=== PATIENT | female | born 1950 | race American Indian/Alaskan Native ===

== ENCOUNTER 2019-03-21 13:45 | Inpatient (IN) | payer MEDICARE ==
[2019-03-21 16:35] LABS: Basophils % (Auto) 0.5 % (0.0-1.8); Eosinophils # (Auto) 0.1 K/mm3 (0.0-0.4); Eosinophils % (Auto) 1.5 % (0.0-4.3); Hematocrit 33.9 % (30.3-42.9); Hemoglobin 10.9 gm/dl (10.1-14.3); Lymphocytes % (Auto) 16.6 % (13.4-35.0); Mean Corpuscular HGB Conc 32 % (30-34); Mean Corpuscular Volume 86 fl (79-97); Monocytes # (Auto) 0.6 K/mm3 (0.0-0.8); Monocytes % (Auto) 10.5 % (0.0-7.3); Platelet Count 375 K/mm3 (140-440); Red Blood Count 3.96 M/mm3 (3.65-5.03)
[2019-03-21 16:36] LABS: Red Cell Distribution Width 21.5 % (13.2-15.2)
[2019-03-21 16:46] LABS: INR 1.46 (0.87-1.13)
[2019-03-21 16:47] LABS: Partial Thromboplastin Time 37.5 Sec. (24.2-36.6)
[2019-03-21 16:55] LABS: Albumin 3.4 g/dL (3.9-5)
--- NOTE | 2019-03-21 16:59 | XRay Report ---
PROCEDURE: XR CHEST 1V AP TECHNIQUE: Chest AP portable HISTORY: Chest Pain COMPARISONS: FINDINGS: Cardiac silhouette is enlarged. There is bilateral pulmonary vascular congestion with interstitial pr ominence. SPECT more confluent opacity in the left lower lobe which is underpenetrated. No right effu mike identified. IMPRESSION: Cardiomegaly Findings suggestive of CHF Possible superimposed left lower lobe infiltrate/effusion. This document is electronically signed by Deepak Johnson MD., March 21 2019 04:57:22 PM ET
[2019-03-21 17:21] LABS: Bacteria,Urine 4+ /HPF (Negative); Bilirubin,Urine NEG (Negative); Blood,Urine NEG (Negative); Color,Urine Yellow (Yellow); Mucus,Urine FEW /HPF; Protein,Urine <15 mg/dL mg/dL (Negative); Urobilinogen,Urine < 2.0 mg/dL (<2.0)
[2019-03-21 17:25] LABS: Chol/HDL Ratio 3.38 %
--- NOTE | 2019-03-21 17:33 | Emergency Department Report ---
ED General Adult HPI - General Chief complaint: Arrhythmia/Palpitations Stated complaint: PAVEL CARDIA Time Seen by Provider: 03/21/19 14:35 Source: patient Mode of arrival: Stretcher Limitations: No Limitations - History of Present Illness Initial comments: She presents to the emergency department with the chief complaint of bradycardia. Patient states she was seen by her home health care nurse today and her heart rate was in the 40s. Patient states that she feels like she is going to pass out. Patient also complains of chest pain that radiates into her back and down into her lower abdomen and describes it as tearing in nature. Patient denies any headaches, shortness of breath. -: Sudden Location: chest Radiation: back Severity scale (0 -10): 4 Quality: other (tearing ) Consistency: constant Improves with: none Worsens with: none Associated Symptoms: chest pain Treatments Prior to Arrival: none - Related Data Allergies Allergy/AdvReac Type Severity Reaction Status Date / Time acetaminophen [From Percocet] Allergy Unknown Verified 03/21/19 14:24 codeine Allergy Unknown Verified 03/21/19 14:24 morphine Allergy Unknown Verified 03/21/19 14:24 oxycodone [From Percocet] Allergy Unknown Verified 03/21/19 14:24 tramadol Allergy Angioedema Verified 03/21/19 18:53 amlodipine AdvReac Headache Verified 03/21/19 14:24 clonidine AdvReac Headache Verified 03/21/19 14:24 sulfadiazine AdvReac Swelling Verified 03/21/19 14:24 ED Review of Systems ROS: Stated complaint: PAVEL CARDIA Other details as noted in HPI Constitutional: denies: chills, fever Eyes: denies: eye pain, eye discharge, vision change ENT: denies: ear pain, throat pain Respiratory: denies: cough, shortness of breath, wheezing Cardiovascular: denies: chest pain, palpitations Endocrine: no symptoms reported Gastrointestinal: denies: abdominal pain, nausea, diarrhea Genitourinary: denies: urgency, dysuria, discharge Musculoskeletal: denies: back pain, joint swelling, arthralgia Skin: denies: rash, lesions Neurological: denies: headache, weakness, paresthesias Psychiatric: denies: anxiety, depression Hematological/Lymphatic: denies: easy bleeding, easy bruising ED Past Medical Hx - Past Medical History Previous Medical History?: Yes Hx Hypertension: Yes Hx Congestive Heart Failure: Yes Additional medical history: pneumonia, hyperlipidemia - Social History Smoking Status: Never Smoker Substance Use Type: None ED Physical Exam - General Limitations: No Limitations General appearance: alert, in no apparent distress - Head Head exam: Present: atraumatic, normocephalic - Eye Eye exam: Present: normal appearance, PERRL, EOMI - ENT ENT exam: Present: mucous membranes moist - Neck Neck exam: Present: normal inspection - Respiratory Respiratory exam: Present: rales. Absent: respiratory distress - Cardiovascular Cardiovascular Exam: Present: regular rate, normal rhythm. Absent: systolic murmur, diastolic murmur, rubs, gallop - GI/Abdominal GI/Abdominal exam: Present: soft, normal bowel sounds. Absent: distended, tenderness - Extremities Exam Extremities exam: Present: normal inspection, other (pitting edema) - Back Exam Back exam: Present: normal inspection - Neurological Exam Neurological exam: Present: alert, oriented X3, CN II-XII intact. Absent: motor sensory deficit - Psychiatric Psychiatric exam: Present: normal affect, normal mood - Skin Skin exam: Present: warm, dry, intact, normal color. Absent: rash ED Course Vital Signs 03/21/19 14:24 Temperature 97.9 F Pulse Rate 50 L Respiratory 16 Rate Blood Pressure 98/49 O2 Sat by Pulse 99 Oximetry ED Medical Decision Making - Lab Data Result diagrams: 03/21/19 15:58 03/21/19 15:58 Lab Results 03/21/19 03/21/19 03/21/19 Range/Units 15:58 15:58 15:58 WBC 6.0 (4.5-11.0) K/mm3 RBC 3.96 (3.65-5.03) M/mm3 Hgb 10.9 (10.1-14.3) gm/dl Hct 33.9 (30.3-42.9) % MCV 86 (79-97) fl MCH 28 (28-32) pg MCHC 32 (30-34) % RDW 21.5 H (13.2-15.2) % Plt Count 375 (140-440) K/mm3 Lymph % (Auto) 16.6 (13.4-35.0) % [place] % (Auto) 10.5 H (0.0-7.3) % Eos % (Auto) 1.5 (0.0-4.3) % Baso % (Auto) 0.5 (0.0-1.8) % Lymph # 1.0 L (1.2-5.4) K/mm3 [place] # 0.6 (0.0-0.8) K/mm3 Eos # 0.1 (0.0-0.4) K/mm3 Baso # 0.0 (0.0-0.1) K/mm3 Seg Neutrophils % 70.9 H (40.0-70.0) % Seg Neutrophils # 4.3 (1.8-7.7) K/mm3 PT 18.7 H (12.2-14.9) Sec. INR 1.46 H (0.87-1.13) APTT 37.5 H (24.2-36.6) Sec. Sodium 147 H (137-145) mmol/L Potassium 3.3 L (3.6-5.0) mmol/L Chloride 103.0 (98-107) mmol/L Carbon Dioxide 32 H (22-30) mmol/L Anion Gap 15 mmol/L BUN 42 H (7-17) mg/dL Creatinine 1.5 H (0.7-1.2) mg/dL Estimated GFR 42 ml/min BUN/Creatinine Ratio 28 % Glucose 92 (65-100) mg/dL Calcium 9.0 (8.4-10.2) mg/dL Total Bilirubin 1.00 (0.1-1.2) mg/dL AST 16 (5-40) units/L ALT 11 (7-56) units/L Alkaline Phosphatase 85 (35-129) units/L Troponin T 0.141 H* (0.00-0.029) ng/mL NT-Pro-B Natriuret Pep (0-900) pg/mL Total Protein 7.1 (6.3-8.2) g/dL Albumin 3.4 L (3.9-5) g/dL Albumin/Globulin Ratio 0.9 % Triglycerides 73 (2-149) mg/dL Cholesterol 149 (50-199) mg/dL LDL Cholesterol Direct 104 (50-130) mg/dL HDL Cholesterol 44 (40-59) mg/dL Cholesterol/HDL Ratio 3.38 % Lipase (13-60) units/L Urine Color (Yellow) Urine Turbidity (Clear) Urine pH (5.0-7.0) Ur Specific [place] (1.003-1.030) Urine Protein (Negative) mg/dL Urine Glucose (UA) (Negative) mg/dL Urine Ketones (Negative) mg/dL Urine Blood (Negative) Urine Nitrite (Negative) Urine Bilirubin (Negative) Urine Urobilinogen (<2.0) mg/dL Ur Leukocyte Esterase (Negative) Urine WBC (Auto) (0.0-6.0) /HPF Urine RBC (Auto) (0.0-6.0) /HPF U Epithel Cells (Auto) (0-13.0) /HPF Urine Bacteria (Auto) (Negative) /HPF Urine Mucus /HPF Digoxin (0.9-2.0) ng/mL 03/21/19 03/21/19 03/21/19 Range/Units 15:58 15:58 15:58 WBC (4.5-11.0) K/mm3 RBC (3.65-5.03) M/mm3 Hgb (10.1-14.3) gm/dl Hct (30.3-42.9) % MCV (79-97) fl MCH (28-32) pg MCHC (30-34) % RDW (13.2-15.2) % Plt Count (140-440) K/mm3 Lymph % (Auto) (13.4-35.0) % [place] % (Auto) (0.0-7.3) % Eos % (Auto) (0.0-4.3) % Baso % (Auto) (0.0-1.8) % Lymph # (1.2-5.4) K/mm3 [place] # (0.0-0.8) K/mm3 Eos # (0.0-0.4) K/mm3 Baso # (0.0-0.1) K/mm3 Seg Neutrophils % (40.0-70.0) % Seg Neutrophils # (1.8-7.7) K/mm3 PT (12.2-14.9) Sec. INR (0.87-1.13) APTT (24.2-36.6) Sec. Sodium (137-145) mmol/L Potassium (3.6-5.0) mmol/L Chloride (98-107) mmol/L Carbon Dioxide (22-30) mmol/L Anion Gap mmol/L BUN (7-17) mg/dL Creatinine (0.7-1.2) mg/dL Estimated GFR ml/min BUN/Creatinine Ratio % Glucose (65-100) mg/dL Calcium (8.4-10.2) mg/dL Total Bilirubin (0.1-1.2) mg/dL AST (5-40) units/L ALT (7-56) units/L Alkaline Phosphatase (35-129) units/L Troponin T (0.00-0.029) ng/mL NT-Pro-B Natriuret Pep 4053 H (0-900) pg/mL Total Protein (6.3-8.2) g/dL Albumin (3.9-5) g/dL Albumin/Globulin Ratio % Triglycerides (2-149) mg/dL Cholesterol (50-199) mg/dL LDL Cholesterol Direct (50-130) mg/dL HDL Cholesterol (40-59) mg/dL Cholesterol/HDL Ratio % Lipase 20 (13-60) units/L Urine Color (Yellow) Urine Turbidity (Clear) Urine pH (5.0-7.0) Ur Specific [place] (1.003-1.030) Urine Protein (Negative) mg/dL Urine Glucose (UA) (Negative) mg/dL Urine Ketones (Negative) mg/dL Urine Blood (Negative) Urine Nitrite (Negative) Urine Bilirubin (Negative) Urine Urobilinogen (<2.0) mg/dL Ur Leukocyte Esterase (Negative) Urine WBC (Auto) (0.0-6.0) /HPF Urine RBC (Auto) (0.0-6.0) /HPF U Epithel Cells (Auto) (0-13.0) /HPF Urine Bacteria (Auto) (Negative) /HPF Urine Mucus /HPF Digoxin 0.6 L (0.9-2.0) ng/mL 03/21/19 03/21/19 Range/Units 17:00 17:24 WBC (4.5-11.0) K/mm3 RBC (3.65-5.03) M/mm3 Hgb (10.1-14.3) gm/dl Hct (30.3-42.9) % MCV (79-97) fl MCH (28-32) pg MCHC (30-34) % RDW (13.2-15.2) % Plt Count (140-440) K/mm3 Lymph % (Auto) (13.4-35.0) % [place] % (Auto) (0.0-7.3) % Eos % (Auto) (0.0-4.3) % Baso % (Auto) (0.0-1.8) % Lymph # (1.2-5.4) K/mm3 [place] # (0.0-0.8) K/mm3 Eos # (0.0-0.4) K/mm3 Baso # (0.0-0.1) K/mm3 Seg Neutrophils % (40.0-70.0) % Seg Neutrophils # (1.8-7.7) K/mm3 PT (12.2-14.9) Sec. INR (0.87-1.13) APTT (24.2-36.6) Sec. Sodium (137-145) mmol/L Potassium (3.6-5.0) mmol/L Chloride (98-107) mmol/L Carbon Dioxide (22-30) mmol/L Anion Gap mmol/L BUN (7-17) mg/dL Creatinine (0.7-1.2) mg/dL Estimated GFR ml/min BUN/Creatinine Ratio % Glucose (65-100) mg/dL Calcium (8.4-10.2) mg/dL Total Bilirubin (0.1-1.2) mg/dL AST (5-40) units/L ALT (7-56) units/L Alkaline Phosphatase (35-129) units/L Troponin T 0.127 H* (0.00-0.029) ng/mL NT-Pro-B Natriuret Pep (0-900) pg/mL Total Protein (6.3-8.2) g/dL Albumin (3.9-5) g/dL Albumin/Globulin Ratio % Triglycerides (2-149) mg/dL Cholesterol (50-199) mg/dL LDL Cholesterol Direct (50-130) mg/dL HDL Cholesterol (40-59) mg/dL Cholesterol/HDL Ratio % Lipase (13-60) units/L Urine Color Yellow (Yellow) Urine Turbidity Slightly-cloudy (Clear) Urine pH 5.0 (5.0-7.0) Ur Specific [place] 1.014 (1.003-1.030) Urine Protein <15 mg/dl (Negative) mg/dL Urine Glucose (UA) Neg (Negative) mg/dL Urine Ketones Neg (Negative) mg/dL Urine Blood Neg (Negative) Urine Nitrite Neg (Negative) Urine Bilirubin Neg (Negative) Urine Urobilinogen < 2.0 (<2.0) mg/dL Ur Leukocyte Esterase Sm (Negative) Urine WBC (Auto) 13.0 H (0.0-6.0) /HPF Urine RBC (Auto) 1.0 (0.0-6.0) /HPF U Epithel Cells (Auto) 16.0 H (0-13.0) /HPF Urine Bacteria (Auto) 4+ (Negative) /HPF Urine Mucus Few /HPF Digoxin (0.9-2.0) ng/mL - EKG Data -: EKG Interpreted by Me EKG shows normal: sinus rhythm Rate: bradycardia - EKG Data 03/21/19 19:40 RBBB - Radiology Data Radiology results: image reviewed - Medical Decision Making Discussed results with the patient IV Lasix given Critical care time in (mins) excluding proc time.: 35 Critical care attestation.: If time is entered above; I have spent that time in minutes in the direct care of this critically ill patient, excluding procedure time. ED Disposition Clinical Impression: CHF (congestive heart failure), Bradycardia, Elevated troponin Disposition: 09 OP ADMIT IP TO THIS HOSP Is pt being admited?: Yes Does the pt Need Aspirin: No Condition: Fair Referrals: ZOE BEYER MD [Primary Care Provider] - 3-5 Days
--- NOTE | 2019-03-21 19:23 | Cat Scan Report ---
PROCEDURE: CT ANGIO CHEST HISTORY: PE protocol FINDINGS: Contrast-enhanced CT angiography of the chest was performed following the intravenous admin istration of iodinated contrast. These images demonstrate marked cardiomegaly. 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 There is reflux of injected contrast into the hepatic veins, consistent with right heart insufficiency. There is no CT evidence of pulmonary thromboembolic disease. There is no aortic dissection. There is bibasilar dependent atelectasis. There is no pleural or pericardial effusion. In the upper abdomen, there has been a cholecystectomy. IMPRESSION: Marked cardiomegaly No CT evidence of pulmonary thromboembolic disease This document is electronically signed by Robin Red MD., March 21 2019 07:20:48 PM ET
[2019-03-21] MEDS ORDERED: LASIX IV ONE (19:36)
[2019-03-21] MEDS ORDERED: BABY ASPIRIN PO ONE (19:37)
[2019-03-21] MEDS ORDERED: TYLENOL PO ONE (21:41)
[2019-03-21] MEDS ORDERED: ZOFRAN IV PRN (23:58)
[2019-03-21] MEDS ORDERED: SODIUM CHLORIDE FLUSH SYRINGE 10 ML IV PRN (23:58)
[2019-03-22] MEDS ORDERED: SODIUM CHLORIDE FLUSH SYRINGE 10 ML IV PRN ×2 (00:10→04:50)
[2019-03-22] MEDS ORDERED: ZOFRAN IV PRN (00:10)
[2019-03-22] MEDS ORDERED: TYLENOL PO PRN (00:10)
--- NOTE | 2019-03-22 00:10 | History and Physical Report ---
History of Present Illness Date of examination: 03/21/19 Date of admission: 03/21/2019 Chief complaint: Bradycardia, SOB History of present illness: Patient is a 69-year-old female with PMHx of A. fib, hypertension, hyperlipidemia, mitral valve repair, prior stroke, hypothyroidism who was brought to the ER by EMS for complaints of bradycardia. Patient's daughter r eports that the patient developed a sudden onset of shortness of breath while in the car with her driving to [place]. EMS was called and patient was taken to the ER at [facility] for evaluation, prior to that, the patient's daughter reported that her heart rate today was in the 40s, and the patient was feeling lightheaded. Patient report shortness of breath of wrist, denies any chest pain, denies diaphoresis, denies nausea, denies vomiting, denies palpitation. In the ER patient's BNP level was 4053, potassium was 3.3, troponin was elevated, chest x-ray showed cardiomegaly chest x-ray showed cardiomegaly. Patient was initially treated in the ER, cardiology was consulted and patient is admitted for further evaluation of bradycardia and CHF. Past History Past Medical History: atrial fib, heart failure, hyperthyroidism, hypertension, hyperlipidemia, stroke, other (valvular heart disease) Past Surgical History: valve replacement (mitral) Social history: no significant social history, lives with family Family history: no significant family history Medications and Allergies Allergies Allergy/AdvReac Type Severity Reaction Status Date / Time acetaminophen [From Percocet] Allergy Unknown Verified 03/21/19 14:24 codeine Allergy Unknown Verified 03/21/19 14:24 morphine Allergy Unknown Verified 03/21/19 14:24 oxycodone [From Percocet] Allergy Unknown Verified 03/21/19 14:24 tramadol Allergy Angioedema Verified 03/21/19 18:53 amlodipine AdvReac Headache Verified 03/21/19 14:24 clonidine AdvReac Headache Verified 03/21/19 14:24 sulfadiazine AdvReac Swelling Verified 03/21/19 14:24 Home Medications Medication Instructions Recorded Confirmed Last Taken Type Acetaminophen [Acetaminophen ER] 650 mg PO Q8H PRN 03/22/19 03/22/19 Unknown History Apixaban [Eliquis] 5 mg PO Q12H 03/22/19 03/22/19 Unknown History Digoxin [Lanoxin] 1 tab PO DAILY 03/22/19 03/22/19 Unknown History Fluticasone [Flonase] 1 spray BID 03/22/19 03/22/19 Unknown History Isosorbide Dinitrate [Isordil 10 mg PO TID 03/22/19 03/22/19 Unknown History Titradose] Latanoprost [Xalatan] 1 drop OU HS 03/22/19 03/22/19 Unknown History Levothyroxine [Synthroid] 1 tab PO DAILY 03/22/19 03/22/19 Unknown History Pantoprazole [Protonix] 40 mg PO BID 03/22/19 03/22/19 Unknown History Potassium Chloride [K-Dur] 1 tab PO DAILY 03/22/19 03/22/19 Unknown History Pravastatin [Pravachol] 1 tab PO DAILY 03/22/19 03/22/19 Unknown History Torsemide [Demadex] 60 mg PO DAILY 03/22/19 03/22/19 Unknown History Travoprost [Travatan Z 0.004%] 1 drop OU HS 03/22/19 03/22/19 Unknown History hydrALAZINE [Apresoline TAB] 50 mg PO TID 03/22/19 03/22/19 Unknown History Active Meds: Active Medications Acetaminophen (Tylenol) 650 mg PO Q4H PRN PRN Reason: Pain MILD(1-3)/Fever >100.5/YUSUF Review of Systems Cardiovascular: lightheadedness, shortness of breath Musculoskeletal: no muscle cramps Allergic/Immunologic: no gluten intolerance Exam - Constitutional Vitals: Temp Pulse Resp BP Pulse Ox 97.9 F 50 L 16 98/49 99 03/21/19 14:24 03/21/19 14:24 03/21/19 14:24 03/21/19 14:24 03/21/19 14:24 General appearance: Present: mild distress - EENT Eyes: Present: PERRL, EOM intact ENT: hearing intact - Neck Neck: Present: normal ROM - Respiratory Respiratory effort: normal Respiratory: right: CTA - Cardiovascular Rhythm: regular Heart Sounds: Present: S1 & S2 Peripheral Pulses: within normal limits - Rectal Rectal Exam: deferred - Integumentary Integumentary: Present: warm, dry - Musculoskeletal Musculoskeletal: strength equal bilaterally - Psychiatric Psychiatric: cooperative - Neurologic Neurologic: moves all extremities Results - Labs CBC & Chem 7: 03/21/19 15:58 03/21/19 15:58 Labs: Laboratory Last Values WBC 6.0 K/mm3 (4.5-11.0) 03/21/19 15:58 RBC 3.96 M/mm3 (3.65-5.03) 03/21/19 15:58 Hgb 10.9 gm/dl (10.1-14.3) 03/21/19 15:58 Hct 33.9 % (30.3-42.9) 03/21/19 15:58 MCV 86 fl (79-97) 03/21/19 15:58 MCH 28 pg (28-32) 03/21/19 15:58 MCHC 32 % (30-34) 03/21/19 15:58 RDW 21.5 % (13.2-15.2) H 03/21/19 15:58 Plt Count 375 K/mm3 (140-440) 03/21/19 15:58 Lymph % (Auto) 16.6 % (13.4-35.0) 03/21/19 15:58 [place] % (Auto) 10.5 % (0.0-7.3) H 03/21/19 15:58 Eos % (Auto) 1.5 % (0.0-4.3) 03/21/19 15:58 Baso % (Auto) 0.5 % (0.0-1.8) 03/21/19 15:58 Lymph # 1.0 K/mm3 (1.2-5.4) L 03/21/19 15:58 [place] # 0.6 K/mm3 (0.0-0.8) 03/21/19 15:58 Eos # 0.1 K/mm3 (0.0-0.4) 03/21/19 15:58 Baso # 0.0 K/mm3 (0.0-0.1) 03/21/19 15:58 Seg Neutrophils % 70.9 % (40.0-70.0) H 03/21/19 15:58 Seg Neutrophils # 4.3 K/mm3 (1.8-7.7) 03/21/19 15:58 PT 18.7 Sec. (12.2-14.9) H 03/21/19 15:58 INR 1.46 (0.87-1.13) H 03/21/19 15:58 APTT 37.5 Sec. (24.2-36.6) H 03/21/19 15:58 Sodium 147 mmol/L (137-145) H 03/21/19 15:58 Potassium 3.3 mmol/L (3.6-5.0) L 03/21/19 15:58 Chloride 103.0 mmol/L (98-107) 03/21/19 15:58 Carbon Dioxide 32 mmol/L (22-30) H 03/21/19 15:58 Anion Gap 15 mmol/L 03/21/19 15:58 BUN 42 mg/dL (7-17) H 03/21/19 15:58 Creatinine 1.5 mg/dL (0.7-1.2) H 03/21/19 15:58 Estimated GFR 42 ml/min 03/21/19 15:58 BUN/Creatinine Ratio 28 % 03/21/19 15:58 Glucose 92 mg/dL (65-100) 03/21/19 15:58 Calcium 9.0 mg/dL (8.4-10.2) 03/21/19 15:58 Total Bilirubin 1.00 mg/dL (0.1-1.2) 03/21/19 15:58 AST 16 units/L (5-40) 03/21/19 15:58 ALT 11 units/L (7-56) 03/21/19 15:58 Alkaline Phosphatase 85 units/L (35-129) 03/21/19 15:58 Troponin T 0.127 ng/mL (0.00-0.029) H* 03/21/19 17:24 NT-Pro-B Natriuret Pep 4053 pg/mL (0-900) H 03/21/19 15:58 Total Protein 7.1 g/dL (6.3-8.2) 03/21/19 15:58 Albumin 3.4 g/dL (3.9-5) L 03/21/19 15:58 Albumin/Globulin Ratio 0.9 % 03/21/19 15:58 Triglycerides 73 mg/dL (2-149) 03/21/19 15:58 Cholesterol 149 mg/dL (50-199) 03/21/19 15:58 LDL Cholesterol Direct 104 mg/dL (50-130) 03/21/19 15:58 HDL Cholesterol 44 mg/dL (40-59) 03/21/19 15:58 Cholesterol/HDL Ratio 3.38 % 03/21/19 15:58 Lipase 20 units/L (13-60) 03/21/19 15:58 Urine Color Yellow (Yellow) 03/21/19 17:00 Urine Turbidity Slightly-cloudy (Clear) 03/21/19 17:00 Urine pH 5.0 (5.0-7.0) 03/21/19 17:00 Ur Specific [place] 1.014 (1.003-1.030) 03/21/19 17:00 Urine Protein <15 mg/dl mg/dL (Negative) 03/21/19 17:00 Urine Glucose (UA) Neg mg/dL (Negative) 03/21/19 17:00 Urine Ketones Neg mg/dL (Negative) 03/21/19 17:00 Urine Blood Neg (Negative) 03/21/19 17:00 Urine Nitrite Neg (Negative) 03/21/19 17:00 Urine Bilirubin Neg (Negative) 03/21/19 17:00 Urine Urobilinogen < 2.0 mg/dL (<2.0) 03/21/19 17:00 Ur Leukocyte Esterase Sm (Negative) 03/21/19 17:00 Urine WBC (Auto) 13.0 /HPF (0.0-6.0) H 03/21/19 17:00 Urine RBC (Auto) 1.0 /HPF (0.0-6.0) 03/21/19 17:00 U Epithel Cells (Auto) 16.0 /HPF (0-13.0) H 03/21/19 17:00 Urine Bacteria (Auto) 4+ /HPF (Negative) 03/21/19 17:00 Urine Mucus Few /HPF 03/21/19 17:00 Digoxin 0.6 ng/mL (0.9-2.0) L 03/21/19 15:58 Assessment and Plan Assessment and plan: 1. CHF with acute exacerbation 2. Bradycardia 3. Acute dyspnea 4. Hypokalemia 5. JUNE (likely due to diuretic use and dehydration) 6. Elevated troponin 7. Valvular heart disease 8. A. fib rate control 9. Hypertension 10. Stroke with mild deficits 11. Hyperlipidemia 12. History of hypothyroidism Plan: Admit to med telemetry Continue cardiac enzymes every 8 hours 2 Consult cardiology for evaluation 2-D echocardiogram Strict I and O's Daily weight, low sodium diet Replace potassium Monitor renal function Results pulmonary admits DVT prophylaxis with heparin Plan discussed with patient and daughter, voiced understanding Patient's condition and plan of care discussed with Dr. Marcial Advance Directives: Yes VTE prophylaxis?: Chemical Plan of care discussed with patient/family: Yes
[2019-03-22] MEDS ORDERED: K-DUR PO ONE ×3 (01:04→16:00)
[2019-03-22] MEDS: TYLENOL PO PRN ×2 (02:43→16:52)
[2019-03-22] MEDS ORDERED: MORPHINE IV PRN (04:47)
[2019-03-22] MEDS ORDERED: NITROSTAT SL PRN (04:47)
[2019-03-22] MEDS: LASIX IV SCH ×2 (05:32→16:59)
[2019-03-22 06:24] LABS: Basophils % (Auto) 0.7 % (0.0-1.8); Eosinophils # (Auto) 0.2 K/mm3 (0.0-0.4); Eosinophils % (Auto) 2.8 % (0.0-4.3); Hematocrit 30.9 % (30.3-42.9); Hemoglobin 10.2 gm/dl (10.1-14.3); Lymphocytes % (Auto) 17.1 % (13.4-35.0); Mean Corpuscular HGB Conc 33 % (30-34); Mean Corpuscular Volume 86 fl (79-97); Monocytes # (Auto) 0.6 K/mm3 (0.0-0.8); Monocytes % (Auto) 9.8 % (0.0-7.3); Platelet Count 346 K/mm3 (140-440); Red Blood Count 3.61 M/mm3 (3.65-5.03)
[2019-03-22 06:50] LABS: Calcium 8.7 mg/dL (8.4-10.2)
[2019-03-22] MEDS: SODIUM CHLORIDE FLUSH SYRINGE 10 ML IV SCH ×2 (09:29→21:15)
[2019-03-22] MEDS ORDERED: SODIUM CHLORIDE FLUSH SYRINGE 10 ML IV SCH (10:00)
--- NOTE | 2019-03-22 11:42 | Consultation ---
History of Present Illness Consult date: 03/22/19 Requesting physician: ADENIKE PRINCE Consult reason: congestive heart failure History of present illness: The pt is a 69 YO female with a past medical history of paroxysmal atrial fibrillation, anticoagulated with Eliquis, severe MR s/p clipping of MV in 02/2017, HFpEF, HTN, HLP, DM, CKD stage III, hypothyroidism, JESSICA (not currently using CPAP), chronic hypoxia requiring home O2 (2L NC), pulmonary HTN, RV systolic dysfunction, statin intolerance, TIA. She is regularly followed by Dr. Doug Soto at [facility]. She presented with complaints of generalized weakness, dizziness and nausea since Thursday. Yesterday, her home health nurse checked her vital signs and noted bradycardia and recommended pt present to ED for further eval/management. Tele and ECGs reviewed - pt appears to be in sinus bradycardia with RBBB, HR mostly 40s, HR low of 35, no pauses noted. BPs WNL. Pt denies any chest pain, palpitations, vomiting, diaphoresis or syncope. Of note, pt was discharged from [facility] on 03/09/2019 following treatment for HFpEF, acute on chronic respiratory failure, influenza infection, JUNE on CKD. Pt states that during that hospitalization, she was noted to have bradycardia and digoxin was discontinued. However, she resumed her digoxin once she got home. Her last dose of digoxin was Thursday. She is not on any beta blockers at home. ECG done 03/03/2019 at [facility] shows SB with RBBB, HR 58bpm. Echo done 03/03/2019 at [facility] showed EF 55%, severe LVH, mod dilated LA, mitraclip present on MV, mild to mod MR, mod to severe TR, severely elnarged RV, mod to severely reduced RV systolic function, pulm HTN with RVSP 70mmHg, severely dilated RA, mod pleural effusion in left lateral region, no pericardial effusion seen. RHC done 08/[address] [facility] showed CO 4.5L/min, CI 2.0 L/min, PAP 68/46mmHg, PCWP 40mmHg, RV pressures 70/12mmHg, RA pressures 12mmHg, saturations PA 61% FA 99%. Past History Past Medical History: atrial fib, diabetes, heart failure, hypertension, hyperlipidemia, hypothyroidism, stroke (TIA) Past Surgical History: valve replacement (mitral valve clipping) Social history: lives with family. denies: smoking, alcohol abuse, prescription drug abuse Family history: no significant family history Medications and Allergies Allergies Allergy/AdvReac Type Severity Reaction Status Date / Time acetaminophen [From Percocet] Allergy Unknown Verified 03/21/19 14:24 codeine Allergy Unknown Verified 03/21/19 14:24 morphine Allergy Unknown Verified 03/21/19 14:24 oxycodone [From Percocet] Allergy Unknown Verified 03/21/19 14:24 tramadol Allergy Angioedema Verified 03/21/19 18:53 amlodipine AdvReac Headache Verified 03/21/19 14:24 clonidine AdvReac Headache Verified 03/21/19 14:24 sulfadiazine AdvReac Swelling Verified 03/21/19 14:24 Home Medications Medication Instructions Recorded Confirmed Last Taken Type Acetaminophen [Acetaminophen ER] 650 mg PO Q8H PRN 03/22/19 03/22/19 Unknown History Apixaban [Eliquis] 5 mg PO Q12H 03/22/19 03/22/19 Unknown History Digoxin [Lanoxin] 1 tab PO DAILY 03/22/19 03/22/19 Unknown History Fluticasone [Flonase] 1 spray BID 03/22/19 03/22/19 Unknown History Isosorbide Dinitrate [Isordil 10 mg PO TID 03/22/19 03/22/19 Unknown History Titradose] Latanoprost [Xalatan] 1 drop OU HS 03/22/19 03/22/19 Unknown History Levothyroxine [Synthroid] 1 tab PO DAILY 03/22/19 03/22/19 Unknown History Pantoprazole [Protonix] 40 mg PO BID 03/22/19 03/22/19 Unknown History Potassium Chloride [K-Dur] 1 tab PO DAILY 03/22/19 03/22/19 Unknown History Pravastatin [Pravachol] 1 tab PO DAILY 03/22/19 03/22/19 Unknown History Torsemide [Demadex] 60 mg PO DAILY 03/22/19 03/22/19 Unknown History Travoprost [Travatan Z 0.004%] 1 drop OU HS 03/22/19 03/22/19 Unknown History hydrALAZINE [Apresoline TAB] 50 mg PO TID 03/22/19 03/22/19 Unknown History Active Meds: Active Medications Acetaminophen (Tylenol) 650 mg PO Q4H PRN PRN Reason: Pain MILD(1-3)/Fever >100.5/YUSUF Last Admin: 03/22/19 02:43 Dose: 650 mg Documented by: Furosemide (Lasix) 40 mg IV BID@0600,1800 [facility] Last Admin: 03/22/19 05:32 Dose: 40 mg Documented by: Nitroglycerin (Nitrostat) 0.4 mg SL .Q5MIN PRN PRN Reason: Chest Pain Ondansetron HCl (Zofran) 4 mg IV Q8H PRN PRN Reason: Nausea And Vomiting Sodium Chloride (Sodium Chloride Flush Syringe 10 Ml) 10 ml IV BID [facility] Last Admin: 03/22/19 09:29 Dose: 10 ml Documented by: Sodium Chloride (Sodium Chloride Flush Syringe 10 Ml) 10 ml IV PRN PRN PRN Reason: LINE FLUSH Review of Systems Constitutional: fatigue, weakness, no weight loss, no weight gain, no fever, no chills, no sweats Ears, nose, mouth and throat: no ear pain, no nose pain, no sinus pressure, no sinus pain Cardiovascular: lightheadedness, high blood pressure, no chest pain, no or thopnea, no palpitations, no rapid/irregular heart beat, no edema, no syncope, no shortness of breath, no dyspnea on exertion Respiratory: no cough, no shortness of breath, no dyspnea on exertion, no congestion, no wheezing, no pain on inspiration Gastrointestinal: nausea, no abdominal pain, no vomiting, no diarrhea, no constipation, no change in bowel habits Genitourinary Female: no pelvic pain, no flank pain, no dysuria, no urinary frequency, no urgency Musculoskeletal: no neck stiffness, no neck pain, no shooting arm pain, no arm numbness/tingling, no low back pain Integumentary: no rash, no pruritis, no redness, no sores, no wounds Neurological: weakness (generalized), no head injury, no paralysis, no parathesias, no numbness, no tingling Psychiatric: no anxiety Endocrine: no cold intolerance, no heat intolerance Hematologic/Lymphatic: no easy bruising, no easy bleeding Allergic/Immunologic: no urticaria, no wheezing Physical Examination Vital Signs Temp Pulse Resp BP Pulse Ox 97.9 F 50 L 16 98/49 99 03/21/19 14:24 03/21/19 14:24 03/21/19 14:24 03/21/19 14:24 03/21/19 14:24 General appearance: no acute distress HEENT: Positive: PERRL, Normocephaly, Mucus Membranes Moist Neck: Positive: neck supple, trachea midline Cardiac: Positive: Regular Rhythm, S1/S2, Bradycardia Lungs: Positive: clear to auscultation Neuro: Positive: Grossly Intact Abdomen: Positive: Soft. Negative: Tender Skin: Negative: Rash, Wound Musculoskeletal: No Pain Extremities: Absent: edema Results 03/22/19 05:16 03/22/19 05:16 Cardiac Enzymes 03/21/19 Range/Units 15:58 AST 16 (5-40) units/L Coagulation 03/21/19 Range/Units 15:58 PT 18.7 H (12.2-14.9) Sec. INR 1.46 H (0.87-1.13) APTT 37.5 H (24.2-36.6) Sec. Lipids 03/21/19 Range/Units 15:58 Triglycerides 73 (2-149) mg/dL Cholesterol 149 (50-199) mg/dL HDL Cholesterol 44 (40-59) mg/dL Cholesterol/HDL Ratio 3.38 % CBC 03/21/19 03/22/19 Range/Units 15:58 05:16 WBC 6.0 5.9 (4.5-11.0) K/mm3 RBC 3.96 3.61 L (3.65-5.03) M/mm3 Hgb 10.9 10.2 (10.1-14.3) gm/dl Hct 33.9 30.9 (30.3-42.9) % Plt Count 375 346 (140-440) K/mm3 Lymph # 1.0 L 1.0 L (1.2-5.4) K/mm3 Nelson # 0.6 0.6 (0.0-0.8) K/mm3 Eos # 0.1 0.2 (0.0-0.4) K/mm3 Baso # 0.0 0.0 (0.0-0.1) K/mm3 Comprehensive Metabolic Panel 03/21/19 03/22/19 Range/Units 15:58 05:16 Sodium 147 H 147 H (137-145) mmol/L Potassium 3.3 L 3.3 L (3.6-5.0) mmol/L Chloride 103.0 102.6 (98-107) mmol/L Carbon Dioxide 32 H 30 (22-30) mmol/L BUN 42 H 42 H (7-17) mg/dL Creatinine 1.5 H 1.5 H (0.7-1.2) mg/dL Glucose 92 105 H (65-100) mg/dL Calcium 9.0 8.7 (8.4-10.2) mg/dL AST 16 (5-40) units/L ALT 11 (7-56) units/L Alkaline Phosphatase 85 (35-129) units/L Total Protein 7.1 (6.3-8.2) g/dL Albumin 3.4 L (3.9-5) g/dL - Imaging and Cardiology Echo: report reviewed (03/03/2019 at [facility] showed EF 55%, severe LVH, mod dilated LA, mitraclip present on MV, mild to mod MR, mod to severe TR, severely elnarged RV, mod to severely reduced RV systolic function, pulm HTN with RVSP 70mmHg, severely dilated RA, mod pleural effusion in left lateral region, no pericardial effusion seen. ) Cardiac cath: report reviewed (RHC done 08/[address] [facility] showed CO 4.5L/min, CI 2.0 L/min, PAP 68/46mmHg, PCWP 40mmHg, RV pressures 70/12mmHg, RA pressures 12mmHg, saturations PA 61% FA 99%. ) EKG: report reviewed, image reviewed EKG interpretations - Telemetry EKG Rhythm: Sinus Bradycardia - EKG Sinus rhythms and dysrhythmias: sinus bradycardia AV and intraventricular conduction: right bundle branch block Assessment and Plan Pt was discharged from [facility] on 03/09/2019 following treatment for HFpEF, acute on chronic respiratory failure, influenza infection, JUNE on CKD. Pt states that during that hospitalization, she was noted to have bradycardia and digoxin was discontinued. However, she resumed her digoxin once she got home. Her last dose of digoxin was Thursday. Digoxin level is 0.6. She is not on any beta blockers at home. ECG done 03/03/2019 at [facility] shows SB with RBBB, HR 58bpm. Echo done 03/03/2019 at [facility] showed EF 55%, severe LVH, mod dilated LA, mitraclip present on MV, mild to mod MR, mod to severe TR, severely elnarged RV, mod to severely reduced RV systolic function, pulm HTN with RVSP 70mmHg, severely dilated RA, mod pleural effusion in left lateral region, no pericardial effusion seen. RHC done 08/[address] [facility] showed CO 4.5L/min, CI 2.0 L/min, PAP 68/46mmHg, PCWP 40mmHg, RV pressures 70/12mmHg, RA pressures 12mmHg, saturations PA 61% FA 99%. Agree with IV diuretics. Monitor renal indices and replete K+ and check Mg. Elevated troponin appears nonspecific at this time. ECG with no acute ischemic changes. Pt denies any occurrence of chest pain. Cont to trend and repeat ECG in AM. Cont to hold AV karen blocking agents, including digoxin. Can consider resuming home hydralazine if needed for BP control. Check thyroid profile. Cont to monitor closely on telemetry. No apparent emergent indication for pacemaker at this time. The patient has been seen in conjunction with Dr. Munoz who agrees with the as sessment and plan of care. - Patient Problems (1) Symptomatic sinus bradycardia Current Visit: Yes Status: Acute (2) Acute heart failure with preserved ejection fraction Current Visit: Yes Status: Acute (3) Pulmonary hypertension Current Visit: Yes Status: Chronic (4) Right ventricular systolic dysfunction Current Visit: Yes Status: Chronic (5) Sleep apnea Current Visit: Yes Status: Chronic (6) Paroxysmal atrial fibrillation Current Visit: Yes Status: Chronic (7) S/P mitral valve clip implantation Current Visit: Yes Status: Acute (8) HTN (hypertension) Current Visit: Yes Status: Chronic (9) Hyperlipidemia Current Visit: Yes Status: Chronic (10) Diabetes Current Visit: Yes Status: Chronic (11) Hypothyroidism Current Visit: Yes Status: Chronic (12) NSTEMI (non-ST elevated myocardial infarction) Current Visit: Yes Status: Acute Plan to address problem: type II (13) CKD (chronic kidney disease) Current Visit: Yes Status: Chronic (14) Obesity Current Visit: Yes Status: Chronic
[2019-03-23] MEDS: TYLENOL PO PRN (01:45)
[2019-03-23] MEDS: LASIX IV SCH ×2 (05:27→17:17)
[2019-03-23 07:01] LABS: Creatine Kinase MB 1.8 ng/mL (0.0-4.0)
[2019-03-23 07:05] LABS: Calcium 9.1 mg/dL (8.4-10.2)
--- NOTE | 2019-03-23 10:08 | Progress Note ---
Assessment and Plan Thyroid profile WNL. HR in 40s - 50s overnight. Pt appears clinically improved today. Cont IV diuretics and f/u BMP in AM. Likely d/c home tomorrow. Elevated troponin appears nonspecific at this time in setting of CKD and HF. ECG with no acute ischemic changes. Pt denies any occurrence of chest pain. Cont to hold AV karen blocking agents, including digoxin. Can consider resuming home hydralazine if needed for BP control. Cont to monitor closely on telemetry. No apparent emergent indication for pacemaker at this time. The patient has been seen in conjunction with Dr. Munoz who agrees with the assessment and plan of care. - Patient Problems (1) Symptomatic sinus bradycardia Current Visit: Yes Status: Acute (2) Acute heart failure with preserved ejection fraction Current Visit: Yes Status: Acute (3) Pulmonary hypertension Current Visit: Yes Status: Chronic (4) Right ventricular systolic dysfunction Current Visit: Yes Status: Chronic (5) Sleep apnea Current Visit: Yes Status: Chronic (6) Paroxysmal atrial fibrillation Current Visit: Yes Status: Chronic (7) S/P mitral valve clip implantation Current Visit: Yes Status: Acute (8) HTN (hypertension) Current Visit: Yes Status: Chronic (9) Hyperlipidemia Current Visit: Yes Status: Chronic (10) Diabetes Current Visit: Yes Status: Chronic (11) Hypothyroidism Current Visit: Yes Status: Chronic (12) NSTEMI (non-ST elevated myocardial infarction) Current Visit: Yes Status: Acute Plan to address problem: type II (13) CKD (chronic kidney disease) Current Visit: Yes Status: Chronic (14) Obesity Current Visit: Yes Status: Chronic Subjective Date of service: 03/23/19 Principal diagnosis: SB; HF Interval history: pt sitting up at bedside, alert, states she is feeling much better today. Feels ready to discharge home. Tele reviewed - in sinus bradycardia with HR 40s - 50s overnight, no pauses. Objective Last Vital Signs Temp 98.2 F 03/23/19 07:56 Pulse 46 L 03/23/19 09:08 Resp 18 03/23/19 07:56 BP 127/68 03/23/19 07:56 Pulse Ox 97 03/23/19 07:56 - Physical Examination General: No Apparent Distress HEENT: Positive: PERRL, Normocephaly, Mucus Membranes Moist Neck: Positive: neck supple, trachea midline Cardiac: Positive: Regular Rhythm, S1/S2, Bradycardia Lungs: Positive: Decreased Breath Sounds Neuro: Positive: Grossly Intact Abdomen: Positive: Soft. Negative: Tender Skin: Negative: Rash, Wound Musculoskeletal: No Pain Extremities: Absent: edema - Labs and Meds Cardiac Enzymes 03/23/19 Range/Units 05:49 CK-MB (CK-2) 1.8 (0.0-4.0) ng/mL Comprehensive Metabolic Panel 03/23/19 Range/Units 05:49 Sodium 145 (137-145) mmol/L Potassium 4.0 D (3.6-5.0) mmol/L Chloride 105.0 (98-107) mmol/L Carbon Dioxide 29 (22-30) mmol/L BUN 38 H (7-17) mg/dL Creatinine 1.3 H (0.7-1.2) mg/dL Glucose 93 (65-100) mg/dL Calcium 9.1 (8.4-10.2) mg/dL - Imaging and Cardiology EKG: report reviewed, image reviewed Echo: report reviewed (03/03/2019 at [facility] showed EF 55%, severe LVH, mod dilated LA, mitraclip present on MV, mild to mod MR, mod to severe TR, severely elnarged RV, mod to severely reduced RV systolic function, pulm HTN with RVSP 70mmHg, severely dilated RA, mod pleural effusion in left lateral region, no pericardial effusion seen. ) Cardiac cath: report reviewed (RHC done 08/2018 at [facility] showed CO 4.5L/min, CI 2.0 L/min, PAP 68/46mmHg, PCWP 40mmHg, RV pressures 70/12mmHg, RA pressures 12mmHg, saturations PA 61% FA 99%. ) - EKG Sinus rhythms and dysrhythmias: sinus bradycardia AV and intraventricular conduction: right bundle branch block
[2019-03-23] MEDS: SODIUM CHLORIDE FLUSH SYRINGE 10 ML IV SCH (10:17)
[2019-03-23] MEDS ORDERED: ELIQUIS PO SCH (11:00)
[2019-03-23 16:54] VITALS: BP 123/66
--- NOTE | 2019-03-23 18:07 | Progress Note ---
Assessment and Plan . CHF with acute exacerbation 2. Bradycardia 3. Acute dyspnea 4. Hypokalemia 5. JUNE (likely due to diuretic use and dehydration) 6. Elevated troponin 7. Valvular heart disease 8. A. fib rate control 9. Hypertension 10. Stroke with mild deficits 11. Hyperlipidemia 12. History of hypothyroidism Plan: Admit to med telemetry Continue cardiac enzymes every 8 hours 2 Consult cardiology for evaluation 2-D echocardiogram Strict I and O's Daily weight, low sodium diet Replace potassium Monitor renal function Results pulmonary admits DVT prophylaxis with heparin Plan discussed with patient and daughter, voiced understanding Patient's condition and plan of care discussed with Dr. Marcial Advance Directives: Yes VTE prophylaxis?: Chemical Plan of care discussed with patient/family: Yes Subjective Date of service: 03/23/19 Principal diagnosis: SB; HF Objective - Constitutional Vitals: Vital Signs - 12hr 03/23/19 03/23/19 03/23/19 07:52 07:56 09:08 Temperature 98.2 F Pulse Rate 47 L 46 L Pulse Rate [ 46 L Apical] Respiratory 18 18 Rate Blood Pressure 127/68 O2 Sat by Pulse 97 Oximetry 03/23/19 11:45 Temperature 97.6 F Pulse Rate 48 L Pulse Rate [ Apical] Respiratory 16 Rate Blood Pressure 123/66 O2 Sat by Pulse 96 Oximetry - Labs CBC & Chem 7: 03/22/19 05:16 03/23/19 05:49 Labs: Abnormal lab results 03/23/19 Range/Units 05:49 BUN 38 H (7-17) mg/dL Creatinine 1.3 H (0.7-1.2) mg/dL CK-MB (CK-2) Rel Index 4.3 H (0-4) Troponin T 0.108 H* (0.00-0.029) ng/mL
--- NOTE | 2019-03-23 18:29 | Discharge Summary ---
Providers - Providers Date of Admission: 03/22/19 00:17 Date of discharge: 03/23/19 Attending physician: CRYSTAL ORDONEZ 03/22/19 Consult to Cardiac Rehabilitation [CONS] Routine Reason For Exam: Phase I 03/22/19 03:19 Consult to Physician [CONS] Routine Comment: Consulting Provider: TISHA GUZMAN Physician Instructions: Reason For Exam: CHF Primary care physician: ZOE BEYER MD Hospitalization Condition: Fair Hospital course: 1. CHF with acute exacerbation--Improved 2. 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 Acute dyspnea--Improved 4. Hypokalemia -Improved 5. JUNE (likely due to diuretic use and dehydration)--Improved.Vasomotor Nephropathy 6. Elevated troponin--Non specific 7. Valvular heart disease 8. A. fib rate control 9. Hypertension 10. Stroke with mild deficits 11. Hyperlipidemia 12. History of hypothyroidism F/u with [facility] carciology or Dr Chan Disposition: - TO HOME OR SELFCARE Core Measure Documentation - Palliative Care Palliative Care/ Comfort Measures: Not Applicable - Core Measures Any of the following diagnoses?: heart failure - Heart Failure Discharge Requirements SHIVA/ARB for LVSD if EF <40%: Yes Beta bassam at discharge: Yes Exam - Constitutional Vitals: Temp Pulse Resp BP Pulse Ox 97.6 F 48 L 16 123/66 96 03/23/19 11:45 03/23/19 11:45 03/23/19 11:45 03/23/19 11:45 03/23/19 11:45 General appearance: Present: no acute distress, well-nourished - EENT Eyes: Present: PERRL ENT: hearing intact, clear oral mucosa - Neck Neck: Present: supple, normal ROM - Respiratory Respiratory effort: normal Respiratory: bilateral: CTA - Cardiovascular Heart rate: 52 Rhythm: regular Heart Sounds: Present: S1 & S2. Absent: rub, click - Extremities Extremities: no ischemia, pulses intact, pulses symmetrical, No edema Peripheral Pulses: within normal limits - Abdominal General gastrointestinal: Present: soft, non-tender, non-distended, normal bowel sounds Female genitourinary: Present: normal - Integumentary Integumentary: Present: clear, warm, dry - Musculoskeletal Musculoskeletal: gait normal, strength equal bilaterally - Psychiatric Psychiatric: appropriate mood/affect, intact judgment & insight - Neurologic Neurologic: CNII-XII intact, moves all extremities Plan Activity: no restrictions Diet: low fat, low cholesterol, low salt Follow up with: ZOE BEYER MD [Primary Care Provider] - 3-5 Days [facility]JULIA MERCADO MD [Staff Physician] - 7 Days
== END 2019-03-23 19:45 | disposition home health service (06) | DRG 280 ==
LOC: ED 13:45 → 4A 03-22 00:17
PROVIDERS: ADMIT Internal Medicine; ATTEND Internal Medicine
DX: I13.0 Hypertensive heart and chronic kidney disease with heart failure and stage 1 through stage 4 chronic kidney disease, or unspecified chronic kidney disease (principal); N17.0 Acute kidney failure with tubular necrosis; I21.A1 Myocardial infarction type 2; I50.43 Acute on chronic combined systolic (congestive) and diastolic (congestive) heart failure; J96.11 Chronic respiratory failure with hypoxia; J90 Pleural effusion, not elsewhere classified; E87.6 Hypokalemia; E78.5 Hyperlipidemia, unspecified; E03.9 Hypothyroidism, unspecified; E86.0 Dehydration; E11.22 Type 2 diabetes mellitus with diabetic chronic kidney disease; N18.3 Chronic kidney disease, stage 3 (moderate); I27.20 Pulmonary hypertension, unspecified; I08.1 Rheumatic disorders of both mitral and tricuspid valves; E66.9 Obesity, unspecified; Z68.35 Body mass index [BMI] 35.0-35.9, adult; I48.0 Paroxysmal atrial fibrillation; I69.30 Unspecified sequelae of cerebral infarction
CPT/HCPCS: 36415; 71045; 71275; 80048; 80053; 80061; 80162; 81001; 82550; 82553; 83690; 83735; 83880; 84439; 84443; 84484; 85025; 85610; 85730; 93005; 93010; 96374; G0378; J1940; Q9967

== ENCOUNTER 2019-09-08 18:14 | Inpatient (IN) | payer MEDICARE ==
--- NOTE | 2019-09-08 18:32 | Emergency Department Report ---
ED General Adult HPI - General Stated complaint: WEAKNESS Time Seen by Provider: 09/08/19 18:29 - History of Present Illness Initial comments: 69-year-old female with a history of hypertension, CHF, TIA presents with left upper and left lower extremity weakness. Patient also noted to have a facial droop per EMS. Daughter states that she went to work 24 hours ago at 5:30 PM and the patient was talking fine and moving all extremities without complicati on. Daughter states that she returned to her mother's home again 24 hours later at 5:30 inpatient is in the bed not moving her left upper or left lower extremities. EMS was called. Patient had an Accu-Chek which was 78. Patient is oriented to person place as well as to time. - Related Data Home Medications Medication Instructions Recorded Confirmed Last Taken Fluticasone [Flonase] 1 spray BID 03/22/19 03/22/19 Unknown Isosorbide Dinitrate [Isordil 10 mg PO TID 03/22/19 03/22/19 Unknown Titradose] Latanoprost [Xalatan] 1 drop OU HS 03/22/19 03/22/19 Unknown Levothyroxine [Synthroid] 1 tab PO DAILY 03/22/19 03/22/19 Unknown Pantoprazole [Protonix TAB] 40 mg PO BID 03/22/19 03/22/19 Unknown Potassium Chloride [K-Dur] 1 tab PO DAILY 03/22/19 03/22/19 Unknown Pravastatin [Pravachol] 1 tab PO DAILY 03/22/19 03/22/19 Unknown Torsemide [Demadex] 60 mg PO DAILY 03/22/19 03/22/19 Unknown Travoprost [Travatan Z 0.004%] 1 drop OU HS 03/22/19 03/22/19 Unknown hydrALAZINE [Apresoline TAB] 50 mg PO TID 03/22/19 03/22/19 Unknown Previous Rx's Medication Instructions Recorded Last Taken Type Apixaban [Eliquis] 5 mg PO Q12H tablet 03/23/19 Unknown Rx Allergies Allergy/AdvReac Type Severity Reaction Status Date / Time acetaminophen [From Percocet] Allergy Unknown Verified 03/21/19 14:24 codeine Allergy Unknown Verified 03/21/19 14:24 morphine Allergy Unknown Verified 03/21/19 14:24 oxycodone [From Percocet] Allergy Unknown Verified 03/21/19 14:24 tramadol Allergy Angioedema Verified 03/21/19 18:53 amlodipine AdvReac Headache Verified 03/21/19 14:24 clonidine AdvReac Headache Verified 03/21/19 14:24 sulfadiazine AdvReac Swelling Verified 03/21/19 14:24 ED Review of Systems ROS: Stated complaint: WEAKNESS Other details as noted in HPI Constitutional: denies: chills, fever Eyes: denies: eye pain, eye discharge, vision change ENT: denies: ear pain, throat pain Respiratory: denies: cough, shortness of breath, wheezing Cardiovascular: denies: chest pain, palpitations Endocrine: no symptoms reported Gastrointestinal: denies: abdominal pain, nausea, diarrhea Genitourinary: denies: urgency, dysuria, discharge Musculoskeletal: denies: back pain, joint swelling, arthralgia Skin: denies: rash, lesions Neurological: weakness Psychiatric: denies: anxiety, depression Hematological/Lymphatic: denies: easy bleeding, easy bruising ED Past Medical Hx - Past Medical History Hx Hypertension: Yes Hx Congestive Heart Failure: Yes Additional medical history: pneumonia, hyperlipidemia - Social History Smoking Status: Never Smoker - Medications Home Medications: Home Medications Medication Instructions Recorded Confirmed Last Taken Type Fluticasone [Flonase] 1 spray BID 03/22/19 03/22/19 Unknown History Isosorbide Dinitrate [Isordil 10 mg PO TID 03/22/19 03/22/19 Unknown History Titradose] Latanoprost [Xalatan] 1 drop OU HS 03/22/19 03/22/19 Unknown History Levothyroxine [Synthroid] 1 tab PO DAILY 03/22/19 03/22/19 Unknown History Pantoprazole [Protonix TAB] 40 mg PO BID 03/22/19 03/22/19 Unknown History Potassium Chloride [K-Dur] 1 tab PO DAILY 03/22/19 03/22/19 Unknown History Pravastatin [Pravachol] 1 tab PO DAILY 03/22/19 03/22/19 Unknown History Torsemide [Demadex] 60 mg PO DAILY 03/22/19 03/22/19 Unknown History Travoprost [Travatan Z 0.004%] 1 drop OU HS 03/22/19 03/22/19 Unknown History hydrALAZINE [Apresoline TAB] 50 mg PO TID 03/22/19 03/22/19 Unknown History Apixaban [Eliquis] 5 mg PO Q12H tablet 03/23/19 Unknown Rx ED Physical Exam - General General appearance: lethargic, obese, other (able to answer questions however) - Head Head exam: Present: atraumatic, normocephalic - Eye Eye exam: Present: normal appearance - ENT ENT exam: Present: mucous membranes dry - Neck Neck exam: Present: normal inspection - Respiratory Respiratory exam: Present: normal lung sounds bilaterally. Absent: respiratory distress - Cardiovascular Cardiovascular Exam: Present: normal rhythm, bradycardia. Absent: systolic murmur, diastolic murmur, rubs, gallop - GI/Abdominal GI/Abdominal exam: Present: soft, normal bowel sounds. Absent: rebound - Extremities Exam Extremities exam: Present: normal inspection - Back Exam Back exam: Present: normal inspection - Neurological Exam Neurological exam: Present: alert, oriented X3 - Expanded Neurological Exam Expanded Patient oriented to: Present: person, place, time Cranial nerves: EOM's Intact: Normal, Gag Reflex: Normal, Tongue Deviation: Normal, Nystagmus: Normal, Facial Sensation: Normal, Facial Palsy with Forehead Movement: Normal, Facial Palsy without Forehead Movement: Normal Cerebellar function: Finger to Nose: Abnormal Left, Abnormal Right (Unable to touch nose with finger) Upper motor neuron: James Neglect: Abnormal Left Sensory exam: Upper Extremity Light Touch: Normal, Lower Extremity Light Touch: Normal Motor strength exam: RUE: 5, LUE: 3, RLE: 5, LLE: 3 Best Eye Response (Delaplane): (4) open spontaneously Best Motor Response (Delaplane): (6) obeys commands Best Verbal Response (Rakesh): (5) oriented Delaplane Total: 15 - Psychiatric Psychiatric exam: Present: normal affect, normal mood - Skin Skin exam: Present: warm, normal color, erythema (present in inguinal region with no crepitus and erythema present under bilateral breasts). Absent: rash ED Course Vital Signs 09/08/19 09/08/19 09/08/19 18:20 19:28 20:37 Temperature 98 F Pulse Rate 52 L 54 L Respiratory 22 16 Rate Blood Pressure 131/66 Blood Pressure 137/74 [Left] O2 Sat by Pulse 98 98 99 Oximetry ED Medical Decision Making - Lab Data Result diagrams: 09/08/19 19:42 09/08/19 20:23 - EKG Data EKG shows normal: sinus rhythm Rate: bradycardia - EKG Data Interpretation: other (right bundle branch block) - Medical Decision Making Case discussed with teleneurologist. Patient is not a TPA candidate secondary to 24 hours last normal. Teleneurologist recommends patient have MRI and MRA d uring inpatient workup. Patient also noted to have mild congestion on chest x- ray. Patient noted to have a elevated troponin as well. Patient noted to have hyperkalemia with an elevation of her creatinine to 2.5. When questioned her daughter states she has no prior history of renal disease. Patient does have a history of end-stage CHF for which the daughter states she does not take her medications for. Patient's CO2 level was normal on arterial blood gas. Nephrology regarding patient's hyperkalemia put in orders for Kayexalate, insulin, Lasix therapy. Patient also noted to be in rhabdomyolysis as well. Patient to be admitted to the hospitalist service for continued management and treatment. - Differential Diagnosis STEMI; NSTEMI; Dehydration; ANemia; Electrolyte abnormality Critical Care Time: Yes Critical care time in (mins) excluding proc time.: 50 Critical care attestation.: If time is entered above; I have spent that time in minutes in the direct care of this critically ill patient, excluding procedure time. Critical Care time includes time spent with direct bedside care, physician consultation, and frequent reassesment as well as family intervention. ED Disposition Clinical Impression: CHF (congestive heart failure), Diabetes, Elevated troponin, CKD (chronic kidney disease), NSTEMI (non-ST elevated myocardial infarction), CVA (cerebral vascular accident), HTN (hypertension), Hyperkalemia Disposition: OP ADMIT IP TO THIS HOSP Is pt being admited?: Yes Condition: Fair Instructions: Diabetes Mellitus Type 2 in Adults (ED), Hypertension (ED) Time of Disposition: 21:56 Print Language: URUGUAYAN
--- NOTE | 2019-09-08 19:31 | XRay Report ---
CHEST 1 VIEW 1856 INDICATION / CLINICAL INFORMATION: chest pain. COMPARISON: 03/21/2019 FINDINGS: SUPPORT DEVICES: None HEART / MEDIASTINUM: Cardiomegaly LUNGS / PLEURA: Mild congestion is seen. No definite areas of consolidation are noted. No pneumothora x. ADDITIONAL FINDINGS: No significant additional findings. IMPRESSION: Mild congestion Signer Name: Lincoln Milligan MD Signed: 09/08/2019 7:27 PM Workstation Name: [id number]
--- NOTE | 2019-09-08 19:48 | Cat Scan Report ---
CT head/brain wo con INDICATION / CLINICAL INFORMATION: 69 years Female; left sided weakness. TECHNIQUE: Routine CT head without contrast. All CT scans at this location are performed using CT dos e reduction for ALARA by means of automated exposure control. COMPARISON: CT scan of the brain from 07/27/2008 FINDINGS: This is a limited CT scan. Motion related artifacts obscuring the details. BRAIN / INTRACRANIAL CONTENTS: Right supraorbital scalp swelling is seen. Family history of trauma I do not see intracranial sequela from the trauma. No acute hemorrhage, mass effect, midline shift, hydrocephalus, or acute, large territorial infarct. No chronic infarct or focal atrophy. Mild to moderate cortical involution is seen. Volume loss is se en in the cerebellar vermis. In today's CT scan, left putaminal lacunar infarction seen in the last CT scan is much smaller and is now slitlike. Craniocervical junction is normal. ORBITS: No significant abnormality of visualized orbits. SINUSES / MASTOIDS: Retention cyst is seen in the left maxillary sinus. ADDITIONAL FINDINGS: None. IMPRESSION: I do not see hemorrhage or acute parenchymal lesion or acute territorial infarction. Motion related artifacts obscuring the details. Signer Name: Rosibel Arceo MD Signed: 09/08/2019 7:43 PM Workstation Name: [id number]
[2019-09-08 19:54] LABS: Hematocrit 31.7 % (30.3-42.9); Hemoglobin 9.6 gm/dl (10.1-14.3); Mean Corpuscular HGB Conc 30 % (30-34); Mean Corpuscular Volume 83 fl (79-97); Platelet Count 201 K/mm3 (140-440); Red Blood Count 3.82 M/mm3 (3.65-5.03); Red Cell Distribution Width 19.8 % (13.2-15.2)
[2019-09-08 20:05] LABS: INR 1.98 (0.87-1.13)
[2019-09-08 20:06] LABS: Partial Thromboplastin Time 37.4 Sec. (24.2-36.6)
[2019-09-08 20:15] LABS: Chol/HDL Ratio 2.48 %
[2019-09-08 20:50] LABS: Albumin 3.7 g/dL (3.9-5)
[2019-09-08] MEDS ORDERED: FUROSEMIDE 40 MG/4 ML INJ IV ONE (21:09)
[2019-09-08] MEDS ORDERED: SODIUM BICARBONATE 150 MEQ in DEXTROSE 5% IN WATER 1,000 ML IV ONE (21:10)
[2019-09-08] MEDS ORDERED: SODIUM POLYSTYRENE 15 GM/60 ML ORAL LIQD PO ONE (21:10)
[2019-09-08] MEDS ORDERED: INSULIN REGULAR, HUMAN 100 UNITS/1 ML IV ONE (21:14)
[2019-09-08] MEDS ORDERED: DEXTROSE 50% IN WATER (25GM) 50 ML SYRINGE IV ONE (21:15)
[2019-09-08] MEDS ORDERED: ALBUTEROL 2.5 MG/3 ML NEBU IH ONE (21:16)
--- NOTE | 2019-09-08 21:20 | Event Note ---
Case discussed with ED attending dr. simon regarding concern for elevated potassium in the setting of history of CHF orders placed for Kayexalate , Lasix , bicarbonate infusion , Albuterol , Insulin and dextrose Discussed with Dr. team obtain repeat labs in the next few hrs call nephrology with results.
[2019-09-09 00:37] LABS: Creatine Kinase MB 14.7 ng/mL (0.0-4.0)
[2019-09-09 05:31] LABS: Calcium 9.1 mg/dL (8.4-10.2)
[2019-09-09 05:33] LABS: Creatine Kinase MB 13.9 ng/mL (0.0-4.0)
[2019-09-09 05:35] LABS: Calcium 9.1 mg/dL (8.4-10.2)
--- NOTE | 2019-09-09 07:29 | History and Physical Report ---
CHIEF COMPLAINT: Weakness of the left upper and lower limbs. Other complaints include drooling of the left side of the mouth and face. HISTORY OF PRESENT ILLNESS: The patient is a 69-year-old female who was having weakness on the left upper and lower extremity. Also, the patient had drooping of the left side of the face and the patient's daughter said that she went to work about 24 hours prior to presentation and the patient was talking properly and moving all extremities and then she returned to see patient and found that the patient was on bed and unable to move her left upper and left lower extremity with difficulty with speech.EMS was called and checked on the patient, found the blood sugar to be 78 and the patient was able to respond to calling of her name. There was no history of chest pain, no history of shortness of breath, fever or chills. Also, no history of nausea and vomiting was noted. PAST MEDICAL HISTORY: Pertinent for end-stage congestive heart failure, TIA, atrial fibrillation, gout, renal insufficiency and hypertension. Also, the patient has past medical history of pneumonia and hyperlipidemia. PAST SURGICAL HISTORY: Unremarkable. FAMILY HISTORY: Noncontributory. SOCIAL HISTORY: The patient lives with family. Does not smoke, does not drink alcohol and does not use illicit drug. MEDICATIONS: The patient is on Flonase 1 spray nasally twice daily. Also, the patient is on isosorbide dinitrate 10 mg by mouth 3 times daily. The patient is also on latanoprost 1 drop to right eye at bedtime and on Synthroid 1 tablet by mouth daily, dose unknown. The patient is also on Protonix 40 mg by mouth twice daily, potassium chloride, K-Dur, dose unknown, 1 tablet by mouth daily. The patient is also on pravastatin 1 tablet by mouth daily, dose unknown and on torsemide 60 mg by mouth daily. The patient is also on Travatan Z eyedrops 0.004% one drop to the right eye at bedtime. The patient is on hydralazine 50 mg by mouth 3 times daily and on Eliquis 5 mg by mouth every 12 hours. ALLERGIES: THE PATIENT IS ALLERGIC TO ACETAMINOPHEN, CODEINE, MORPHINE, OXYCODONE AND TRAMADOL. REVIEW OF SYSTEMS: CONSTITUTIONAL: There is no fever, no chills, no diaphoresis. HEENT: There is no headache or sore throat. CARDIOVASCULAR SYSTEM: There is no chest pain or orthopnea. RESPIRATORY SYSTEM: There is no shortness of breath or cough. GASTROINTESTINAL SYSTEM: There is no nausea, no vomiting, no abdominal pain, diarrhea or constipation. NEUROLOGICAL SYSTEM: Weakness of the left upper extremity noted and speech impairment noted. There is no numbness and there is a change in mental status. MUSCULOSKELETAL SYSTEM: There is no joint pain or swelling. DERMATOLOGICAL SYSTEM: There is no skin rash or itching. GENITOURINARY SYSTEM: There is no dysuria, hematuria, or flank pain. Rest of system review is normal. PHYSICAL EXAMINATION: GENERAL: At the time of exam, the patient was found to be lethargic, but arousable, unable to communicate with saliva drooling on the left side of the mouth and not in acute distress. VITAL SIGNS: Shows temperature of 98 degrees Fahrenheit, pulse of 52, respirations 22, blood pressure 131/66, O2 sat of 98% on room air. HEENT: Showed pupils to be equal, round, reactive to light and accommodating. Extraocular muscles are intact. NECK: Supple with no JVD or carotid bruit. CARDIOVASCULAR SYSTEM: Showed normal first and second heart sounds with no gallops or murmurs. RESPIRATORY SYSTEM: Showed good air entry on both sides of the lungs with no abnormal breath sounds. GASTROINTESTINAL SYSTEM: Show abdomen to be full, soft, nontender with no organomegaly or rigidity. NEUROLOGIC: Shows generalized weakness with more pronounced weakness on the left side of the body in the left upper and lower limbs. There is also drooling of the mouth on the left side. There is no loss of sensory function. MUSCULOSKELETAL SYSTEM: Show no joint swelling or tenderness. DERMATOLOGICAL SYSTEM: Show no skin rash. GENITOURINARY SYSTEM: Showing no costovertebral angle tenderness. PERTINENT LABORATORY AND IMAGING STUDIES: The patient had CT of the head and brain without contrast done that shows no hemorrhage or acute parenchymal lesion or acute territorial infarction according to the radiologist. The patient also had chest x-ray done that chest x-ray showed mild congestion. LABORATORY STUDIES: The patient has CBC done with normal white count, low hemoglobin of 9.6 and normal hematocrit of 31.7. The patient's coagulation studies show elevated INR of 1.9 with elevated PT of 22.1 and the patient's arterial blood gas shows low pH of 7.299 with normal pCO2 with normal O2 sat and this was done on FiO2 of 28. The patient's chemistry show high potassium level of 6.1 with elevated chloride level of 108 and elevated BUN of 72 with elevated creatinine of 2.4 and the patient's total bilirubin level is high with a value of 2.3. The patient's total creatinine kinase value was high with a value of 3482 and the first troponin level is high with a value of 0.062. The patient's toxicology screen was unremarkable. DIAGNOSES: 1. Left-sided weakness. 2. Hyperkalemia. 3. Congestive heart failure exacerbation. 4. Rhabdomyolysis. 5. Elevated troponin level. PLAN OF CARE: 1. The patient will be admitted to telemetry. 2. The patient will have serial cardiac enzymes involving troponin, total CK, and CK-MB checked every 6 hours x 2 more levels. 3. The patient will have Nephrology consult with who was contacted when the patient was in the Emergency Room and order for bicarbonate drip was placed. 4. The patient will have Neurology consult with Dr. Sofia Olivera because of left-sided weakness and drooling of the left side of the face. 5. The patient will have Cardiology consult with Dr. Sorensen because of elevated troponin level, congestive heart failure exacerbation. 6. The patient will have speech therapy consult to evaluate and treat and we will have physical therapy consult to also evaluate and treat. 7. The patient will remain n.p.o. until swallow test is passed. 8. The patient will have basic metabolic panel checked this morning, 09/09/2019 to monitor potassium levels. 9. The patient will have bilateral carotid Doppler done this morning. 10. The patient will be on IV Lasix 40 mg daily. 11. The patient will be on oxygen, which will be titrated to keep O2 sat above 94%. 12. The patient will have complete 2D echo done this morning. JOB# [id number] OCN/NTS KIRAND
[2019-09-09] MEDS ORDERED: IBUPROFEN 600 MG TAB PO NR (09:30)
--- NOTE | 2019-09-09 10:27 | Vascular Lab Report ---
BILATERAL CAROTID DOPPLER ULTRASOUND INDICATION : LEFT SIDED WEAKNESS TECHNIQUE: Grayscale and color Doppler imaging performed through the neck. COMPARISON: None FINDINGS: Technically difficult study was noted by the technologist. Right: There is minimal atherosclerotic plaques at the bifurcation. Peak systolic velocity in the C CA is 55 cm/s with end-diastolic velocity of 7 cm/s. Peak systolic velocity in the proximal ICA is 84 cm/s with end-diastolic velocity of 12 cm/s. ICA to CCA ratio is less than 2. There is antegrade fl ow in the ECA and the vertebral artery. Left: There is minimal atherosclerotic plaques at the bifurcation. Peak systolic velocity in the CCA is 61 cm/s with end-diastolic velocity of 6 cm/s. Peak systolic velocity in the proximal ICA is 74 cm /s with end-diastolic velocity of 16 cm/s. ICA to CCA ratio is less than 2. There is antegrade flow in the ECA and the vertebral artery. IMPRESSION: No hemodynamically significant stenosis by NASCET criteria. Signer Name: Stephan Cunningham Jr, MD Signed: 09/09/2019 10:23 AM Workstation Name: [id number]
--- NOTE | 2019-09-09 10:43 | Consultation ---
Medications and Allergies Allergies Allergy/AdvReac Type Severity Reaction Status Date / Time acetaminophen [From Percocet] Allergy Unknown Verified 03/21/19 14:24 codeine Allergy Unknown Verified 03/21/19 14:24 morphine Allergy Unknown Verified 03/21/19 14:24 oxycodone [From Percocet] Allergy Unknown Verified 03/21/19 14:24 tramadol Allergy Angioedema Verified 03/21/19 18:53 amlodipine AdvReac Headache Verified 03/21/19 14:24 clonidine AdvReac Headache Verified 03/21/19 14:24 sulfadiazine AdvReac Swelling Verified 03/21/19 14:24 Home Medications Medication Instructions Recorded Confirmed Last Taken Type Fluticasone [Flonase] 1 spray BID 03/22/19 03/22/19 Unknown History Isosorbide Dinitrate [Isordil 10 mg PO TID 03/22/19 03/22/19 Unknown History Titradose] Latanoprost [Xalatan] 1 drop OU HS 03/22/19 03/22/19 Unknown History Levothyroxine [Synthroid] 1 tab PO DAILY 03/22/19 03/22/19 Unknown History Pantoprazole [Protonix TAB] 40 mg PO BID 03/22/19 03/22/19 Unknown History Potassium Chloride [K-Dur] 1 tab PO DAILY 03/22/19 03/22/19 Unknown History Pravastatin [Pravachol] 1 tab PO DAILY 03/22/19 03/22/19 Unknown History Torsemide [Demadex] 60 mg PO DAILY 03/22/19 03/22/19 Unknown History Travoprost [Travatan Z 0.004%] 1 drop OU HS 03/22/19 03/22/19 Unknown History hydrALAZINE [Apresoline TAB] 50 mg PO TID 03/22/19 03/22/19 Unknown History Apixaban [Eliquis] 5 mg PO Q12H tablet 03/23/19 Unknown Rx Active Meds: Active Medications Furosemide (Lasix) 40 mg IV QDAY ROSALBA Sodium Bicarbonate 150 meq/ (Dextrose) 1,150 mls @ 50 mls/hr IV DIRECT ONE Stop: 09/09/19 20:09 Last Admin: 09/08/19 22:03 Dose: 100 mls/hr Documented by: Ibuprofen (Ibuprofen) 600 mg PO ONCE NR Stop: 09/09/19 11:30 Physical Examination - Vital Signs Vital Signs: Vital Signs Temp Pulse Resp BP Pulse Ox 98 F 52 L 22 131/66 98 09/08/19 18:20 09/08/19 18:20 09/08/19 18:20 09/08/19 18:20 09/08/19 18:20 Results - Laboratory Findings CBC and BMP: 09/08/19 19:42 09/09/19 04:02 Abnormal Lab Findings: Abnormal Labs 09/08/19 09/08/19 09/08/19 19:42 19:42 19:42 Hgb 9.6 L MCH 25 L RDW 19.8 H PT 22.1 H INR 1.98 H APTT 37.4 H POC ABG pH Sodium Potassium Chloride Carbon Dioxide BUN Creatinine Glucose POC Glucose Total Bilirubin AST Total Creatine Kinase 3482 H CK-MB (CK-2) Troponin T 0.062 H NT-Pro-B Natriuret Pep Albumin HDL Cholesterol 37 L Salicylates Acetaminophen 09/08/19 09/08/19 09/08/19 19:42 19:42 20:04 Hgb MCH RDW PT INR APTT POC ABG pH Sodium Potassium Chloride Carbon Dioxide BUN Creatinine Glucose POC Glucose Total Bilirubin AST Total Creatine Kinase CK-MB (CK-2) Troponin T NT-Pro-B Natriuret Pep 7079 H Albumin HDL Cholesterol Salicylates < 0.3 L Acetaminophen 8.8 L 09/08/19 09/08/19 09/08/19 20:23 20:40 23:21 Hgb MCH RDW PT INR APTT POC ABG pH 7.299 L Sodium Potassium 6.1 H* Chloride 108.8 H Carbon Dioxide 16 L BUN 72 H Creatinine 2.4 H Glucose 112 H POC Glucose Total Bilirubin 2.30 H AST 113 H Total Creatine Kinase CK-MB (CK-2) Troponin T NT-Pro-B Natriuret Pep Albumin 3.7 L HDL Cholesterol Salicylates Acetaminophen 6.6 L 09/09/19 09/09/19 09/09/19 00:00 04:02 04:02 Hgb MCH RDW PT INR APTT POC ABG pH Sodium 148 H 147 H Potassium Chloride 113.4 H 111.6 H Carbon Dioxide 16 L 18 L BUN 74 H 73 H Creatinine 2.4 H 2.4 H Glucose 101 H POC Glucose Total Bilirubin AST Total Creatine Kinase 3170 H 2941 H CK-MB (CK-2) 14.7 H 13.9 H Troponin T 0.059 H 0.074 H D NT-Pro-B Natriuret Pep Albumin HDL Cholesterol Salicylates Acetaminophen 09/09/19 09/09/19 04:02 07:44 Hgb MCH RDW PT INR APTT POC ABG pH Sodium Potassium Chloride Carbon Dioxide BUN Creatinine Glucose POC Glucose 107 H Total Bilirubin AST Total Creatine Kinase CK-MB (CK-2) Troponin T NT-Pro-B Natriuret Pep 7270 H Albumin HDL Cholesterol Salicylates Acetaminophen Assessment and Plan 69 YR OLD FEMALE WITH HISTORY OF HTN,A FIB, CHF, TIA WHO CAME IN WITH REPORTED WEAKNESS ON THE LEFT SIDE AND LEFT FACIAL DROOP. THESE SIGN/SYMPTOMS WERE DETECTED BY THE DAUGHTER WHO HAD SEEN THE PATIENT ABOUT 24 HRS PRIOR WHEN SHE WAS AMBULATORY WITH OUT ANY DISTRESS OR ANY WEAKNESS OF ANY EXTREMITIES. SHE WAS BROUGHT TO THE EMERGENCY BY EMS.CT SCAN UPON ADMISSION SHOWED OLD LACUNAR IN FARCT IN THE LEFT PUTAMEN AND NO INFARCT WAS SEEN AT ALL ON THE RTSIDE. TODAY PATIENT COMPLAINS OF PAIN FROM THE BACK AND NECK RADIATING TO THE RT FOOT AND HAND. PATIENT COMPLAINS OF SEVERE PAIN. ON ASKING PATIENT SHE DENIED ANY FACIAL DROOP ON THE LEFT SIDE, SHE WAS ON PAIN AND DID NOT ANSWER ALL MY QUESTIONS DUE TO WHICH IT NOT POSSIBLE TO FIND OUT WHETHER SHE WAS COMPLIANT WITH MEDICATION OR NOT, PARTICULARLY APIXABAN. PHYSICAL EXAMINATION. HEART-NORMAL RATE AND RHYTHM. CAROTIDS- BOTH PALPABLE, CRANIAL NERVES - THERE WAS NO FACIAL ASYMMETRY,OR WEAKNESS, EXTRA OCULAR MOVEMENTS WERE INTACT.OTHER CRANIAL NERVES WERE WITH IN NORMAL LIMIT. MOTOR- PATIENT MOVES ALL FOUR EXTREMITIES, HOWEVER MOVEMENT OF THE RT UPPER AND LOWER EXTREMITIES WERE LIMITED DUE TO PAIN, SOME WEAKNESS WAS NOTED ON BOTH UPPER AND LOWER EXTREMITIES ON THE LEFT SIDE. BOTH UPPER AND LOWER EXTREMITIES SEEMED TO BE EQUALLY WEAK. PATIENT ALSO HAS WEAK RT EHL (extensor hallucis longus ) MUSCLE COMPARED TO THE LEFT, WEAK RT [employer] POLICY ON BOTH SIDES. REFLEXES- REFLEXES WERE DECREASED ON THE RT SIDE COMPARED TO THE LEFT, UP GOING TOE ON THE LEFT SIDE SENSORY- DECREASED SENSATION TO PIN PRICK ON RT C5,C6 AND C7 DERMATOMES, DECREASED SENSATION TO PIN PRICK ON RT L5 AND S1 DERMATOMES. STRAIGHT LEG RAISING COULD NOT BE TESTED DUE TO LACK OF COOPERATION FROM THE PATIENT PROBABLY DUE TO ACUTE PAIN. IMPRESSION. 1. PATIENT HAS SOME FEATURE OF STROKE,PROBABLY LACUNAR IN THE RT. HEMISPHERE CAUSING LEFT SIDED WEAKNESS AND INCREASED REFLEXES ON THE LEFT AND UP GOING TOE ON THE LEFT. 2. PATIENT ALSO SEEMS TO HAVE MULTIPLE CERVICAL RADICULOPATHY INVOLVING RT C5,C6 AND C7 NERVE ROOTS AND RT LUMBO SACRAL RADICULOPATHY INVOLVING RT L5 AND S1 NERVE ROOTS. RECOMMENDATION. 1, MRI OF BRAIN WITHOUT CONTRAST. 2. 2D ECHO, CAROTID DUPLEX, 3. MRI OF CERVICAL AND LUMBAR SPINE TO LOOK FOR DISC PROTRUSION. 4. T4, TSH,LIPID PROFILE. 5. FLEXERIL 5 MG ALONG WITH TYELENOL 500MG COMBINED, BID PRN, 6. FURTHER RECOMMENDATION TO FOLLOW AFTER THE WORK UP IS BACK.
[2019-09-09] MEDS: FUROSEMIDE 40 MG/4 ML INJ IV SCH (11:03)
[2019-09-09] MEDS: ACETAMINOPHEN 500 MG TAB PO SCH ×2 (11:24→22:50)
[2019-09-09] MEDS: CYCLOBENZAPRINE 10 MG TAB PO SCH ×2 (11:24→22:51)
--- NOTE | 2019-09-09 11:38 | Magnetic Resonance Report ---
MRI BRAIN WITHOUT CONTRAST INDICATION / CLINICAL INFORMATION: LEFT SIDED WEAKNESS. TECHNIQUE: Multisequence, multiplanar images were obtained. COMPARISON: CT head dated 09/08/2019 FINDINGS: CEREBRAL and CEREBELLAR HEMISPHERES: A subtle 5 mm focus of diffusion restriction is suggested in the right side of the brainstem/reddy which is best demonstrated on diffusion image 9. There is subtle de creased signal in this area on the ADC map. No other areas of diffusion restriction are identified. M ild to moderate diffuse volume loss and chronic microvascular ischemic changes in the white matter ar e identified. Chronic hemorrhagic infarct in the left putamen region measures up to 1.4 cm in greates t dimension. No evidence of mass or mass effect. No midline shift. No acute hemorrhage. No extra-ax ial fluid collection. VENTRICLES: Normal in size and configuration for age. VISUALIZED ORBITS: No significant abnormality. VISUALIZED PARANASAL SINUSES: Mild mucosal thickening is noted in the ethmoid and maxillary sinuses. A large mucous retention cyst in the left inferior maxillary sinus measures 2.7 cm. ADDITIONAL FINDINGS: None. IMPRESSION: Question a small subtle focus of subacute ischemia in the right side of the brainstem as detailed abo ve. Please correlate with the image and the patient's clinical presentation. Volume loss. Chronic white matter changes. Chronic focal hemorrhagic infarct in the left putamen/subinsular region. Mild chronic sinus disease as described. Signer Name: Stephan Cunningham Jr, MD Signed: 09/09/2019 11:34 AM Workstation Name: [id number]
--- NOTE | 2019-09-09 11:40 | Consultation ---
History of Present Illness - History of Present Illness Thank you for the consultation Patient was evaluated today My assessment and plan are as follows Renal failure likely acute patient's baseline creatinine was 1.3 in March 2019 c urrently since last 48 hours his creatinine has been around 2.4? Progression of renal failure? Acute, needs workup and follow up on the renal function avoid nephrotoxic medications Will order labs as well as renal imaging and make further recommendations she is currently on diuretic as well as bicarbonate infusion Monitor her bicarbonate level Creatinine kinase elevated 3482 upon admission currently 2941, possible rule out low-grade rhabdomyolysis Pressure appears to be currently well controlled patient has mild bradycardia Patient does have risk factors for underlying chronic kidney disease, Patient was adequately counseled and educated regarding all the renal related issues Renal prognosis remains guarded at this time Patient will need to make a follow-up appointment in the office upon discharge within a week or two Will continue to follow and make recommendation from renal standpoint Source of information; From patient's chart Patient appears to be encephalopathic Patient is unable to provide history old records were also reviewed History of presenting illness; 69-year-old female who has been admitted here with multiple health issues, and has been noted to be in renal failure creatinine was 1.3 in March 2019 in the past 48 hours her creatinine is stable around 2.4 Patient has also been noted to have low-grade rhabdomyolysis creatinine kinase was 3482 upon admission currently 2941 Patient has been admitted here with left upper and lower extremity weakness with facial droop, her potassium upon admission was 6.1, which was treated medically She has multiple risk factors and underlying chronic kidney disease including history of prior myocardial infarction, CVA, hypertension, obesity, congestive heart failure Past medical history is significant for Hyperlipidemia Hypertension Gastroesophageal reflux disorder Hypothyroidism Morbid obesity chronic kidney disease current allergies: Reviewed Home medication present medication: Reviewed Social history: Family history: Reviewed from the chart Review of system unable to obtain patient unable to provide history Labs and x-rays: Were reviewed from the current chart Physical examination General: No acute distress HEENT: Oral mucosa moist no pharyngeal erythema no pallor or icterus no uremic order, she is on oxygen Neck: Supple no evidence of any thyromegaly trachea midline no JVD Chest: Clear to auscultation no crackles are also wheezes anteriorly Heart: Regular rate and rhythm S1-S2 heard no S3-S4 Abdomen: Soft nontender no renal bruit no CVA tenderness no suprapubic fullness no organomegaly Extremity: Minimal edema dry skin no peripheral cyanosis pulses palpable Neurological: she is arousable does follow some commands follows command grossly nonfocal examination Back: Nontender thoracolumbar spine Musculoskeletal: No joint effusion noted Skin: No petechial rash/noted patient appears to be arousable but sleepy she does follow some commands but goes back to sleep Medications and Allergies Allergies Allergy/AdvReac Type Severity Reaction Status Date / Time acetaminophen [From Percocet] Allergy Unknown Verified 03/21/19 14:24 codeine Allergy Unknown Verified 03/21/19 14:24 morphine Allergy Unknown Verified 03/21/19 14:24 oxycodone [From Percocet] Allergy Unknown Verified 03/21/19 14:24 tramadol Allergy Angioedema Verified 03/21/19 18:53 amlodipine AdvReac Headache Verified 03/21/19 14:24 clonidine AdvReac Headache Verified 03/21/19 14:24 sulfadiazine AdvReac Swelling Verified 03/21/19 14:24 Home Medications Medication Instructions Recorded Confirmed Last Taken Type Fluticasone [Flonase] 1 spray BID 03/22/19 03/22/19 Unknown History Isosorbide Dinitrate [Isordil 10 mg PO TID 03/22/19 03/22/19 Unknown History Titradose] Latanoprost [Xalatan] 1 drop OU HS 03/22/19 03/22/19 Unknown History Levothyroxine [Synthroid] 1 tab PO DAILY 03/22/19 03/22/19 Unknown History Pantoprazole [Protonix TAB] 40 mg PO BID 03/22/19 03/22/19 Unknown History Potassium Chloride [K-Dur] 1 tab PO DAILY 03/22/19 03/22/19 Unknown History Pravastatin [Pravachol] 1 tab PO DAILY 03/22/19 03/22/19 Unknown History Torsemide [Demadex] 60 mg PO DAILY 03/22/19 03/22/19 Unknown History Travoprost [Travatan Z 0.004%] 1 drop OU HS 03/22/19 03/22/19 Unknown History hydrALAZINE [Apresoline TAB] 50 mg PO TID 03/22/19 03/22/19 Unknown History Apixaban [Eliquis] 5 mg PO Q12H tablet 03/23/19 Unknown Rx Active Meds: Active Medications Acetaminophen (Tylenol) 500 mg PO BID [facility] Last Admin: 09/09/19 11:24 Dose: 500 mg Documented by: Cyclobenzaprine HCl (Flexeril) 5 mg PO BID [facility] Last Admin: 09/09/19 11:24 Dose: 5 mg Documented by: Furosemide (Lasix) 40 mg IV QDAY [facility] Last Admin: 09/09/19 11:03 Dose: 40 mg Documented by: Sodium Bicarbonate 150 meq/ (Dextrose) 1,150 mls @ 50 mls/hr IV DIRECT ONE Stop: 09/09/19 20:09 Last Admin: 09/08/19 22:03 Dose: 100 mls/hr Documented by: Exam - Vital Signs Vital signs: Vital Signs Temp Pulse Resp BP Pulse Ox 98 F 52 L 22 131/66 98 09/08/19 18:20 09/08/19 18:20 09/08/19 18:20 09/08/19 18:20 09/08/19 18:20 Results - Lab Results 09/08/19 19:42 09/09/19 04:02 Most recent lab results Calcium 9.1 mg/dL (8.4-10.2) 09/09/19 04:02 Calcium 9.1 mg/dL (8.4-10.2) 09/09/19 04:02
--- NOTE | 2019-09-09 12:04 | Progress Note ---
Assessment and Plan Assessment and plan: Right brain stem CVA/infarct. Neurology following. PT/OT evaluation. Follow- up echocardiogram. Carotid Doppler negative. Acute renal failure. Patient with a baseline creatinine 1.25 Mar 2019. Nephro logy following. Elevated troponin. Etiology likely secondary to renal insufficiency. Cardiology consulted. Follow-up echocardiogram. Rhabdomyolysis. Continue to monitor CK. Hyperkalemia. Resolved. History Interval history: No new issues overnight. Hospitalist Physical - Constitutional Vitals: Temp Pulse Resp BP Pulse Ox 98.4 F 56 L 24 109/44 96 09/09/19 07:39 09/09/19 07:46 09/09/19 07:47 09/09/19 07:39 09/09/19 07:47 General appearance: Present: no acute distress, well-nourished - EENT Eyes: Present: PERRL, EOM intact ENT: hearing intact, clear oral mucosa, dentition normal - Neck Neck: Present: supple, normal ROM - Respiratory Respiratory effort: normal Respiratory: bilateral: CTA - Cardiovascular Rhythm: regular Heart Sounds: Present: S1 & S2. Absent: gallop, rub - Extremities Extremities: no ischemia, No edema, Full ROM - Abdominal General gastrointestinal: soft, non-tender, non-distended, normal bowel sounds - Integumentary Integumentary: Present: clear, warm, dry - Neurologic Neurologic: CNII-XII intact, moves all extremities Results - Labs CBC & Chem 7: 09/08/19 19:42 09/09/19 04:02 Labs: Laboratory Last Values WBC 8.4 K/mm3 (4.5-11.0) 09/08/19 19:42 RBC 3.82 M/mm3 (3.65-5.03) 09/08/19 19:42 Hgb 9.6 gm/dl (10.1-14.3) L 09/08/19 19:42 Hct 31.7 % (30.3-42.9) 09/08/19 19:42 MCV 83 fl (79-97) 09/08/19 19:42 MCH 25 pg (28-32) L 09/08/19 19:42 MCHC 30 % (30-34) 09/08/19 19:42 RDW 19.8 % (13.2-15.2) H 09/08/19 19:42 Plt Count 201 K/mm3 (140-440) 09/08/19 19:42 PT 22.1 Sec. (12.2-14.9) H 09/08/19 19:42 INR 1.98 (0.87-1.13) H 09/08/19 19:42 APTT 37.4 Sec. (24.2-36.6) H 09/08/19 19:42 POC ABG pH 7.299 (7.35-7.45) L 09/08/19 20:40 POC ABG pCO2 37.4 (35-45) 09/08/19 20:40 POC ABG pO2 88 (80-105) 09/08/19 20:40 POC ABG HCO3 18.4 (22-26 mml/L) 09/08/19 20:40 POC ABG Total CO2 19 (23-27mmol/L) 09/08/19 20:40 POC ABG O2 Sat 96 09/08/19 20:40 POC ABG Base Excess -8 ((-2) - (+3)mmol/L) 09/08/19 20:40 FiO2 28 % 09/08/19 20:40 Sodium 147 mmol/L (137-145) H 09/09/19 04:02 Sodium 148 mmol/L (137-145) H 09/09/19 04:02 Potassium 5.0 mmol/L (3.6-5.0) 09/09/19 04:02 Potassium 5.0 mmol/L (3.6-5.0) 09/09/19 04:02 Chloride 111.6 mmol/L (98-107) H 09/09/19 04:02 Chloride 113.4 mmol/L (98-107) H 09/09/19 04:02 Carbon Dioxide 16 mmol/L (22-30) L 09/09/19 04:02 Carbon Dioxide 18 mmol/L (22-30) L 09/09/19 04:02 Anion Gap 22 mmol/L 09/09/19 04:02 Anion Gap 24 mmol/L 09/09/19 04:02 BUN 73 mg/dL (7-17) H 09/09/19 04:02 BUN 74 mg/dL (7-17) H 09/09/19 04:02 Creatinine 2.4 mg/dL (0.7-1.2) H 09/09/19 04:02 Creatinine 2.4 mg/dL (0.7-1.2) H 09/09/19 04:02 Estimated GFR 24 ml/min 09/09/19 04:02 Estimated GFR 24 ml/min 09/09/19 04:02 BUN/Creatinine Ratio 30 % 09/09/19 04:02 BUN/Creatinine Ratio 31 % 09/09/19 04:02 Glucose 100 mg/dL (65-100) 09/09/19 04:02 Glucose 101 mg/dL (65-100) H 09/09/19 04:02 POC Glucose 107 (70-105) H 09/09/19 07:44 Calcium 9.1 mg/dL (8.4-10.2) 09/09/19 04:02 Calcium 9.1 mg/dL (8.4-10.2) 09/09/19 04:02 Total Bilirubin 2.30 mg/dL (0.1-1.2) H 09/08/19 20:23 AST 113 units/L (5-40) H 09/08/19 20:23 ALT 24 units/L (7-56) 09/08/19 20:23 Alkaline Phosphatase 106 units/L (35-129) 09/08/19 20:23 Total Creatine Kinase 2941 units/L (30-135) H 09/09/19 04:02 CK-MB (CK-2) 13.9 ng/mL (0.0-4.0) H 09/09/19 04:02 CK-MB (CK-2) Rel Index 0.4 (0-4) 09/09/19 04:02 Troponin T 0.074 ng/mL (0.00-0.029) H D 09/09/19 04:02 NT-Pro-B Natriuret Pep 7270 pg/mL (0-900) H 09/09/19 04:02 Total Protein 7.7 g/dL (6.3-8.2) 09/08/19 20:23 Albumin 3.7 g/dL (3.9-5) L 09/08/19 20:23 Albumin/Globulin Ratio 0.9 % 09/08/19 20:23 Triglycerides 55 mg/dL (2-149) 09/08/19 19:42 Cholesterol 92 mg/dL (50-199) 09/08/19 19:42 LDL Cholesterol Direct 50 mg/dL (50-130) 09/08/19 19:42 HDL Cholesterol 37 mg/dL (40-59) L 09/08/19 19:42 Cholesterol/HDL Ratio 2.48 % 09/08/19 19:42 Salicylates < 0.3 mg/dL (2.8-20.0) L 09/08/19 19:42 Acetaminophen 6.6 ug/mL (10.0-30.0) L 09/08/19 23:21 Plasma/Serum Alcohol < 0.01 % (0-0.07) 09/08/19 19:42 Active Medications - Current Medications Current Medications: Generic Name Dose Route Start Last Admin Trade Name Nicole PRN Reason Stop Dose Admin Acetaminophen 500 mg 09/09/19 11:00 09/09/19 11:24 Tylenol PO 500 mg BID ROSALBA Administration Cyclobenzaprine HCl 5 mg 09/09/19 11:00 09/09/19 11:24 Flexeril PO 5 mg BID ROSALBA Administration Furosemide 40 mg 09/09/19 10:00 09/09/19 11:03 Lasix IV 40 mg QDAY ROSALBA Administration Sodium Bicarbonate 150 meq/ 1,150 mls @ 50 mls/hr 09/08/19 21:10 09/08/19 22:03 Dextrose IV 09/09/19 20:09 100 mls/hr DIRECT ONE Administration
--- NOTE | 2019-09-09 13:55 | Consultation ---
History of Present Illness Consult date: 09/09/19 Requesting physician: SACHIN CRANE Consult reason: congestive heart failure, elevated troponin History of present illness: The pt is a 69 YO female with a past medical history of paroxysmal atrial fibrillation, anticoagulated with Eliquis, severe MR s/p clipping of MV in 02/2017, HFpEF, HTN, HLP, DM, CKD stage III, hypothyroidism, JESSICA (not currently using CPAP), chronic hypoxia requiring home O2 (2L NC), pulmonary HTN, RV systolic dysfunction, statin intolerance, TIA. She is regularly followed by Dr. Doug Soto at [facility]. She is lethargic on evaluation and cannot recall why she presented to the hospital. Per the chart, she presented for evaluation of left-sided weakness and left facial droop which were present for approx 24 hours prior to presentation. Head CT was negative for any acute findings, showed old lacunar infarct. Brain MRI is pending. Pt reports that she has been compliant with all of her home medications, including Eliquis. Pt currently c/o some SOB. She denies any chest pain, palpitations, n/v, diaphoresis, dizziness or syncope. Echo done 03/03/2019 at [facility] showed EF 55%, severe LVH, mod dilated LA, mitraclip present on MV, mild to mod MR, mod to severe TR, severely elnarged RV, mod to severely reduced RV systolic function, pulm HTN with RVSP 70mmHg, severely dilated RA, mod pleural effusion in left lateral region, no pericardial effusion seen. RHC done 08/2018 at [facility] showed CO 4.5L/min, CI 2.0 L/min, PAP 68/46mmHg, PCWP 40mmHg, RV pressures 70/12mmHg, RA pressures 12mmHg, saturations PA 61% FA 99%. Medications and Allergies Allergies Allergy/AdvReac Type Severity Reaction Status Date / Time acetaminophen [From Percocet] Allergy Unknown Verified 03/21/19 14:24 codeine Allergy Unknown Verified 03/21/19 14:24 morphine Allergy Unknown Verified 03/21/19 14:24 oxycodone [From Percocet] Allergy Unknown Verified 03/21/19 14:24 tramadol Allergy Angioedema Verified 03/21/19 18:53 amlodipine AdvReac Headache Verified 03/21/19 14:24 clonidine AdvReac Headache Verified 03/21/19 14:24 sulfadiazine AdvReac Swelling Verified 03/21/19 14:24 Home Medications Medication Instructions Recorded Confirmed Last Taken Type Fluticasone [Flonase] 1 spray BID 03/22/19 03/22/19 Unknown History Isosorbide Dinitrate [Isordil 10 mg PO TID 03/22/19 03/22/19 Unknown History Titradose] Latanoprost [Xalatan] 1 drop OU HS 03/22/19 03/22/19 Unknown History Levothyroxine [Synthroid] 1 tab PO DAILY 03/22/19 03/22/19 Unknown History Pantoprazole [Protonix TAB] 40 mg PO BID 03/22/19 03/22/19 Unknown History Potassium Chloride [K-Dur] 1 tab PO DAILY 03/22/19 03/22/19 Unknown History Pravastatin [Pravachol] 1 tab PO DAILY 03/22/19 03/22/19 Unknown History Torsemide [Demadex] 60 mg PO DAILY 03/22/19 03/22/19 Unknown History Travoprost [Travatan Z 0.004%] 1 drop OU HS 03/22/19 03/22/19 Unknown History hydrALAZINE [Apresoline TAB] 50 mg PO TID 03/22/19 03/22/19 Unknown History Apixaban [Eliquis] 5 mg PO Q12H tablet 03/23/19 Unknown Rx Active Meds: Active Medications Acetaminophen (Tylenol) 500 mg PO BID [facility] Last Admin: 09/09/19 11:24 Dose: 500 mg Documented by: Cyclobenzaprine HCl (Flexeril) 5 mg PO BID [facility] Last Admin: 09/09/19 11:24 Dose: 5 mg Documented by: Furosemide (Lasix) 40 mg IV QDAY [facility] Last Admin: 09/09/19 11:03 Dose: 40 mg Documented by: Sodium Bicarbonate 150 meq/ (Dextrose) 1,150 mls @ 50 mls/hr IV DIRECT ONE Stop: 09/09/19 20:09 Last Admin: 09/08/19 22:03 Dose: 100 mls/hr Documented by: Physical Examination Vital Signs Temp Pulse Resp BP Pulse Ox 98 F 52 L 22 131/66 98 09/08/19 18:20 09/08/19 18:20 09/08/19 18:20 09/08/19 18:20 09/08/19 18:20 Results 09/08/19 19:42 09/09/19 04:02 Cardiac Enzymes 09/08/19 09/09/19 09/09/19 Range/Units 20:23 00:00 04:02 AST 113 H (5-40) units/L CK-MB (CK-2) 14.7 H 13.9 H (0.0-4.0) ng/mL Coagulation 09/08/19 Range/Units 19:42 PT 22.1 H (12.2-14.9) Sec. INR 1.98 H (0.87-1.13) APTT 37.4 H (24.2-36.6) Sec. Lipids 09/08/19 Range/Units 19:42 Triglycerides 55 (2-149) mg/dL Cholesterol 92 (50-199) mg/dL HDL Cholesterol 37 L (40-59) mg/dL Cholesterol/HDL Ratio 2.48 % CBC 09/08/19 Range/Units 19:42 WBC 8.4 (4.5-11.0) K/mm3 RBC 3.82 (3.65-5.03) M/mm3 Hgb 9.6 L (10.1-14.3) gm/dl Hct 31.7 (30.3-42.9) % Plt Count 201 (140-440) K/mm3 Comprehensive Metabolic Panel 09/08/19 09/09/19 09/09/19 Range/Units 20:23 04:02 04:02 Sodium 142 148 H 147 H (137-145) mmol/L Potassium 6.1 H* 5.0 5.0 (3.6-5.0) mmol/L Chloride 108.8 H 113.4 H 111.6 H (98-107) mmol/L Carbon Dioxide 16 L 16 L 18 L (22-30) mmol/L BUN 72 H 74 H 73 H (7-17) mg/dL Creatinine 2.4 H 2.4 H 2.4 H (0.7-1.2) mg/dL Glucose 112 H 100 101 H (65-100) mg/dL Calcium 9.0 9.1 9.1 (8.4-10.2) mg/dL AST 113 H (5-40) units/L ALT 24 (7-56) units/L Alkaline Phosphatase 106 (35-129) units/L Total Protein 7.7 (6.3-8.2) g/dL Albumin 3.7 L (3.9-5) g/dL - Imaging and Cardiology Echo: report reviewed (03/03/2019 at [facility] showed EF 55%, severe LVH, mod dilated LA, mitraclip present on MV, mild to mod MR, mod to severe TR, severely elnarged RV, mod to severely reduced RV systolic function, pulm HTN with RVSP 70mmHg, severely dilated RA, mod pleural effusion in left lateral region, no pericardial effusion seen. ) Cardiac cath: report reviewed (RHC done 08/2018 at [facility] showed CO 4.5L/min, CI 2.0 L/min, PAP 68/46mmHg, PCWP 40mmHg, RV pressures 70/12mmHg, RA pressures 12mmHg, saturations PA 61% FA 99%. ) EKG: report reviewed, image reviewed EKG interpretations - Telemetry EKG Rhythm: Sinus Rhythm - EKG Sinus rhythms and dysrhythmias: sinus rhythm AV and intraventricular conduction: right bundle branch block Assessment and Plan Agree with present cardiac management. Monitor renal indices. Will defer timing of resumption of systemic AC to neurology. Pt reports compliance with Eliquis at home. The patient has been seen in conjunction with Dr. Rebolledo who agrees with the assessment and plan of care. - Patient Problems (1) CVA (cerebral vascular accident) Current Visit: Yes Status: Suspected (2) Acute heart failure with preserved ejection fraction Current Visit: Yes Status: Acute (3) Paroxysmal atrial fibrillation Current Visit: Yes Status: Chronic (4) S/P mitral valve clip implantation Current Visit: Yes Status: Chronic (5) Pulmonary hypertension Current Visit: Yes Status: Chronic (6) Sleep apnea Current Visit: Yes Status: Chronic (7) HTN (hypertension) Current Visit: Yes Status: Chronic (8) Diabetes Current Visit: Yes Status: Chronic (9) Hyperlipidemia Current Visit: Yes Status: Chronic (10) Chronic respiratory failure Current Visit: Yes Status: Chronic (11) Hypothyroidism Current Visit: Yes Status: Chronic (12) Acute on chronic renal failure Current Visit: Yes Status: Acute (13) Hyperkalemia Current Visit: Yes Status: Acute (14) NSTEMI (non-ST elevated myocardial infarction) Current Visit: Yes Status: Acute Plan to address problem: type II (15) Statin intolerance Current Visit: Yes Status: Chronic
[2019-09-09] MEDS ORDERED: SODIUM BICARBONATE 150 MEQ in DEXTROSE 5% IN WATER 1,000 ML IV SCH (15:00)
[2019-09-09] MEDS: ASPIRIN EC 81 MG TAB PO SCH (17:16)
[2019-09-09] MEDS: SODIUM BICARBONATE 100 MEQ in DEXTROSE 5% IN WATER 1,000 ML IV SCH (18:19)
[2019-09-10 05:45] LABS: Calcium 8.6 mg/dL (8.4-10.2)
[2019-09-10] MEDS: SODIUM BICARBONATE 100 MEQ in DEXTROSE 5% IN WATER 1,000 ML IV SCH (09:26)
[2019-09-10] MEDS: ASPIRIN EC 81 MG TAB PO SCH (09:28)
[2019-09-10] MEDS: FUROSEMIDE 40 MG/4 ML INJ IV SCH (09:28)
[2019-09-10] MEDS: CYCLOBENZAPRINE 10 MG TAB PO SCH ×2 (09:28→23:36)
[2019-09-10] MEDS: ACETAMINOPHEN 500 MG TAB PO SCH ×2 (09:29→23:35)
--- NOTE | 2019-09-10 10:55 | Progress Note ---
Assessment and Plan Patient failed swallow evaluation but able to take medications at [facility] consider reinstating home medications hold oral anticoagulation until further evaluation speech evaluation could be done even her dietary needs and patient is awaiting MRI, continue IV diuretics - Patient Problems (1) Acute heart failure with preserved ejection fraction Current Visit: Yes Status: Acute (2) Acute on chronic renal failure Current Visit: Yes Status: Acute Qualifiers: Acute renal failure type: with acute tubular necrosis Chronic kidney disease stage: stage 2 (mild) Qualified Code(s): N17.0 - Acute kidney failure with tubular necrosis; N18.2 - Chronic kidney disease, stage 2 (mild) (3) NSTEMI (non-ST elevated myocardial infarction) Current Visit: Yes Status: Acute (4) Chronic respiratory failure Current Visit: Yes Status: Chronic Qualifiers: Respiratory failure complication: hypoxia Qualified Code(s): J96.11 - Chronic respiratory failure with hypoxia (5) Diabetes Current Visit: Yes Status: Chronic Qualifiers: Diabetes mellitus type: type 2 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 Diabetes mellitus complication status: without complication Qualified Code(s): E11.9 - Type 2 diabetes mellitus without complications; 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 (6) HTN (hypertension) Current Visit: Yes Status: Chronic Qualifiers: Hypertension type: essential hypertension Qualified Code(s): I10 - Essential (primary) hypertension (7) Hyperlipidemia Current Visit: Yes Status: Chronic Qualifiers: Hyperlipidemia type: mixed hyperlipidemia Qualified Code(s): E78.2 - Mixed hyperlipidemia (8) Paroxysmal atrial fibrillation Current Visit: Yes Status: Chronic (9) Pulmonary hypertension Current Visit: Yes Status: Chronic Subjective Date of service: 09/10/19 Principal diagnosis: abnl trop and chf Interval history: pt sob is stable Objective Vital Signs Temp Pulse Pulse Pulse Resp BP Pulse Ox 09/10/19 10:25 93 09/10/19 09:53 64 55 L 20 90 09/10/19 09:29 20 09/10/19 08:33 98.0 F 56 L 19 126/67 90 09/10/19 04:26 98.0 F 57 L 18 113/70 99 09/09/19 23:36 98.0 F 58 L 18 125/58 96 09/09/19 22:00 58 L 22 09/09/19 19:16 98.0 F 56 L 20 118/72 90 10/18/19 17:03 98.4 F 18 93/34 91 09/09/19 11:54 98.1 F 19 112/39 - Physical Examination General: Appears Well, No Apparent Distress HEENT: Positive: PERRL, EOMI Neck: Cardiac: Positive: Reg Rate and Rhythm, Audible Murmur Lungs: Positive: clear to auscultation Neuro: Positive: Grossly Intact, Other Abdomen: /Rectal: Normal Prostate, No Masses Skin: Musculoskeletal: No Fluid Collection, No Pain, Normal Range of Motion Gait: Normal Gait Extremities: Absent: +1 Edema - Labs and Meds Comprehensive Metabolic Panel 09/10/19 Range/Units 05:10 Sodium 146 H (137-145) mmol/L Potassium 5.4 H (3.6-5.0) mmol/L Chloride 110.8 H (98-107) mmol/L Carbon Dioxide 21 L (22-30) mmol/L BUN 74 H (7-17) mg/dL Creatinine 2.4 H (0.7-1.2) mg/dL Glucose 88 (65-100) mg/dL Calcium 8.6 (8.4-10.2) mg/dL - Imaging and Cardiology EKG: report reviewed, image reviewed Echo: report reviewed (03/03/2019 at [facility] showed EF 55%, severe LVH, mod dilated LA, mitraclip present on MV, mild to mod MR, mod to severe TR, severely elnarged RV, mod to severely reduced RV systolic function, pulm HTN with RVSP 70mmHg, severely dilated RA, mod pleural effusion in left lateral region, no pericardial effusion seen. ), other (09/09/2019 normal LV function 50-55% moderate RV dilatation with RV overload severe pulmonary hypertension mitral clip present mild to moderate mitral regurgitation) Cardiac cath: report reviewed (RHC done 08/2018 at [facility] showed CO 4.5L/min, CI 2.0 L/min, PAP 68/46mmHg, PCWP 40mmHg, RV pressures 70/12mmHg, RA pressures 12mmHg, saturations PA 61% FA 99%. ) - Telemetry EKG Rhythm: Sinus Rhythm - EKG Sinus rhythms and dysrhythmias: sinus rhythm AV and intraventricular conduction: right bundle branch block
--- NOTE | 2019-09-10 11:24 | Progress Note ---
Subjective Principal diagnosis: abnl trop and chf Interval history: Patient was seen today for follow-up on multiple renal related issues Events of this hospitalization were noted appears to be resting comfortably Creatinine is stable Mild hyperkalemia Interdisciplinary notes were also reviewed Vitals intake output medications were reviewed Past medical history: Reviewed Family, social history: Reviewed Allergies: Reviewed Physical examination General: No acute distress Vitals: Reviewed HEENT: Oral mucosa moist no icterus Neck: Supple no thyromegaly nodular mass or JVD Chest: Clear to auscultation anteriorly Heart: Regular rate and rhythm S1-S2 heard no S3-S4 Abdomen: Soft nontender no suprapubic masses no organomegaly Extremity: Dry skin less than 1+ edema Psych: No evidence of any agitation and aggression noted Derm: No petechial rash Assessment and plan: renal failure likely chronic, Hyperkalemia mild we'll give her Kayexalate 1 dose Metabolic acidosis on Lasix as well as, bicarbonate Prognosis: Guarded We'll continue to follow and make recommendation from renal standpoint Objective - Vital Signs Vital signs: Vital Signs - 12hr 09/09/19 09/10/19 09/10/19 23:36 04:26 08:33 Temperature 98.0 F 98.0 F 98.0 F Pulse Rate 58 L 57 L 56 L Pulse Rate [ Apical] Pulse Rate [ From Monitor] Respiratory 18 18 19 Rate Blood Pressure 125/58 113/70 126/67 O2 Sat by Pulse 96 99 90 Oximetry 09/10/19 09/10/19 09/10/19 09:29 09:53 10:25 Temperature Pulse Rate Pulse Rate [ 64 Apical] Pulse Rate [ 55 L From Monitor] Respiratory 20 20 Rate Blood Pressure O2 Sat by Pulse 90 93 Oximetry - Lab 09/27/19 08:49 09/27/19 04:32 Most recent lab results Calcium 8.6 mg/dL (8.4-10.2) 09/10/19 05:10 Medications & Allergies - Medications Allergies/Adverse Reactions: Allergies codeine Allergy (Verified 03/21/19 14:24) Unknown morphine Allergy (Verified 03/21/19 14:24) Unknown tramadol Allergy (Verified 03/21/19 18:53) Angioedema amlodipine Adverse Reaction (Verified 03/21/19 14:24) Headache clonidine Adverse Reaction (Verified 03/21/19 14:24) Headache sulfadiazine Adverse Reaction (Verified 03/21/19 14:24) Swelling Home Medications: Home Medications Medication Instructions Recorded Confirmed Last Taken Type Latanoprost [Xalatan] 1 drop OU HS PRN 03/22/19 09/12/19 Unknown History Levothyroxine [Synthroid] 1 tab PO DAILY 03/22/19 09/12/19 Unknown History Potassium Chloride [K-Dur] 1 tab PO DAILY 03/22/19 09/12/19 Unknown History Aspirin [Aspirin BABY CHEW TAB] 81 mg PO QDAY #30 tab.chew 09/23/19 Unknown Rx Cyclobenzaprine [Flexeril 10 MG 5 mg PO Q8H tablet 09/23/19 Unknown Rx TAB] Fluticasone [Flonase] 1 spray IN BID 30 Days bottle 09/23/19 Unknown Rx Furosemide [Lasix TAB] 40 mg PO 0600,1800 tablet 09/23/19 Unknown Rx Isosorbide Dinitrate [Isordil 10 mg PO TID #90 09/23/19 Unknown Rx Titradose] Latanoprost 0.005% 1 drops OU HS PRN 30 Days bottle 09/23/19 Unknown Rx Levothyroxine [Synthroid] 100 mcg PO 0600 tablet 09/23/19 Unknown Rx Pantoprazole [Protonix TAB] 40 mg PO BID #60 09/23/19 Unknown Rx Polyethylene Glycol 3350 [Miralax 17 gm PO BID PRN powd.pack 09/23/19 Unknown Rx 3350] Pravastatin [Pravachol] 1 tab PO DAILY #30 09/23/19 Unknown Rx Rivaroxaban [Xarelto] 15 mg PO DAILY #30 tablet 09/23/19 Unknown Rx Rivaroxaban [Xarelto] 15 mg PO DAILY@1700 tablet 09/23/19 Unknown Rx hydrALAZINE [Apresoline TAB] 50 mg PO TID #90 tab 09/23/19 Unknown Rx oxyCODONE /ACETAMINOPHEN [Percocet 1 tab PO Q6H PRN #12 tablet 09/23/19 Unknown Rx 5/325 mg] Active Medications: Generic Name Dose Route Start Last Admin Trade Name Freq PRN Reason Stop Dose Admin Acetaminophen 500 mg 09/09/19 11:00 09/10/19 09:29 Tylenol PO 500 mg BID ROSALBA Administration Aspirin 81 mg 09/09/19 17:00 09/10/19 09:28 Halfprin Ec PO 81 mg QDAY ROSALBA Administration Cyclobenzaprine HCl 5 mg 09/09/19 11:00 09/10/19 09:28 Flexeril PO 5 mg BID ROSALBA Administration Furosemide 40 mg 09/09/19 10:00 09/10/19 09:28 Lasix IV 40 mg QDAY ROSALBA Administration Sodium Bicarbonate 100 meq/ 1,100 mls @ 75 mls/hr 09/09/19 18:00 09/10/19 09:26 Dextrose IV 75 mls/hr DIRECT ROSALBA Administration
--- NOTE | 2019-09-10 12:54 | Progress Note ---
Assessment and Plan Assessment and plan: Right brain stem CVA/infarct. Neurology following. PT/OT evaluation. Follow- up echocardiogram. Carotid Doppler negative. Oropharyngeal dysphagia. Patient reports the patient exhibits oral and pharyn geal phase disorder with delayed oral transit time with residuals of the semi solids and aspiration. WOB increased with each swallow of pureed, thins and semi solids. Patient is at significant risk for po secondary to decreased pulmonary support and aspiration. Continue NPO status. I discussed potential PEG placement with the patient and patient denies. Await speech therapy reevaluation. Acute renal failure. Patient with a baseline creatinine 1.25 Mar 2019. Nephrology following. Elevated troponin. Etiology likely secondary to renal insufficiency. Cardiology consulted. Follow-up echocardiogram. Rhabdomyolysis. Continue to monitor CK. Hyperkalemia. Resolved. History Interval history: No new issues overnight. Hospitalist Physical - Constitutional Vitals: Temp Pulse Resp BP Pulse Ox 98.0 F 64 20 126/67 93 09/10/19 08:33 09/10/19 09:53 09/10/19 09:53 09/10/19 08:33 09/10/19 10:25 General appearance: Present: no acute distress, well-nourished - EENT Eyes: Present: PERRL, EOM intact ENT: hearing intact, clear oral mucosa, dentition normal - Neck Neck: Present: supple, normal ROM - Respiratory Respiratory effort: normal Respiratory: bilateral: CTA - Cardiovascular Rhythm: regular Heart Sounds: Present: S1 & S2. Absent: gallop, rub - Extremities Extremities: no ischemia, No edema, Full ROM - Abdominal General gastrointestinal: soft, non-tender, non-distended, normal bowel sounds - Integumentary Integumentary: Present: clear, warm, dry - Neurologic Neurologic: CNII-XII intact, moves all extremities Results - Labs CBC & Chem 7: 09/08/19 19:42 09/10/19 05:10 Labs: Laboratory Last Values WBC 8.4 K/mm3 (4.5-11.0) 09/08/19 19:42 RBC 3.82 M/mm3 (3.65-5.03) 09/08/19 19:42 Hgb 9.6 gm/dl (10.1-14.3) L 09/08/19 19:42 Hct 31.7 % (30.3-42.9) 09/08/19 19:42 MCV 83 fl (79-97) 09/08/19 19:42 MCH 25 pg (28-32) L 09/08/19 19:42 MCHC 30 % (30-34) 09/08/19 19:42 RDW 19.8 % (13.2-15.2) H 09/08/19 19:42 Plt Count 201 K/mm3 (140-440) 09/08/19 19:42 PT 22.1 Sec. (12.2-14.9) H 09/08/19 19:42 INR 1.98 (0.87-1.13) H 09/08/19 19:42 APTT 37.4 Sec. (24.2-36.6) H 09/08/19 19:42 POC ABG pH 7.299 (7.35-7.45) L 09/08/19 20:40 POC ABG pCO2 37.4 (35-45) 09/08/19 20:40 POC ABG pO2 88 (80-105) 09/08/19 20:40 POC ABG HCO3 18.4 (22-26 mml/L) 09/08/19 20:40 POC ABG Total CO2 19 (23-27mmol/L) 09/08/19 20:40 POC ABG O2 Sat 96 09/08/19 20:40 POC ABG Base Excess -8 ((-2) - (+3)mmol/L) 09/08/19 20:40 FiO2 28 % 09/08/19 20:40 Sodium 146 mmol/L (137-145) H 09/10/19 05:10 Potassium 5.4 mmol/L (3.6-5.0) H 09/10/19 05:10 Chloride 110.8 mmol/L (98-107) H 09/10/19 05:10 Carbon Dioxide 21 mmol/L (22-30) L 09/10/19 05:10 Anion Gap 20 mmol/L 09/10/19 05:10 BUN 74 mg/dL (7-17) H 09/10/19 05:10 Creatinine 2.4 mg/dL (0.7-1.2) H 09/10/19 05:10 Estimated GFR 24 ml/min 09/10/19 05:10 BUN/Creatinine Ratio 31 % 09/10/19 05:10 Glucose 88 mg/dL (65-100) 09/10/19 05:10 POC Glucose 94 (70-105) 09/09/19 20:28 Calcium 8.6 mg/dL (8.4-10.2) 09/10/19 05:10 Total Bilirubin 2.30 mg/dL (0.1-1.2) H 09/08/19 20:23 AST 113 units/L (5-40) H 09/08/19 20:23 ALT 24 units/L (7-56) 09/08/19 20:23 Alkaline Phosphatase 106 units/L (35-129) 09/08/19 20:23 Total Creatine Kinase 2941 units/L (30-135) H 09/09/19 04:02 CK-MB (CK-2) 13.9 ng/mL (0.0-4.0) H 09/09/19 04:02 CK-MB (CK-2) Rel Index 0.4 (0-4) 09/09/19 04:02 Troponin T 0.074 ng/mL (0.00-0.029) H D 09/09/19 04:02 NT-Pro-B Natriuret Pep 7270 pg/mL (0-900) H 09/09/19 04:02 Total Protein 7.7 g/dL (6.3-8.2) 09/08/19 20:23 Albumin 3.7 g/dL (3.9-5) L 09/08/19 20:23 Albumin/Globulin Ratio 0.9 % 09/08/19 20:23 Triglycerides 55 mg/dL (2-149) 09/08/19 19:42 Cholesterol 92 mg/dL (50-199) 09/08/19 19:42 LDL Cholesterol Direct 50 mg/dL (50-130) 09/08/19 19:42 HDL Cholesterol 37 mg/dL (40-59) L 09/08/19 19:42 Cholesterol/HDL Ratio 2.48 % 09/08/19 19:42 Salicylates < 0.3 mg/dL (2.8-20.0) L 09/08/19 19:42 Acetaminophen 6.6 ug/mL (10.0-30.0) L 09/08/19 23:21 Plasma/Serum Alcohol < 0.01 % (0-0.07) 09/08/19 19:42 Active Medications - Current Medications Current Medications: Generic Name Dose Route Start Last Admin Trade Name Nicole PRN Reason Stop Dose Admin Acetaminophen 500 mg 09/09/19 11:00 09/10/19 09:29 Tylenol PO 500 mg BID ROSALBA Administration Aspirin 81 mg 09/09/19 17:00 09/10/19 09:28 Halfprin Ec PO 81 mg QDAY ROSALBA Administration Cyclobenzaprine HCl 5 mg 09/09/19 11:00 09/10/19 09:28 Flexeril PO 5 mg BID ROSALBA Administration Furosemide 40 mg 09/09/19 10:00 09/10/19 09:28 Lasix IV 40 mg QDAY ROSALBA Administration Sodium Bicarbonate 100 meq/ 1,100 mls @ 75 mls/hr 09/09/19 18:00 09/10/19 09:26 Dextrose IV 75 mls/hr DIRECT ROSALBA Administration Nutrition/Malnutrition Assess - Dietary Evaluation Nutrition/Malnutrition Findings: Nutrition Notes Start: 09/09/19 13:13 Freq: Status: Active Protocol: Document 09/09/19 13:13 CC (Rec: 09/09/19 13:38 CC [email or web address]) Co-Sign 09/09/19 13:13 LM Nutrition Notes Initial or Follow up Brief Note Current Diagnosis Acute Kidney Injury, Hypertension,Heart Failure, Stroke,Hyperlipidemia Other Pertinent Diagnosis TIA Current Diet NPO Labs/Tests BUN 73, Creat 2.4 Pertinent Medications Lasix Height 5 ft 8 in Weight 128 kg [place] Body Weight (kg) 63.63 BMI 42.9 Weight Status Obese Subjective/Other Information Consulted for hx difficulty chewing and skin risk assesement score less than or equal to 18. Unable to obtain information at this time. Visited pt room several times but pt was not there or sleeping. Need for assesment at later date Burn Absent Trauma Absent Nutrition Intervention Goal #1 F/U for assesment Follow-Up By: 09/12/19 Additional Comments F/U for pt assesment
[2019-09-11] MEDS: SODIUM BICARBONATE 100 MEQ in DEXTROSE 5% IN WATER 1,000 ML IV SCH ×2 (02:29→22:41)
--- NOTE | 2019-09-11 10:10 | Progress Note ---
Assessment and Plan Patient is on IV Lasix once a day. Patient to have the MRI for progression of subacute stroke needs repeat speech evaluation to see if patient can tolerate feeding. To reinstate oral anticoagulation once repeat speech evaluation was done. - Patient Problems (1) Acute heart failure with preserved ejection fraction Current Visit: Yes Status: Acute (2) Acute on chronic renal failure Current Visit: Yes Status: Acute Qualifiers: Acute renal failure type: with acute tubular necrosis Chronic kidney disease stage: stage 2 (mild) Qualified Code(s): N17.0 - Acute kidney failure with tubular necrosis; N18.2 - Chronic kidney disease, stage 2 (mild) (3) NSTEMI (non-ST elevated myocardial infarction) Current Visit: Yes Status: Acute (4) Chronic respiratory failure Current Visit: Yes Status: Chronic Qualifiers: Respiratory failure complication: hypoxia Qualified Code(s): J96.11 - Chronic respiratory failure with hypoxia (5) Diabetes Current Visit: Yes Status: Chronic Qualifiers: Diabetes mellitus type: type 2 Diabetes mellitus senior living insulin use: with senior living use Diabetes mellitus complication status: without complication Qualified Code(s): E11.9 - Type 2 diabetes mellitus without complications; Z79.4 - residential (current) use of insulin (6) HTN (hypertension) Current Visit: Yes Status: Chronic Qualifiers: Hypertension type: essential hypertension Qualified Code(s): I10 - Essential (primary) hypertension (7) Hyperlipidemia Current Visit: Yes Status: Chronic Qualifiers: Hyperlipidemia type: mixed hyperlipidemia Qualified Code(s): E78.2 - Mixed hyperlipidemia (8) Paroxysmal atrial fibrillation Current Visit: Yes Status: Chronic (9) Pulmonary hypertension Current Visit: Yes Status: Chronic Subjective Date of service: 09/11/19 Principal diagnosis: abnl trop and chf Interval history: pt refused mri yesterday Objective Vital Signs Temp Pulse Pulse Pulse Resp Resp BP 09/11/19 09:20 09/11/19 08:24 97.5 F L 49 L 18 114/58 09/11/19 03:45 98.0 F 51 L 18 124/60 09/11/19 00:35 18 09/11/19 00:02 18 09/10/19 23:35 18 09/10/19 23:17 98.0 F 54 L 18 134/70 09/10/19 22:40 58 L 58 L 18 09/10/19 20:49 09/10/19 19:27 56 L 09/10/19 19:19 98.0 F 58 L 18 147/84 09/10/19 17:04 97.9 F 66 18 133/75 09/10/19 10:25 Pulse Ox 09/11/19 09:20 97 09/11/19 08:24 98 09/11/19 03:45 97 09/11/19 00:35 09/11/19 00:02 09/10/19 23:35 09/10/19 23:17 96 09/10/19 22:40 94 09/10/19 20:49 94 09/10/19 19:27 09/10/19 19:19 87 09/10/19 17:04 89 09/10/19 10:25 93 - Physical Examination General: Appears Well, No Apparent Distress HEENT: Positive: PERRL, EOMI Neck: Positive: neck supple Cardiac: Positive: Reg Rate and Rhythm, Audible Murmur Lungs: Positive: clear to auscultation Neuro: Positive: Grossly Intact, Other Abdomen: /Rectal: Normal Prostate, No Masses Skin: Musculoskeletal: No Fluid Collection, No Pain, Normal Range of Motion Gait: Normal Gait Extremities: Absent: edema - Imaging and Cardiology EKG: report reviewed, image reviewed Echo: report reviewed (03/03/2019 at [place] showed EF 55%, severe LVH, mod dilated LA, mitraclip present on MV, mild to mod MR, mod to severe TR, severely elnarged RV, mod to severely reduced RV systolic function, pulm HTN with RVSP 70mmHg, severely dilated RA, mod pleural effusion in left lateral region, no pericardial effusion seen. ), other (09/09/2019 normal LV function 50-55% moderate RV dilatation with RV overload severe pulmonary hypertension mitral clip present mild to moderate mitral regurgitation) Cardiac cath: report reviewed (RHC done 08/2018 at [facility] showed CO 4.5L/min, CI 2.0 L/min, PAP 68/46mmHg, PCWP 40mmHg, RV pressures 70/12mmHg, RA pressures 12mmHg, saturations PA 61% FA 99%. ) - Telemetry EKG Rhythm: Sinus Rhythm (no afib) - EKG Sinus rhythms and dysrhythmias: sinus rhythm AV and intraventricular conduction: right bundle branch block
[2019-09-11] MEDS: ACETAMINOPHEN 500 MG TAB PO SCH ×2 (10:52→22:19)
[2019-09-11] MEDS: FUROSEMIDE 40 MG/4 ML INJ IV SCH (10:52)
[2019-09-11] MEDS: ASPIRIN EC 81 MG TAB PO SCH (10:52)
[2019-09-11] MEDS: CYCLOBENZAPRINE 10 MG TAB PO SCH ×2 (10:53→22:19)
[2019-09-11] MEDS ORDERED: diazePAM 5 MG TAB PO NR (11:00)
--- NOTE | 2019-09-11 11:05 | Progress Note ---
Assessment and Plan Assessment and plan: Right brain stem CVA/infarct. Neurology following. PT/OT recommendations pending. Patient to have the MRI for progression of subacute stroke. Echocardiogram reveals global left ventricle systolic function normal right ventricle moderately dilated. Right ventricular global systolic function is mildly reduced. Septum with abnormal paradoxical motion consistent with right ventricular volume overload. Mitral valve clip. Carotid Doppler negative. Oropharyngeal dysphagia. Patient reports the patient exhibits oral and pharyngeal phase disorder with delayed oral transit time with residuals of the semi solids and aspiration. WOB increased with each swallow of pureed, thins and semi solids. Patient is at significant risk for po secondary to decreased pulmonary support and aspiration. Continue NPO status. I discussed potential PEG placement with the patient and patient denies. Await speech therapy reevaluation. Acute renal failure. Patient with a baseline creatinine 1.25 Mar 2019. Nephr ology following. NSTEMI. Elevated troponin. Cardiology following. Hypertension. Continue antihypertensive medications. Hyperlipidemia. Continue statins. Paroxysmal atrial fibrillation. Rhabdomyolysis. Continue to monitor CK. Hyperkalemia. Resolved. Pulmonary hypertension. History Interval history: No new issues overnight. Hospitalist Physical - Constitutional Vitals: Temp Pulse Resp BP Pulse Ox 97.5 F L 49 L 20 114/58 97 09/11/19 08:24 09/11/19 08:24 09/11/19 10:52 09/11/19 08:24 09/11/19 09:20 General appearance: Present: no acute distress, well-nourished - EENT Eyes: Present: PERRL, EOM intact ENT: hearing intact, clear oral mucosa, dentition normal - Neck Neck: Present: supple, normal ROM - Respiratory Respiratory effort: normal Respiratory: bilateral: CTA - Cardiovascular Rhythm: regular Heart Sounds: Present: S1 & S2. Absent: gallop, rub - Extremities Extremities: no ischemia, No edema, Full ROM - Abdominal General gastrointestinal: soft, non-tender, non-distended, normal bowel sounds - Integumentary Integumentary: Present: clear, warm, dry - Neurologic Neurologic: CNII-XII intact, moves all extremities Results - Labs CBC & Chem 7: 09/08/19 19:42 09/10/19 05:10 Labs: Laboratory Last Values WBC 8.4 K/mm3 (4.5-11.0) 09/08/19 19:42 RBC 3.82 M/mm3 (3.65-5.03) 09/08/19 19:42 Hgb 9.6 gm/dl (10.1-14.3) L 09/08/19 19:42 Hct 31.7 % (30.3-42.9) 09/08/19 19:42 MCV 83 fl (79-97) 09/08/19 19:42 MCH 25 pg (28-32) L 09/08/19 19:42 MCHC 30 % (30-34) 09/08/19 19:42 RDW 19.8 % (13.2-15.2) H 09/08/19 19:42 Plt Count 201 K/mm3 (140-440) 09/08/19 19:42 PT 22.1 Sec. (12.2-14.9) H 09/08/19 19:42 INR 1.98 (0.87-1.13) H 09/08/19 19:42 APTT 37.4 Sec. (24.2-36.6) H 09/08/19 19:42 POC ABG pH 7.299 (7.35-7.45) L 09/08/19 20:40 POC ABG pCO2 37.4 (35-45) 09/08/19 20:40 POC ABG pO2 88 (80-105) 09/08/19 20:40 POC ABG HCO3 18.4 (22-26 mml/L) 09/08/19 20:40 POC ABG Total CO2 19 (23-27mmol/L) 09/08/19 20:40 POC ABG O2 Sat 96 09/08/19 20:40 POC ABG Base Excess -8 ((-2) - (+3)mmol/L) 09/08/19 20:40 FiO2 28 % 09/08/19 20:40 Sodium 146 mmol/L (137-145) H 09/10/19 05:10 Potassium 5.4 mmol/L (3.6-5.0) H 09/10/19 05:10 Chloride 110.8 mmol/L (98-107) H 09/10/19 05:10 Carbon Dioxide 21 mmol/L (22-30) L 09/10/19 05:10 Anion Gap 20 mmol/L 09/10/19 05:10 BUN 74 mg/dL (7-17) H 09/10/19 05:10 Creatinine 2.4 mg/dL (0.7-1.2) H 09/10/19 05:10 Estimated GFR 24 ml/min 09/10/19 05:10 BUN/Creatinine Ratio 31 % 09/10/19 05:10 Glucose 88 mg/dL (65-100) 09/10/19 05:10 POC Glucose 94 (70-105) 09/09/19 20:28 Calcium 8.6 mg/dL (8.4-10.2) 09/10/19 05:10 Total Bilirubin 2.30 mg/dL (0.1-1.2) H 09/08/19 20:23 AST 113 units/L (5-40) H 09/08/19 20:23 ALT 24 units/L (7-56) 09/08/19 20:23 Alkaline Phosphatase 106 units/L (35-129) 09/08/19 20:23 Total Creatine Kinase 2941 units/L (30-135) H 09/09/19 04:02 CK-MB (CK-2) 13.9 ng/mL (0.0-4.0) H 09/09/19 04:02 CK-MB (CK-2) Rel Index 0.4 (0-4) 09/09/19 04:02 Troponin T 0.074 ng/mL (0.00-0.029) H D 09/09/19 04:02 NT-Pro-B Natriuret Pep 7270 pg/mL (0-900) H 09/09/19 04:02 Total Protein 7.7 g/dL (6.3-8.2) 09/08/19 20:23 Albumin 3.7 g/dL (3.9-5) L 09/08/19 20:23 Albumin/Globulin Ratio 0.9 % 09/08/19 20:23 Triglycerides 55 mg/dL (2-149) 09/08/19 19:42 Cholesterol 92 mg/dL (50-199) 09/08/19 19:42 LDL Cholesterol Direct 50 mg/dL (50-130) 09/08/19 19:42 HDL Cholesterol 37 mg/dL (40-59) L 09/08/19 19:42 Cholesterol/HDL Ratio 2.48 % 09/08/19 19:42 Salicylates < 0.3 mg/dL (2.8-20.0) L 09/08/19 19:42 Acetaminophen 6.6 ug/mL (10.0-30.0) L 09/08/19 23:21 Plasma/Serum Alcohol < 0.01 % (0-0.07) 09/08/19 19:42 Active Medications - Current Medications Current Medications: Generic Name Dose Route Start Last Admin Trade Name Freq PRN Reason Stop Dose Admin Acetaminophen 500 mg 09/09/19 11:00 09/11/19 10:52 Tylenol PO 500 mg BID ROSALBA Administration Aspirin 81 mg 09/09/19 17:00 09/11/19 10:52 Halfprin Ec PO 81 mg QDAY ROSALBA Administration Cyclobenzaprine HCl 5 mg 09/09/19 11:00 09/11/19 10:53 Flexeril PO 5 mg BID ROSALBA Administration Furosemide 40 mg 09/09/19 10:00 09/11/19 10:52 Lasix IV 40 mg QDAY ROSALBA Administration Sodium Bicarbonate 100 meq/ 1,100 mls @ 75 mls/hr 09/09/19 18:00 09/11/19 02:29 Dextrose IV 75 mls/hr DIRECT ROSALBA Administration Nutrition/Malnutrition Assess - Dietary Evaluation Nutrition/Malnutrition Findings: Nutrition Notes Start: 09/09/19 13:13 Freq: Status: Active Protocol: Document 09/09/19 13:13 CC (Rec: 09/09/19 13:38 CC [email or web address]) Co-Sign 09/09/19 13:13 LM Nutrition Notes Initial or Follow up Brief Note Current Diagnosis Acute Kidney Injury, Hypertension,Heart Failure, Stroke,Hyperlipidemia Other Pertinent Diagnosis TIA Current Diet NPO Labs/Tests BUN 73, Creat 2.4 Pertinent Medications Lasix Height 5 ft 8 in Weight 128 kg [place] Body Weight (kg) 63.63 BMI 42.9 Weight Status Obese Subjective/Other Information Consulted for hx difficulty chewing and skin risk assesement score less than or equal to 18. Unable to obtain information at this time. Visited pt room several times but pt was not there or sleeping. Need for assesment at later date Burn Absent Trauma Absent Nutrition Intervention Goal #1 F/U for assesment Follow-Up By: 09/12/19 Additional Comments F/U for pt assesment
--- NOTE | 2019-09-11 12:19 | Progress Note ---
Subjective Principal diagnosis: abnl trop and chf Interval history: Patient was seen today for follow-up on multiple renal related issues She is more alert awake Does not have a follow-up lab today Interdisciplinary notes were also reviewed Vitals intake output medications were reviewed Past medical history: Reviewed Family, social history: Reviewed Allergies: Reviewed Physical examination General: No acute distress Vitals: Reviewed HEENT: Oral mucosa moist no icterus Neck: Supple no thyromegaly nodular mass or JVD Chest: Clear to auscultation anteriorly Heart: Regular rate and rhythm S1-S2 heard no S3-S4 Abdomen: Soft nontender no suprapubic masses no organomegaly Extremity: Dry skin less than 1+ edema Psych: No evidence of any agitation and aggression noted Derm: No petechial rash Assessment and plan: Renal failure: Patient does appear to have multiple risk factor for renal failure Creatinine has been stable for last 3 days She needs follow-up labs Patient does need a follow-up lab, sodium is 146 potassium 5.4 bicarbonate 21 as of yesterday Creatinine has been stable for last 3 days at 2.4 She needs to follow up on the creatinine kinase Elevated troponin cardiology following Will order for urinary studies, check osmolality uric acid patient appears to be intravascularly volume depleted to me clinically Will order for renal ultrasonogram She is a very poor historian We'll continue to follow and make recommendation from renal standpoint Objective - Vital Signs Vital signs: Vital Signs - 12hr 09/11/19 09/11/19 09/11/19 00:35 03:45 08:24 Temperature 98.0 F 97.5 F L Pulse Rate 51 L 49 L Respiratory 18 18 18 Rate Blood Pressure 124/60 114/58 O2 Sat by Pulse 97 98 Oximetry 09/11/19 09/11/19 09:20 10:52 Temperature Pulse Rate Respiratory 20 Rate Blood Pressure O2 Sat by Pulse 97 Oximetry - Lab 09/08/19 19:42 09/10/19 05:10 Most recent lab results Calcium 8.6 mg/dL (8.4-10.2) 09/10/19 05:10 Medications & Allergies - Medications Allergies/Adverse Reactions: Allergies acetaminophen [From Percocet] Allergy (Verified 03/21/19 14:24) Unknown codeine Allergy (Verified 03/21/19 14:24) Unknown morphine Allergy (Verified 03/21/19 14:24) Unknown oxycodone [From Percocet] Allergy (Verified 03/21/19 14:24) Unknown tramadol Allergy (Verified 03/21/19 18:53) Angioedema amlodipine Adverse Reaction (Verified 03/21/19 14:24) Headache clonidine Adverse Reaction (Verified 03/21/19 14:24) Headache sulfadiazine Adverse Reaction (Verified 03/21/19 14:24) Swelling Home Medications: Home Medications Medication Instructions Recorded Confirmed Last Taken Type Fluticasone [Flonase] 1 spray BID 03/22/19 03/22/19 Unknown History Isosorbide Dinitrate [Isordil 10 mg PO TID 03/22/19 03/22/19 Unknown History Titradose] Latanoprost [Xalatan] 1 drop OU HS 03/22/19 03/22/19 Unknown History Levothyroxine [Synthroid] 1 tab PO DAILY 03/22/19 03/22/19 Unknown History Pantoprazole [Protonix TAB] 40 mg PO BID 03/22/19 03/22/19 Unknown History Potassium Chloride [K-Dur] 1 tab PO DAILY 03/22/19 03/22/19 Unknown History Pravastatin [Pravachol] 1 tab PO DAILY 03/22/19 03/22/19 Unknown History Torsemide [Demadex] 60 mg PO DAILY 03/22/19 03/22/19 Unknown History Travoprost [Travatan Z 0.004%] 1 drop OU HS 03/22/19 03/22/19 Unknown History hydrALAZINE [Apresoline TAB] 50 mg PO TID 03/22/19 03/22/19 Unknown History Apixaban [Eliquis] 5 mg PO Q12H tablet 03/23/19 Unknown Rx Active Medications: Generic Name Dose Route Start Last Admin Trade Name Freq PRN Reason Stop Dose Admin Acetaminophen 500 mg 09/09/19 11:00 09/11/19 10:52 Tylenol PO 500 mg BID ROSALBA Administration Aspirin 81 mg 09/09/19 17:00 09/11/19 10:52 Halfprin Ec PO 81 mg QDAY ROSALBA Administration Cyclobenzaprine HCl 5 mg 09/09/19 11:00 09/11/19 10:53 Flexeril PO 5 mg BID ROSALBA Administration Diazepam 1 mg 09/11/19 11:00 Valium PO 09/11/19 15:00 ONCE NR Furosemide 40 mg 09/09/19 10:00 09/11/19 10:52 Lasix IV 40 mg QDAY ROSALBA Administration Sodium Bicarbonate 100 meq/ 1,100 mls @ 75 mls/hr 09/09/19 18:00 09/11/19 02:29 Dextrose IV 75 mls/hr DIRECT ROSALBA Administration
[2019-09-11 14:09] LABS: Bacteria,Urine 4+ /HPF (Negative); Mucus,Urine FEW /HPF
[2019-09-11 14:10] LABS: Bilirubin,Urine NEG (Negative); Blood,Urine LG (Negative); Color,Urine Yellow (Yellow); Protein,Urine <15 mg/dL mg/dL (Negative); Urobilinogen,Urine < 2.0 mg/dL (<2.0)
[2019-09-11 14:11] LABS: RBC,Urine > 182.0 /HPF (0.0-6.0); WBC,Urine > 182.0 /HPF (0.0-6.0)
[2019-09-11 14:16] LABS: Creatinine,Urine 46.1 mg/dL (0.1-20.0)
--- NOTE | 2019-09-11 15:41 | XRay Report ---
CHEST 1 VIEW INDICATION / CLINICAL INFORMATION: follow-up/ CHF. COMPARISON: 09/08/2019 FINDINGS: SUPPORT DEVICES: MitraClips are in place. HEART / MEDIASTINUM: Moderately enlarged but stable. LUNGS / PLEURA: There is mild venous congestion without edema, effusion or infiltrate. No pneumothora x. ADDITIONAL FINDINGS: No significant additional findings. IMPRESSION: 1. No significant change Signer Name: Dalton Bills MD Signed: 09/11/2019 3:37 PM Workstation Name: [id number]
--- NOTE | 2019-09-11 15:46 | Ultrasound Report ---
ULTRASOUND RENAL INDICATION: renal failure. COMPARISON: No relevant prior imaging study available. FINDINGS: RIGHT KIDNEY: Size: 10.1 cm. Echogenicity: Normal. Cortical thickness: 1.6. Hydronephrosis: None. Cyst or mass: None. Stones: None. LEFT KIDNEY: Size: 10.6 cm. Echogenicity: Normal. Cortical thickness: 1.7. Hydronephrosis: None. Cyst or mass: None. Stones: None. Urinary Bladder: No significant abnormality. Free Fluid: None. Additional Findings: Detail is limited due to the patient's body habitus.. IMPRESSION 1. No acute sonographic abnormality of the kidneys. Signer Name: Dalton Bills MD Signed: 09/11/2019 3:42 PM Workstation Name: [id number]
[2019-09-12 08:22] LABS: Basophils % (Auto) 0.4 % (0.0-1.8); Eosinophils # (Auto) 0.3 K/mm3 (0.0-0.4); Eosinophils % (Auto) 4.3 % (0.0-4.3); Hematocrit 30.6 % (30.3-42.9); Hemoglobin 9.8 gm/dl (10.1-14.3); Lymphocytes % (Auto) 14.1 % (13.4-35.0); Mean Corpuscular HGB Conc 32 % (30-34); Mean Corpuscular Volume 79 fl (79-97); Monocytes # (Auto) 0.5 K/mm3 (0.0-0.8); Monocytes % (Auto) 7.3 % (0.0-7.3); Platelet Count 192 K/mm3 (140-440); Red Blood Count 3.85 M/mm3 (3.65-5.03)
[2019-09-12 08:33] LABS: Red Cell Distribution Width 20.3 % (13.2-15.2)
[2019-09-12 08:43] LABS: Calcium 8.6 mg/dL (8.4-10.2)
--- NOTE | 2019-09-12 10:40 | Progress Note ---
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 Neurology following. PT/OT recommendations pending. Patient to have repeat MRI to evaluate for progression of subacute stroke. Echocardiogram reveals global left ventricle systolic function normal right ventricle moderately dilated. Right ventricular global systolic function is mildly reduced. Septum with abnormal paradoxical motion consistent with right ventricular volume overload. Mitral valve clip. Carotid Doppler negative. Oropharyngeal dysphagia. Patient reports the patient exhibits oral and pharyngeal phase disorder with delayed oral transit time with residuals of the semi solids and aspiration. WOB increased with each swallow of pureed, thins and semi solids. Patient is at significant risk for po secondary to decreased pulmonary support and aspiration. Continue NPO status. I discussed potential PEG placement with the patient and patient denies at this time. Await speech therapy reevaluation. Acute renal failure. Patient with a baseline creatinine 1.25 Mar 2019. Nephrology following. F/U urinary studies, check osmolality uric acid. Renal ultrasound negative. NSTEMI. Elevated troponin. Cardiology following. Hypertension. Continue antihypertensive medications. Hyperlipidemia. Continue statins. Paroxysmal atrial fibrillation. Anticoagulation is on hold in anticipation of possible PEG tube placement if Speech therapy deems necessary. Rhabdomyolysis. Continue to monitor CK. Hyperkalemia. Resolved. Pulmonary hypertension. History Interval history: No new issues overnight. Hospitalist Physical - Constitutional Vitals: Temp Pulse Resp BP Pulse Ox 97.9 F 58 L 18 117/58 91 09/12/19 07:39 09/12/19 07:39 09/12/19 07:39 09/12/19 07:39 09/12/19 07:39 General appearance: Present: no acute distress, well-nourished - EENT Eyes: Present: PERRL, EOM intact ENT: hearing intact, clear oral mucosa, dentition normal - Neck Neck: Present: supple, normal ROM - Respiratory Respiratory effort: normal Respiratory: bilateral: CTA - Cardiovascular Rhythm: regular Heart Sounds: Present: S1 & S2. Absent: gallop, rub - Extremities Extremities: no ischemia, No edema, Full ROM - Abdominal General gastrointestinal: soft, non-tender, non-distended, normal bowel sounds - Integumentary Integumentary: Present: clear, warm, dry - Neurologic Neurologic: CNII-XII intact, moves all extremities Results - Labs CBC & Chem 7: 09/12/19 07:47 09/12/19 07:47 Labs: Laboratory Last Values WBC 7.0 K/mm3 (4.5-11.0) 09/12/19 07:47 RBC 3.85 M/mm3 (3.65-5.03) 09/12/19 07:47 Hgb 9.8 gm/dl (10.1-14.3) L 09/12/19 07:47 Hct 30.6 % (30.3-42.9) 09/12/19 07:47 MCV 79 fl (79-97) 09/12/19 07:47 MCH 25 pg (28-32) L 09/12/19 07:47 MCHC 32 % (30-34) 09/12/19 07:47 RDW 20.3 % (13.2-15.2) H 09/12/19 07:47 Plt Count 192 K/mm3 (140-440) 09/12/19 07:47 Lymph % (Auto) 14.1 % (13.4-35.0) 09/12/19 07:47 [place] % (Auto) 7.3 % (0.0-7.3) 09/12/19 07:47 Eos % (Auto) 4.3 % (0.0-4.3) 09/12/19 07:47 Baso % (Auto) 0.4 % (0.0-1.8) 09/12/19 07:47 Lymph # 1.0 K/mm3 (1.2-5.4) L 09/12/19 07:47 [place] # 0.5 K/mm3 (0.0-0.8) 09/12/19 07:47 Eos # 0.3 K/mm3 (0.0-0.4) 09/12/19 07:47 Baso # 0.0 K/mm3 (0.0-0.1) 09/12/19 07:47 Seg Neutrophils % 73.9 % (40.0-70.0) H 09/12/19 07:47 Seg Neutrophils # 5.2 K/mm3 (1.8-7.7) 09/12/19 07:47 PT 22.1 Sec. (12.2-14.9) H 09/08/19 19:42 INR 1.98 (0.87-1.13) H 10/17/19 19:42 APTT 37.4 Sec. (24.2-36.6) H 09/08/19 19:42 POC ABG pH 7.299 (7.35-7.45) L 09/08/19 20:40 POC ABG pCO2 37.4 (35-45) 09/08/19 20:40 POC ABG pO2 88 (80-105) 09/08/19 20:40 POC ABG HCO3 18.4 (22-26 mml/L) 09/08/19 20:40 POC ABG Total CO2 19 (23-27mmol/L) 09/08/19 20:40 POC ABG O2 Sat 96 09/08/19 20:40 POC ABG Base Excess -8 ((-2) - (+3)mmol/L) 09/08/19 20:40 FiO2 28 % 09/08/19 20:40 Sodium 146 mmol/L (137-145) H 09/12/19 07:47 Potassium 4.4 mmol/L (3.6-5.0) 09/12/19 07:47 Chloride 105.6 mmol/L (98-107) 09/12/19 07:47 Carbon Dioxide 25 mmol/L (22-30) 09/12/19 07:47 Anion Gap 20 mmol/L 09/12/19 07:47 BUN 66 mg/dL (7-17) H 09/12/19 07:47 Creatinine 2.2 mg/dL (0.7-1.2) H 09/12/19 07:47 Estimated GFR 27 ml/min 09/12/19 07:47 BUN/Creatinine Ratio 30 % 09/12/19 07:47 Glucose 92 mg/dL (65-100) 09/12/19 07:47 POC Glucose 94 (70-105) 09/09/19 20:28 Osmolality 322 Mosm/kg 09/11/19 12:44 Uric Acid 12.4 mg/dL (3.5-7.6) H 09/11/19 12:44 Calcium 8.6 mg/dL (8.4-10.2) 09/12/19 07:47 Total Bilirubin 2.30 mg/dL (0.1-1.2) H 09/08/19 20:23 AST 113 units/L (5-40) H 09/08/19 20:23 ALT 24 units/L (7-56) 09/08/19 20:23 Alkaline Phosphatase 106 units/L (35-129) 09/08/19 20:23 Total Creatine Kinase 2941 units/L (30-135) H 09/09/19 04:02 CK-MB (CK-2) 13.9 ng/mL (0.0-4.0) H 09/09/19 04:02 CK-MB (CK-2) Rel Index 0.4 (0-4) 09/09/19 04:02 Troponin T 0.074 ng/mL (0.00-0.029) H D 09/09/19 04:02 NT-Pro-B Natriuret Pep 7270 pg/mL (0-900) H 09/09/19 04:02 Total Protein 7.7 g/dL (6.3-8.2) 09/08/19 20:23 Albumin 3.7 g/dL (3.9-5) L 09/08/19 20:23 Albumin/Globulin Ratio 0.9 % 09/08/19 20:23 Triglycerides 55 mg/dL (2-149) 09/08/19 19:42 Cholesterol 92 mg/dL (50-199) 09/08/19 19:42 LDL Cholesterol Direct 50 mg/dL (50-130) 09/08/19 19:42 HDL Cholesterol 37 mg/dL (40-59) L 09/08/19 19:42 Cholesterol/HDL Ratio 2.48 % 09/08/19 19:42 Urine Color Yellow (Yellow) 09/11/19 12:16 Urine Turbidity Cloudy (Clear) 09/11/19 12:16 Urine pH 5.0 (5.0-7.0) 09/11/19 12:16 Ur Specific [place] 1.009 (1.003-1.030) 09/11/19 12:16 Urine Protein <15 mg/dl mg/dL (Negative) 09/11/19 12:16 Urine Glucose (UA) Neg mg/dL (Negative) 09/11/19 12:16 Urine Ketones Neg mg/dL (Negative) 09/11/19 12:16 Urine Blood Lg (Negative) 09/11/19 12:16 Urine Nitrite Neg (Negative) 09/11/19 12:16 Ur Reducing Substances Not Reportable 09/11/19 12:16 Urine Bilirubin Neg (Negative) 09/11/19 12:16 Urine Ictotest Not Reportable 09/11/19 12:16 Urine Urobilinogen < 2.0 mg/dL (<2.0) 09/11/19 12:16 Ur Leukocyte Esterase Lg (Negative) 09/11/19 12:16 Urine WBC (Auto) > 182.0 /HPF (0.0-6.0) H 09/11/19 12:16 Urine RBC (Auto) > 182.0 /HPF (0.0-6.0) 09/11/19 12:16 U Epithel Cells (Auto) 2.0 /HPF (0-13.0) 09/11/19 12:16 Urine Bacteria (Auto) 4+ /HPF (Negative) 09/11/19 12:16 Urine WBC Clumps 3+ /HPF 09/11/19 12:16 Hyaline Casts Not Reportable 09/11/19 12:16 Urine Mucus Few /HPF 09/11/19 12:16 Urine Yeast (Budding) Tube Filler 09/11/19 12:16 Urine Creatinine 46.1 mg/dL (0.1-20.0) H 09/11/19 12:16 Urine Sodium 74 mmol/L 09/11/19 12:16 Urine Total Protein 39 mg/dL (5-11.8) H 09/11/19 12:16 Salicylates < 0.3 mg/dL (2.8-20.0) L 09/08/19 19:42 Acetaminophen 6.6 ug/mL (10.0-30.0) L 09/08/19 23:21 Plasma/Serum Alcohol < 0.01 % (0-0.07) 09/08/19 19:42 Active Medications - Current Medications Current Medications: Generic Name Dose Route Start Last Admin Trade Name Freq PRN Reason Stop Dose Admin Acetaminophen 500 mg 09/09/19 11:00 09/11/19 22:19 Tylenol PO 500 mg BID ROSALBA Administration Aspirin 81 mg 09/09/19 17:00 09/11/19 10:52 Halfprin Ec PO 81 mg QDAY ROSALBA Administration Cyclobenzaprine HCl 5 mg 09/09/19 11:00 09/11/19 22:19 Flexeril PO 5 mg BID ROSALBA Administration Furosemide 40 mg 09/09/19 10:00 09/11/19 10:52 Lasix IV 40 mg QDAY ROSALBA Administration Nutrition/Malnutrition Assess - Dietary Evaluation Nutrition/Malnutrition Findings: Nutrition Notes Start: 09/09/19 13:13 Freq: Status: Active Protocol: Document 09/09/19 13:13 CC (Rec: 09/09/19 13:38 CC [id number]) Co-Sign 09/09/19 13:13 LM Nutrition Notes Initial or Follow up Brief Note Current Diagnosis Acute Kidney Injury, Hypertension,Heart Failure, Stroke,Hyperlipidemia Other Pertinent Diagnosis TIA Current Diet NPO Labs/Tests BUN 73, Creat 2.4 Pertinent Medications Lasix Height 5 ft 8 in Weight 128 kg [place] Body Weight (kg) 63.63 BMI 42.9 Weight Status Obese Subjective/Other Information Consulted for hx difficulty chewing and skin risk assesement score less than or equal to 18. Unable to obtain information at this time. Visited pt room several times but pt was not there or sleeping. Need for assesment at later date Burn Absent Trauma Absent Nutrition Intervention Goal #1 F/U for assesment Follow-Up By: 09/12/19 Additional Comments F/U for pt assesment
[2019-09-12] MEDS: ASPIRIN EC 81 MG TAB PO SCH (11:20)
[2019-09-12] MEDS: ACETAMINOPHEN 500 MG TAB PO SCH ×2 (11:21→22:08)
[2019-09-12] MEDS: CYCLOBENZAPRINE 10 MG TAB PO SCH ×2 (11:23→22:07)
[2019-09-12] MEDS: FUROSEMIDE 40 MG/4 ML INJ IV SCH (11:24)
--- NOTE | 2019-09-12 14:27 | Progress Note ---
Assessment and Plan Currently stable cardiac status. Pt needs repeat speech evaluation to see if patient can tolerate feeding and enteral medications. Recommend resuming systemic AC if/when okay per neurology. The patient has been seen in conjunction with Dr. CLAUDIO Gordon who agrees with the assessment and plan of care. - Patient Problems (1) CVA (cerebral vascular accident) Current Visit: Yes Status: Acute (2) Acute heart failure with preserved ejection fraction Current Visit: Yes Status: Acute (3) Paroxysmal atrial fibrillation Current Visit: Yes Status: Chronic (4) S/P mitral valve clip implantation Current Visit: Yes Status: Chronic (5) Pulmonary hypertension Current Visit: Yes Status: Chronic (6) Sleep apnea Current Visit: Yes Status: Chronic (7) HTN (hypertension) Current Visit: Yes Status: Chronic Qualifiers: Hypertension type: essential hypertension Qualified Code(s): I10 - Essential (primary) hypertension (8) Diabetes Current Visit: Yes Status: Chronic Qualifiers: Diabetes mellitus type: type 2 Diabetes mellitus termite control servicer insulin use: with skilled nursing use Diabetes mellitus complication status: without complication Qualified Code(s): E11.9 - Type 2 diabetes mellitus without complications; Z79.4 - detention (current) use of insulin (9) Hyperlipidemia Current Visit: Yes Status: Chronic Qualifiers: Hyperlipidemia type: mixed hyperlipidemia Qualified Code(s): E78.2 - Mixed hyperlipidemia (10) Chronic respiratory failure Current Visit: Yes Status: Chronic Qualifiers: Respiratory failure complication: hypoxia Qualified Code(s): J96.11 - Chronic respiratory failure with hypoxia (11) Hypothyroidism Current Visit: Yes Status: Chronic (12) Acute on chronic renal failure Current Visit: Yes Status: Acute Qualifiers: Acute renal failure type: with acute tubular necrosis Chronic kidney disease stage: stage 2 (mild) Qualified Code(s): N17.0 - Acute kidney failure with tubular necrosis; N18.2 - Chronic kidney disease, stage 2 (mild) (13) Hyperkalemia Current Visit: Yes Status: Acute (14) NSTEMI (non-ST elevated myocardial infarction) Current Visit: Yes Status: Acute Plan to address problem: type II (15) Statin intolerance Current Visit: Yes Status: Chronic Subjective Date of service: 09/12/19 Principal diagnosis: abnl trop and chf Interval history: pt resting in bed, no current complaints. in ectopic atrial rhythm on telemetry. Objective Last Vital Signs Temp 97.5 F L 09/12/19 11:23 Pulse 55 L 09/12/19 11:23 Resp 18 09/12/19 11:23 BP 137/71 09/12/19 11:23 Pulse Ox 91 09/12/19 11:26 - Physical Examination General: Appears Well, No Apparent Distress HEENT: Positive: PERRL, EOMI Neck: Positive: neck supple Cardiac: Positive: Reg Rate and Rhythm, S1/S2 Lungs: Positive: Decreased Breath Sounds Neuro: Positive: Grossly Intact, Other Abdomen: /Rectal: Normal Prostate, No Masses Skin: Musculoskeletal: No Fluid Collection, No Pain, Normal Range of Motion Gait: Normal Gait Extremities: Absent: edema - Labs and Meds CBC 09/12/19 Range/Units 07:47 WBC 7.0 (4.5-11.0) K/mm3 RBC 3.85 (3.65-5.03) M/mm3 Hgb 9.8 L (10.1-14.3) gm/dl Hct 30.6 (30.3-42.9) % Plt Count 192 (140-440) K/mm3 Lymph # 1.0 L (1.2-5.4) K/mm3 [place] # 0.5 (0.0-0.8) K/mm3 Eos # 0.3 (0.0-0.4) K/mm3 Baso # 0.0 (0.0-0.1) K/mm3 Comprehensive Metabolic Panel 09/12/19 Range/Units 07:47 Sodium 146 H (137-145) mmol/L Potassium 4.4 (3.6-5.0) mmol/L Chloride 105.6 (98-107) mmol/L Carbon Dioxide 25 (22-30) mmol/L BUN 66 H (7-17) mg/dL Creatinine 2.2 H (0.7-1.2) mg/dL Glucose 92 (65-100) mg/dL Calcium 8.6 (8.4-10.2) mg/dL - Imaging and Cardiology EKG: report reviewed, image reviewed Echo: report reviewed (03/03/2019 at [facility] showed EF 55%, severe LVH, mod dilated LA, mitraclip present on MV, mild to mod MR, mod to severe TR, severely elnarged RV, mod to severely reduced RV systolic function, pulm HTN with RVSP 70mmHg, severely dilated RA, mod pleural effusion in left lateral region, no pericardial effusion seen. ), other (09/09/2019 normal LV function 50-55% moderate RV dilatation with RV overload severe pulmonary hypertension mitral clip present mild to moderate mitral regurgitation) Cardiac cath: report reviewed (RHC done 08/2018 at [facility] showed CO 4.5L/min, CI 2.0 L/min, PAP 68/46mmHg, PCWP 40mmHg, RV pressures 70/12mmHg, RA pressures 12mmHg, saturations PA 61% FA 99%. ) - EKG Sinus rhythms and dysrhythmias: sinus rhythm AV and intraventricular conduction: right bundle branch block
[2019-09-13 07:13] LABS: Basophils % (Auto) 0.5 % (0.0-1.8); Eosinophils # (Auto) 0.3 K/mm3 (0.0-0.4); Eosinophils % (Auto) 4.9 % (0.0-4.3); Hematocrit 30.1 % (30.3-42.9); Hemoglobin 9.6 gm/dl (10.1-14.3); Lymphocytes # (Auto) 1.3 K/mm3 (1.2-5.4); Lymphocytes % (Auto) 19.2 % (13.4-35.0); Mean Corpuscular HGB Conc 32 % (30-34); Mean Corpuscular Volume 79 fl (79-97); Monocytes # (Auto) 0.5 K/mm3 (0.0-0.8); Monocytes % (Auto) 8.3 % (0.0-7.3); Platelet Count 186 K/mm3 (140-440)
[2019-09-13 07:38] LABS: Calcium 8.6 mg/dL (8.4-10.2)
[2019-09-13 07:51] LABS: Red Cell Distribution Width 20.2 % (13.2-15.2)
--- NOTE | 2019-09-13 08:28 | Progress Note ---
Assessment and Plan - Patient Problems (1) Acute on chronic renal failure Current Visit: Yes Status: Acute Qualifiers: Acute renal failure type: with acute tubular necrosis Chronic kidney disease stage: stage 2 (mild) Qualified Code(s): N17.0 - Acute kidney failure with tubular necrosis; N18.2 - Chronic kidney disease, stage 2 (mild) Plan to address problem: Acute on Chronic Renal failure : - baseline creatinine : 1.5 current creatinine : 2.4mg/dl I reviewed CXR with some congestion. -stop IVF - continue IV diuretics (2) CHF (congestive heart failure) Current Visit: Yes Status: Acute Plan to address problem: CHF : I reviewed echo with preserved EF , also noted RV Systolic dysfunction and Mitral regurgitation. continue Diuretics. (3) CVA (cerebral vascular accident) Current Visit: Yes Status: Acute Plan to address problem: Brain MRI with concern for small area of subacute ischemia Neurology following . continue aspirin/statin. (4) HTN (hypertension) Current Visit: Yes Status: Chronic Qualifiers: Hypertension type: essential hypertension Qualified Code(s): I10 - Essential (primary) hypertension Plan to address problem: HTN: controlled continue current medications. Subjective Principal diagnosis: abnl trop and chf Interval history: 69 year old with medical history signficant for CHF and weakness of left side concern for CVA , also noted to have hypokalemia and JUNE patient seen has [place] with good urine output has some lower extremity edema. Objective - Vital Signs Vital signs: Vital Signs - 12hr 09/12/19 09/12/19 09/12/19 22:00 23:00 23:53 Temperature 97.9 F Pulse Rate 63 60 Respiratory 18 20 Rate Blood Pressure 148/75 O2 Sat by Pulse 94 87 Oximetry 09/13/19 04:09 Temperature 98.3 F Pulse Rate 63 Respiratory 20 Rate Blood Pressure 125/87 O2 Sat by Pulse 92 Oximetry - General Appearance General appearance: well-developed, well-nourished EENT: ATNC, PERRL, mucous membranes moist Neck: no JVD Respiratory: Present: Decreased Breath Sounds Cardiology: regular, S1S2 Gastrointestinal: normal, normoactive bowel sounds Integumentary: no rash Neurologic: alert and oriented x3 Psychiatric: mood/affect appropriate - Lab 09/13/19 06:40 09/13/19 06:40 Most recent lab results Calcium 8.6 mg/dL (8.4-10.2) 09/13/19 06:40 Urine Creatinine 46.1 mg/dL (0.1-20.0) H 09/11/19 12:16 Urine Sodium 74 mmol/L 09/11/19 12:16 Urine Total Protein 39 mg/dL (5-11.8) H 09/11/19 12:16 - Imaging Chest x-ray: image reviewed Medications & Allergies - Medications Allergies/Adverse Reactions: Allergies acetaminophen [From Percocet] Allergy (Verified 03/21/19 14:24) Unknown codeine Allergy (Verified 03/21/19 14:24) Unknown morphine Allergy (Verified 03/21/19 14:24) Unknown oxycodone [From Percocet] Allergy (Verified 03/21/19 14:24) Unknown tramadol Allergy (Verified 03/21/19 18:53) Angioedema amlodipine Adverse Reaction (Verified 03/21/19 14:24) Headache clonidine Adverse Reaction (Verified 03/21/19 14:24) Headache sulfadiazine Adverse Reaction (Verified 03/21/19 14:24) Swelling Home Medications: Home Medications Medication Instructions Recorded Confirmed Last Taken Type Fluticasone [Flonase] 1 spray BID 03/22/19 09/12/19 Unknown History Isosorbide Dinitrate [Isordil 10 mg PO TID 03/22/19 09/12/19 Unknown History Titradose] Latanoprost [Xalatan] 1 drop OU HS PRN 03/22/19 09/12/19 Unknown History Levothyroxine [Synthroid] 1 tab PO DAILY 03/22/19 09/12/19 Unknown History Pantoprazole [Protonix TAB] 40 mg PO BID 03/22/19 09/12/19 Unknown History Potassium Chloride [K-Dur] 1 tab PO DAILY 03/22/19 09/12/19 Unknown History Pravastatin [Pravachol] 1 tab PO DAILY 03/22/19 09/12/19 Unknown History Torsemide [Demadex] 60 mg PO DAILY 03/22/19 09/12/19 Unknown History Travoprost [Travatan Z 0.004%] 1 drop OU HS PRN 03/22/19 09/12/19 Unknown History hydrALAZINE [Apresoline TAB] 50 mg PO TID 03/22/19 09/12/19 Unknown History Apixaban [Eliquis] 5 mg PO Q12H tablet 03/23/19 09/12/19 Unknown Rx Active Medications: Generic Name Dose Route Start Last Admin Trade Name Nicole PRN Reason Stop Dose Admin Acetaminophen 500 mg 09/09/19 11:00 09/12/19 22:08 Tylenol PO 500 mg BID ROSALBA Administration Aspirin 81 mg 09/09/19 17:00 09/12/19 11:20 Halfprin Ec PO 81 mg QDAY ROSALBA Administration Cyclobenzaprine HCl 5 mg 09/09/19 11:00 09/12/19 22:07 Flexeril PO 5 mg BID ROSALBA Administration Furosemide 40 mg 09/09/19 10:00 09/12/19 11:24 Lasix IV 40 mg QDAY ROSALBA Administration
[2019-09-13] MEDS: FUROSEMIDE 40 MG/4 ML INJ IV SCH ×2 (09:00→21:27)
--- NOTE | 2019-09-13 10:37 | Progress Note ---
Assessment and Plan - Patient Problems (1) Acute on chronic renal failure Current Visit: Yes Status: Acute Qualifiers: Acute renal failure type: with acute tubular necrosis Chronic kidney disease stage: stage 2 (mild) Qualified Code(s): N17.0 - Acute kidney failure with tubular necrosis; N18.2 - Chronic kidney disease, stage 2 (mild) Plan to address problem: Acute on Chronic Renal failure : - baseline creatinine : 1.5 peak creatinine : 2.4mg/dl current creatinine : 2.2mg/dl I reviewed CXR with some congestion. -stop IVF - continue IV diuretics -40mg IV BID for now. (2) CHF (congestive heart failure) Current Visit: Yes Status: Acute Plan to address problem: CHF : I reviewed echo with preserved EF , also noted RV Systolic dysfunction and Mitral regurgitation. continue Diuretics. (3) CVA (cerebral vascular accident) Current Visit: Yes Status: Acute Plan to address problem: Brain MRI with concern for small area of subacute ischemia Neurology following . continue aspirin/statin. (4) HTN (hypertension) Current Visit: Yes Status: Chronic Qualifiers: Hypertension type: essential hypertension Qualified Code(s): I10 - Essentia l (primary) hypertension Plan to address problem: HTN: controlled continue current medications. Subjective Principal diagnosis: abnl trop and chf Interval history: 69 year old with medical history signficant for CHF and weakness of left side concern for CVA , also noted to have hypokalemia and JUNE patient seen has [place] right leg edema worse than left leg edema. has some lower extremity edema. obtain doppler. Objective - Vital Signs Vital signs: Vital Signs - 12hr 09/12/19 09/12/19 09/13/19 23:00 23:53 04:09 Temperature 97.9 F 98.3 F Pulse Rate 60 63 Respiratory 20 20 Rate Blood Pressure 148/75 125/87 O2 Sat by Pulse 94 87 92 Oximetry - General Appearance General appearance: well-developed, well-nourished EENT: ATNC, PERRL, mucous membranes moist Neck: no JVD Respiratory: Present: Clear to Ascultation Cardiology: regular, S1S2 Gastrointestinal: normal, normoactive bowel sounds Integumentary: no rash Neurologic: alert and oriented x3, CN 3-12 intact Psychiatric: mood/affect appropriate - Lab 09/13/19 06:40 09/13/19 06:40 Most recent lab results Calcium 8.6 mg/dL (8.4-10.2) 09/13/19 06:40 Urine Creatinine 46.1 mg/dL (0.1-20.0) H 09/11/19 12:16 Urine Sodium 74 mmol/L 09/11/19 12:16 Urine Total Protein 39 mg/dL (5-11.8) H 09/11/19 12:16 - Imaging Chest x-ray: image reviewed (I reviewed CXR with some congestion. ) Medications & Allergies - Medications Allergies/Adverse Reactions: Allergies acetaminophen [From Percocet] Allergy (Verified 03/21/19 14:24) Unknown codeine Allergy (Verified 03/21/19 14:24) Unknown morphine Allergy (Verified 03/21/19 14:24) Unknown oxycodone [From Percocet] Allergy (Verified 03/21/19 14:24) Unknown tramadol Allergy (Verified 03/21/19 18:53) Angioedema amlodipine Adverse Reaction (Verified 03/21/19 14:24) Headache clonidine Adverse Reaction (Verified 03/21/19 14:24) Headache sulfadiazine Adverse Reaction (Verified 03/21/19 14:24) Swelling Home Medications: Home Medications Medication Instructions Recorded Confirmed Last Taken Type Fluticasone [Flonase] 1 spray BID 03/22/19 09/12/19 Unknown History Isosorbide Dinitrate [Isordil 10 mg PO TID 03/22/19 09/12/19 Unknown History Titradose] Latanoprost [Xalatan] 1 drop OU HS PRN 03/22/19 09/12/19 Unknown History Levothyroxine [Synthroid] 1 tab PO DAILY 03/22/19 09/12/19 Unknown History Pantoprazole [Protonix TAB] 40 mg PO BID 03/22/19 09/12/19 Unknown History Potassium Chloride [K-Dur] 1 tab PO DAILY 03/22/19 09/12/19 Unknown History Pravastatin [Pravachol] 1 tab PO DAILY 03/22/19 09/12/19 Unknown History Torsemide [Demadex] 60 mg PO DAILY 03/22/19 09/12/19 Unknown History Travoprost [Travatan Z 0.004%] 1 drop OU HS PRN 03/22/19 09/12/19 Unknown History hydrALAZINE [Apresoline TAB] 50 mg PO TID 03/22/19 09/12/19 Unknown History Apixaban [Eliquis] 5 mg PO Q12H tablet 03/23/19 09/12/19 Unknown Rx Active Medications: Generic Name Dose Route Start Last Admin Trade Name Freq PRN Reason Stop Dose Admin Acetaminophen 500 mg 09/09/19 11:00 09/12/19 22:08 Tylenol PO 500 mg BID ROSALBA Administration Aspirin 81 mg 09/09/19 17:00 09/12/19 11:20 Halfprin Ec PO 81 mg QDAY ROSALBA Administration Cyclobenzaprine HCl 5 mg 09/09/19 11:00 09/12/19 22:07 Flexeril PO 5 mg BID ROSALBA Administration Furosemide 40 mg 09/13/19 09:00 Lasix IV 0900,2100 ROSALBA
[2019-09-13] MEDS: ACETAMINOPHEN 500 MG TAB PO SCH (10:42)
[2019-09-13] MEDS: ASPIRIN EC 81 MG TAB PO SCH (10:43)
[2019-09-13] MEDS: CYCLOBENZAPRINE 10 MG TAB PO SCH ×2 (10:43→21:27)
--- NOTE | 2019-09-13 12:38 | Progress Note ---
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 Neurology following. Patient to have repeat MRI to evaluate for progression of subacute stroke. Echocardiogram reveals global left ventricle systolic function normal right ventricle moderately dilated. Right ventricular global systolic function is mildly reduced. Septum with abnormal paradoxical motion consistent with right ventricular volume overload. Mitral valve clip. Carotid Doppler negative. Oropharyngeal dysphagia. Patient reports the patient exhibits oral and pharyngeal phase disorder with delayed oral transit time with residuals of the semi solids and aspiration. WOB increased with each swallow of pureed, thins and semi solids. Patient is at significant risk for po secondary to decreased pulmonary support and aspiration. hospitalist discussed potential PEG placement with the patient and patient denies at this time. patient started on Mechnical soft diet Acute renal failure. Patient with a baseline creatinine 1.25 Mar 2019. Nephrology following. Renal ultrasound negative. NSTEMI. Elevated troponin. Cardiology following. Hypertension. Continue antihypertensive medications. Hyperlipidemia. Continue statins. Paroxysmal atrial fibrillation. Anticoagulation is on hold in anticipation of possible PEG tube placement if Speech therapy deems necessary. May resume eliquis tomorrow if eating well Rhabdomyolysis. Continue to monitor CK. Hyperkalemia. Resolved. Pulmonary hypertension. History Interval history: feels better Hospitalist Physical - Physical exam Narrative exam: Gen: Not in acute distress, Sitting up in chair, morbidly obese HEENT: Normocephalic, atraumatic Neck: supple, no JVD Heart: S1 and S2 reg, no murmurs, rubs or gallop Lungs: Clear to auscultation, no rhonchi, no wheeze Abd: soft, non tender, non distended, normal BS, Ext: No edema, no clubbing, no cyanosis Neuro: Awake, alert, oriented X 3, - Constitutional Vitals: Temp Pulse Resp BP Pulse Ox 98.3 F 63 20 125/87 92 09/13/19 04:09 09/13/19 04:09 09/13/19 04:09 09/13/19 04:09 09/13/19 04:09 General appearance: Present: no acute distress, well-nourished Results - Labs CBC & Chem 7: 09/13/19 06:40 09/13/19 06:40 Labs: Laboratory Last Values WBC 6.6 K/mm3 (4.5-11.0) 09/13/19 06:40 RBC 3.80 M/mm3 (3.65-5.03) 09/13/19 06:40 Hgb 9.6 gm/dl (10.1-14.3) L 09/13/19 06:40 Hct 30.1 % (30.3-42.9) L 09/13/19 06:40 MCV 79 fl (79-97) 09/13/19 06:40 MCH 25 pg (28-32) L 09/13/19 06:40 MCHC 32 % (30-34) 09/13/19 06:40 RDW 20.2 % (13.2-15.2) H 09/13/19 06:40 Plt Count 186 K/mm3 (140-440) 09/13/19 06:40 Lymph % (Auto) 19.2 % (13.4-35.0) 09/13/19 06:40 [place] % (Auto) 8.3 % (0.0-7.3) H 09/13/19 06:40 Eos % (Auto) 4.9 % (0.0-4.3) H 09/13/19 06:40 Baso % (Auto) 0.5 % (0.0-1.8) 09/13/19 06:40 Lymph # 1.3 K/mm3 (1.2-5.4) 09/13/19 06:40 [place] # 0.5 K/mm3 (0.0-0.8) 09/13/19 06:40 Eos # 0.3 K/mm3 (0.0-0.4) 09/13/19 06:40 Baso # 0.0 K/mm3 (0.0-0.1) 09/13/19 06:40 Seg Neutrophils % 67.1 % (40.0-70.0) 09/13/19 06:40 Seg Neutrophils # 4.5 K/mm3 (1.8-7.7) 09/13/19 06:40 PT 22.1 Sec. (12.2-14.9) H 09/08/19 19:42 INR 1.98 (0.87-1.13) H 09/08/19 19:42 APTT 37.4 Sec. (24.2-36.6) H 09/08/19 19:42 POC ABG pH 7.299 (7.35-7.45) L 09/08/19 20:40 POC ABG pCO2 37.4 (35-45) 09/08/19 20:40 POC ABG pO2 88 (80-105) 09/08/19 20:40 POC ABG HCO3 18.4 (22-26 mml/L) 09/08/19 20:40 POC ABG Total CO2 19 (23-27mmol/L) 09/08/19 20:40 POC ABG O2 Sat 96 09/08/19 20:40 POC ABG Base Excess -8 ((-2) - (+3)mmol/L) 09/08/19 20:40 FiO2 28 % 09/08/19 20:40 Sodium 143 mmol/L (137-145) 09/13/19 06:40 Potassium 4.2 mmol/L (3.6-5.0) 09/13/19 06:40 Chloride 104.5 mmol/L (98-107) 09/13/19 06:40 Carbon Dioxide 24 mmol/L (22-30) 09/13/19 06:40 Anion Gap 19 mmol/L 09/13/19 06:40 BUN 62 mg/dL (7-17) H 09/13/19 06:40 Creatinine 2.1 mg/dL (0.7-1.2) H 09/13/19 06:40 Estimated GFR 28 ml/min 09/13/19 06:40 BUN/Creatinine Ratio 30 % 09/13/19 06:40 Glucose 84 mg/dL (65-100) 09/13/19 06:40 POC Glucose 94 (70-105) 09/09/19 20:28 Osmolality 322 Mosm/kg 09/11/19 12:44 Uric Acid 12.4 mg/dL (3.5-7.6) H 09/11/19 12:44 Calcium 8.6 mg/dL (8.4-10.2) 09/13/19 06:40 Total Bilirubin 2.30 mg/dL (0.1-1.2) H 09/08/19 20:23 AST 113 units/L (5-40) H 09/08/19 20:23 ALT 24 units/L (7-56) 09/08/19 20:23 Alkaline Phosphatase 106 units/L (35-129) 09/08/19 20:23 Total Creatine Kinase 668 units/L (30-135) H 09/12/19 07:47 CK-MB (CK-2) 13.9 ng/mL (0.0-4.0) H 09/09/19 04:02 CK-MB (CK-2) Rel Index 0.4 (0-4) 09/09/19 04:02 Troponin T 0.074 ng/mL (0.00-0.029) H D 09/09/19 04:02 NT-Pro-B Natriuret Pep 7270 pg/mL (0-900) H 09/09/19 04:02 Total Protein 7.7 g/dL (6.3-8.2) 09/08/19 20:23 Albumin 3.7 g/dL (3.9-5) L 09/08/19 20:23 Albumin/Globulin Ratio 0.9 % 09/08/19 20:23 Triglycerides 55 mg/dL (2-149) 09/08/19 19:42 Cholesterol 92 mg/dL (50-199) 09/08/19 19:42 LDL Cholesterol Direct 50 mg/dL (50-130) 09/08/19 19:42 HDL Cholesterol 37 mg/dL (40-59) L 09/08/19 19:42 Cholesterol/HDL Ratio 2.48 % 09/08/19 19:42 Urine Color Yellow (Yellow) 09/11/19 12:16 Urine Turbidity Cloudy (Clear) 09/11/19 12:16 Urine pH 5.0 (5.0-7.0) 09/11/19 12:16 Ur Specific [place] 1.009 (1.003-1.030) 09/11/19 12:16 Urine Protein <15 mg/dl mg/dL (Negative) 09/11/19 12:16 Urine Glucose (UA) Neg mg/dL (Negative) 09/11/19 12:16 Urine Ketones Neg mg/dL (Negative) 09/11/19 12:16 Urine Blood Lg (Negative) 09/11/19 12:16 Urine Nitrite Neg (Negative) 09/11/19 12:16 Ur Reducing Substances Not Reportable 09/11/19 12:16 Urine Bilirubin Neg (Negative) 09/11/19 12:16 Urine Ictotest Not Reportable 09/11/19 12:16 Urine Urobilinogen < 2.0 mg/dL (<2.0) 09/11/19 12:16 Ur Leukocyte Esterase Lg (Negative) 09/11/19 12:16 Urine WBC (Auto) > 182.0 /HPF (0.0-6.0) H 09/11/19 12:16 Urine RBC (Auto) > 182.0 /HPF (0.0-6.0) 09/11/19 12:16 U Epithel Cells (Auto) 2.0 /HPF (0-13.0) 09/11/19 12:16 Urine Bacteria (Auto) 4+ /HPF (Negative) 09/11/19 12:16 Urine WBC Clumps 3+ /HPF 09/11/19 12:16 Hyaline Casts Not Reportable 09/11/19 12:16 Urine Mucus Few /HPF 09/11/19 12:16 Urine Yeast (Budding) Camp Advisor 09/11/19 12:16 Urine Creatinine 46.1 mg/dL (0.1-20.0) H 09/11/19 12:16 Urine Sodium 74 mmol/L 09/11/19 12:16 Urine Total Protein 39 mg/dL (5-11.8) H 09/11/19 12:16 Salicylates < 0.3 mg/dL (2.8-20.0) L 09/08/19 19:42 Acetaminophen 6.6 ug/mL (10.0-30.0) L 09/08/19 23:21 Plasma/Serum Alcohol < 0.01 % (0-0.07) 09/08/19 19:42 Active Medications - Current Medications Current Medications: Generic Name Dose Route Start Last Admin Trade Name Freq PRN Reason Stop Dose Admin Acetaminophen 500 mg 09/09/19 11:00 09/13/19 10:42 Tylenol PO 500 mg BID ROSALBA Administration Aspirin 81 mg 09/09/19 17:00 09/13/19 10:43 Halfprin Ec PO 81 mg QDAY ROSALBA Administration Cyclobenzaprine HCl 5 mg 09/09/19 11:00 09/13/19 10:43 Flexeril PO 5 mg BID ROSALBA Administration Furosemide 40 mg 09/13/19 09:00 09/13/19 09:00 Lasix IV 40 mg 0900,2100 ROSALBA Administration Nutrition/Malnutrition Assess - Dietary Evaluation Nutrition/Malnutrition Findings: Nutrition Notes Start: 09/09/19 13:13 Freq: Status: Active Protocol: Document 09/12/19 17:12 RM (Rec: 09/12/19 17:27 RM [email or web address]) Nutrition Notes Initial or Follow up Brief Note Current Diagnosis Acute Kidney Injury, Hypertension,Heart Failure, Stroke,Hyperlipidemia Other Pertinent Diagnosis TIA,Dysphagia Current Diet [facility] soft Labs/Tests Reviewed Pertinent Medications Lasix Height 5 ft 8 in Weight 126.4 kg [place] Body Weight (kg) 63.63 BMI 42.3 Subjective/Other Information Josh [address] re- evaluated pt and recommended [facility] soft w/chopped meat. [facility] soft w/chopped meat diet ordered for dinner. Burn Absent Trauma Absent Minimum of two criteria No Is patient on ventilator? No Is Patient Ambulatory and/or Out of Bed No REE-([facility]-confined to bed) 2204.208 Kcal/Kg value to use for calculation 13 Approximate Energy Requirements Using 1643 kcal/Kg Calculation Used for Recommendations Kcal/kg Additional Notes Protein Needs: 95-114g (1-1.2g /kg 95kg adjBW) Fluid Needs: 1ml/kcal Nutrition Intervention Change Diet Order: Add chopped meat modification Follow-Up By: 09/14/19 Additional Comments Follow for PO intakes
[2019-09-13] MEDS ORDERED: TRAVOPROST OU PRN (12:44)
[2019-09-13] MEDS ORDERED: LATANOPROST 0.005% OPHTH SOLN 2.5 ML OU PRN (12:44)
[2019-09-13] MEDS ORDERED: LEVOTHYROXINE 100 MCG TAB PO SCH (13:00)
[2019-09-13] MEDS: FLUTICASONE PROPIONATE NASAL SPRAY 16 GM NS SCH ×2 (13:00→21:29)
[2019-09-13] MEDS: hydrALAZINE 100 MG TAB PO SCH ×2 (14:58→21:28)
[2019-09-13] MEDS: ISOSORBIDE DINITRATE 10 MG TAB PO SCH ×2 (14:58→21:27)
[2019-09-13] MEDS: oxyCODONE /ACETAMINOPHEN 5-325MG TAB PO PRN (14:58)
--- NOTE | 2019-09-13 15:10 | Progress Note ---
Assessment and Plan Currently stable cardiac status. She appears to be tolerating PO meds. Recommend resuming systemic AC if/when okay per neurology. Nothing further to add from cardiac perspective at this time. Will sign off. Recommend pt follow up with her primary production team member at [place] within 1-2 weeks of hospital discharge ([phone]). The patient has been seen in conjunction with Dr. CLAUDIO Gordon who agrees with the assessment and plan of care. - Patient Problems (1) CVA (cerebral vascular accident) Current Visit: Yes Status: Acute (2) Acute heart failure with preserved ejection fraction Current Visit: Yes Status: Acute (3) Paroxysmal atrial fibrillation Current Visit: Yes Status: Chronic (4) S/P mitral valve clip implantation Current Visit: Yes Status: Chronic (5) Pulmonary hypertension Current Visit: Yes Status: Chronic (6) Sleep apnea Current Visit: Yes Status: Chronic (7) HTN (hypertension) Current Visit: Yes Status: Chronic Qualifiers: Hypertension type: essential hypertension Qualified Code(s): I10 - Essential (primary) hypertension (8) Diabetes Current Visit: Yes Status: Chronic Qualifiers: Diabetes mellitus type: type 2 Diabetes mellitus ocean transportation intermediary insulin use: with ocean transportation intermediary use Diabetes mellitus complication status: without complication Qualified Code(s): E11.9 - Type 2 diabetes mellitus without complications; Z79.4 - termite exterminator (current) use of insulin (9) Hyperlipidemia Current Visit: Yes Status: Chronic Qualifiers: Hyperlipidemia type: mixed hyperlipidemia Qualified Code(s): E78.2 - Mixed hyperlipidemia (10) Chronic respiratory failure Current Visit: Yes Status: Chronic Qualifiers: Respiratory failure complication: hypoxia Qualified Code(s): J96.11 - Chronic respiratory failure with hypoxia (11) Hypothyroidism Current Visit: Yes Status: Chronic (12) Acute on chronic renal failure Current Visit: Yes Status: Acute Qualifiers: Acute renal failure type: with acute tubular necrosis Chronic kidney disease stage: stage 2 (mild) Qualified Code(s): N17.0 - Acute kidney failure with tubular necrosis; N18.2 - Chronic kidney disease, stage 2 (mild) (13) Hyperkalemia Current Visit: Yes Status: Acute (14) NSTEMI (non-ST elevated myocardial infarction) Current Visit: Yes Status: Acute (15) Statin intolerance Current Visit: Yes Status: Chronic Subjective Date of service: 09/13/19 Principal diagnosis: abnl trop and chf Interval history: pt sitting up in chair, no current complaints. in ectopic atrial rhythm on telemetry. Objective Last Vital Signs Temp 97.2 F L 09/13/19 08:57 Pulse 78 09/13/19 14:58 Resp 22 09/13/19 10:00 BP 126/65 09/13/19 14:58 Pulse Ox 92 09/13/19 12:42 - Physical Examination General: Appears Well, No Apparent Distress HEENT: Positive: PERRL, EOMI Neck: Positive: neck supple Cardiac: Positive: Reg Rate and Rhythm, S1/S2 Lungs: Positive: Decreased Breath Sounds Neuro: Positive: Grossly Intact, Other Abdomen: /Rectal: Normal Prostate, No Masses Skin: Musculoskeletal: No Fluid Collection, No Pain, Normal Range of Motion Gait: Normal Gait Extremities: Absent: edema - Labs and Meds CBC 09/13/19 Range/Units 06:40 WBC 6.6 (4.5-11.0) K/mm3 RBC 3.80 (3.65-5.03) M/mm3 Hgb 9.6 L (10.1-14.3) gm/dl Hct 30.1 L (30.3-42.9) % Plt Count 186 (140-440) K/mm3 Lymph # 1.3 (1.2-5.4) K/mm3 [place] # 0.5 (0.0-0.8) K/mm3 Eos # 0.3 (0.0-0.4) K/mm3 Baso # 0.0 (0.0-0.1) K/mm3 Comprehensive Metabolic Panel 09/13/19 Range/Units 06:40 Sodium 143 (137-145) mmol/L Potassium 4.2 (3.6-5.0) mmol/L Chloride 104.5 (98-107) mmol/L Carbon Dioxide 24 (22-30) mmol/L BUN 62 H (7-17) mg/dL Creatinine 2.1 H (0.7-1.2) mg/dL Glucose 84 (65-100) mg/dL Calcium 8.6 (8.4-10.2) mg/dL - Imaging and Cardiology EKG: report reviewed, image reviewed Echo: report reviewed (03/03/2019 at [place] showed EF 55%, severe LVH, mod dilated LA, mitraclip present on MV, mild to mod MR, mod to severe TR, severely elnarged RV, mod to severely reduced RV systolic function, pulm HTN with RVSP 70mmHg, severely dilated RA, mod pleural effusion in left lateral region, no pericardial effusion seen. ), other (09/09/2019 normal LV function 50-55% moderate RV dilatation with RV overload severe pulmonary hypertension mitral clip present mild to moderate mitral regurgitation) Cardiac cath: report reviewed (RHC done 08/2018 at [facility] showed CO 4.5L/min, CI 2.0 L/min, PAP 68/46mmHg, PCWP 40mmHg, RV pressures 70/12mmHg, RA pressures 12mmHg, saturations PA 61% FA 99%. ) - EKG Sinus rhythms and dysrhythmias: sinus rhythm AV and intraventricular conduction: right bundle branch block
[2019-09-13] MEDS: cefTRIAXone/NS 1 GM/50 ML 1 GM/50 ML BAG IV SCH (17:00)
--- NOTE | 2019-09-13 18:06 | Vascular Lab Report ---
DUPLEX DOPPLER LOWER EXTREMITY VEINS, BILATERAL INDICATION: Leg edema for one month. TECHNIQUE: Duplex doppler imaging was performed through the veins of both lower extremities using venous willie mike and other maneuvers. COMPARISON: None available. FINDINGS: Right Common femoral vein: Negative. Right Superficial femoral vein: Negative. Right Popliteal vein: Negative. Right Calf veins: Negative. Left Common femoral vein: Negative. Left Superficial femoral vein: Negative. Left Popliteal vein: Negative. Left Calf veins: Negative. Additional findings: None. IMPRESSION: 1. No sonographic evidence for DVT in either lower extremity. Signer Name: Bjorn Sharma MD Signed: 09/13/2019 6:02 PM Workstation Name: [id number]
[2019-09-13] MEDS: PANTOPRAZOLE 40 MG TAB PO SCH (21:27)
[2019-09-13] MEDS: HEPARIN 5,000 UNIT/1 ML VIAL SUB-Q SCH (21:30)
[2019-09-14] MEDS: ACETAMINOPHEN 500 MG TAB PO SCH ×3 (01:20→22:37)
[2019-09-14] MEDS: LEVOTHYROXINE 100 MCG TAB PO SCH (08:34)
[2019-09-14] MEDS: ISOSORBIDE DINITRATE 10 MG TAB PO SCH ×3 (08:34→22:39)
[2019-09-14] MEDS: hydrALAZINE 100 MG TAB PO SCH ×3 (08:35→22:37)
[2019-09-14] MEDS ORDERED: APIXABAN 5 MG TAB PO SCH (10:30)
[2019-09-14] MEDS: cefTRIAXone/NS 1 GM/50 ML 1 GM/50 ML BAG IV SCH (11:59)
[2019-09-14] MEDS: PANTOPRAZOLE 40 MG TAB PO SCH ×2 (12:01→22:38)
[2019-09-14] MEDS: CYCLOBENZAPRINE 10 MG TAB PO SCH ×2 (12:01→22:36)
[2019-09-14] MEDS: PRAVASTATIN 80 MG TAB PO SCH (12:02)
[2019-09-14] MEDS: ASPIRIN EC 81 MG TAB PO SCH (12:02)
[2019-09-14] MEDS: FLUTICASONE PROPIONATE NASAL SPRAY 16 GM NS SCH ×2 (12:03→22:38)
[2019-09-14] MEDS: FUROSEMIDE 40 MG/4 ML INJ IV SCH ×2 (12:38→22:36)
[2019-09-14 13:30] LABS: Calcium 8.4 mg/dL (8.4-10.2)
--- NOTE | 2019-09-14 13:53 | Progress Note ---
Assessment and Plan - Patient Problems (1) Acute on chronic renal failure Current Visit: Yes Status: Acute Qualifiers: Acute renal failure type: with acute tubular necrosis Chronic kidney disease stage: stage 2 (mild) Qualified Code(s): N17.0 - Acute kidney failure with tubular necrosis; N18.2 - Chronic kidney disease, stage 2 (mild) Plan to address problem: Acute on Chronic Renal failure : - baseline creatinine : 1.5 peak creatinine : 2.4mg/dl current creatinine : 1.9mg/dl I reviewed CXR with some congestion. Will check uric acid level. - continue IV diuretics -40mg IV BID for now. (2) CHF (congestive heart failure) Current Visit: Yes Status: Acute Plan to address problem: CHF : I reviewed echo with preserved EF , also noted RV Systolic dysfunction and Mitral regurgitation. continue Diuretics. (3) CVA (cerebral vascular accident) Current Visit: Yes Status: Acute Plan to address problem: Brain MRI with concern for small area of subacute ischemia Neurology following . continue aspirin/statin. (4) HTN (hypertension) Current Visit: Yes Status: Chronic Qualifiers: Hypertension type: essential hypertension Qualified Code(s): I10 - Essential (primary) hypertension Plan to address problem: HTN: controlled continue current medications. Subjective Principal diagnosis: abnl trop and chf Interval history: 69 year old with medical history signficant for CHF and weakness of left side concern for CVA , also noted to have hypokalemia and JUNE patient seen today asks me to check her uric acid level ! Good urine output , has madrid catheter. right leg edema worse than left leg edema. has some lower extremity edema. no evidence of DVT on doppler ultrasound Objective - Vital Signs Vital signs: Vital Signs - 12hr 09/14/19 09/14/19 09/14/19 03:28 03:36 08:05 Temperature 98.0 F 97.6 F Pulse Rate 70 63 62 Respiratory 18 18 Rate Blood Pressure 136/76 116/68 O2 Sat by Pulse 98 89 Oximetry 09/14/19 09/14/19 09/14/19 08:34 10:39 11:14 Temperature 98.4 F Pulse Rate 62 64 Respiratory 18 Rate Blood Pressure 116/68 101/52 O2 Sat by Pulse 94 88 Oximetry 09/14/19 12:00 Temperature Pulse Rate Respiratory 20 Rate Blood Pressure O2 Sat by Pulse Oximetry - General Appearance General appearance: well-developed, well-nourished EENT: ATNC, PERRL, mucous membranes moist Neck: no JVD Respiratory: Present: Clear to Ascultation Cardiology: regular, S1S2 Gastrointestinal: normal, normoactive bowel sounds Integumentary: no rash Neurologic: no focal deficit, CN 3-12 intact Psychiatric: mood/affect appropriate - Lab 09/13/19 06:40 09/14/19 12:39 Most recent lab results Calcium 8.4 mg/dL (8.4-10.2) 09/14/19 12:39 Urine Creatinine 46.1 mg/dL (0.1-20.0) H 09/11/19 12:16 Urine Sodium 74 mmol/L 09/11/19 12:16 Urine Total Protein 39 mg/dL (5-11.8) H 09/11/19 12:16 - Imaging Chest x-ray: image reviewed Medications & Allergies - Medications Allergies/Adverse Reactions: Allergies codeine Allergy (Verified 03/21/19 14:24) Unknown morphine Allergy (Verified 03/21/19 14:24) Unknown tramadol Allergy (Verified 03/21/19 18:53) Angioedema amlodipine Adverse Reaction (Verified 03/21/19 14:24) Headache clonidine Adverse Reaction (Verified 03/21/19 14:24) Headache sulfadiazine Adverse Reaction (Verified 03/21/19 14:24) Swelling Home Medications: Home Medications Medication Instructions Recorded Confirmed Last Taken Type Fluticasone [Flonase] 1 spray BID 03/22/19 09/12/19 Unknown History Isosorbide Dinitrate [Isordil 10 mg PO TID 03/22/19 09/12/19 Unknown History Titradose] Latanoprost [Xalatan] 1 drop OU HS PRN 03/22/19 09/12/19 Unknown History Levothyroxine [Synthroid] 1 tab PO DAILY 03/22/19 09/12/19 Unknown History Pantoprazole [Protonix TAB] 40 mg PO BID 03/22/19 09/12/19 Unknown History Potassium Chloride [K-Dur] 1 tab PO DAILY 03/22/19 09/12/19 Unknown History Pravastatin [Pravachol] 1 tab PO DAILY 03/22/19 09/12/19 Unknown History Torsemide [Demadex] 60 mg PO DAILY 03/22/19 09/12/19 Unknown History Travoprost [Travatan Z 0.004%] 1 drop OU HS PRN 03/22/19 09/12/19 Unknown History hydrALAZINE [Apresoline TAB] 50 mg PO TID 03/22/19 09/12/19 Unknown History Apixaban [Eliquis] 5 mg PO Q12H tablet 03/23/19 09/12/19 Unknown Rx Active Medications: Generic Name Dose Route Start Last Admin Trade Name Freq PRN Reason Stop Dose Admin Acetaminophen 500 mg 09/09/19 11:00 09/14/19 12:00 Tylenol PO 500 mg BID ROSALBA Administration Apixaban 5 mg 09/14/19 10:30 Eliquis PO Q12H ROSALBA Protocol Aspirin 81 mg 09/09/19 17:00 09/14/19 12:02 Halfprin Ec PO 81 mg QDAY ROSALBA Administration Cyclobenzaprine HCl 5 mg 09/09/19 11:00 09/14/19 12:01 Flexeril PO 5 mg BID ROSALBA Administration Fluticasone Propionate 50 mcg 09/13/19 13:00 09/14/19 12:03 Flonase NS 50 mcg BID ROSALBA Administration Furosemide 40 mg 09/13/19 09:00 09/14/19 12:38 Lasix IV 40 mg 0900,2100 ROSALBA Administration Hydralazine HCl 50 mg 09/13/19 14:00 09/14/19 08:35 Apresoline PO 50 mg TID ROSALBA Administration Ceftriaxone Sodium 1 gm in 50 mls @ 100 mls/hr 09/13/19 17:00 09/14/19 11:59 Rocephin/Ns 1 Gm/50 Ml IV 100 mls/hr Q24HR ROSALBA Administration Protocol Isosorbide Dinitrate 10 mg 09/13/19 14:00 09/14/19 08:34 Isordil Titradose PO 10 mg TID ROSALBA Administration Latanoprost 1 drops 09/13/19 12:44 Latanoprost 0.005% OU HS PRN Dry Eye(s) Levothyroxine Sodium 100 mcg 09/14/19 09:00 09/14/19 08:34 Synthroid PO 100 mcg 0600 ROSALBA Administration Oxycodone/Acetaminophen 1 tab 09/13/19 13:39 09/13/19 14:58 Percocet 5/325 PO 1 tab Q6H PRN Administration Pain, Moderate (4-6) Pantoprazole Sodium 40 mg 09/13/19 22:00 09/14/19 12:01 Protonix PO 40 mg BID ROSALBA Administration Pravastatin Sodium 80 mg 09/14/19 10:00 09/14/19 12:02 Pravachol PO 80 mg DAILY ROSALBA Administration
[2019-09-14] MEDS: oxyCODONE /ACETAMINOPHEN 5-325MG TAB PO PRN (14:28)
--- NOTE | 2019-09-14 15:52 | Progress Note ---
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 Neurology following. Echocardiogram reveals global left ventricle systolic function normal right ventricle moderately dilated. Right ventricular global systolic function is mildly reduced. Septum with abnormal paradoxical motion consistent with right ventricular volume overload. Mitral valve clip. Carotid Doppler negative. 5mm infarct on right will consult Neurology to evaluate when to resume Eliquis Oropharyngeal dysphagia. Patient reports the patient exhibits oral and pharyngeal phase disorder with delayed oral transit time with residuals of the semi solids and aspiration. WOB increased with each swallow of pureed, thins and semi solids. Patient is at significant risk for po secondary to decreased pulmonary support and aspiration. hospitalist discussed potential PEG placement with the patient and patient denies at this time. patient started on Mechnical soft diet Acute renal failure. Patient with a baseline creatinine 1.25 Mar 2019. Nephrology following. Renal ultrasound negative. NSTEMI. Elevated troponin. Cardiology following. Hypertension. Continue antihypertensive medications. Hyperlipidemia. Continue statins. Paroxysmal atrial fibrillation. Anticoagulation is on hold in anticipation of possible PEG tube placement if Speech therapy deems necessary. also waiting on Neuro to re-evaluate Rhabdomyolysis. Continue to monitor CK. Hyperkalemia. Resolved. Pulmonary hypertension. History Interval history: feels better Hospitalist Physical - Physical exam Narrative exam: Gen: Not in acute distress, Sitting up in chair, morbidly obese HEENT: Normocephalic, atraumatic Neck: supple, no JVD Heart: S1 and S2 reg, no murmurs, rubs or gallop Lungs: Clear to auscultation, no rhonchi, no wheeze Abd: soft, non tender, non distended, normal BS, Ext: No edema, no clubbing, no cyanosis Neuro: Awake, alert, oriented X 3, left sided weakness - Constitutional Vitals: Temp Pulse Resp BP Pulse Ox 98.4 F 102 H 20 120/56 88 09/14/19 11:14 09/14/19 14:27 09/14/19 14:28 09/14/19 14:27 09/14/19 11:14 General appearance: Present: no acute distress, well-nourished Results - Labs CBC & Chem 7: 09/13/19 06:40 09/14/19 12:39 Labs: Laboratory Last Values WBC 6.6 K/mm3 (4.5-11.0) 09/13/19 06:40 RBC 3.80 M/mm3 (3.65-5.03) 09/13/19 06:40 Hgb 9.6 gm/dl (10.1-14.3) L 09/13/19 06:40 Hct 30.1 % (30.3-42.9) L 09/13/19 06:40 MCV 79 fl (79-97) 09/13/19 06:40 MCH 25 pg (28-32) L 09/13/19 06:40 MCHC 32 % (30-34) 09/13/19 06:40 RDW 20.2 % (13.2-15.2) H 09/13/19 06:40 Plt Count 186 K/mm3 (140-440) 09/13/19 06:40 Lymph % (Auto) 19.2 % (13.4-35.0) 09/13/19 06:40 [place] % (Auto) 8.3 % (0.0-7.3) H 09/13/19 06:40 Eos % (Auto) 4.9 % (0.0-4.3) H 09/13/19 06:40 Baso % (Auto) 0.5 % (0.0-1.8) 09/13/19 06:40 Lymph # 1.3 K/mm3 (1.2-5.4) 09/13/19 06:40 [place] # 0.5 K/mm3 (0.0-0.8) 09/13/19 06:40 Eos # 0.3 K/mm3 (0.0-0.4) 09/13/19 06:40 Baso # 0.0 K/mm3 (0.0-0.1) 09/13/19 06:40 Seg Neutrophils % 67.1 % (40.0-70.0) 09/13/19 06:40 Seg Neutrophils # 4.5 K/mm3 (1.8-7.7) 09/13/19 06:40 PT 22.1 Sec. (12.2-14.9) H 09/08/19 19:42 INR 1.98 (0.87-1.13) H 09/08/19 19:42 APTT 37.4 Sec. (24.2-36.6) H 09/08/19 19:42 POC ABG pH 7.299 (7.35-7.45) L 09/08/19 20:40 POC ABG pCO2 37.4 (35-45) 09/08/19 20:40 POC ABG pO2 88 (80-105) 09/08/19 20:40 POC ABG HCO3 18.4 (22-26 mml/L) 09/08/19 20:40 POC ABG Total CO2 19 (23-27mmol/L) 09/08/19 20:40 POC ABG O2 Sat 96 09/08/19 20:40 POC ABG Base Excess -8 ((-2) - (+3)mmol/L) 09/08/19 20:40 FiO2 28 % 09/08/19 20:40 Sodium 146 mmol/L (137-145) H 09/14/19 12:39 Potassium 3.9 mmol/L (3.6-5.0) 09/14/19 12:39 Chloride 105.7 mmol/L (98-107) 09/14/19 12:39 Carbon Dioxide 26 mmol/L (22-30) 09/14/19 12:39 Anion Gap 18 mmol/L 09/14/19 12:39 BUN 56 mg/dL (7-17) H 09/14/19 12:39 Creatinine 1.9 mg/dL (0.7-1.2) H 09/14/19 12:39 Estimated GFR 32 ml/min 09/14/19 12:39 BUN/Creatinine Ratio 29 % 09/14/19 12:39 Glucose 101 mg/dL (65-100) H 09/14/19 12:39 POC Glucose 94 (70-105) 09/09/19 20:28 Osmolality 322 Mosm/kg 09/11/19 12:44 Uric Acid 12.4 mg/dL (3.5-7.6) H 09/11/19 12:44 Calcium 8.4 mg/dL (8.4-10.2) 09/14/19 12:39 Total Bilirubin 2.30 mg/dL (0.1-1.2) H 09/08/19 20:23 AST 113 units/L (5-40) H 09/08/19 20:23 ALT 24 units/L (7-56) 09/08/19 20:23 Alkaline Phosphatase 106 units/L (35-129) 09/08/19 20:23 Total Creatine Kinase 668 units/L (30-135) H 09/12/19 07:47 CK-MB (CK-2) 13.9 ng/mL (0.0-4.0) H 09/09/19 04:02 CK-MB (CK-2) Rel Index 0.4 (0-4) 09/09/19 04:02 Troponin T 0.074 ng/mL (0.00-0.029) H D 09/09/19 04:02 NT-Pro-B Natriuret Pep 7270 pg/mL (0-900) H 09/09/19 04:02 Total Protein 7.7 g/dL (6.3-8.2) 09/08/19 20:23 Albumin 3.7 g/dL (3.9-5) L 09/08/19 20:23 Albumin/Globulin Ratio 0.9 % 09/08/19 20:23 Triglycerides 55 mg/dL (2-149) 09/08/19 19:42 Cholesterol 92 mg/dL (50-199) 09/08/19 19:42 LDL Cholesterol Direct 50 mg/dL (50-130) 09/08/19 19:42 HDL Cholesterol 37 mg/dL (40-59) L 09/08/19 19:42 Cholesterol/HDL Ratio 2.48 % 09/08/19 19:42 Urine Color Yellow (Yellow) 09/11/19 12:16 Urine Turbidity Cloudy (Clear) 09/11/19 12:16 Urine pH 5.0 (5.0-7.0) 09/11/19 12:16 Ur Specific [place] 1.009 (1.003-1.030) 09/11/19 12:16 Urine Protein <15 mg/dl mg/dL (Negative) 09/11/19 12:16 Urine Glucose (UA) Neg mg/dL (Negative) 09/11/19 12:16 Urine Ketones Neg mg/dL (Negative) 09/11/19 12:16 Urine Blood Lg (Negative) 09/11/19 12:16 Urine Nitrite Neg (Negative) 09/11/19 12:16 Ur Reducing Substances Not Reportable 09/11/19 12:16 Urine Bilirubin Neg (Negative) 09/11/19 12:16 Urine Ictotest Not Reportable 09/11/19 12:16 Urine Urobilinogen < 2.0 mg/dL (<2.0) 09/11/19 12:16 Ur Leukocyte Esterase Lg (Negative) 09/11/19 12:16 Urine WBC (Auto) > 182.0 /HPF (0.0-6.0) H 09/11/19 12:16 Urine RBC (Auto) > 182.0 /HPF (0.0-6.0) 09/11/19 12:16 U Epithel Cells (Auto) 2.0 /HPF (0-13.0) 09/11/19 12:16 Urine Bacteria (Auto) 4+ /HPF (Negative) 09/11/19 12:16 Urine WBC Clumps 3+ /HPF 09/11/19 12:16 Hyaline Casts Not Reportable 09/11/19 12:16 Urine Mucus Few /HPF 09/11/19 12:16 Urine Yeast (Budding) Cosmetic Account Coordinator 09/11/19 12:16 Urine Creatinine 46.1 mg/dL (0.1-20.0) H 09/11/19 12:16 Urine Sodium 74 mmol/L 09/11/19 12:16 Urine Total Protein 39 mg/dL (5-11.8) H 09/11/19 12:16 Salicylates < 0.3 mg/dL (2.8-20.0) L 09/08/19 19:42 Acetaminophen 6.6 ug/mL (10.0-30.0) L 09/08/19 23:21 Plasma/Serum Alcohol < 0.01 % (0-0.07) 09/08/19 19:42 Active Medications - Current Medications Current Medications: Generic Name Dose Route Start Last Admin Trade Name Freq PRN Reason Stop Dose Admin Acetaminophen 500 mg 09/09/19 11:00 09/14/19 12:00 Tylenol PO 500 mg BID ROSALBA Administration Apixaban 5 mg 09/14/19 10:30 Eliquis PO Q12H ROSALBA Protocol Aspirin 81 mg 09/09/19 17:00 09/14/19 12:02 Halfprin Ec PO 81 mg QDAY ROSALBA Administration Cyclobenzaprine HCl 5 mg 09/09/19 11:00 09/14/19 12:01 Flexeril PO 5 mg BID ROSALBA Administration Fluticasone Propionate 50 mcg 09/13/19 13:00 09/14/19 12:03 Flonase NS 50 mcg BID ROSALBA Administration Furosemide 40 mg 09/13/19 09:00 09/14/19 12:38 Lasix IV 40 mg 0900,2100 ROSALBA Administration Hydralazine HCl 50 mg 09/13/19 14:00 09/14/19 14:28 Apresoline PO 50 mg TID ROSALBA Administration Ceftriaxone Sodium 1 gm in 50 mls @ 100 mls/hr 09/13/19 17:00 09/14/19 11:59 Rocephin/Ns 1 Gm/50 Ml IV 100 mls/hr Q24HR ROSALBA Administration Protocol Isosorbide Dinitrate 10 mg 09/13/19 14:00 09/14/19 14:27 Isordil Titradose PO 10 mg TID ROSALBA Administration Latanoprost 1 drops 09/13/19 12:44 Latanoprost 0.005% OU HS PRN Dry Eye(s) Levothyroxine Sodium 100 mcg 09/14/19 09:00 09/14/19 08:34 Synthroid PO 100 mcg 0600 ROSALBA Administration Oxycodone/Acetaminophen 1 tab 09/13/19 13:39 09/14/19 14:28 Percocet 5/325 PO 1 tab Q6H PRN Administration Pain, Moderate (4-6) Pantoprazole Sodium 40 mg 09/13/19 22:00 09/14/19 12:01 Protonix PO 40 mg BID ROSALBA Administration Pravastatin Sodium 80 mg 09/14/19 10:00 09/14/19 12:02 Pravachol PO 80 mg DAILY ROSALBA Administration Nutrition/Malnutrition Assess - Dietary Evaluation Nutrition/Malnutrition Findings: Nutrition Notes Start: 09/09/19 13:13 Freq: Status: Active Protocol: Document 09/14/19 14:18 CC (Rec: 09/14/19 14:38 CC [email or web address]) Co-Sign 09/14/19 14:18 LP Nutrition Notes Initial or Follow up Assessment Current Diagnosis CKD(stage I-IV),Hypertension, Heart Failure,Stroke, Hyperlipidemia Other Pertinent Diagnosis TIA,Dysphagia Current Diet [facility] soft Labs/Tests BUN 62, creat 2.1 Pertinent Medications Lasix Height 5 ft 8 in Weight 128.4 kg [place] Body Weight (kg) 63.63 BMI 43.0 Intake Prior to Admission Good Weight Status Morbidly Obese Subjective/Other Information F/U for full assesment. 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 Pt reported she has had no unitentional wt loss. Pt reported her appetite has been good since arrival Percent of energy/protein needs met: 100% energy/ 100% protein Burn Absent Trauma Absent GI Symptoms None Difficulty In Swallowing Current % PO Good (75-100%) Minimum of two criteria No #1 Nutrition Diagnosis No nutrition diagnosis at this time Is patient on ventilator? No Is Patient Ambulatory and/or Out of Bed No REE-([facility]-confined to bed) 2228.184 Kcal/Kg value to use for calculation 13 Approximate Energy Requirements Using 1669 kcal/Kg Calculation Used for Recommendations Kcal/kg Additional Notes PRO: 58-77g/day (0.6-0.8g/kg adBW 96kg) Fluid:1ml/kcal Nutrition Intervention Anticipated Discharge Needs: mechanical soft diet Revisit per MD consult or patient Sign Off request:
--- NOTE | 2019-09-14 18:18 | Progress Note ---
Assessment and Plan Patient is a 69-year-old woman with a history of CHF, hypothyroidism, history of previous stroke with no residual symptoms in the past, TIA, A-fib, gout, CKD, hyperlipidemia, hypertension, who was admitted on 09/08/2019 for new onset of left-sided weakness. According the patient's clinical findings, she is likely had an and acute ischemic stroke, as is evidenced on MRI. Plan: 1. Stroke: - MRI revealed small focal infarct in Rt. brainstem - Etiology likely A-fib - Patient previously on Eliquis, and states that she was compliant with medication. Therefore, this may be an Eliquis failure. Will recommend for patient to be started on Xarelto 15mg daily, given patient's current calculated creatinine clearance of 25ml/min. - Given size of infarct, it is felt that there is not low risk of hemorrhagic conversion by restarting anti-coagulation at this time. - Echo: EF 55-60%, LA moderately dilated. - CUS: no significant stenosis. - Cont. statin - Stop ASA, as anti-coagulation is now being restarted. - Cont. PT/OT/ST - Telemetry monitoring while in house. - Recommend for patient to follow up with neurology as outpatient, 2-3 weeks after discharge. 2. Hypertension: - Recommend target BP of normotension, as it has been >48 hours since onset of symptoms. - Continue to manage infections/metabolic abnormalities per primary team. - Will sign off, as investigations are complete, and treatment plan is in place. Please call with any questions. Olivier Wynn MD Neurology Subjective Date of service: 09/14/19 Principal diagnosis: abnl trop and chf Interval history: Patient previously seen by Dr. Stern for left sided weakness. MRI brain showed Rt. small focal infarct in brainstem. Patient has had improvement in LUE weakn ess and numbness since admission. Has chronic LE weakness. Neurology called back on case to recommend timing of restarting anticoagulation. Objective - Exam Narrative Exam: Patient is alert, awake, oriented 3, follows complex commands. PERRL, visual reed full, no facial weakness noted, tongue midline, EOMI, bilaterally intact light touch. Bilateral upper extremities 5/5 in strength, bilateral lower extremities 2/5 in strength, which is reportedly chronic weakness. Bilaterally intact to light touch. 2+ reflexes in bilateral upper extremities, 1+ reflexes in bilateral lower extremities, downgoing Babinski bilateral. Bilaterally intact to finger to nose, unable to assess [id number] due to weakness. No aphasia noted, patient has mild dysarthria. - Vital Sign Vital Signs - 12hr 09/14/19 09/14/19 09/14/19 08:05 08:34 10:00 Temperature 97.6 F Pulse Rate 62 62 60 Pulse Rate [ 64 Apical] Pulse Rate [ 60 From Monitor] Respiratory 18 20 Rate Respiratory 20 Rate [Left Lateral Leg] Respiratory 20 Rate [Right Lower Leg] Blood Pressure 116/68 116/68 O2 Sat by Pulse 89 91 Oximetry 09/14/19 09/14/19 09/14/19 10:39 11:14 12:00 Temperature 98.4 F Pulse Rate 64 Pulse Rate [ Apical] Pulse Rate [ From Monitor] Respiratory 18 20 Rate Respiratory Rate [Left Lateral Leg] Respiratory Rate [Right Lower Leg] Blood Pressure 101/52 O2 Sat by Pulse 94 88 Oximetry 09/14/19 09/14/19 14:27 14:28 Temperature Pulse Rate 102 H Pulse Rate [ Apical] Pulse Rate [ From Monitor] Respiratory 20 Rate Respiratory Rate [Left Lateral Leg] Respiratory Rate [Right Lower Leg] Blood Pressure 120/56 O2 Sat by Pulse Oximetry - General Apperance Constitutional: comfortable - EENT EENT: ATNC, PERRL, mucous membranes moist, hearing intact, vision intact - Respiratory Respiratory: lungs clear, normal breath sounds - Cardiovascular Cardiovascular: regular rate, normal S1, normal S2 Extremities: no clubbing, cyanosis, no ischemia or petechiae - Gastrointestinal Gastrointestinal: normoactive bowel sounds, soft, non-tender - Integumentary Integumentary: cellulitis (noted on left lower abdomen) - Musculoskeletal Musculoskeletal: no fluid collection - Psychiatric Psychiatric: mood/affect appropriate - Laboratory Findings CBC and BMP: 09/13/19 06:40 09/14/19 12:39 Abnormal Lab Findings: Abnormal Labs 09/08/19 09/08/19 09/08/19 19:42 19:42 19:42 Hgb 9.6 L Hct MCH 25 L RDW 19.8 H [place] % (Auto) Eos % (Auto) Lymph # Seg Neutrophils % PT 22.1 H INR 1.98 H APTT 37.4 H POC ABG pH Sodium Potassium Chloride Carbon Dioxide BUN Creatinine Glucose POC Glucose Uric Acid Total Bilirubin AST Total Creatine Kinase 3482 H CK-MB (CK-2) Troponin T 0.062 H NT-Pro-B Natriuret Pep Albumin HDL Cholesterol 37 L Urine WBC (Auto) Urine Creatinine Urine Total Protein Salicylates Acetaminophen 09/08/19 09/08/19 09/08/19 19:42 19:42 20:04 Hgb Hct MCH RDW [place] % (Auto) Eos % (Auto) Lymph # Seg Neutrophils % PT INR APTT POC ABG pH Sodium Potassium Chloride Carbon Dioxide BUN Creatinine Glucose POC Glucose Uric Acid Total Bilirubin AST Total Creatine Kinase CK-MB (CK-2) Troponin T NT-Pro-B Natriuret Pep 7079 H Albumin HDL Cholesterol Urine WBC (Auto) Urine Creatinine Urine Total Protein Salicylates < 0.3 L Acetaminophen 8.8 L 09/08/19 09/08/19 09/08/19 20:23 20:40 23:21 Hgb Hct MCH RDW [place] % (Auto) Eos % (Auto) Lymph # Seg Neutrophils % PT INR APTT POC ABG pH 7.299 L Sodium Potassium 6.1 H* Chloride 108.8 H Carbon Dioxide 16 L BUN 72 H Creatinine 2.4 H Glucose 112 H POC Glucose Uric Acid Total Bilirubin 2.30 H AST 113 H Total Creatine Kinase CK-MB (CK-2) Troponin T NT-Pro-B Natriuret Pep Albumin 3.7 L HDL Cholesterol Urine WBC (Auto) Urine Creatinine Urine Total Protein Salicylates Acetaminophen 6.6 L 09/09/19 09/09/19 09/09/19 00:00 04:02 04:02 Hgb Hct MCH RDW [place] % (Auto) Eos % (Auto) Lymph # Seg Neutrophils % PT INR APTT POC ABG pH Sodium 148 H 147 H Potassium Chloride 113.4 H 111.6 H Carbon Dioxide 16 L 18 L BUN 74 H 73 H Creatinine 2.4 H 2.4 H Glucose 101 H POC Glucose Uric Acid Total Bilirubin AST Total Creatine Kinase 3170 H 2941 H CK-MB (CK-2) 14.7 H 13.9 H Troponin T 0.059 H 0.074 H D NT-Pro-B Natriuret Pep Albumin HDL Cholesterol Urine WBC (Auto) Urine Creatinine Urine Total Protein Salicylates Acetaminophen 09/09/19 09/09/19 09/10/19 04:02 07:44 05:10 Hgb Hct MCH RDW [place] % (Auto) Eos % (Auto) Lymph # Seg Neutrophils % PT INR APTT POC ABG pH Sodium 146 H Potassium 5.4 H Chloride 110.8 H Carbon Dioxide 21 L BUN 74 H Creatinine 2.4 H Glucose POC Glucose 107 H Uric Acid Total Bilirubin AST Total Creatine Kinase CK-MB (CK-2) Troponin T NT-Pro-B Natriuret Pep 7270 H Albumin HDL Cholesterol Urine WBC (Auto) Urine Creatinine Urine Total Protein Salicylates Acetaminophen 09/11/19 09/11/19 09/11/19 12:16 12:16 12:44 Hgb Hct MCH RDW [place] % (Auto) Eos % (Auto) Lymph # Seg Neutrophils % PT INR APTT POC ABG pH Sodium Potassium Chloride Carbon Dioxide BUN Creatinine Glucose POC Glucose Uric Acid 12.4 H Total Bilirubin AST Total Creatine Kinase CK-MB (CK-2) Troponin T NT-Pro-B Natriuret Pep Albumin HDL Cholesterol Urine WBC (Auto) > 182.0 H Urine Creatinine 46.1 H Urine Total Protein 39 H Salicylates Acetaminophen 09/12/19 09/12/19 09/12/19 07:47 07:47 07:47 Hgb 9.8 L Hct MCH 25 L RDW 20.3 H [place] % (Auto) Eos % (Auto) Lymph # 1.0 L Seg Neutrophils % 73.9 H PT INR APTT POC ABG pH Sodium 146 H Potassium Chloride Carbon Dioxide BUN 66 H Creatinine 2.2 H Glucose POC Glucose Uric Acid Total Bilirubin AST Total Creatine Kinase 668 H CK-MB (CK-2) Troponin T NT-Pro-B Natriuret Pep Albumin HDL Cholesterol Urine WBC (Auto) Urine Creatinine Urine Total Protein Salicylates Acetaminophen 09/13/19 09/13/19 09/14/19 06:40 06:40 12:39 Hgb 9.6 L Hct 30.1 L MCH 25 L RDW 20.2 H [place] % (Auto) 8.3 H Eos % (Auto) 4.9 H Lymph # Seg Neutrophils % PT INR APTT POC ABG pH Sodium 146 H Potassium Chloride Carbon Dioxide BUN 62 H 56 H Creatinine 2.1 H 1.9 H Glucose 101 H POC Glucose Uric Acid Total Bilirubin AST Total Creatine Kinase CK-MB (CK-2) Troponin T NT-Pro-B Natriuret Pep Albumin HDL Cholesterol Urine WBC (Auto) Urine Creatinine Urine Total Protein Salicylates Acetaminophen
[2019-09-14] MEDS: HEPARIN 5,000 UNIT/1 ML VIAL SUB-Q SCH (19:06)
[2019-09-15] MEDS: LEVOTHYROXINE 100 MCG TAB PO SCH (05:29)
[2019-09-15 07:42] LABS: Calcium 8.2 mg/dL (8.4-10.2)
[2019-09-15] MEDS: oxyCODONE /ACETAMINOPHEN 5-325MG TAB PO PRN (08:16)
[2019-09-15] MEDS: hydrALAZINE 100 MG TAB PO SCH ×3 (08:18→21:36)
[2019-09-15] MEDS: ISOSORBIDE DINITRATE 10 MG TAB PO SCH ×3 (08:18→21:37)
[2019-09-15] MEDS: FUROSEMIDE 40 MG/4 ML INJ IV SCH ×2 (08:28→21:35)
--- NOTE | 2019-09-15 09:25 | Progress Note ---
Assessment and Plan - Patient Problems (1) Acute on chronic renal failure Current Visit: Yes Status: Acute Qualifiers: Acute renal failure type: with acute tubular necrosis Chronic kidney disease stage: stage 2 (mild) Qualified Code(s): N17.0 - Acute kidney failure with tubular necrosis; N18.2 - Chronic kidney disease, stage 2 (mild) Plan to address problem: Acute on Chronic Renal failure : - baseline creatinine : 1.5 peak creatinine : 2.4mg/dl current creatinine : 1.8mg/dl I reviewed CXR with some congestion. - continue IV diuretics -40mg IV BID for now. (2) CHF (congestive heart failure) Current Visit: Yes Status: Acute Plan to address problem: CHF : I reviewed echo with preserved EF , also noted RV Systolic dysfunction and Mitral regurgitation. continue Diuretics. (3) CVA (cerebral vascular accident) Current Visit: Yes Status: Acute Plan to address problem: Brain MRI with concern for small area of subacute ischemia Neurology following . continue aspirin/statin. (4) HTN (hypertension) Current Visit: Yes Status: Chronic Qualifiers: Hypertension type: essential hypertension Qualified Code(s): I10 - Essential (primary) hypertension Plan to address problem: HTN: controlled continue current medications. Subjective Principal diagnosis: abnl trop and chf Interval history: 69 year old with medical history signficant for CHF and weakness of left side concern for CVA , also noted to have hypokalemia and JUNE patient seen today Good urine output , has [place] catheter. right leg edema worse than left leg edema. remains on supplemental oxygen. Objective - Vital Signs Vital signs: Vital Signs - 12hr 09/14/19 09/14/19 09/14/19 22:00 22:39 23:19 Temperature 97.3 F L Pulse Rate 109 H 95 H Respiratory 20 16 Rate Blood Pressure 131/56 109/75 O2 Sat by Pulse 97 Oximetry 09/14/19 09/15/19 09/15/19 23:47 04:42 08:10 Temperature 97.7 F Pulse Rate 64 74 78 Respiratory 18 20 Rate Blood Pressure 125/77 89/48 O2 Sat by Pulse 94 98 89 Oximetry 09/15/19 09/15/19 08:16 08:18 Temperature Pulse Rate 80 Respiratory 20 Rate Blood Pressure 104/61 O2 Sat by Pulse Oximetry - General Appearance General appearance: well-developed, well-nourished EENT: ATNC, PERRL, mucous membranes moist Neck: no JVD Respiratory: Present: Decreased Breath Sounds Cardiology: regular, S1S2 Gastrointestinal: normal, normoactive bowel sounds Integumentary: no rash Neurologic: alert and oriented x3, CN 3-12 intact Psychiatric: mood/affect appropriate - Lab 09/13/19 06:40 09/15/19 06:55 Most recent lab results Calcium 8.2 mg/dL (8.4-10.2) L 09/15/19 06:55 Urine Creatinine 46.1 mg/dL (0.1-20.0) H 09/11/19 12:16 Urine Sodium 74 mmol/L 09/11/19 12:16 Urine Total Protein 39 mg/dL (5-11.8) H 09/11/19 12:16 - Imaging Chest x-ray: image reviewed (i reviewed CXR with haziness noted. ) Medications & Allergies - Medications Allergies/Adverse Reactions: Allergies codeine Allergy (Verified 03/21/19 14:24) Unknown morphine Allergy (Verified 03/21/19 14:24) Unknown tramadol Allergy (Verified 03/21/19 18:53) Angioedema amlodipine Adverse Reaction (Verified 03/21/19 14:24) Headache clonidine Adverse Reaction (Verified 03/21/19 14:24) Headache sulfadiazine Adverse Reaction (Verified 03/21/19 14:24) Swelling Home Medications: Home Medications Medication Instructions Recorded Confirmed Last Taken Type Fluticasone [Flonase] 1 spray BID 03/22/19 09/12/19 Unknown History Isosorbide Dinitrate [Isordil 10 mg PO TID 03/22/19 09/12/19 Unknown History Titradose] Latanoprost [Xalatan] 1 drop OU HS PRN 03/22/19 09/12/19 Unknown History Levothyroxine [Synthroid] 1 tab PO DAILY 03/22/19 09/12/19 Unknown History Pantoprazole [Protonix TAB] 40 mg PO BID 03/22/19 09/12/19 Unknown History Potassium Chloride [K-Dur] 1 tab PO DAILY 03/22/19 09/12/19 Unknown History Pravastatin [Pravachol] 1 tab PO DAILY 03/22/19 09/12/19 Unknown History Torsemide [Demadex] 60 mg PO DAILY 03/22/19 09/12/19 Unknown History Travoprost [Travatan Z 0.004%] 1 drop OU HS PRN 03/22/19 09/12/19 Unknown History hydrALAZINE [Apresoline TAB] 50 mg PO TID 03/22/19 09/12/19 Unknown History Apixaban [Eliquis] 5 mg PO Q12H tablet 03/23/19 09/12/19 Unknown Rx Active Medications: Generic Name Dose Route Start Last Admin Trade Name Nicole PRN Reason Stop Dose Admin Acetaminophen 500 mg 09/09/19 11:00 09/14/19 22:37 Tylenol PO 500 mg BID ROSALBA Administration Cyclobenzaprine HCl 5 mg 09/09/19 11:00 09/14/19 22:36 Flexeril PO 5 mg BID ROSALBA Administration Fluticasone Propionate 50 mcg 09/13/19 13:00 09/14/19 22:38 Flonase NS 50 mcg BID ROSALBA Administration Furosemide 40 mg 09/13/19 09:00 09/15/19 08:28 Lasix IV 40 mg 0900,2100 ROSALBA Administration Hydralazine HCl 50 mg 09/13/19 14:00 09/15/19 08:18 Apresoline PO Not Given TID ROSALBA Ceftriaxone Sodium 1 gm in 50 mls @ 100 mls/hr 09/13/19 17:00 09/14/19 11:59 Rocephin/Ns 1 Gm/50 Ml IV 100 mls/hr Q24HR ROSALBA Administration Protocol Isosorbide Dinitrate 10 mg 09/13/19 14:00 09/15/19 08:18 Isordil Titradose PO Not Given TID ROSALBA Latanoprost 1 drops 09/13/19 12:44 Latanoprost 0.005% OU HS PRN Dry Eye(s) Levothyroxine Sodium 100 mcg 09/14/19 09:00 09/15/19 05:29 Synthroid PO 100 mcg 0600 ROSALBA Administration Oxycodone/Acetaminophen 1 tab 09/13/19 13:39 09/15/19 08:16 Percocet 5/325 PO 1 tab Q6H PRN Administration Pain, Moderate (4-6) Pantoprazole Sodium 40 mg 09/13/19 22:00 09/14/19 22:38 Protonix PO 40 mg BID ROSALBA Administration Pravastatin Sodium 80 mg 09/14/19 10:00 09/14/19 12:02 Pravachol PO 80 mg DAILY ROSALBA Administration Rivaroxaban 15 mg 09/15/19 17:00 Xarelto PO DAILY@1700 ROSALBA
[2019-09-15] MEDS ORDERED: RIVAROXABAN 10 MG TAB PO SCH (10:00)
[2019-09-15] MEDS: cefTRIAXone/NS 1 GM/50 ML 1 GM/50 ML BAG IV SCH (11:22)
[2019-09-15] MEDS: PANTOPRAZOLE 40 MG TAB PO SCH ×2 (11:22→21:36)
[2019-09-15] MEDS: PRAVASTATIN 80 MG TAB PO SCH (11:22)
[2019-09-15] MEDS: ACETAMINOPHEN 500 MG TAB PO SCH ×2 (11:23→21:36)
[2019-09-15] MEDS: FLUTICASONE PROPIONATE NASAL SPRAY 16 GM NS SCH ×2 (11:24→21:37)
[2019-09-15] MEDS: CYCLOBENZAPRINE 10 MG TAB PO SCH ×2 (11:24→21:35)
--- NOTE | 2019-09-15 12:23 | Progress Note ---
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 Neurology following. Echocardiogram reveals global left ventricle systolic function normal right ventricle moderately dilated. Right ventricular global systolic function is mildly reduced. Septum with abnormal paradoxical motion consistent with right ventricular volume overload. Mitral valve clip. Carotid Doppler negative. 5mm infarct on right Re- consulted Neurology to evaluate when to resume Eliquis patient was seen by Dr. Wynn, he recommends dc Eliquis and start Xarelto Oropharyngeal dysphagia. Patient reports the patient exhibits oral and p haryngeal phase disorder with delayed oral transit time with residuals of the semi solids and aspiration. WOB increased with each swallow of pureed, thins and semi solids. Patient is at significant risk for po secondary to decreased pulmonary support and aspiration. hospitalist discussed potential PEG placement with the patient and patient denies at this time. patient started on Mechnical soft diet Acute renal failure. Patient with a baseline creatinine 1.3 in March 2019. Nephrology following. Renal ultrasound negative. NSTEMI. Elevated troponin. Cardiology following. Hypertension. Continue antihypertensive medications. Hyperlipidemia. Continue statins. Paroxysmal atrial fibrillation. Anticoagulation is on hold in anticipation of possible PEG tube placement if Speech therapy deems necessary. also waiting on Neuro to re-evaluate Rhabdomyolysis. Continue to monitor CK. Hyperkalemia. Resolved. Pulmonary hypertension. Medically stable for discharge. Awaiting placement at SNF History Interval history: Patient with stroke Hospitalist Physical - Physical exam Narrative exam: Gen: Not in acute distress, Sitting up in chair, morbidly obese HEENT: Normocephalic, atraumatic Neck: supple, no JVD Heart: S1 and S2 irreg, no murmurs, rubs or gallop Lungs: Clear to auscultation, no rhonchi, no wheeze Abd: soft, non tender, non distended, normal BS, Ext: No edema, no clubbing, no cyanosis Neuro: Awake, alert, oriented X 3, left sided weakness - Constitutional Vitals: Temp Pulse Resp BP Pulse Ox 97.7 F 80 20 104/61 91 09/15/19 04:42 09/15/19 08:18 09/15/19 08:16 09/15/19 08:18 09/15/19 10:00 General appearance: Present: no acute distress, well-nourished Results - Labs CBC & Chem 7: 09/13/19 06:40 09/15/19 06:55 Labs: Laboratory Last Values WBC 6.6 K/mm3 (4.5-11.0) 09/13/19 06:40 RBC 3.80 M/mm3 (3.65-5.03) 09/13/19 06:40 Hgb 9.6 gm/dl (10.1-14.3) L 09/13/19 06:40 Hct 30.1 % (30.3-42.9) L 09/13/19 06:40 MCV 79 fl (79-97) 09/13/19 06:40 MCH 25 pg (28-32) L 09/13/19 06:40 MCHC 32 % (30-34) 09/13/19 06:40 RDW 20.2 % (13.2-15.2) H 09/13/19 06:40 Plt Count 186 K/mm3 (140-440) 09/13/19 06:40 Lymph % (Auto) 19.2 % (13.4-35.0) 09/13/19 06:40 [place] % (Auto) 8.3 % (0.0-7.3) H 09/13/19 06:40 Eos % (Auto) 4.9 % (0.0-4.3) H 09/13/19 06:40 Baso % (Auto) 0.5 % (0.0-1.8) 09/13/19 06:40 Lymph # 1.3 K/mm3 (1.2-5.4) 09/13/19 06:40 [place] # 0.5 K/mm3 (0.0-0.8) 09/13/19 06:40 Eos # 0.3 K/mm3 (0.0-0.4) 09/13/19 06:40 Baso # 0.0 K/mm3 (0.0-0.1) 09/13/19 06:40 Seg Neutrophils % 67.1 % (40.0-70.0) 09/13/19 06:40 Seg Neutrophils # 4.5 K/mm3 (1.8-7.7) 09/13/19 06:40 PT 22.1 Sec. (12.2-14.9) H 09/08/19 19:42 INR 1.98 (0.87-1.13) H 09/08/19 19:42 APTT 37.4 Sec. (24.2-36.6) H 09/08/19 19:42 POC ABG pH 7.299 (7.35-7.45) L 09/08/19 20:40 POC ABG pCO2 37.4 (35-45) 09/08/19 20:40 POC ABG pO2 88 (80-105) 09/08/19 20:40 POC ABG HCO3 18.4 (22-26 mml/L) 09/08/19 20:40 POC ABG Total CO2 19 (23-27mmol/L) 09/08/19 20:40 POC ABG O2 Sat 96 09/08/19 20:40 POC ABG Base Excess -8 ((-2) - (+3)mmol/L) 09/08/19 20:40 FiO2 28 % 09/08/19 20:40 Sodium 146 mmol/L (137-145) H 09/15/19 06:55 Potassium 3.9 mmol/L (3.6-5.0) 09/15/19 06:55 Chloride 106.1 mmol/L (98-107) 09/15/19 06:55 Carbon Dioxide 26 mmol/L (22-30) 09/15/19 06:55 Anion Gap 18 mmol/L 09/15/19 06:55 BUN 54 mg/dL (7-17) H 09/15/19 06:55 Creatinine 1.8 mg/dL (0.7-1.2) H 09/15/19 06:55 Estimated GFR 34 ml/min 09/15/19 06:55 BUN/Creatinine Ratio 30 % 09/15/19 06:55 Glucose 108 mg/dL (65-100) H 09/15/19 06:55 POC Glucose 94 (70-105) 09/09/19 20:28 Osmolality 322 Mosm/kg 09/11/19 12:44 Uric Acid 12.4 mg/dL (3.5-7.6) H 09/11/19 12:44 Calcium 8.2 mg/dL (8.4-10.2) L 09/15/19 06:55 Total Bilirubin 2.30 mg/dL (0.1-1.2) H 09/08/19 20:23 AST 113 units/L (5-40) H 09/08/19 20:23 ALT 24 units/L (7-56) 09/08/19 20:23 Alkaline Phosphatase 106 units/L (35-129) 09/08/19 20:23 Total Creatine Kinase 668 units/L (30-135) H 09/12/19 07:47 CK-MB (CK-2) 13.9 ng/mL (0.0-4.0) H 09/09/19 04:02 CK-MB (CK-2) Rel Index 0.4 (0-4) 09/09/19 04:02 Troponin T 0.074 ng/mL (0.00-0.029) H D 09/09/19 04:02 NT-Pro-B Natriuret Pep 7270 pg/mL (0-900) H 09/09/19 04:02 Total Protein 7.7 g/dL (6.3-8.2) 09/08/19 20:23 Albumin 3.7 g/dL (3.9-5) L 09/08/19 20:23 Albumin/Globulin Ratio 0.9 % 09/08/19 20:23 Triglycerides 55 mg/dL (2-149) 09/08/19 19:42 Cholesterol 92 mg/dL (50-199) 09/08/19 19:42 LDL Cholesterol Direct 50 mg/dL (50-130) 09/08/19 19:42 HDL Cholesterol 37 mg/dL (40-59) L 09/08/19 19:42 Cholesterol/HDL Ratio 2.48 % 09/08/19 19:42 Urine Color Yellow (Yellow) 09/11/19 12:16 Urine Turbidity Cloudy (Clear) 09/11/19 12:16 Urine pH 5.0 (5.0-7.0) 09/11/19 12:16 Ur Specific [place] 1.009 (1.003-1.030) 09/11/19 12:16 Urine Protein <15 mg/dl mg/dL (Negative) 09/11/19 12:16 Urine Glucose (UA) Neg mg/dL (Negative) 09/11/19 12:16 Urine Ketones Neg mg/dL (Negative) 09/11/19 12:16 Urine Blood Lg (Negative) 09/11/19 12:16 Urine Nitrite Neg (Negative) 09/11/19 12:16 Ur Reducing Substances Not Reportable 09/11/19 12:16 Urine Bilirubin Neg (Negative) 09/11/19 12:16 Urine Ictotest Not Reportable 09/11/19 12:16 Urine Urobilinogen < 2.0 mg/dL (<2.0) 09/11/19 12:16 Ur Leukocyte Esterase Lg (Negative) 09/11/19 12:16 Urine WBC (Auto) > 182.0 /HPF (0.0-6.0) H 09/11/19 12:16 Urine RBC (Auto) > 182.0 /HPF (0.0-6.0) 09/11/19 12:16 U Epithel Cells (Auto) 2.0 /HPF (0-13.0) 09/11/19 12:16 Urine Bacteria (Auto) 4+ /HPF (Negative) 09/11/19 12:16 Urine WBC Clumps 3+ /HPF 09/11/19 12:16 Hyaline Casts Not Reportable 09/11/19 12:16 Urine Mucus Few /HPF 09/11/19 12:16 Urine Yeast (Budding) Scale Mechanic 09/11/19 12:16 Urine Creatinine 46.1 mg/dL (0.1-20.0) H 09/11/19 12:16 Urine Sodium 74 mmol/L 09/11/19 12:16 Urine Total Protein 39 mg/dL (5-11.8) H 09/11/19 12:16 Salicylates < 0.3 mg/dL (2.8-20.0) L 09/08/19 19:42 Acetaminophen 6.6 ug/mL (10.0-30.0) L 09/08/19 23:21 Plasma/Serum Alcohol < 0.01 % (0-0.07) 09/08/19 19:42 Immunofix Electrophor see below 09/11/19 12:44 Active Medications - Current Medications Current Medications: Generic Name Dose Route Start Last Admin Trade Name Freq PRN Reason Stop Dose Admin Acetaminophen 500 mg 09/09/19 11:00 09/15/19 11:23 Tylenol PO 500 mg BID ROSALBA Administration Cyclobenzaprine HCl 5 mg 09/09/19 11:00 09/15/19 11:24 Flexeril PO 5 mg BID ROSALBA Administration Fluticasone Propionate 50 mcg 09/13/19 13:00 09/15/19 11:24 Flonase NS 50 mcg BID ROSALBA Administration Furosemide 40 mg 09/13/19 09:00 09/15/19 08:28 Lasix IV 40 mg 0900,2100 [facility] Administration Hydralazine HCl 50 mg 09/13/19 14:00 09/15/19 08:18 Apresoline PO Not Given TID [facility] Ceftriaxone Sodium 1 gm in 50 mls @ 100 mls/hr 09/13/19 17:00 09/15/19 11:22 Rocephin/Ns 1 Gm/50 Ml IV 100 mls/hr Q24HR ROSALBA Administration Protocol Isosorbide Dinitrate 10 mg 09/13/19 14:00 09/15/19 08:18 Isordil Titradose PO Not Given TID [facility] Latanoprost 1 drops 09/13/19 12:44 Latanoprost 0.005% OU HS PRN Dry Eye(s) Levothyroxine Sodium 100 mcg 09/14/19 09:00 09/15/19 05:29 Synthroid PO 100 mcg 0600 [facility] Administration Oxycodone/Acetaminophen 1 tab 09/13/19 13:39 09/15/19 08:16 Percocet 5/325 PO 1 tab Q6H PRN Administration Pain, Moderate (4-6) Pantoprazole Sodium 40 mg 09/13/19 22:00 09/15/19 11:22 Protonix PO 40 mg BID [facility] Administration Pravastatin Sodium 80 mg 09/14/19 10:00 09/15/19 11:22 Pravachol PO 80 mg DAILY [facility] Administration Rivaroxaban 15 mg 09/15/19 17:00 Xarelto PO DAILY@1700 [facility] Nutrition/Malnutrition Assess - Dietary Evaluation Nutrition/Malnutrition Findings: Nutrition Notes Start: 09/09/19 13:13 Freq: Status: Active Protocol: Document 09/14/19 14:18 CC (Rec: 09/14/19 14:38 CC [id number]) Co-Sign 09/14/19 14:18 LP Nutrition Notes Initial or Follow up Assessment Current Diagnosis CKD(stage I-IV),Hypertension, Heart Failure,Stroke, Hyperlipidemia Other Pertinent Diagnosis TIA,Dysphagia Current Diet [facility] soft Labs/Tests BUN 62, creat 2.1 Pertinent Medications Lasix Height 5 ft 8 in Weight 128.4 kg [place] Body Weight (kg) 63.63 BMI 43.0 Intake Prior to Admission Good Weight Status Morbidly Obese Subjective/Other Information F/U for full assesment. Pt reported [employer]MENT [employer] her appetite was good. Pt reported she has had no unitentional wt loss. Pt reported her appetite has been good since arrival Percent of energy/protein needs met: 100% energy/ 100% protein Burn Absent Trauma Absent GI Symptoms None Difficulty In Swallowing Current % PO Good (75-100%) Minimum of two criteria No #1 Nutrition Diagnosis No nutrition diagnosis at this time Is patient on ventilator? No Is Patient Ambulatory and/or Out of Bed No REE-([facility]-confined to bed) 2228.184 Kcal/Kg value to use for calculation 13 Approximate Energy Requirements Using 1669 kcal/Kg Calculation Used for Recommendations Kcal/kg Additional Notes PRO: 58-77g/day (0.6-0.8g/kg adBW 96kg) Fluid:1ml/kcal Nutrition Intervention Anticipated Discharge Needs: mechanical soft diet Revisit per MD consult or patient Sign Off request:
[2019-09-15] MEDS: RIVAROXABAN 15 MG TAB PO SCH (18:33)
[2019-09-16] MEDS: LEVOTHYROXINE 100 MCG TAB PO SCH (05:27)
[2019-09-16] MEDS: oxyCODONE /ACETAMINOPHEN 5-325MG TAB PO PRN (05:29)
[2019-09-16 07:34] LABS: Calcium 8.4 mg/dL (8.4-10.2)
[2019-09-16] MEDS: ISOSORBIDE DINITRATE 10 MG TAB PO SCH ×3 (08:10→21:07)
[2019-09-16] MEDS: hydrALAZINE 100 MG TAB PO SCH ×4 (08:31→21:15)
[2019-09-16] MEDS: cefTRIAXone/NS 1 GM/50 ML 1 GM/50 ML BAG IV SCH (10:30)
[2019-09-16] MEDS: FUROSEMIDE 40 MG/4 ML INJ IV SCH ×2 (10:31→21:07)
[2019-09-16] MEDS: ACETAMINOPHEN 500 MG TAB PO SCH ×2 (10:31→21:08)
[2019-09-16] MEDS: CYCLOBENZAPRINE 10 MG TAB PO SCH ×2 (10:31→21:07)
[2019-09-16] MEDS: FLUTICASONE PROPIONATE NASAL SPRAY 16 GM NS SCH ×2 (10:32→21:09)
[2019-09-16] MEDS: PRAVASTATIN 80 MG TAB PO SCH (10:32)
[2019-09-16] MEDS: PANTOPRAZOLE 40 MG TAB PO SCH ×2 (10:33→21:08)
[2019-09-16] MEDS ORDERED: POLYETHYLENE GLYCOL 3350 17 GM POWDER PO PRN (14:15)
--- NOTE | 2019-09-16 15:37 | Progress Note ---
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 Neurology following. Echocardiogram reveals global left ventricle systolic function normal right ventricle moderately dilated. Right ventricular global systolic function is mildly reduced. Septum with abnormal paradoxical motion consistent with right ventricular volume overload. Mitral valve clip. Carotid Doppler negative. 5mm infarct on right Re- consulted Neurology to evaluate when to resume Eliquis patient was seen by Dr. Wynn, he recommends dc Eliquis and start Xarelto Oropharyngeal dysphagia. Patient reports the patient exhibits oral and p haryngeal phase disorder with delayed oral transit time with residuals of the semi solids and aspiration. WOB increased with each swallow of pureed, thins and semi solids. Patient is at significant risk for po secondary to decreased pulmonary support and aspiration. hospitalist discussed potential PEG placement with the patient and patient denies at this time. patient started on Mechnical soft diet Acute renal failure. Patient with a baseline creatinine 1.3 in March 2019. Cr now 2.0 today 09/17/19 Nephrology following. Renal ultrasound negative. NSTEMI. Elevated troponin. Cardiology following. Hypertension. Continue antihypertensive medications. Hyperlipidemia. Continue statins. Paroxysmal atrial fibrillation. Anticoagulation is on hold in anticipation of possible PEG tube placement if Speech therapy deems necessary. also waiting on Neuro to re-evaluate Rhabdomyolysis. Continue to monitor CK. Hyperkalemia. Resolved. Pulmonary hypertension. Medically stable for discharge. Awaiting placement at SNF History Interval history: Patient with stroke Left sided weakness Hospitalist Physical - Physical exam Narrative exam: Gen: Not in acute distress, Sitting up in chair, morbidly obese HEENT: Normocephalic, atraumatic Neck: supple, no JVD Heart: S1 and S2 irreg, no murmurs, rubs or gallop Lungs: Clear to auscultation, no rhonchi, no wheeze Abd: soft, non tender, non distended, normal BS, Ext: No edema, no clubbing, no cyanosis Neuro: Awake, alert, oriented X 3, left sided weakness - Constitutional Vitals: Temp Pulse Resp BP Pulse Ox 98.1 F 71 18 115/65 93 09/16/19 10:53 09/16/19 10:53 09/16/19 10:53 09/16/19 10:53 09/16/19 10:53 General appearance: Present: no acute distress, obese Results - Labs CBC & Chem 7: 09/13/19 06:40 09/17/19 14:10 Labs: Laboratory Last Values WBC 6.6 K/mm3 (4.5-11.0) 09/13/19 06:40 RBC 3.80 M/mm3 (3.65-5.03) 09/13/19 06:40 Hgb 9.6 gm/dl (10.1-14.3) L 09/13/19 06:40 Hct 30.1 % (30.3-42.9) L 09/13/19 06:40 MCV 79 fl (79-97) 09/13/19 06:40 MCH 25 pg (28-32) L 09/13/19 06:40 MCHC 32 % (30-34) 09/13/19 06:40 RDW 20.2 % (13.2-15.2) H 09/13/19 06:40 Plt Count 186 K/mm3 (140-440) 09/13/19 06:40 Lymph % (Auto) 19.2 % (13.4-35.0) 09/13/19 06:40 [place] % (Auto) 8.3 % (0.0-7.3) H 09/13/19 06:40 Eos % (Auto) 4.9 % (0.0-4.3) H 09/13/19 06:40 Baso % (Auto) 0.5 % (0.0-1.8) 09/13/19 06:40 Lymph # 1.3 K/mm3 (1.2-5.4) 09/13/19 06:40 [place]cl[place] # 0.5 K/mm3 (0.0-0.8) 09/13/19 06:40 Eos # 0.3 K/mm3 (0.0-0.4) 09/13/19 06:40 Baso # 0.0 K/mm3 (0.0-0.1) 09/13/19 06:40 Seg Neutrophils % 67.1 % (40.0-70.0) 09/13/19 06:40 Seg Neutrophils # 4.5 K/mm3 (1.8-7.7) 09/13/19 06:40 PT 22.1 Sec. (12.2-14.9) H 09/08/19 19:42 INR 1.98 (0.87-1.13) H 09/08/19 19:42 APTT 37.4 Sec. (24.2-36.6) H 09/08/19 19:42 POC ABG pH 7.299 (7.35-7.45) L 09/08/19 20:40 POC ABG pCO2 37.4 (35-45) 09/08/19 20:40 POC ABG pO2 88 (80-105) 09/08/19 20:40 POC ABG HCO3 18.4 (22-26 mml/L) 09/08/19 20:40 POC ABG Total CO2 19 (23-27mmol/L) 09/08/19 20:40 POC ABG O2 Sat 96 09/08/19 20:40 POC ABG Base Excess -8 ((-2) - (+3)mmol/L) 09/08/19 20:40 FiO2 28 % 09/08/19 20:40 Sodium 147 mmol/L (137-145) H 09/16/19 06:41 Potassium 4.0 mmol/L (3.6-5.0) 09/16/19 06:41 Chloride 107.7 mmol/L (98-107) H 09/16/19 06:41 Carbon Dioxide 28 mmol/L (22-30) 09/16/19 06:41 Anion Gap 15 mmol/L 09/16/19 06:41 BUN 51 mg/dL (7-17) H 09/16/19 06:41 Creatinine 2.0 mg/dL (0.7-1.2) H 09/16/19 06:41 Estimated GFR 30 ml/min 09/16/19 06:41 BUN/Creatinine Ratio 26 % 09/16/19 06:41 Glucose 96 mg/dL (65-100) 09/16/19 06:41 POC Glucose 94 (70-105) 09/09/19 20:28 Osmolality 322 Mosm/kg 09/11/19 12:44 Uric Acid 12.4 mg/dL (3.5-7.6) H 09/11/19 12:44 Calcium 8.4 mg/dL (8.4-10.2) 09/16/19 06:41 Total Bilirubin 2.30 mg/dL (0.1-1.2) H 09/08/19 20:23 AST 113 units/L (5-40) H 09/08/19 20:23 ALT 24 units/L (7-56) 09/08/19 20:23 Alkaline Phosphatase 106 units/L (35-129) 09/08/19 20:23 Total Creatine Kinase 668 units/L (30-135) H 09/12/19 07:47 CK-MB (CK-2) 13.9 ng/mL (0.0-4.0) H 09/09/19 04:02 CK-MB (CK-2) Rel Index 0.4 (0-4) 09/09/19 04:02 Troponin T 0.074 ng/mL (0.00-0.029) H D 09/09/19 04:02 NT-Pro-B Natriuret Pep 7270 pg/mL (0-900) H 09/09/19 04:02 Total Protein 7.7 g/dL (6.3-8.2) 09/08/19 20:23 Albumin 3.7 g/dL (3.9-5) L 09/08/19 20:23 Albumin/Globulin Ratio 0.9 % 09/08/19 20:23 Triglycerides 55 mg/dL (2-149) 09/08/19 19:42 Cholesterol 92 mg/dL (50-199) 09/08/19 19:42 LDL Cholesterol Direct 50 mg/dL (50-130) 09/08/19 19:42 HDL Cholesterol 37 mg/dL (40-59) L 09/08/19 19:42 Cholesterol/HDL Ratio 2.48 % 09/08/19 19:42 Urine Color Yellow (Yellow) 09/11/19 12:16 Urine Turbidity Cloudy (Clear) 09/11/19 12:16 Urine pH 5.0 (5.0-7.0) 09/11/19 12:16 Ur Specific [place] 1.009 (1.003-1.030) 09/11/19 12:16 Urine Protein <15 mg/dl mg/dL (Negative) 09/11/19 12:16 Urine Glucose (UA) Neg mg/dL (Negative) 09/11/19 12:16 Urine Ketones Neg mg/dL (Negative) 09/11/19 12:16 Urine Blood Lg (Negative) 09/11/19 12:16 Urine Nitrite Neg (Negative) 09/11/19 12:16 Ur Reducing Substances Not Reportable 09/11/19 12:16 Urine Bilirubin Neg (Negative) 09/11/19 12:16 Urine Ictotest Not Reportable 09/11/19 12:16 Urine Urobilinogen < 2.0 mg/dL (<2.0) 09/11/19 12:16 Ur Leukocyte Esterase Lg (Negative) 09/11/19 12:16 Urine WBC (Auto) > 182.0 /HPF (0.0-6.0) H 09/11/19 12:16 Urine RBC (Auto) > 182.0 /HPF (0.0-6.0) 09/11/19 12:16 U Epithel Cells (Auto) 2.0 /HPF (0-13.0) 09/11/19 12:16 Urine Bacteria (Auto) 4+ /HPF (Negative) 09/11/19 12:16 Urine WBC Clumps 3+ /HPF 09/11/19 12:16 Hyaline Casts Not Reportable 09/11/19 12:16 Urine Mucus Few /HPF 09/11/19 12:16 Urine Yeast (Budding) Sign Wirer 09/11/19 12:16 Urine Creatinine 46.1 mg/dL (0.1-20.0) H 09/11/19 12:16 Urine Sodium 74 mmol/L 09/11/19 12:16 Urine Total Protein 39 mg/dL (5-11.8) H 09/11/19 12:16 Salicylates < 0.3 mg/dL (2.8-20.0) L 09/08/19 19:42 Acetaminophen 6.6 ug/mL (10.0-30.0) L 09/08/19 23:21 Plasma/Serum Alcohol < 0.01 % (0-0.07) 09/08/19 19:42 Immunofix Electrophor see below 09/11/19 12:44 Active Medications - Current Medications Current Medications: Generic Name Dose Route Start Last Admin Trade Name Freq PRN Reason Stop Dose Admin Acetaminophen 500 mg 09/09/19 11:00 09/16/19 10:31 Tylenol PO 500 mg BID ROSALBA Administration Cyclobenzaprine HCl 5 mg 09/09/19 11:00 09/16/19 10:31 Flexeril PO 5 mg BID ROSALBA Administration Fluticasone Propionate 50 mcg 09/13/19 13:00 09/16/19 10:32 Flonase NS 50 mcg BID ROSALBA Administration Furosemide 40 mg 09/13/19 09:00 09/16/19 10:31 Lasix IV 40 mg 0900,2100 ROSALBA Administration Hydralazine HCl 50 mg 09/13/19 14:00 09/16/19 08:31 Apresoline PO Not Given TID ROSALBA Ceftriaxone Sodium 1 gm in 50 mls @ 100 mls/hr 09/13/19 17:00 09/16/19 10:30 Rocephin/Ns 1 Gm/50 Ml IV 100 mls/hr Q24HR ROSALBA Administration Protocol Isosorbide Dinitrate 10 mg 09/13/19 14:00 09/15/19 21:37 Isordil Titradose PO 10 mg TID ROSALBA Administration Latanoprost 1 drops 09/13/19 12:44 Latanoprost 0.005% OU HS PRN Dry Eye(s) Levothyroxine Sodium 100 mcg 09/14/19 09:00 09/16/19 05:27 Synthroid PO 100 mcg 0600 ROASLBA Administration Oxycodone/Acetaminophen 1 tab 09/13/19 13:39 09/16/19 05:29 Percocet 5/325 PO 1 tab Q6H PRN Administration Pain, Moderate (4-6) Pantoprazole Sodium 40 mg 09/13/19 22:00 09/16/19 10:33 Protonix PO 40 mg BID ROSALBA Administration Polyethylene Glycol 17 gm 09/16/19 14:15 Miralax 3350 PO BID PRN Constipation Pravastatin Sodium 80 mg 09/14/19 10:00 09/16/19 10:32 Pravachol PO 80 mg DAILY ROSALBA Administration Rivaroxaban 15 mg 09/15/19 17:00 09/15/19 18:33 Xarelto PO 15 mg DAILY@1700 ROSALBA Administration Nutrition/Malnutrition Assess - Dietary Evaluation Nutrition/Malnutrition Findings: Nutrition Notes Start: 09/09/19 13:13 Freq: Status: Active Protocol: Document 09/14/19 14:18 CC (Rec: 09/14/19 14:38 CC [email or web address]) Co-Sign 09/14/19 14:18 LP Nutrition Notes Initial or Follow up Assessment Current Diagnosis CKD(stage I-IV),Hypertension, Heart Failure,Stroke, Hyperlipidemia Other Pertinent Diagnosis TIA,Dysphagia Current Diet [facility] soft Labs/Tests BUN 62, creat 2.1 Pertinent Medications Lasix Height 5 ft 8 in Weight 128.4 kg [place] Body Weight (kg) 63.63 BMI 43.0 Intake Prior to Admission Good Weight Status Morbidly Obese Subjective/Other Information F/U for full assesment. Pt reported [employer] her appetite was good. Pt reported she has had no unitentional wt loss. Pt reported her appetite has been good since arrival Percent of energy/protein needs met: 100% energy/ 100% protein Burn Absent Trauma Absent GI Symptoms None Difficulty In Swallowing Current % PO Good (75-100%) Minimum of two criteria No #1 Nutrition Diagnosis No nutrition diagnosis at this time Is patient on ventilator? No Is Patient Ambulatory and/or Out of Bed No REE-([facility] [place]-confined to bed) 2228.184 Kcal/Kg value to use for calculation 13 Approximate Energy Requirements Using 1669 kcal/Kg Calculation Used for Recommendations Kcal/kg Additional Notes PRO: 58-77g/day (0.6-0.8g/kg adBW 96kg) Fluid:1ml/kcal Nutrition Intervention Anticipated Discharge Needs: mechanical soft diet Revisit per MD consult or patient Sign Off request:
[2019-09-16] MEDS: RIVAROXABAN 15 MG TAB PO SCH (16:13)
--- NOTE | 2019-09-16 17:29 | Progress Note ---
Assessment and Plan # Acute on chronic renal disease Suspect JUNE in setting of volume overload and venous congestion. Renal function improved with diuresis, but may be getting over-diuresed given thirst, mild hypernatremia, and increasing bicarbonate/mild alkalosis. Will continue one more day of current Lasix dosing, but likely will decrease or hold based on labs and clinical picture tomorrow. Peak creatinine 2.4mg/dl, current creatinine 2.0 mg/dl with baseline around 1.5. - continue IV Lasix 40mg BID for now. # CHF (congestive heart failure) -reviewed echo with preserved EF, RV Systolic dysfunction and Mitral regurgitation. - continue diuretics as above # CVA (cerebral vascular accident) Brain MRI with concern for small area of subacute ischemia - Neurology following, appreciate input - continue aspirin/statin. # HTN (hypertension) - controlled, continue current medications Subjective Date of service: 09/16/19 Principal diagnosis: abnl trop and chf Interval history: no acute events noted. notes that swelling is improving, and her breathing is better. notes feeling a little dehydrated. No other issues of note Objective - Exam Narrative Exam: General appearance: well-developed, well-nourished EENT: ATNC, PERRL, mucous membranes moist Neck: no JVD Respiratory: Present: Decreased Breath Sounds bilaterally, on NC Cardiology: regular, S1S2, 1+ edema bilaterally Gastrointestinal: normal, normoactive bowel sounds Integumentary: no rash Neurologic: alert and oriented x3, CN 3-12 intact Psychiatric: mood/affect appropriate - Vital Signs Vital signs: Vital Signs - 12hr 09/16/19 09/16/19 09/16/19 05:29 07:35 10:28 Temperature 97.7 F Pulse Rate 67 Respiratory 20 18 Rate Blood Pressure 113/74 O2 Sat by Pulse 92 96 Oximetry 09/16/19 09/16/19 10:31 10:53 Temperature 98.1 F Pulse Rate 71 Respiratory 20 18 Rate Blood Pressure 115/65 O2 Sat by Pulse 93 Oximetry - Lab 09/13/19 06:40 09/16/19 06:41 Most recent lab results Calcium 8.4 mg/dL (8.4-10.2) 09/16/19 06:41 Urine Creatinine 46.1 mg/dL (0.1-20.0) H 09/11/19 12:16 Urine Sodium 74 mmol/L 09/11/19 12:16 Urine Total Protein 39 mg/dL (5-11.8) H 09/11/19 12:16 Medications & Allergies - Medications Allergies/Adverse Reactions: Allergies codeine Allergy (Verified 03/21/19 14:24) Unknown morphine Allergy (Verified 03/21/19 14:24) Unknown tramadol Allergy (Verified 03/21/19 18:53) Angioedema amlodipine Adverse Reaction (Verified 03/21/19 14:24) Headache clonidine Adverse Reaction (Verified 03/21/19 14:24) Headache sulfadiazine Adverse Reaction (Verified 03/21/19 14:24) Swelling Home Medications: Home Medications Medication Instructions Recorded Confirmed Last Taken Type Fluticasone [Flonase] 1 spray BID 03/22/19 09/12/19 Unknown History Isosorbide Dinitrate [Isordil 10 mg PO TID 03/22/19 09/12/19 Unknown History Titradose] Latanoprost [Xalatan] 1 drop OU HS PRN 03/22/19 09/12/19 Unknown History Levothyroxine [Synthroid] 1 tab PO DAILY 03/22/19 09/12/19 Unknown History Pantoprazole [Protonix TAB] 40 mg PO BID 03/22/19 09/12/19 Unknown History Potassium Chloride [K-Dur] 1 tab PO DAILY 03/22/19 09/12/19 Unknown History Pravastatin [Pravachol] 1 tab PO DAILY 03/22/19 09/12/19 Unknown History Torsemide [Demadex] 60 mg PO DAILY 03/22/19 09/12/19 Unknown History Travoprost [Travatan Z 0.004%] 1 drop OU HS PRN 03/22/19 09/12/19 Unknown History hydrALAZINE [Apresoline TAB] 50 mg PO TID 03/22/19 09/12/19 Unknown History Apixaban [Eliquis] 5 mg PO Q12H tablet 03/23/19 09/12/19 Unknown Rx Active Medications: Generic Name Dose Route Start Last Admin Trade Name Freq PRN Reason Stop Dose Admin Acetaminophen 500 mg 09/09/19 11:00 09/16/19 10:31 Tylenol PO 500 mg BID ROSALBA Administration Cyclobenzaprine HCl 5 mg 09/09/19 11:00 09/16/19 10:31 Flexeril PO 5 mg BID ROSALBA Administration Fluticasone Propionate 50 mcg 09/13/19 13:00 09/16/19 10:32 Flonase NS 50 mcg BID ROSALBA Administration Furosemide 40 mg 09/13/19 09:00 09/16/19 10:31 Lasix IV 40 mg 0900,2100 ROSALBA Administration Hydralazine HCl 50 mg 09/13/19 14:00 09/16/19 16:11 Apresoline PO 50 mg TID ROSALBA Administration Ceftriaxone Sodium 1 gm in 50 mls @ 100 mls/hr 09/13/19 17:00 09/16/19 10:30 Rocephin/Ns 1 Gm/50 Ml IV 100 mls/hr Q24HR ROSALBA Administration Protocol Isosorbide Dinitrate 10 mg 09/13/19 14:00 09/16/19 16:11 Isordil Titradose PO 10 mg TID ROSALBA Administration Latanoprost 1 drops 09/13/19 12:44 Latanoprost 0.005% OU HS PRN Dry Eye(s) Levothyroxine Sodium 100 mcg 09/14/19 09:00 09/16/19 05:27 Synthroid PO 100 mcg 0600 ROSALBA Administration Oxycodone/Acetaminophen 1 tab 09/13/19 13:39 09/16/19 05:29 Percocet 5/325 PO 1 tab Q6H PRN Administration Pain, Moderate (4-6) Pantoprazole Sodium 40 mg 09/13/19 22:00 09/16/19 10:33 Protonix PO 40 mg BID ROSALBA Administration Polyethylene Glycol 17 gm 09/16/19 14:15 Miralax 3350 PO BID PRN Constipation Pravastatin Sodium 80 mg 09/14/19 10:00 09/16/19 10:32 Pravachol PO 80 mg DAILY ROSALBA Administration Rivaroxaban 15 mg 09/15/19 17:00 09/16/19 16:13 Xarelto PO 15 mg DAILY@1700 ROSALBA Administration
[2019-09-17] MEDS: LEVOTHYROXINE 100 MCG TAB PO SCH (05:38)
[2019-09-17] MEDS: PRAVASTATIN 80 MG TAB PO SCH (11:31)
[2019-09-17] MEDS: PANTOPRAZOLE 40 MG TAB PO SCH ×2 (11:31→21:23)
[2019-09-17] MEDS: FUROSEMIDE 40 MG/4 ML INJ IV SCH ×2 (11:31→21:23)
[2019-09-17] MEDS: cefTRIAXone/NS 1 GM/50 ML 1 GM/50 ML BAG IV SCH (11:31)
[2019-09-17] MEDS: ACETAMINOPHEN 500 MG TAB PO SCH ×2 (11:32→21:22)
[2019-09-17] MEDS: ISOSORBIDE DINITRATE 10 MG TAB PO SCH ×3 (11:32→21:21)
[2019-09-17] MEDS: CYCLOBENZAPRINE 10 MG TAB PO SCH ×2 (11:33→21:21)
[2019-09-17] MEDS: hydrALAZINE 100 MG TAB PO SCH ×3 (11:44→21:21)
[2019-09-17 14:58] LABS: Calcium 8.7 mg/dL (8.4-10.2)
[2019-09-17] MEDS: RIVAROXABAN 15 MG TAB PO SCH (17:36)
--- NOTE | 2019-09-17 18:32 | Progress Note ---
Assessment and Plan # Acute on chronic renal disease Suspect JUNE in setting of volume overload and venous congestion. Renal function improved with diuresis, and has been stable. Will continue IV Lasix dosing, but will transition to PO once patient deemed closer to discharge. Peak creatinine 2.4mg/dl, current creatinine 1.9 mg/dl with baseline around 1.5. - continue IV Lasix 40mg BID for now. # CHF (congestive heart failure) -reviewed echo with preserved EF, RV Systolic dysfunction and Mitral regu rgitation. - continue diuretics as above # CVA (cerebral vascular accident) Brain MRI with concern for small area of subacute ischemia - Neurology following, appreciate input - continue aspirin/statin. # HTN (hypertension) - controlled, continue current medications Subjective Date of service: 09/17/19 Principal diagnosis: abnl trop and chf Interval history: no acute events noted. notes that swelling continues to improve, and her breathing is better. No other issues of note Objective - Exam Narrative Exam: General appearance: well-developed, well-nourished EENT: ATNC, PERRL, mucous membranes moist Neck: no JVD Respiratory: Present: Decreased Breath Sounds bilaterally, on NC Cardiology: regular, S1S2, 1+ edema bilaterally Gastrointestinal: normal, normoactive bowel sounds Integumentary: no rash Neurologic: alert and oriented x3, CN 3-12 intact Psychiatric: mood/affect appropriate - Vital Signs Vital signs: Vital Signs - 12hr 09/17/19 09/17/19 09/17/19 08:37 09:12 10:00 Temperature 97.8 F Pulse Rate 64 64 Respiratory 18 26 H Rate Blood Pressure 127/77 O2 Sat by Pulse 96 96 96 Oximetry 09/17/19 09/17/19 12:05 17:00 Temperature 97.4 F L 97.9 F Pulse Rate 70 69 Respiratory 18 18 Rate Blood Pressure 131/78 124/49 O2 Sat by Pulse 92 92 Oximetry - Lab 09/13/19 06:40 09/17/19 14:10 Most recent lab results Calcium 8.7 mg/dL (8.4-10.2) 09/17/19 14:10 Urine Creatinine 46.1 mg/dL (0.1-20.0) H 09/11/19 12:16 Urine Sodium 74 mmol/L 09/11/19 12:16 Urine Total Protein 39 mg/dL (5-11.8) H 09/11/19 12:16 Medications & Allergies - Medications Allergies/Adverse Reactions: Allergies codeine Allergy (Verified 03/21/19 14:24) Unknown morphine Allergy (Verified 03/21/19 14:24) Unknown tramadol Allergy (Verified 03/21/19 18:53) Angioedema amlodipine Adverse Reaction (Verified 03/21/19 14:24) Headache clonidine Adverse Reaction (Verified 03/21/19 14:24) Headache sulfadiazine Adverse Reaction (Verified 03/21/19 14:24) Swelling Home Medications: Home Medications Medication Instructions Recorded Confirmed Last Taken Type Fluticasone [Flonase] 1 spray BID 03/22/19 09/12/19 Unknown History Isosorbide Dinitrate [Isordil 10 mg PO TID 03/22/19 09/12/19 Unknown History Titradose] Latanoprost [Xalatan] 1 drop OU HS PRN 03/22/19 09/12/19 Unknown History Levothyroxine [Synthroid] 1 tab PO DAILY 03/22/19 09/12/19 Unknown History Pantoprazole [Protonix TAB] 40 mg PO BID 03/22/19 09/12/19 Unknown History Potassium Chloride [K-Dur] 1 tab PO DAILY 03/22/19 09/12/19 Unknown History Pravastatin [Pravachol] 1 tab PO DAILY 03/22/19 09/12/19 Unknown History Torsemide [Demadex] 60 mg PO DAILY 03/22/19 09/12/19 Unknown History Travoprost [Travatan Z 0.004%] 1 drop OU HS PRN 03/22/19 09/12/19 Unknown History hydrALAZINE [Apresoline TAB] 50 mg PO TID 03/22/19 09/12/19 Unknown History Apixaban [Eliquis] 5 mg PO Q12H tablet 03/23/19 09/12/19 Unknown Rx Active Medications: Generic Name Dose Route Start Last Admin Trade Name Freq PRN Reason Stop Dose Admin Acetaminophen 500 mg 09/09/19 11:00 09/17/19 11:32 Tylenol PO 500 mg BID ROSALBA Administration Cyclobenzaprine HCl 5 mg 09/09/19 11:00 09/17/19 11:33 Flexeril PO 5 mg BID ROSALBA Administration Fluticasone Propionate 50 mcg 09/13/19 13:00 09/16/19 21:09 Flonase NS 50 mcg BID ROSALBA Administration Furosemide 40 mg 09/13/19 09:00 09/17/19 11:31 Lasix IV 40 mg 0900,2100 ROSALBA Administration Hydralazine HCl 50 mg 09/13/19 14:00 09/17/19 17:36 Apresoline PO 50 mg TID ROSALBA Administration Ceftriaxone Sodium 1 gm in 50 mls @ 100 mls/hr 09/13/19 17:00 09/17/19 11:31 Rocephin/Ns 1 Gm/50 Ml IV 100 mls/hr Q24HR ROSALBA Administration Protocol Isosorbide Dinitrate 10 mg 09/13/19 14:00 09/17/19 17:36 Isordil Titradose PO 10 mg TID ROSALBA Administration Latanoprost 1 drops 09/13/19 12:44 Latanoprost 0.005% OU HS PRN Dry Eye(s) Levothyroxine Sodium 100 mcg 09/14/19 09:00 09/17/19 05:38 Synthroid PO 100 mcg 0600 ROSALBA Administration Oxycodone/Acetaminophen 1 tab 09/13/19 13:39 09/16/19 05:29 Percocet 5/325 PO 1 tab Q6H PRN Administration Pain, Moderate (4-6) Pantoprazole Sodium 40 mg 09/13/19 22:00 09/17/19 11:31 Protonix PO 40 mg BID ROSALBA Administration Polyethylene Glycol 17 gm 09/16/19 14:15 Miralax 3350 PO BID PRN Constipation Pravastatin Sodium 80 mg 09/14/19 10:00 09/17/19 11:31 Pravachol PO 80 mg DAILY ROSALBA Administration Rivaroxaban 15 mg 09/15/19 17:00 09/17/19 17:36 Xarelto PO 15 mg DAILY@1700 ROSALBA Administration
[2019-09-17] MEDS: FLUTICASONE PROPIONATE NASAL SPRAY 16 GM NS SCH (21:25)
--- NOTE | 2019-09-17 22:11 | Progress Note ---
Assessment and Plan Assessment and plan: Patient is 69 yo with hypertension, CKD, paroxysmal atrial fibrillation. She presented with left sided weakness. She was seen and evaluated in Emergency Department. CT head was done was unremarkable. She was admitted to rule out stroke. MRI confirmed stroke right brainstem. She was evaluated by Neurology. She was also evaluated by cardiology for elevated Troponin diagnosed with NSTEMI type 2. In addition she has acute on chronic kidney disease, managed by Nephrology. She was on Eliquis for afib prior to admission, but switched to Xarelto by neurology. She is now stable awaiting placement. 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 Neurology following. Echocardiogram reveals global left ventricle systolic function normal right ventricle moderately dilated. Right ventricular global systolic function is mildly reduced. Septum with abnormal paradoxical motion consistent with right ventricular volume overload. Mitral valve clip. Carotid Doppler negative. 5mm infarct on right Re- consulted Neurology to evaluate when to resume Eliquis patient was seen by Dr. Wynn, he recommends dc Eliquis and start Xarelto Oropharyngeal dysphagia. Now resolved. Patient started on Mechnical soft diet Acute renal failure on CKD. Patient with a baseline creatinine 1.3 in March 2019. Cr now 1.90 today 09/17/19 Nephrology following. NSTEMI Type 2. Elevated troponin. Cardiology following. Hypertension. Continue antihypertensive medications. Hyperlipidemia. Continue statins. Paroxysmal atrial fibrillation. Now on Xarelto Rhabdomyolysis. Resolved Hyperkalemia. Resolved. Pulmonary hypertension. Medically stable for discharge. Awaiting placement at SNF History Interval history: Patient with stroke Left sided weakness Hospitalist Physical - Physical exam Narrative exam: Gen: Not in acute distress, Sitting up in chair, morbidly obese HEENT: Normocephalic, atraumatic Neck: supple, no JVD Heart: S1 and S2 irreg, no murmurs, rubs or gallop Lungs: Clear to auscultation, no rhonchi, no wheeze Abd: soft, non tender, non distended, normal BS, Ext: No edema, no clubbing, no cyanosis Neuro: Awake, alert, oriented X 3, left sided weakness - Constitutional Vitals: Temp Pulse Resp BP Pulse Ox 97.7 F 70 20 122/62 91 09/17/19 19:52 09/17/19 21:21 09/17/19 21:22 09/17/19 21:21 09/17/19 19:52 General appearance: Present: no acute distress, obese Results - Labs CBC & Chem 7: 09/13/19 06:40 09/17/19 14:10 Labs: Laboratory Last Values WBC 6.6 K/mm3 (4.5-11.0) 09/13/19 06:40 RBC 3.80 M/mm3 (3.65-5.03) 09/13/19 06:40 Hgb 9.6 gm/dl (10.1-14.3) L 09/13/19 06:40 Hct 30.1 % (30.3-42.9) L 09/13/19 06:40 MCV 79 fl (79-97) 09/13/19 06:40 MCH 25 pg (28-32) L 09/13/19 06:40 MCHC 32 % (30-34) 09/13/19 06:40 RDW 20.2 % (13.2-15.2) H 09/13/19 06:40 Plt Count 186 K/mm3 (140-440) 09/13/19 06:40 Lymph % (Auto) 19.2 % (13.4-35.0) 09/13/19 06:40 [place] % (Auto) 8.3 % (0.0-7.3) H 09/13/19 06:40 Eos % (Auto) 4.9 % (0.0-4.3) H 09/13/19 06:40 Baso % (Auto) 0.5 % (0.0-1.8) 09/13/19 06:40 Lymph # 1.3 K/mm3 (1.2-5.4) 09/13/19 06:40 [place] # 0.5 K/mm3 (0.0-0.8) 09/13/19 06:40 Eos # 0.3 K/mm3 (0.0-0.4) 09/13/19 06:40 Baso # 0.0 K/mm3 (0.0-0.1) 09/13/19 06:40 Seg Neutrophils % 67.1 % (40.0-70.0) 09/13/19 06:40 Seg Neutrophils # 4.5 K/mm3 (1.8-7.7) 09/13/19 06:40 PT 22.1 Sec. (12.2-14.9) H 09/08/19 19:42 INR 1.98 (0.87-1.13) H 09/08/19 19:42 APTT 37.4 Sec. (24.2-36.6) H 09/08/19 19:42 POC ABG pH 7.299 (7.35-7.45) L 09/08/19 20:40 POC ABG pCO2 37.4 (35-45) 09/08/19 20:40 POC ABG pO2 88 (80-105) 09/08/19 20:40 POC ABG HCO3 18.4 (22-26 mml/L) 09/08/19 20:40 POC ABG Total CO2 19 (23-27mmol/L) 09/08/19 20:40 POC ABG O2 Sat 96 09/08/19 20:40 POC ABG Base Excess -8 ((-2) - (+3)mmol/L) 09/08/19 20:40 FiO2 28 % 09/08/19 20:40 Sodium 144 mmol/L (137-145) 09/17/19 14:10 Potassium 3.8 mmol/L (3.6-5.0) 09/17/19 14:10 Chloride 102.8 mmol/L (98-107) 09/17/19 14:10 Carbon Dioxide 26 mmol/L (22-30) 09/17/19 14:10 Anion Gap 19 mmol/L 09/17/19 14:10 BUN 50 mg/dL (7-17) H 09/17/19 14:10 Creatinine 1.9 mg/dL (0.7-1.2) H 09/17/19 14:10 Estimated GFR 32 ml/min 09/17/19 14:10 BUN/Creatinine Ratio 26 % 09/17/19 14:10 Glucose 101 mg/dL (65-100) H 09/17/19 14:10 POC Glucose 94 (70-105) 09/09/19 20:28 Osmolality 322 Mosm/kg 09/11/19 12:44 Uric Acid 12.4 mg/dL (3.5-7.6) H 09/11/19 12:44 Calcium 8.7 mg/dL (8.4-10.2) 09/17/19 14:10 Total Bilirubin 2.30 mg/dL (0.1-1.2) H 09/08/19 20:23 AST 113 units/L (5-40) H 09/08/19 20:23 ALT 24 units/L (7-56) 09/08/19 20:23 Alkaline Phosphatase 106 units/L (35-129) 09/08/19 20:23 Total Creatine Kinase 668 units/L (30-135) H 09/12/19 07:47 CK-MB (CK-2) 13.9 ng/mL (0.0-4.0) H 09/09/19 04:02 CK-MB (CK-2) Rel Index 0.4 (0-4) 09/09/19 04:02 Troponin T 0.074 ng/mL (0.00-0.029) H D 09/09/19 04:02 NT-Pro-B Natriuret Pep 7270 pg/mL (0-900) H 09/09/19 04:02 Total Protein 7.7 g/dL (6.3-8.2) 09/08/19 20:23 Albumin 3.7 g/dL (3.9-5) L 09/08/19 20:23 Albumin/Globulin Ratio 0.9 % 09/08/19 20:23 Triglycerides 55 mg/dL (2-149) 09/08/19 19:42 Cholesterol 92 mg/dL (50-199) 09/08/19 19:42 LDL Cholesterol Direct 50 mg/dL (50-130) 09/08/19 19:42 HDL Cholesterol 37 mg/dL (40-59) L 09/08/19 19:42 Cholesterol/HDL Ratio 2.48 % 09/08/19 19:42 Urine Color Yellow (Yellow) 09/11/19 12:16 Urine Turbidity Cloudy (Clear) 09/11/19 12:16 Urine pH 5.0 (5.0-7.0) 09/11/19 12:16 Ur Specific [place] 1.009 (1.003-1.030) 09/11/19 12:16 Urine Protein <15 mg/dl mg/dL (Negative) 09/11/19 12:16 Urine Glucose (UA) Neg mg/dL (Negative) 09/11/19 12:16 Urine Ketones Neg mg/dL (Negative) 09/11/19 12:16 Urine Blood Lg (Negative) 09/11/19 12:16 Urine Nitrite Neg (Negative) 09/11/19 12:16 Ur Reducing Substances Not Reportable 09/11/19 12:16 Urine Bilirubin Neg (Negative) 09/11/19 12:16 Urine Ictotest Not Reportable 09/11/19 12:16 Urine Urobilinogen < 2.0 mg/dL (<2.0) 09/11/19 12:16 Ur Leukocyte Esterase Lg (Negative) 09/11/19 12:16 Urine WBC (Auto) > 182.0 /HPF (0.0-6.0) H 09/11/19 12:16 Urine RBC (Auto) > 182.0 /HPF (0.0-6.0) 09/11/19 12:16 U Epithel Cells (Auto) 2.0 /HPF (0-13.0) 09/11/19 12:16 Urine Bacteria (Auto) 4+ /HPF (Negative) 09/11/19 12:16 Urine WBC Clumps 3+ /HPF 09/11/19 12:16 Hyaline Casts Not Reportable 09/11/19 12:16 Urine Mucus Few /HPF 09/11/19 12:16 Urine Yeast (Budding) Rooming House Keeper 09/11/19 12:16 Urine Creatinine 46.1 mg/dL (0.1-20.0) H 09/11/19 12:16 Urine Sodium 74 mmol/L 09/11/19 12:16 Urine Total Protein 39 mg/dL (5-11.8) H 09/11/19 12:16 Salicylates < 0.3 mg/dL (2.8-20.0) L 09/08/19 19:42 Acetaminophen 6.6 ug/mL (10.0-30.0) L 09/08/19 23:21 Plasma/Serum Alcohol < 0.01 % (0-0.07) 09/08/19 19:42 Immunofix Electrophor see below 09/11/19 12:44 Active Medications - Current Medications Current Medications: Generic Name Dose Route Start Last Admin Trade Name Freq PRN Reason Stop Dose Admin Acetaminophen 500 mg 09/09/19 11:00 09/17/19 21:22 Tylenol PO 500 mg BID ROSALBA Administration Cyclobenzaprine HCl 5 mg 09/09/19 11:00 09/17/19 21:21 Flexeril PO 5 mg BID ROSALBA Administration Fluticasone Propionate 50 mcg 09/13/19 13:00 09/17/19 21:25 Flonase NS Not Given BID ROSALBA Furosemide 40 mg 09/13/19 09:00 09/17/19 21:23 Lasix IV 40 mg 0900,2100 ROSALBA Administration Hydralazine HCl 50 mg 09/13/19 14:00 09/17/19 21:21 Apresoline PO 50 mg TID ROSALBA Administration Ceftriaxone Sodium 1 gm in 50 mls @ 100 mls/hr 09/13/19 17:00 09/17/19 11:31 Rocephin/Ns 1 Gm/50 Ml IV 100 mls/hr Q24HR ROSALBA Administration Protocol Isosorbide Dinitrate 10 mg 09/13/19 14:00 09/17/19 21:21 Isordil Titradose PO 10 mg TID ROSALBA Administration Latanoprost 1 drops 09/13/19 12:44 Latanoprost 0.005% OU HS PRN Dry Eye(s) Levothyroxine Sodium 100 mcg 09/14/19 09:00 09/17/19 05:38 Synthroid PO 100 mcg 0600 [facility] Administration Oxycodone/Acetaminophen 1 tab 09/13/19 13:39 09/16/19 05:29 Percocet 5/325 PO 1 tab Q6H PRN Administration Pain, Moderate (4-6) Pantoprazole Sodium 40 mg 09/13/19 22:00 09/17/19 21:23 Protonix PO 40 mg BID ROSALBA Administration Polyethylene Glycol 17 gm 09/16/19 14:15 Miralax 3350 PO BID PRN Constipation Pravastatin Sodium 80 mg 09/14/19 10:00 09/17/19 11:31 Pravachol PO 80 mg DAILY ROSALBA Administration Rivaroxaban 15 mg 09/15/19 17:00 09/17/19 17:36 Xarelto PO 15 mg DAILY@1700 ROSALBA Administration Nutrition/Malnutrition Assess - Dietary Evaluation Nutrition/Malnutrition Findings: Nutrition Notes Start: 09/09/19 13:13 Freq: Status: Active Protocol: Document 09/14/19 14:18 CC (Rec: 09/14/19 14:38 CC [id number]) Co-Sign 10/23/19 14:18 LP Nutrition Notes Initial or Follow up Assessment Current Diagnosis CKD(stage I-IV),Hypertension, Heart Failure,Stroke, Hyperlipidemia Other Pertinent Diagnosis TIA,Dysphagia Current Diet Mech soft Labs/Tests BUN 62, creat 2.1 Pertinent Medications Lasix Height 5 ft 8 in Weight 128.4 kg [place] Cbc Base Body Weight (kg) 63.63 BMI 43.0 Intake Prior to Admission Good Weight Status Morbidly Obese Subjective/Other Information F/U for full assesment. 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 Pt reported she has had no unitentional wt loss. Pt reported her appetite has been good since arrival Percent of energy/protein needs met: 100% energy/ 100% protein Burn Absent Trauma Absent GI Symptoms None Difficulty In Swallowing Current % PO Good (75-100%) Minimum of two criteria No #1 Nutrition Diagnosis No nutrition diagnosis at this time Is patient on ventilator? No Is Patient Ambulatory and/or Out of Bed No REE-([facility]-confined to bed) 2228.184 Kcal/Kg value to use for calculation 13 Approximate Energy Requirements Using 1669 kcal/Kg Calculation Used for Recommendations Kcal/kg Additional Notes PRO: 58-77g/day (0.6-0.8g/kg adBW 96kg) Fluid:1ml/kcal Nutrition Intervention Anticipated Discharge Needs: mechanical soft diet Revisit per MD consult or patient Sign Off request:
[2019-09-18] MEDS: LEVOTHYROXINE 100 MCG TAB PO SCH (05:50)
[2019-09-18 06:59] LABS: Calcium 8.5 mg/dL (8.4-10.2)
[2019-09-18] MEDS: ACETAMINOPHEN 500 MG TAB PO SCH ×2 (11:10→22:31)
[2019-09-18] MEDS: PANTOPRAZOLE 40 MG TAB PO SCH ×2 (11:11→22:32)
[2019-09-18] MEDS: PRAVASTATIN 80 MG TAB PO SCH (11:11)
[2019-09-18] MEDS: CYCLOBENZAPRINE 10 MG TAB PO SCH ×2 (11:12→22:32)
[2019-09-18] MEDS: FLUTICASONE PROPIONATE NASAL SPRAY 16 GM NS SCH ×3 (11:15→22:40)
[2019-09-18] MEDS: FUROSEMIDE 40 MG/4 ML INJ IV SCH ×2 (11:16→21:20)
[2019-09-18] MEDS: ISOSORBIDE DINITRATE 10 MG TAB PO SCH ×3 (11:17→20:40)
[2019-09-18] MEDS: hydrALAZINE 100 MG TAB PO SCH ×3 (11:25→20:40)
--- NOTE | 2019-09-18 13:28 | Progress Note ---
Assessment and Plan # Acute on chronic renal disease Suspect JNUE in setting of volume overload and venous congestion. Renal function improved with diuresis, and has been stable. Will continue IV Lasix dosing, but will transition to PO once patient deemed closer to discharge. Peak creatinine 2.4mg/dl, current creatinine 1.9 mg/dl with baseline around 1.5. - continue IV Lasix 40mg BID for now. # CHF (congestive heart failure) -reviewed echo with preserved EF, RV Systolic dysfunction, and Mitral reg urgitation. - continue diuretics as above # CVA (cerebral vascular accident) Brain MRI with concern for small area of subacute ischemia - Neurology following, appreciate input - continue aspirin/statin. # HTN (hypertension) - controlled, continue current medications Subjective Date of service: 09/18/19 Principal diagnosis: abnl trop and chf Interval history: no acute events noted. notes that swelling continues to improve, and her breathing is good No other issues of note Objective - Exam Narrative Exam: General appearance: well-developed, well-nourished EENT: ATNC, PERRL, mucous membranes moist Neck: no JVD Respiratory: Present: Decreased Breath Sounds bilaterally, on NC Cardiology: regular, S1S2, 1+ edema bilaterally Gastrointestinal: normal, normoactive bowel sounds Integumentary: no rash Neurologic: alert and oriented x3, CN 3-12 intact Psychiatric: mood/affect appropriate - Vital Signs Vital signs: Vital Signs - 12hr 09/18/19 09/18/19 09/18/19 02:26 05:24 08:22 Temperature 98.5 F 98.4 F 98.2 F Pulse Rate 72 68 66 Respiratory 16 16 18 Rate Blood Pressure 135/79 143/77 119/54 O2 Sat by Pulse 88 91 89 Oximetry 09/18/19 09/18/19 09/18/19 09:01 11:17 11:23 Temperature Pulse Rate 66 69 Respiratory Rate Blood Pressure 119/54 122/68 O2 Sat by Pulse 90 93 Oximetry - Lab 09/13/19 06:40 09/18/19 05:35 Most recent lab results Calcium 8.5 mg/dL (8.4-10.2) 09/18/19 05:35 Urine Creatinine 46.1 mg/dL (0.1-20.0) H 09/11/19 12:16 Urine Sodium 74 mmol/L 09/11/19 12:16 Urine Total Protein 39 mg/dL (5-11.8) H 09/11/19 12:16 Medications & Allergies - Medications Allergies/Adverse Reactions: Allergies codeine Allergy (Verified 03/21/19 14:24) Unknown morphine Allergy (Verified 03/21/19 14:24) Unknown tramadol Allergy (Verified 03/21/19 18:53) Angioedema amlodipine Adverse Reaction (Verified 03/21/19 14:24) Headache clonidine Adverse Reaction (Verified 03/21/19 14:24) Headache sulfadiazine Adverse Reaction (Verified 03/21/19 14:24) Swelling Home Medications: Home Medications Medication Instructions Recorded Confirmed Last Taken Type Fluticasone [Flonase] 1 spray BID 03/22/19 09/12/19 Unknown History Isosorbide Dinitrate [Isordil 10 mg PO TID 03/22/19 09/12/19 Unknown History Titradose] Latanoprost [Xalatan] 1 drop OU HS PRN 03/22/19 09/12/19 Unknown History Levothyroxine [Synthroid] 1 tab PO DAILY 03/22/19 09/12/19 Unknown History Pantoprazole [Protonix TAB] 40 mg PO BID 03/22/19 09/12/19 Unknown History Potassium Chloride [K-Dur] 1 tab PO DAILY 03/22/19 09/12/19 Unknown History Pravastatin [Pravachol] 1 tab PO DAILY 03/22/19 09/12/19 Unknown History Torsemide [Demadex] 60 mg PO DAILY 03/22/19 09/12/19 Unknown History Travoprost [Travatan Z 0.004%] 1 drop OU HS PRN 03/22/19 09/12/19 Unknown History hydrALAZINE [Apresoline TAB] 50 mg PO TID 03/22/19 09/12/19 Unknown History Apixaban [Eliquis] 5 mg PO Q12H tablet 03/23/19 09/12/19 Unknown Rx Active Medications: Generic Name Dose Route Start Last Admin Trade Name Freq PRN Reason Stop Dose Admin Acetaminophen 500 mg 09/09/19 11:00 09/18/19 11:10 Tylenol PO 500 mg BID ROSALBA Administration Cyclobenzaprine HCl 5 mg 09/09/19 11:00 09/18/19 11:12 Flexeril PO 5 mg BID ROSALBA Administration Fluticasone Propionate 50 mcg 09/13/19 13:00 09/18/19 11:17 Flonase NS 50 mcg BID ROSALBA Administration Furosemide 40 mg 09/13/19 09:00 09/18/19 11:16 Lasix IV 40 mg 0900,2100 ROSALBA Administration Hydralazine HCl 50 mg 09/13/19 14:00 09/18/19 11:25 Apresoline PO 50 mg TID ROSALBA Administration Isosorbide Dinitrate 10 mg 09/13/19 14:00 09/18/19 11:17 Isordil Titradose PO 10 mg TID ROSALBA Administration Latanoprost 1 drops 09/13/19 12:44 Latanoprost 0.005% OU HS PRN Dry Eye(s) Levothyroxine Sodium 100 mcg 09/14/19 09:00 09/18/19 05:50 Synthroid PO 100 mcg 0600 ROSALBA Administration Oxycodone/Acetaminophen 1 tab 09/13/19 13:39 09/16/19 05:29 Percocet 5/325 PO 1 tab Q6H PRN Administration Pain, Moderate (4-6) Pantoprazole Sodium 40 mg 09/13/19 22:00 09/18/19 11:11 Protonix PO 40 mg BID ROSALBA Administration Polyethylene Glycol 17 gm 09/16/19 14:15 Miralax 3350 PO BID PRN Constipation Pravastatin Sodium 80 mg 09/14/19 10:00 09/18/19 11:11 Pravachol PO 80 mg DAILY ROSALBA Administration Rivaroxaban 15 mg 09/15/19 17:00 09/17/19 17:36 Xarelto PO 15 mg DAILY@1700 ROSALBA Administration
[2019-09-18] MEDS: RIVAROXABAN 15 MG TAB PO SCH (16:37)
--- NOTE | 2019-09-18 17:01 | Progress Note ---
Assessment and Plan Patient is 69 YO Male with HTN, Obesity, Hairy Cell Leukemia(In remission) presented to ED for evaluation. He complained of shortness of breath for 3 days, subjective fever, and left flank pain. he also complained of nausea and multiple episodes of vomiting. EMS notified and upon arrival the patient found to be in distress and transported to [facility]. Pt seen and evaluated in ED and found to have Severe Sepsis complicated by Shock with blood pressure of 68/41. Pt initiated on sepsis protocol. Pt treated with IVF resuscitation as well as pressor support. Pt found to have worsening dypsnea after fluid resuscitation which resulted in Acute Hypoxemic Respiratory Failure. Pt initiated on NIPPV and admitted to ICU. CT Abdomen revealed bilateral nephrolithiasis and 7-8mm left ureteropelvic junction stone. He was started on iv Antibiotic and admitted. ID physician, pulmonology, interventional radiology, nephrology and vascular surgery were consulted. IR placed a left percutaneous nephrostomy tube on 09/12/2019. On following day, 09/13, Dr. Guerrero, Urology did cystoscopy , retrograde pyelogram and bilateral double J stent placement. Creatinine level improved and now normal. He was initially placed on Levaquin and Aztreonam. Blood cultures and Urine cultures grew Escherichia coli and Aztreonam was discontinued. He was on Levophed for several days was discontinued 09/16/2019 and he was transferred to telemetry. Sepsis due to complicated UTI Admitted to ICU Continue Levaquin ID Physician following Septic shock Now off Levophed JUNE (acute kidney injury) due to ATN Now resolved IVF resuscitation therapy, Nephrology following, monitor uop q shift, urine electrolytes, Metabolic Acidosis due to JUNE now resolved IVF resuscitation therapy, IV bicarbonate, supportive care. Complicated UTI On Levaquin, Aztreonam IV antibiotic therapy, urinalysis, CBC,CMP, Urinary obstruction 7MM Left UPJ obstructing stone with mild hydronephrosis, supportive care. IR consulted s/p left perc nephrostomy tube placement, Urology consulted did cystoscopy, RPG, bilat double j-stent placement MAT resolved Cardiomyopathy EF 45-50% patient does not have CHF Acute respiratory failure with hypoxia Oxygen buy NC NIPPV Pulm following Supplemental oxygen, ABG, pulse oximetry, NIPPV as clinically indicated, nebulizer therapy prn, Lactic acidosis due to sepsis Thrombocytopenia- resolved Had platelet transfusion Geographic Information Scientist, Dr. Quiñones following DVT prophylaxis SCDs. No chemical anticoag because of low platele Subjective Date of service: 09/18/19 Principal diagnosis: acute CVA, acute on chronic renal failure, and STEMI and pulmonary HTN Interval history: Patient seen and examined. [place] impediment. No acute distress. Objective - Exam Narrative Exam: Constitutional: Well-nourished well-developed. In no distress Head: Normocephalic atraumatic Eyes: Pupils are equal round and reactive to light Nose: No enlarged turbinates, no septal deviation. Mouth: Moist mucous membranes. Neck: Supple no thyromegaly. No bruit. No JVD Heart: Regular rate and rhythm, S1-S2 normal. No rubs murmurs or gallop Lungs: Clear to auscultation bilaterally. no rales or rhonchi Abdomen: Soft, nontender. Bowel sound are present. Extremities: No edema, no cyanosis, no clubbing. Neuro: Alert oriented Oriented x3. No focal sensory or motor deficit. Skin: No rashes or hyperpigmented spots Musculoskeletal system: No joint pain or swelling Hematological: No petechia or subcutanous hemorrhages. Immunological: No multiple septic spots on the skin Lymphatic: No generalized lymphadenopathy Psychiatry: Euthymic. Calm. - Constitutional Vitals: Vital Signs - 12hr 09/18/19 09/18/19 09/18/19 05:24 08:22 09:01 Temperature 98.4 F 98.2 F Pulse Rate 68 66 Respiratory 16 18 Rate Blood Pressure 143/77 119/54 O2 Sat by Pulse 91 89 90 Oximetry 09/18/19 09/18/19 09/18/19 11:17 11:23 15:00 Temperature Pulse Rate 66 69 71 Respiratory Rate Blood Pressure 119/54 122/68 139/76 O2 Sat by Pulse 93 Oximetry - Labs CBC & Chem 7: 09/13/19 06:40 09/18/19 05:35 Labs: Abnormal lab results 09/18/19 Range/Units 05:35 BUN 50 H (7-17) mg/dL Creatinine 1.9 H (0.7-1.2) mg/dL Glucose 108 H (65-100) mg/dL Total Creatine Kinase 155 H (30-135) units/L
[2019-09-19] MEDS: LEVOTHYROXINE 100 MCG TAB PO SCH (06:09)
[2019-09-19 06:16] LABS: Basophils % (Auto) 0.6 % (0.0-1.8); Eosinophils # (Auto) 0.5 K/mm3 (0.0-0.4); Eosinophils % (Auto) 6.6 % (0.0-4.3); Hematocrit 27.3 % (30.3-42.9); Hemoglobin 8.5 gm/dl (10.1-14.3); Lymphocytes # (Auto) 1.1 K/mm3 (1.2-5.4); Lymphocytes % (Auto) 15.9 % (13.4-35.0); Mean Corpuscular HGB Conc 31 % (30-34); Mean Corpuscular Volume 80 fl (79-97); Monocytes # (Auto) 0.5 K/mm3 (0.0-0.8); Monocytes % (Auto) 7.5 % (0.0-7.3); Platelet Count 239 K/mm3 (140-440); Red Blood Count 3.42 M/mm3 (3.65-5.03)
[2019-09-19 06:41] LABS: Albumin 2.9 g/dL (3.9-5); Calcium 8.8 mg/dL (8.4-10.2)
[2019-09-19] MEDS: FLUTICASONE PROPIONATE NASAL SPRAY 16 GM NS SCH ×2 (09:24→22:28)
[2019-09-19] MEDS: ISOSORBIDE DINITRATE 10 MG TAB PO SCH ×3 (09:25→20:30)
[2019-09-19] MEDS: PANTOPRAZOLE 40 MG TAB PO SCH ×2 (09:25→22:27)
[2019-09-19] MEDS: ACETAMINOPHEN 500 MG TAB PO SCH ×2 (09:25→22:26)
[2019-09-19] MEDS: FUROSEMIDE 40 MG/4 ML INJ IV SCH ×2 (09:27→21:50)
[2019-09-19] MEDS: hydrALAZINE 100 MG TAB PO SCH ×3 (09:27→20:30)
[2019-09-19] MEDS: PRAVASTATIN 80 MG TAB PO SCH (09:29)
[2019-09-19] MEDS: CYCLOBENZAPRINE 10 MG TAB PO SCH ×2 (09:29→22:27)
--- NOTE | 2019-09-19 12:07 | Progress Note ---
Assessment and Plan Patient is 69 yo with hypertension, CKD, paroxysmal atrial fibrillation. She presented with left sided weakness. She was seen and evaluated in Emergency Department. CT head was done was unremarkable. She was admitted to rule out stroke. MRI confirmed stroke right brainstem. She was evaluated by Neurology. She was also evaluated by cardiology for elevated Troponin diagnosed with NSTEMI type 2. In addition she has acute on chronic kidney disease, managed by Nephrology. She was on Eliquis for afib prior to admission, but switched to Xar elto by neurology. She is now stable awaiting placement. 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 Neurology following. Echocardiogram reveals global left ventricle systolic function normal right ventricle moderately dilated. Right ventricular global systolic function is mildly reduced. Septum with abnormal paradoxical motion consistent with right ventricular volume overload. Mitral valve clip. Carotid Doppler negative. 5mm infarct on right Re- consulted Neurology to evaluate when to resume Eliquis patient was seen by Dr. Wynn, he recommends dc Eliquis and start Xarelto Oropharyngeal dysphagia. Now resolved. Patient started on Mechnical soft diet Acute renal failure on CKD. Patient with a baseline creatinine 1.3 in March 2019. Cr now 1.90 today 09/17/19 Nephrology following. NSTEMI Type 2. Elevated troponin. Cardiology following. Hypertension. Continue antihypertensive medications. Hyperlipidemia. Continue statins. Paroxysmal atrial fibrillation. Now on Xarelto Rhabdomyolysis. Resolved Hyperkalemia. Resolved. Pulmonary hypertension. Medically stable for discharge. Awaiting placement at SNF Subjective Date of service: 09/19/19 Principal diagnosis: acute CVA, acute on chronic renal failure, and STEMI and pulmonary HTN Interval history: Patient seen and examined. No acute distress. Having shortness of breath Objective - Exam Narrative Exam: Constitutional: Well-nourished well-developed. In no distress Head: Normocephalic atraumatic Eyes: Pupils are equal round and reactive to light Nose: No enlarged turbinates, no septal deviation. Mouth: Moist mucous membranes. Neck: Supple no thyromegaly. No bruit. No JVD Heart: Regular rate and rhythm, S1-S2 normal. No rubs murmurs or gallop Lungs: Clear to auscultation bilaterally. no rales or rhonchi Abdomen: Soft, nontender. Bowel sound are present. Extremities: No edema, no cyanosis, no clubbing. Neuro: Alert oriented Oriented x3. No focal sensory or motor deficit. Skin: No rashes or hyperpigmented spots Musculoskeletal system: No joint pain or swelling Hematological: No petechia or subcutanous hemorrhages. Immunological: No multiple septic spots on the skin Lymphatic: No generalized lymphadenopathy Psychiatry: Euthymic. Calm. - Constitutional Vitals: Vital Signs - 12hr 09/19/19 09/19/19 09/19/19 03:33 08:53 09:25 Temperature 97.3 F L 98.0 F Pulse Rate 61 60 60 Respiratory 20 18 Rate Blood Pressure 100/53 113/59 113/59 O2 Sat by Pulse 97 92 Oximetry 09/19/19 10:00 Temperature Pulse Rate Respiratory Rate Blood Pressure O2 Sat by Pulse 93 Oximetry - Labs CBC & Chem 7: 09/19/19 05:28 09/19/19 05:28 Labs: Abnormal lab results 09/19/19 09/19/19 Range/Units 05:28 05:28 RBC 3.42 L (3.65-5.03) M/mm3 Hgb 8.5 L (10.1-14.3) gm/dl Hct 27.3 L (30.3-42.9) % MCH 25 L (28-32) pg RDW 21.0 H (13.2-15.2) % [place] % (Auto) 7.5 H (0.0-7.3) % Eos % (Auto) 6.6 H (0.0-4.3) % Lymph # 1.1 L (1.2-5.4) K/mm3 Eos # 0.5 H (0.0-0.4) K/mm3 BUN 49 H (7-17) mg/dL Creatinine 1.8 H (0.7-1.2) mg/dL Albumin 2.9 L (3.9-5) g/dL
--- NOTE | 2019-09-19 13:21 | Progress Note ---
Assessment and Plan 69 YR OLD WITH HISTORY OF TIA,OLD STROKE WITH NO RESIDUAL CKD, HYPERTENSION,HYPERLIPEDEMIA,GOUT. WHO WAS ADMITTED WITH ACUTE ONSET OF LEFT SIDED WEAKNESS WHICH WAS DIAGNOSED RT BRAINSTEM INFARCT,IN THE RT [place].PATIENT HAD ALL THE WORK UP RELTATED TO STROKE, SHE HAD BEEN TAKING ELIQUIS 5 MG BID AND WAS COMPLIANT PER PATIENT,S STATEMENT.STROKE WORK UP WAS RECOMMENDED BY ME WHEN I SAW HER SOON AFTER SHE WAS ADMITTED. STROKE WORK UP HAS BEEN DONE. XARELTO 15 MG HAS BEEN STARTED, DOSE OF XARELTO WAS DETERMINED BASED ON KIDNEY FUNCTION. SHE IS MUCH BETTER TODAY, DURING MY LAST EVAKUATION SHE WAS NOT COMMUNICATIVE FOR HER NECK AND BACK PAIN, TODAY SHE IS ALERT AND APPROPRIATE, HAS INSIGHT INTO HER CONDITION AND ANSWERS QUESTIONS APPROPRIATELY. ON LAST EVALUATION MRI OF C-SPINE AND LUMBAR SPINE WAS RECOMMENDED BASED ON THE SUSPICION OF CERVICAL AND LUMBAR RADICULOPATHY, HOWEVER THE RECOMMENDED MRI HAS NOT BEEN DONE. O/E. ALERT AND APPROPRIATE. SPEECH-NORMAL HEART-NORMAL RATE AND RHYTHM CAROTIDS-BOTH PALPABLE,NO BRUIT. CRANIAL; NERVES- NORMAL ,NO FACIAL ASYMMETRY EXTREMITIES- MILD WEAKNESS ON THE LEFT SIDE WITH UPO GOING TOE ON THE LEFT. OTHER EXAMINATION IS NOT INDICATED TODAY, DETAILED EXAMINATION WAS DONE ON PREVIOUS VISIT IMPRESSION. 1. BRAINSTEM STROKE, APIXABAN FAILURE, DOING WELL ON XARELTO RECOMMEND. 1. CONTINUE XARELTO 2. WILL ORDER MRI OF C-SPINE AND L-SPINE 3. FURTHER RECOMMENDATION TO FOLLOW AFTER MRI OF C-SPINE AND AND LUMBAR SPINE IS DONE. Subjective Principal diagnosis: acute CVA, acute on chronic renal failure, and STEMI and pulmonary HTN Objective - Vital Sign Vital Signs - 12hr 09/19/19 09/19/19 09/19/19 03:33 08:53 09:25 Temperature 97.3 F L 98.0 F Pulse Rate 61 60 60 Respiratory 20 18 Rate Blood Pressure 100/53 113/59 113/59 O2 Sat by Pulse 97 92 Oximetry 09/19/19 10:00 Temperature Pulse Rate Respiratory Rate Blood Pressure O2 Sat by Pulse 93 Oximetry - Laboratory Findings CBC and BMP: 09/19/19 05:28 09/19/19 05:28 Abnormal Lab Findings: Abnormal Labs 09/08/19 09/08/19 09/08/19 19:42 19:42 19:42 RBC Hgb 9.6 L Hct MCH 25 L RDW 19.8 H [place] % (Auto) Eos % (Auto) Lymph # Eos # Seg Neutrophils % PT 22.1 H INR 1.98 H APTT 37.4 H POC ABG pH Sodium Potassium Chloride Carbon Dioxide BUN Creatinine Glucose POC Glucose Uric Acid Calcium Total Bilirubin AST Total Creatine Kinase 3482 H CK-MB (CK-2) Troponin T 0.062 H NT-Pro-B Natriuret Pep Albumin HDL Cholesterol 37 L Urine WBC (Auto) Urine Creatinine Urine Total Protein Salicylates Acetaminophen 09/08/19 09/08/19 09/08/19 19:42 19:42 20:04 RBC Hgb Hct MCH RDW [place] % (Auto) Eos % (Auto) Lymph # Eos # Seg Neutrophils % PT INR APTT POC ABG pH Sodium Potassium Chloride Carbon Dioxide BUN Creatinine Glucose POC Glucose Uric Acid Calcium Total Bilirubin AST Total Creatine Kinase CK-MB (CK-2) Troponin T NT-Pro-B Natriuret Pep 7079 H Albumin HDL Cholesterol Urine WBC (Auto) Urine Creatinine Urine Total Protein Salicylates < 0.3 L Acetaminophen 8.8 L 09/08/19 09/08/19 09/08/19 20:23 20:40 23:21 RBC Hgb Hct MCH RDW [place] % (Auto) Eos % (Auto) Lymph # Eos # Seg Neutrophils % PT INR APTT POC ABG pH 7.299 L Sodium Potassium 6.1 H* Chloride 108.8 H Carbon Dioxide 16 L BUN 72 H Creatinine 2.4 H Glucose 112 H POC Glucose Uric Acid Calcium Total Bilirubin 2.30 H AST 113 H Total Creatine Kinase CK-MB (CK-2) Troponin T NT-Pro-B Natriuret Pep Albumin 3.7 L HDL Cholesterol Urine WBC (Auto) Urine Creatinine Urine Total Protein Salicylates Acetaminophen 6.6 L 09/09/19 09/09/19 09/09/19 00:00 04:02 04:02 RBC Hgb Hct MCH RDW [place] % (Auto) Eos % (Auto) Lymph # Eos # Seg Neutrophils % PT INR APTT POC ABG pH Sodium 148 H 147 H Potassium Chloride 113.4 H 111.6 H Carbon Dioxide 16 L 18 L BUN 74 H 73 H Creatinine 2.4 H 2.4 H Glucose 101 H POC Glucose Uric Acid Calcium Total Bilirubin AST Total Creatine Kinase 3170 H 2941 H CK-MB (CK-2) 14.7 H 13.9 H Troponin T 0.059 H 0.074 H D NT-Pro-B Natriuret Pep Albumin HDL Cholesterol Urine WBC (Auto) Urine Creatinine Urine Total Protein Salicylates Acetaminophen 09/09/19 09/09/19 09/10/19 04:02 07:44 05:10 RBC Hgb Hct MCH RDW [place] % (Auto) Eos % (Auto) Lymph # Eos # Seg Neutrophils % PT INR APTT POC ABG pH Sodium 146 H Potassium 5.4 H Chloride 110.8 H Carbon Dioxide 21 L BUN 74 H Creatinine 2.4 H Glucose POC Glucose 107 H Uric Acid Calcium Total Bilirubin AST Total Creatine Kinase CK-MB (CK-2) Troponin T NT-Pro-B Natriuret Pep 7270 H Albumin HDL Cholesterol Urine WBC (Auto) Urine Creatinine Urine Total Protein Salicylates Acetaminophen 09/11/19 09/11/19 09/11/19 12:16 12:16 12:44 RBC Hgb Hct MCH RDW [place] % (Auto) Eos % (Auto) Lymph # Eos # Seg Neutrophils % PT INR APTT POC ABG pH Sodium Potassium Chloride Carbon Dioxide BUN Creatinine Glucose POC Glucose Uric Acid 12.4 H Calcium Total Bilirubin AST Total Creatine Kinase CK-MB (CK-2) Troponin T NT-Pro-B Natriuret Pep Albumin HDL Cholesterol Urine WBC (Auto) > 182.0 H Urine Creatinine 46.1 H Urine Total Protein 39 H Salicylates Acetaminophen 09/12/19 09/12/19 09/12/19 07:47 07:47 07:47 RBC Hgb 9.8 L Hct MCH 25 L RDW 20.3 H [place] % (Auto) Eos % (Auto) Lymph # 1.0 L Eos # Seg Neutrophils % 73.9 H PT INR APTT POC ABG pH Sodium 146 H Potassium Chloride Carbon Dioxide BUN 66 H Creatinine 2.2 H Glucose POC Glucose Uric Acid Calcium Total Bilirubin AST Total Creatine Kinase 668 H CK-MB (CK-2) Troponin T NT-Pro-B Natriuret Pep Albumin HDL Cholesterol Urine WBC (Auto) Urine Creatinine Urine Total Protein Salicylates Acetaminophen 09/13/19 09/13/19 09/14/19 06:40 06:40 12:39 RBC Hgb 9.6 L Hct 30.1 L MCH 25 L RDW 20.2 H [place] % (Auto) 8.3 H Eos % (Auto) 4.9 H Lymph # Eos # Seg Neutrophils % PT INR APTT POC ABG pH Sodium 146 H Potassium Chloride Carbon Dioxide BUN 62 H 56 H Creatinine 2.1 H 1.9 H Glucose 101 H POC Glucose Uric Acid Calcium Total Bilirubin AST Total Creatine Kinase CK-MB (CK-2) Troponin T NT-Pro-B Natriuret Pep Albumin HDL Cholesterol Urine WBC (Auto) Urine Creatinine Urine Total Protein Salicylates Acetaminophen 09/15/19 09/16/19 09/17/19 06:55 06:41 14:10 RBC Hgb Hct MCH RDW [place] % (Auto) Eos % (Auto) Lymph # Eos # Seg Neutrophils % PT INR APTT POC ABG pH Sodium 146 H 147 H Potassium Chloride 107.7 H Carbon Dioxide BUN 54 H 51 H 50 H Creatinine 1.8 H 2.0 H 1.9 H Glucose 108 H 101 H POC Glucose Uric Acid Calcium 8.2 L Total Bilirubin AST Total Creatine Kinase CK-MB (CK-2) Troponin T NT-Pro-B Natriuret Pep Albumin HDL Cholesterol Urine WBC (Auto) Urine Creatinine Urine Total Protein Salicylates Acetaminophen 09/18/19 09/19/19 09/19/19 05:35 05:28 05:28 RBC 3.42 L Hgb 8.5 L Hct 27.3 L MCH 25 L RDW 21.0 H [place] % (Auto) 7.5 H Eos % (Auto) 6.6 H Lymph # 1.1 L Eos # 0.5 H Seg Neutrophils % PT INR APTT POC ABG pH Sodium Potassium Chloride Carbon Dioxide BUN 50 H 49 H Creatinine 1.9 H 1.8 H Glucose 108 H POC Glucose Uric Acid Calcium Total Bilirubin AST Total Creatine Kinase 155 H CK-MB (CK-2) Troponin T NT-Pro-B Natriuret Pep Albumin 2.9 L HDL Cholesterol Urine WBC (Auto) Urine Creatinine Urine Total Protein Salicylates Acetaminophen
[2019-09-19] MEDS: RIVAROXABAN 15 MG TAB PO SCH (18:44)
--- NOTE | 2019-09-19 18:45 | Progress Note ---
Assessment and Plan Assessment: * Acute kidney injury on CKD --Baseline SCr 1.3-1.5mg/dL * Acute HFpEF * Acute CVA * Atrial fibrillation * NSTEMI * Hypertension Plan: * Renal function is stable - SCr 1.8mg/dL * Continue IV diuresis * Cardiology recommendations noted * Continue anti HTN medications * Dose medications for renal function * Avoid potential nephrotoxins * Discharge planning in progress Subjective Date of service: 09/19/19 Principal diagnosis: acute CVA, acute on chronic renal failure, and STEMI and pulmonary HTN Interval history: Patient seen this AM. She reports SOB improved. Objective - Vital Signs Vital signs: Vital Signs - 12hr 09/19/19 09/19/19 09/19/19 08:53 09:25 10:00 Temperature 98.0 F Pulse Rate 60 60 Respiratory 18 Rate Blood Pressure 113/59 113/59 O2 Sat by Pulse 92 93 Oximetry 09/19/19 09/19/19 09/19/19 11:34 17:46 18:44 Temperature 98.4 F Pulse Rate 66 63 63 Respiratory 18 Rate Blood Pressure 113/70 126/68 126/68 O2 Sat by Pulse 96 96 Oximetry - General Appearance General appearance: well-developed, well-nourished Respiratory: Present: Decreased Breath Sounds Cardiology: regular, S1S2 Gastrointestinal: normal, no tenderness, no distended Integumentary: no rash Musculoskeletal: other (non pitting edema) Psychiatric: cooperative - Lab 09/20/19 06:54 09/20/19 06:54 Most recent lab results Calcium 8.8 mg/dL (8.4-10.2) 09/19/19 05:28 Urine Creatinine 46.1 mg/dL (0.1-20.0) H 09/11/19 12:16 Urine Sodium 74 mmol/L 09/11/19 12:16 Urine Total Protein 39 mg/dL (5-11.8) H 09/11/19 12:16 Medications & Allergies - Medications Allergies/Adverse Reactions: Allergies codeine Allergy (Verified 03/21/19 14:24) Unknown morphine Allergy (Verified 03/21/19 14:24) Unknown tramadol Allergy (Verified 03/21/19 18:53) Angioedema amlodipine Adverse Reaction (Verified 03/21/19 14:24) Headache clonidine Adverse Reaction (Verified 03/21/19 14:24) Headache sulfadiazine Adverse Reaction (Verified 03/21/19 14:24) Swelling Home Medications: Home Medications Medication Instructions Recorded Confirmed Last Taken Type Fluticasone [Flonase] 1 spray BID 03/22/19 09/12/19 Unknown History Isosorbide Dinitrate [Isordil 10 mg PO TID 03/22/19 09/12/19 Unknown History Titradose] Latanoprost [Xalatan] 1 drop OU HS PRN 03/22/19 09/12/19 Unknown History Levothyroxine [Synthroid] 1 tab PO DAILY 03/22/19 09/12/19 Unknown History Pantoprazole [Protonix TAB] 40 mg PO BID 03/22/19 09/12/19 Unknown History Potassium Chloride [K-Dur] 1 tab PO DAILY 03/22/19 09/12/19 Unknown History Pravastatin [Pravachol] 1 tab PO DAILY 03/22/19 09/12/19 Unknown History Torsemide [Demadex] 60 mg PO DAILY 03/22/19 09/12/19 Unknown History Travoprost [Travatan Z 0.004%] 1 drop OU HS PRN 03/22/19 09/12/19 Unknown His tory hydrALAZINE [Apresoline TAB] 50 mg PO TID 03/22/19 09/12/19 Unknown History Apixaban [Eliquis] 5 mg PO Q12H tablet 03/23/19 09/12/19 Unknown Rx Active Medications: Generic Name Dose Route Start Last Admin Trade Name Freq PRN Reason Stop Dose Admin Acetaminophen 500 mg 09/09/19 11:00 09/19/19 09:25 Tylenol PO 500 mg BID ROSALBA Administration Cyclobenzaprine HCl 5 mg 09/09/19 11:00 09/19/19 09:29 Flexeril PO 5 mg BID ROSALBA Administration Fluticasone Propionate 50 mcg 09/13/19 13:00 09/19/19 09:24 Flonase NS 50 mcg BID ROSALBA Administration Furosemide 40 mg 09/13/19 09:00 09/19/19 09:27 Lasix IV 40 mg 0900,2100 ROSALBA Administration Hydralazine HCl 50 mg 09/13/19 14:00 09/19/19 18:44 Apresoline PO 50 mg TID ROSALBA Administration Isosorbide Dinitrate 10 mg 09/13/19 14:00 09/19/19 18:44 Isordil Titradose PO 10 mg TID ROSALBA Administration Latanoprost 1 drops 09/13/19 12:44 Latanoprost 0.005% OU HS PRN Dry Eye(s) Levothyroxine Sodium 100 mcg 09/14/19 09:00 09/19/19 06:09 Synthroid PO 100 mcg 0600 ROSALBA Administration Oxycodone/Acetaminophen 1 tab 09/13/19 13:39 09/16/19 05:29 Percocet 5/325 PO 1 tab Q6H PRN Administration Pain, Moderate (4-6) Pantoprazole Sodium 40 mg 09/13/19 22:00 09/19/19 09:25 Protonix PO 40 mg BID ROSALBA Administration Polyethylene Glycol 17 gm 09/16/19 14:15 Miralax 3350 PO BID PRN Constipation Pravastatin Sodium 80 mg 09/14/19 10:00 09/19/19 09:29 Pravachol PO 80 mg DAILY ROSALBA Administration Rivaroxaban 15 mg 09/15/19 17:00 09/19/19 18:44 Xarelto PO 15 mg DAILY@1700 ROSALBA Administration
[2019-09-20] MEDS: LEVOTHYROXINE 100 MCG TAB PO SCH (06:25)
[2019-09-20 07:38] LABS: Basophils % (Auto) 0.6 % (0.0-1.8); Eosinophils # (Auto) 0.4 K/mm3 (0.0-0.4); Hematocrit 27.8 % (30.3-42.9); Hemoglobin 8.6 gm/dl (10.1-14.3); Lymphocytes # (Auto) 1.2 K/mm3 (1.2-5.4); Lymphocytes % (Auto) 15.9 % (13.4-35.0); Mean Corpuscular HGB Conc 31 % (30-34); Mean Corpuscular Volume 81 fl (79-97); Monocytes # (Auto) 0.6 K/mm3 (0.0-0.8); Platelet Count 264 K/mm3 (140-440); Red Blood Count 3.45 M/mm3 (3.65-5.03); Red Cell Distribution Width 21.3 % (13.2-15.2)
[2019-09-20 07:55] LABS: Albumin 3.1 g/dL (3.9-5); Calcium 8.6 mg/dL (8.4-10.2)
--- NOTE | 2019-09-20 08:42 | Progress Note ---
Assessment and Plan Assessment: * Acute kidney injury on CKD --Baseline SCr 1.3-1.5mg/dL * Acute HFpEF * Acute CVA * Atrial fibrillation * NSTEMI * Hypertension Plan: * Renal function is stable - SCr 1.8mg/dL * Continue IV diuresis, will change to PO in AM * Cardiology recommendations noted * Continue anti HTN medications * Dose medications for renal function * Avoid potential nephrotoxins * Discharge planning in progress Subjective Date of service: 09/20/19 Principal diagnosis: acute CVA, acute on chronic renal failure, and STEMI and pulmonary HTN Interval history: Patient has no complaints today. Objective - Vital Signs Vital signs: Vital Signs - 12hr 09/19/19 09/19/19 09/20/19 22:00 23:06 00:00 Temperature 98.2 F 97.9 F Pulse Rate 66 66 65 Pulse Rate [ 73 From Monitor] Respiratory 18 18 Rate Blood Pressure 115/52 Blood Pressure 109/58 [Left] O2 Sat by Pulse 98 99 Oximetry 09/20/19 00:35 Temperature Pulse Rate Pulse Rate [ From Monitor] Respiratory Rate Blood Pressure Blood Pressure [Left] O2 Sat by Pulse 98 Oximetry - General Appearance General appearance: well-developed, well-nourished EENT: ATNC Respiratory: Present: Wheezes (occasional faint wheezes) Cardiology: regular, S1S2 Gastrointestinal: normal, no tenderness, no distended Integumentary: warm and dry Musculoskeletal: other (Trace edema) Psychiatric: cooperative - Lab 09/20/19 06:54 09/20/19 06:54 Most recent lab results Calcium 8.6 mg/dL (8.4-10.2) 09/20/19 06:54 Urine Creatinine 46.1 mg/dL (0.1-20.0) H 09/11/19 12:16 Urine Sodium 74 mmol/L 09/11/19 12:16 Urine Total Protein 39 mg/dL (5-11.8) H 09/11/19 12:16 Medications & Allergies - Medications Allergies/Adverse Reactions: Allergies codeine Allergy (Verified 03/21/19 14:24) Unknown morphine Allergy (Verified 03/21/19 14:24) Unknown tramadol Allergy (Verified 03/21/19 18:53) Angioedema amlodipine Adverse Reaction (Verified 03/21/19 14:24) Headache clonidine Adverse Reaction (Verified 03/21/19 14:24) Headache sulfadiazine Adverse Reaction (Verified 03/21/19 14:24) Swelling Home Medications: Home Medications Medication Instructions Recorded Confirmed Last Taken Type Fluticasone [Flonase] 1 spray BID 03/22/19 09/12/19 Unknown History Isosorbide Dinitrate [Isordil 10 mg PO TID 03/22/19 09/12/19 Unknown History Titradose] Latanoprost [Xalatan] 1 drop OU HS PRN 03/22/19 09/12/19 Unknown History Levothyroxine [Synthroid] 1 tab PO DAILY 03/22/19 09/12/19 Unknown History Pantoprazole [Protonix TAB] 40 mg PO BID 03/22/19 09/12/19 Unknown History Potassium Chloride [K-Dur] 1 tab PO DAILY 03/22/19 09/12/19 Unknown History Pravastatin [Pravachol] 1 tab PO DAILY 03/22/19 09/12/19 Unknown History Torsemide [Demadex] 60 mg PO DAILY 03/22/19 09/12/19 Unknown History Travoprost [Travatan Z 0.004%] 1 drop OU HS PRN 03/22/19 09/12/19 Unknown History hydrALAZINE [Apresoline TAB] 50 mg PO TID 03/22/19 09/12/19 Unknown History Apixaban [Eliquis] 5 mg PO Q12H tablet 03/23/19 09/12/19 Unknown Rx Active Medications: Generic Name Dose Route Start Last Admin Trade Name Freq PRN Reason Stop Dose Admin Acetaminophen 500 mg 09/09/19 11:00 09/19/19 22:26 Tylenol PO 500 mg BID ROSALBA Administration Cyclobenzaprine HCl 5 mg 09/09/19 11:00 09/19/19 22:27 Flexeril PO 5 mg BID ROSALBA Administration Fluticasone Propionate 50 mcg 09/13/19 13:00 09/19/19 22:28 Flonase NS 50 mcg BID ROSALBA Administration Furosemide 40 mg 09/13/19 09:00 09/19/19 21:50 Lasix IV 40 mg 0900,2100 ROSALBA Administration Hydralazine HCl 50 mg 09/13/19 14:00 09/19/19 20:30 Apresoline PO 50 mg TID ROSALBA Administration Isosorbide Dinitrate 10 mg 09/13/19 14:00 09/19/19 20:30 Isordil Titradose PO 10 mg TID ROSALBA Administration Latanoprost 1 drops 09/13/19 12:44 Latanoprost 0.005% OU HS PRN Dry Eye(s) Levothyroxine Sodium 100 mcg 09/14/19 09:00 09/20/19 06:25 Synthroid PO 100 mcg 0600 ROSALBA Administration Oxycodone/Acetaminophen 1 tab 09/13/19 13:39 09/16/19 05:29 Percocet 5/325 PO 1 tab Q6H PRN Administration Pain, Moderate (4-6) Pantoprazole Sodium 40 mg 09/13/19 22:00 09/19/19 22:27 Protonix PO 40 mg BID ROSALBA Administration Polyethylene Glycol 17 gm 09/16/19 14:15 Miralax 3350 PO BID PRN Constipation Pravastatin Sodium 80 mg 09/14/19 10:00 09/19/19 09:29 Pravachol PO 80 mg DAILY ROSALBA Administration Rivaroxaban 15 mg 09/15/19 17:00 09/19/19 18:44 Xarelto PO 15 mg DAILY@1700 ROSALBA Administration
[2019-09-20] MEDS: hydrALAZINE 100 MG TAB PO SCH ×3 (09:54→21:13)
[2019-09-20] MEDS: CYCLOBENZAPRINE 10 MG TAB PO SCH ×2 (09:55→16:13)
[2019-09-20] MEDS: ISOSORBIDE DINITRATE 10 MG TAB PO SCH ×3 (09:55→21:13)
[2019-09-20] MEDS: PRAVASTATIN 80 MG TAB PO SCH (09:55)
[2019-09-20] MEDS: ACETAMINOPHEN 500 MG TAB PO SCH ×2 (09:56→16:13)
[2019-09-20] MEDS: FUROSEMIDE 40 MG/4 ML INJ IV SCH ×2 (09:56→21:13)
[2019-09-20] MEDS: PANTOPRAZOLE 40 MG TAB PO SCH ×2 (09:56→21:13)
[2019-09-20] MEDS: FLUTICASONE PROPIONATE NASAL SPRAY 16 GM NS SCH ×2 (09:57→21:12)
[2019-09-20] MEDS ORDERED: LORazepam 2 MG/ML VIAL IV ONE (12:57)
[2019-09-20] MEDS: RIVAROXABAN 15 MG TAB PO SCH (16:15)
[2019-09-20] MEDS: oxyCODONE /ACETAMINOPHEN 5-325MG TAB PO PRN (21:11)
[2019-09-21] MEDS: ACETAMINOPHEN 500 MG TAB PO SCH ×3 (00:02→16:00)
[2019-09-21] MEDS: CYCLOBENZAPRINE 10 MG TAB PO SCH ×3 (00:02→16:00)
[2019-09-21] MEDS: LEVOTHYROXINE 100 MCG TAB PO SCH (05:43)
--- NOTE | 2019-09-21 08:06 | Progress Note ---
Assessment and Plan Assessment: * Acute kidney injury on CKD --Baseline SCr 1.3-1.5mg/dL * Acute HFpEF * Acute CVA * Atrial fibrillation * NSTEMI * Hypertension Plan: * Renal function is stable - SCr 1.8mg/dL. No available labs for review * Continue diuretics * Cardiology recommendations noted * Continue anti HTN medications * Dose medications for renal function * Avoid potential nephrotoxins * Discharge planning in progress Subjective Date of service: 09/21/19 Principal diagnosis: acute CVA, acute on chronic renal failure, and STEMI and pulmonary HTN Objective - Vital Signs Vital signs: Vital Signs - 12hr 09/20/19 09/20/19 09/20/19 21:11 21:13 22:00 Temperature Pulse Rate 80 68 Respiratory 20 Rate Blood Pressure 129/67 O2 Sat by Pulse Oximetry 09/20/19 09/21/19 23:20 04:14 Temperature 98.0 F 98.2 F Pulse Rate 64 63 Respiratory 18 18 Rate Blood Pressure 105/53 113/52 O2 Sat by Pulse 99 98 Oximetry - Lab 09/20/19 06:54 09/20/19 06:54 Most recent lab results Calcium 8.6 mg/dL (8.4-10.2) 09/20/19 06:54 Urine Creatinine 46.1 mg/dL (0.1-20.0) H 09/11/19 12:16 Urine Sodium 74 mmol/L 09/11/19 12:16 Urine Total Protein 39 mg/dL (5-11.8) H 09/11/19 12:16 Medications & Allergies - Medications Allergies/Adverse Reactions: Allergies codeine Allergy (Verified 03/21/19 14:24) Unknown morphine Allergy (Verified 03/21/19 14:24) Unknown tramadol Allergy (Verified 03/21/19 18:53) Angioedema amlodipine Adverse Reaction (Verified 03/21/19 14:24) Headache clonidine Adverse Reaction (Verified 03/21/19 14:24) Headache sulfadiazine Adverse Reaction (Verified 03/21/19 14:24) Swelling Home Medications: Home Medications Medication Instructions Recorded Confirmed Last Taken Type Fluticasone [Flonase] 1 spray BID 03/22/19 09/12/19 Unknown History Isosorbide Dinitrate [Isordil 10 mg PO TID 03/22/19 09/12/19 Unknown History Titradose] Latanoprost [Xalatan] 1 drop OU HS PRN 03/22/19 09/12/19 Unknown History Levothyroxine [Synthroid] 1 tab PO DAILY 03/22/19 09/12/19 Unknown History Pantoprazole [Protonix TAB] 40 mg PO BID 03/22/19 09/12/19 Unknown History Potassium Chloride [K-Dur] 1 tab PO DAILY 03/22/19 09/12/19 Unknown History Pravastatin [Pravachol] 1 tab PO DAILY 03/22/19 09/12/19 Unknown History Torsemide [Demadex] 60 mg PO DAILY 03/22/19 09/12/19 Unknown History Travoprost [Travatan Z 0.004%] 1 drop OU HS PRN 03/22/19 09/12/19 Unknown History hydrALAZINE [Apresoline TAB] 50 mg PO TID 03/22/19 09/12/19 Unknown History Apixaban [Eliquis] 5 mg PO Q12H tablet 03/23/19 09/12/19 Unknown Rx Active Medications: Generic Name Dose Route Start Last Admin Trade Name Freq PRN Reason Stop Dose Admin Acetaminophen 500 mg 09/20/19 16:00 09/21/19 00:02 Tylenol PO 500 mg Q8H ROSALBA Administration Cyclobenzaprine HCl 5 mg 09/20/19 16:00 09/21/19 00:02 Flexeril PO 5 mg Q8H ROSALBA Administration Fluticasone Propionate 50 mcg 09/13/19 13:00 09/20/19 21:12 Flonase NS 50 mcg BID ROSALBA Administration Furosemide 40 mg 09/13/19 09:00 09/20/19 21:13 Lasix IV 40 mg 0900,2100 ROSALBA Administration Hydralazine HCl 50 mg 09/13/19 14:00 09/20/19 21:13 Apresoline PO 50 mg TID ROSALBA Administration Isosorbide Dinitrate 10 mg 09/13/19 14:00 09/20/19 21:13 Isordil Titradose PO 10 mg TID ROSALBA Administration Latanoprost 1 drops 09/13/19 12:44 Latanoprost 0.005% OU HS PRN Dry Eye(s) Levothyroxine Sodium 100 mcg 09/14/19 09:00 09/21/19 05:43 Synthroid PO 100 mcg 0600 ROSALBA Administration Oxycodone/Acetaminophen 1 tab 09/13/19 13:39 09/20/19 21:11 Percocet 5/325 PO 1 tab Q6H PRN Administration Pain, Moderate (4-6) Pantoprazole Sodium 40 mg 09/13/19 22:00 09/20/19 21:13 Protonix PO 40 mg BID ROSALBA Administration Polyethylene Glycol 17 gm 09/16/19 14:15 Miralax 3350 PO BID PRN Constipation Pravastatin Sodium 80 mg 09/14/19 10:00 09/20/19 09:55 Pravachol PO 80 mg DAILY ROSALBA Administration Rivaroxaban 15 mg 09/15/19 17:00 09/20/19 16:15 Xarelto PO 15 mg DAILY@1700 ROSALBA Administration
[2019-09-21] MEDS: hydrALAZINE 100 MG TAB PO SCH ×3 (09:00→21:10)
[2019-09-21] MEDS: ISOSORBIDE DINITRATE 10 MG TAB PO SCH ×3 (09:00→21:10)
[2019-09-21] MEDS: FUROSEMIDE 40 MG TAB PO SCH ×2 (09:18→18:49)
[2019-09-21] MEDS: PANTOPRAZOLE 40 MG TAB PO SCH ×2 (09:18→21:11)
[2019-09-21] MEDS: FLUTICASONE PROPIONATE NASAL SPRAY 16 GM NS SCH ×2 (09:19→21:11)
[2019-09-21] MEDS: PRAVASTATIN 80 MG TAB PO SCH (09:19)
[2019-09-21 09:26] LABS: Calcium 8.7 mg/dL (8.4-10.2)
[2019-09-21] MEDS: oxyCODONE /ACETAMINOPHEN 5-325MG TAB PO PRN (13:12)
[2019-09-21] MEDS: RIVAROXABAN 15 MG TAB PO SCH (18:49)
[2019-09-22] MEDS: ACETAMINOPHEN 500 MG TAB PO SCH ×4 (00:25→23:07)
[2019-09-22] MEDS: CYCLOBENZAPRINE 10 MG TAB PO SCH ×4 (00:25→23:01)
[2019-09-22] MEDS: oxyCODONE /ACETAMINOPHEN 5-325MG TAB PO PRN ×2 (04:03→17:38)
[2019-09-22] MEDS: FUROSEMIDE 40 MG TAB PO SCH ×2 (05:48→17:05)
[2019-09-22] MEDS: LEVOTHYROXINE 100 MCG TAB PO SCH (05:48)
[2019-09-22] MEDS: HYDROmorphone 1 MG/1 ML INJ IV PRN (06:10)
[2019-09-22 06:49] LABS: Calcium 9.2 mg/dL (8.4-10.2)
--- NOTE | 2019-09-22 07:51 | Progress Note ---
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 Neurology following. Echocardiogram reveals global left ventricle systolic function normal right ventricle moderately dilated. Right ventricular global systolic function is mildly reduced. Septum with abnormal paradoxical motion consistent with right ventricular volume overload. Mitral valve clip. Carotid Doppler negative. 5mm infarct on right Re- consulted Neurology to evaluate when to resume Eliquis patient was seen by Dr. Wynn, he recommends dc Eliquis and start Xarelto Oropharyngeal dysphagia. Now resolved. Patient started on Mechnical soft diet Acute renal failure on CKD. Patient with a baseline creatinine 1.3 in March 2019. Nephrology following. NSTEMI Type 2. Elevated troponin. Cardiology following. Hypertension. Continue antihypertensive medications. Hyperlipidemia. Continue statins. Paroxysmal atrial fibrillation. Now on Xarelto Rhabdomyolysis. Resolved Hyperkalemia. Resolved. Pulmonary hypertension. Medically stable for discharge. Awaiting placement at SNF Subjective Date of service: 09/21/19 Principal diagnosis: acute CVA, acute on chronic renal failure, and STEMI and pulmonary HTN Interval history: Patient is 69 yo with hypertension, CKD, paroxysmal atrial fibrillation. She presented with left sided weakness. She was seen and evaluated in Emergency Department. CT head was done was unremarkable. She was admitted to rule out stroke. MRI confirmed stroke right brainstem. She was evaluated by Neurology. She was also evaluated by cardiology for elevated Troponin diagnosed with NSTEMI type 2. In addition she has acute on chronic kidney disease, managed by Nephrology. She was on Eliquis for afib prior to admission, but switched to Xarelto by neurology. She is now stable awaiting placement. Objective - Constitutional Vitals: Vital Signs - 12hr 09/21/19 09/21/19 09/21/19 20:53 21:10 22:00 Temperature 98.3 F Pulse Rate 64 66 Respiratory 20 22 Rate Blood Pressure 119/66 119/66 O2 Sat by Pulse 100 93 Oximetry 09/22/19 09/22/19 02:14 03:53 Temperature 99.0 F Pulse Rate 72 67 Respiratory 18 Rate Blood Pressure 116/62 O2 Sat by Pulse 93 99 Oximetry General appearance: Present: no acute distress, well-nourished - EENT Eyes: PERRL, EOM intact ENT: hearing intact, clear oral mucosa Ears: bilateral: normal - Neck Neck: supple, normal ROM - Respiratory Respiratory effort: normal Respiratory: bilateral: CTA - Breasts Breasts: normal - Cardiovascular Rhythm: regular Heart Sounds: Present: S1 & S2. Absent: gallop, rub Extremities: pulses intact, No edema, normal color, Full ROM - Gastrointestinal General gastrointestinal: Present: soft, non-tender, non-distended, normal bowel sounds - Genitourinary Female genitourinary: normal - Integumentary Integumentary: clear, warm, dry - Musculoskeletal Musculoskeletal: generalized weakness - Neurologic Neurologic: moves all extremities - Psychiatric Psychiatric: memory intact, appropriate mood/affect, intact judgment & insight - Allied health notes Allied health notes reviewed: nursing - Labs CBC & Chem 7: 09/20/19 06:54 09/22/19 05:14 Labs: Abnormal lab results 09/21/19 09/22/19 Range/Units 08:19 05:14 BUN 52 H 53 H (7-17) mg/dL Creatinine 1.8 H 1.8 H (0.7-1.2) mg/dL
--- NOTE | 2019-09-22 07:53 | Progress Note ---
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 Neurology following. Echocardiogram reveals global left ventricle systolic function normal right ventricle moderately dilated. Right ventricular global systolic function is mildly reduced. Septum with abnormal paradoxical motion consistent with right ventricular volume overload. Mitral valve clip. Carotid Doppler negative. 5mm infarct on right Re- consulted Neurology to evaluate when to resume Eliquis patient was seen by Taniya Calvo(Neurologist), he recommends dc Eliquis and start Xarelto Oropharyngeal dysphagia. Now resolved. Patient started on Mechnical soft diet Acute renal failure on CKD. Patient with a baseline creatinine 1.3 in March 2019. Nephrology following. Cr -1.8 NSTEMI Type 2. Elevated troponin. Cardiology following. Hypertension. Continue antihypertensive medications. Hyperlipidemia. Continue statins. Paroxysmal atrial fibrillation. Now on Xarelto Rhabdomyolysis. Resolved Hyperkalemia. Resolved. Pulmonary hypertension. Medically stable for discharge. Awaiting placement at [facility] Subjective Date of service: 09/20/19 Principal diagnosis: acute CVA, acute on chronic renal failure, and STEMI and pulmonary HTN Interval history: Patient is 69 yo with hypertension, CKD, paroxysmal atrial fibrillation. She presented with left sided weakness. She was seen and evaluated in Emergency Department. CT head was done was unremarkable. She was admitted to rule out stroke. MRI confirmed stroke right brainstem. She was evaluated by Neurology. She was also evaluated by cardiology for elevated Troponin diagnosed with NSTEMI type 2. In addition she has acute on chronic kidney disease, managed by Nephrology. She was on Eliquis for afib prior to admission, but switched to Xarelto by neurology. She is now stable awaiting placement. Objective - Constitutional Vitals: Vital Signs - 12hr 09/21/19 09/21/19 09/21/19 20:53 21:10 22:00 Temperature 98.3 F Pulse Rate 64 66 Respiratory 20 22 Rate Blood Pressure 119/66 119/66 O2 Sat by Pulse 100 93 Oximetry 09/22/19 09/22/19 02:14 03:53 Temperature 99.0 F Pulse Rate 72 67 Respiratory 18 Rate Blood Pressure 116/62 O2 Sat by Pulse 93 99 Oximetry General appearance: Present: no acute distress, well-nourished - EENT Eyes: PERRL, EOM intact ENT: hearing intact, clear oral mucosa Ears: bilateral: normal - Neck Neck: supple, normal ROM - Respiratory Respiratory effort: normal Respiratory: bilateral: CTA - Breasts Breasts: normal - Cardiovascular Rhythm: regular Heart Sounds: Present: S1 & S2. Absent: gallop, rub Extremities: pulses intact, No edema, normal color, Full ROM - Gastrointestinal General gastrointestinal: Present: soft, non-tender, non-distended, normal bowel sounds - Genitourinary Female genitourinary: normal - Integumentary Integumentary: clear, warm, dry - Musculoskeletal Musculoskeletal: 1, strength equal bilaterally - Neurologic Neurologic: moves all extremities - Psychiatric Psychiatric: memory intact, appropriate mood/affect, intact judgment & insight - Labs CBC & Chem 7: 09/20/19 06:54 09/22/19 05:14 Labs: Abnormal lab results 09/21/19 09/22/19 Range/Units 08:19 05:14 BUN 52 H 53 H (7-17) mg/dL Creatinine 1.8 H 1.8 H (0.7-1.2) mg/dL
[2019-09-22] MEDS: hydrALAZINE 100 MG TAB PO SCH ×3 (08:21→21:00)
[2019-09-22] MEDS: ISOSORBIDE DINITRATE 10 MG TAB PO SCH ×3 (09:00→21:00)
[2019-09-22] MEDS: FLUTICASONE PROPIONATE NASAL SPRAY 16 GM NS SCH ×2 (09:21→23:00)
[2019-09-22] MEDS: PRAVASTATIN 80 MG TAB PO SCH (09:22)
[2019-09-22] MEDS: PANTOPRAZOLE 40 MG TAB PO SCH ×2 (09:22→22:55)
--- NOTE | 2019-09-22 11:33 | Progress Note ---
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 Neurology following. Echocardiogram reveals global left ventricle systolic function normal right ventricle moderately dilated. Right ventricular global systolic function is mildly reduced. Septum with abnormal paradoxical motion consistent with right ventricular volume overload. Mitral valve clip. Carotid Doppler negative. 5mm infarct on right Re- consulted Neurology to evaluate when to resume Eliquis patient was seen by Dr. Wynn, he recommends dc Eliquis and start Xarelto Oropharyngeal dysphagia. Now resolved. Patient started on Mechnical soft diet Acute renal failure on CKD. Patient with a baseline creatinine 1.3 in March 2019. Cr now 1.90 today 09/17/19 Nephrology following. NSTEMI Type 2. Elevated troponin. Cardiology following. Hypertension. Continue antihypertensive medications. Hyperlipidemia. Continue statins. Paroxysmal atrial fibrillation. Now on Xarelto Rhabdomyolysis. Resolved Hyperkalemia. Resolved. Pulmonary hypertension. Medically stable for discharge. Awaiting placement at SNF History Interval history: No new issues overnight. Hospitalist Physical - Constitutional Vitals: Temp Pulse Resp BP Pulse Ox 98.9 F 58 L 20 108/64 96 09/22/19 07:59 09/22/19 07:59 09/22/19 07:59 09/22/19 07:59 09/22/19 07:59 General appearance: Present: no acute distress, well-nourished - EENT Eyes: Present: PERRL, EOM intact ENT: hearing intact, clear oral mucosa, dentition normal - Neck Neck: Present: supple, normal ROM - Respiratory Respiratory effort: normal Respiratory: bilateral: CTA - Cardiovascular Rhythm: regular Heart Sounds: Present: S1 & S2. Absent: gallop, rub - Extremities Extremities: no ischemia, No edema, Full ROM - Abdominal General gastrointestinal: soft, non-tender, non-distended, normal bowel sounds - Integumentary Integumentary: Present: clear, warm, dry - Neurologic Neurologic: CNII-XII intact, moves all extremities Results - Labs CBC & Chem 7: 09/20/19 06:54 09/22/19 05:14 Labs: Laboratory Last Values WBC 7.2 K/mm3 (4.5-11.0) 09/20/19 06:54 RBC 3.45 M/mm3 (3.65-5.03) L 09/20/19 06:54 Hgb 8.6 gm/dl (10.1-14.3) L 09/20/19 06:54 Hct 27.8 % (30.3-42.9) L 09/20/19 06:54 MCV 81 fl (79-97) 09/20/19 06:54 MCH 25 pg (28-32) L 09/20/19 06:54 MCHC 31 % (30-34) 09/20/19 06:54 RDW 21.3 % (13.2-15.2) H 09/20/19 06:54 Plt Count 264 K/mm3 (140-440) 09/20/19 06:54 Lymph % (Auto) 15.9 % (13.4-35.0) 09/20/19 06:54 [place] % (Auto) 8.0 % (0.0-7.3) H 09/20/19 06:54 Eos % (Auto) 6.0 % (0.0-4.3) H 09/20/19 06:54 Baso % (Auto) 0.6 % (0.0-1.8) 09/20/19 06:54 Lymph # 1.2 K/mm3 (1.2-5.4) 09/20/19 06:54 [place] # 0.6 K/mm3 (0.0-0.8) 09/20/19 06:54 Eos # 0.4 K/mm3 (0.0-0.4) 09/20/19 06:54 Baso # 0.0 K/mm3 (0.0-0.1) 09/20/19 06:54 Seg Neutrophils % 69.5 % (40.0-70.0) 09/20/19 06:54 Seg Neutrophils # 5.0 K/mm3 (1.8-7.7) 09/20/19 06:54 PT 22.1 Sec. (12.2-14.9) H 09/08/19 19:42 INR 1.98 (0.87-1.13) H 09/08/19 19:42 APTT 37.4 Sec. (24.2-36.6) H 09/08/19 19:42 POC ABG pH 7.299 (7.35-7.45) L 09/08/19 20:40 POC ABG pCO2 37.4 (35-45) 09/08/19 20:40 POC ABG pO2 88 (80-105) 09/08/19 20:40 POC ABG HCO3 18.4 (22-26 mml/L) 09/08/19 20:40 POC ABG Total CO2 19 (23-27mmol/L) 09/08/19 20:40 POC ABG O2 Sat 96 09/08/19 20:40 POC ABG Base Excess -8 ((-2) - (+3)mmol/L) 09/08/19 20:40 FiO2 28 % 09/08/19 20:40 Sodium 143 mmol/L (137-145) 09/22/19 05:14 Potassium 4.5 mmol/L (3.6-5.0) 09/22/19 05:14 Chloride 103.8 mmol/L (98-107) 09/22/19 05:14 Carbon Dioxide 29 mmol/L (22-30) 09/22/19 05:14 Anion Gap 15 mmol/L 09/22/19 05:14 BUN 53 mg/dL (7-17) H 09/22/19 05:14 Creatinine 1.8 mg/dL (0.7-1.2) H 09/22/19 05:14 Estimated GFR 34 ml/min 09/22/19 05:14 BUN/Creatinine Ratio 29 % 09/22/19 05:14 Glucose 91 mg/dL (65-100) 09/22/19 05:14 POC Glucose 94 (70-105) 09/09/19 20:28 Osmolality 322 Mosm/kg 09/11/19 12:44 Uric Acid 12.4 mg/dL (3.5-7.6) H 09/11/19 12:44 Calcium 9.2 mg/dL (8.4-10.2) 09/22/19 05:14 Total Bilirubin 0.60 mg/dL (0.1-1.2) 09/20/19 06:54 AST 40 units/L (5-40) 09/20/19 06:54 ALT 15 units/L (7-56) 09/20/19 06:54 Alkaline Phosphatase 77 units/L (35-129) 09/20/19 06:54 Total Creatine Kinase 155 units/L (30-135) H 09/18/19 05:35 CK-MB (CK-2) 13.9 ng/mL (0.0-4.0) H 09/09/19 04:02 CK-MB (CK-2) Rel Index 0.4 (0-4) 09/09/19 04:02 Troponin T 0.074 ng/mL (0.00-0.029) H D 09/09/19 04:02 NT-Pro-B Natriuret Pep 7270 pg/mL (0-900) H 09/09/19 04:02 Total Protein 6.7 g/dL (6.3-8.2) 09/20/19 06:54 Albumin 3.1 g/dL (3.9-5) L 09/20/19 06:54 Albumin/Globulin Ratio 0.9 % 09/20/19 06:54 Triglycerides 55 mg/dL (2-149) 09/08/19 19:42 Cholesterol 92 mg/dL (50-199) 09/08/19 19:42 LDL Cholesterol Direct 50 mg/dL (50-130) 09/08/19 19:42 HDL Cholesterol 37 mg/dL (40-59) L 09/08/19 19:42 Cholesterol/HDL Ratio 2.48 % 09/08/19 19:42 Urine Color Yellow (Yellow) 09/11/19 12:16 Urine Turbidity Cloudy (Clear) 09/11/19 12:16 Urine pH 5.0 (5.0-7.0) 09/11/19 12:16 Ur Specific [place] 1.009 (1.003-1.030) 09/11/19 12:16 Urine Protein <15 mg/dl mg/dL (Negative) 09/11/19 12:16 Urine Glucose (UA) Neg mg/dL (Negative) 09/11/19 12:16 Urine Ketones Neg mg/dL (Negative) 09/11/19 12:16 Urine Blood Lg (Negative) 09/11/19 12:16 Urine Nitrite Neg (Negative) 09/11/19 12:16 Ur Reducing Substances Not Reportable 09/11/19 12:16 Urine Bilirubin Neg (Negative) 09/11/19 12:16 Urine Ictotest Not Reportable 09/11/19 12:16 Urine Urobilinogen < 2.0 mg/dL (<2.0) 09/11/19 12:16 Ur Leukocyte Esterase Lg (Negative) 09/11/19 12:16 Urine WBC (Auto) > 182.0 /HPF (0.0-6.0) H 09/11/19 12:16 Urine RBC (Auto) > 182.0 /HPF (0.0-6.0) 09/11/19 12:16 U Epithel Cells (Auto) 2.0 /HPF (0-13.0) 09/11/19 12:16 Urine Bacteria (Auto) 4+ /HPF (Negative) 09/11/19 12:16 Urine WBC Clumps 3+ /HPF 09/11/19 12:16 Hyaline Casts Not Reportable 09/11/19 12:16 Urine Mucus Few /HPF 09/11/19 12:16 Urine Yeast (Budding) Manager Property 09/11/19 12:16 Urine Creatinine 46.1 mg/dL (0.1-20.0) H 09/11/19 12:16 Urine Sodium 74 mmol/L 09/11/19 12:16 Urine Total Protein 39 mg/dL (5-11.8) H 09/11/19 12:16 Salicylates < 0.3 mg/dL (2.8-20.0) L 09/08/19 19:42 Acetaminophen 6.6 ug/mL (10.0-30.0) L 09/08/19 23:21 Plasma/Serum Alcohol < 0.01 % (0-0.07) 09/08/19 19:42 Immunofix Electrophor see below 09/11/19 12:44 Active Medications - Current Medications Current Medications: Generic Name Dose Route Start Last Admin Trade Name Nicole PRN Reason Stop Dose Admin Acetaminophen 500 mg 09/20/19 16:00 09/22/19 08:59 Tylenol PO 500 mg Q8H ROSALBA Administration Cyclobenzaprine HCl 5 mg 09/20/19 16:00 09/22/19 08:58 Flexeril PO 5 mg Q8H ROSALBA Administration Fluticasone Propionate 50 mcg 09/13/19 13:00 09/22/19 09:21 Flonase NS 50 mcg BID ROSALBA Administration Furosemide 40 mg 09/21/19 08:30 09/22/19 05:48 Lasix PO 40 mg 0600,1800 ROSALBA Administration Hydralazine HCl 50 mg 09/13/19 14:00 09/22/19 08:21 Apresoline PO Not Given TID [facility] Hydromorphone HCl 1 mg 09/21/19 13:56 09/22/19 06:10 Dilaudid IV 1 mg Q3H PRN Administration Pain , Severe (7-10) Isosorbide Dinitrate 10 mg 09/13/19 14:00 09/22/19 09:00 Isordil Titradose PO 10 mg TID ROSALBA Administration Latanoprost 1 drops 09/13/19 12:44 Latanoprost 0.005% OU HS PRN Dry Eye(s) Levothyroxine Sodium 100 mcg 09/14/19 09:00 09/22/19 05:48 Synthroid PO 100 mcg 0600 [facility] Administration Oxycodone/Acetaminophen 1 tab 09/13/19 13:39 09/22/19 04:03 Percocet 5/325 PO 1 tab Q6H PRN Administration Pain, Moderate (4-6) Pantoprazole Sodium 40 mg 09/13/19 22:00 09/22/19 09:22 Protonix PO 40 mg BID ROASLBA Administration Polyethylene Glycol 17 gm 09/16/19 14:15 Miralax 3350 PO BID PRN Constipation Pravastatin Sodium 80 mg 09/14/19 10:00 09/22/19 09:22 Pravachol PO 80 mg DAILY ROSALBA Administration Rivaroxaban 15 mg 09/15/19 17:00 09/21/19 18:49 Xarelto PO 15 mg DAILY@1700 ROSALBA Administration Nutrition/Malnutrition Assess - Dietary Evaluation Nutrition/Malnutrition Findings: Nutrition Notes Start: 09/09/19 1 3:13 Freq: Status: Active Protocol: Document 09/14/19 14:18 CC (Rec: 09/14/19 14:38 CC [id number]) Co-Sign 09/14/19 14:18 LP Nutrition Notes Initial or Follow up Assessment Current Diagnosis CKD(stage I-IV),Hypertension, Heart Failure,Stroke, Hyperlipidemia Other Pertinent Diagnosis TIA,Dysphagia Current Diet [facility] soft Labs/Tests BUN 62, creat 2.1 Pertinent Medications Lasix Height 5 ft 8 in Weight 128.4 kg [place] Body Weight (kg) 63.63 BMI 43.0 Intake Prior to Admission Good Weight Status Morbidly Obese Subjective/Other Information F/U for full assesment. 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 Pt reported she has had no unitentional wt loss. Pt reported her appetite has been good since arrival Percent of energy/protein needs met: 100% energy/ 100% protein Burn Absent Trauma Absent GI Symptoms None Difficulty In Swallowing Current % PO Good (75-100%) Minimum of two criteria No #1 Nutrition Diagnosis No nutrition diagnosis at this time Is patient on ventilator? No Is Patient Ambulatory and/or Out of Bed No REE-([facility]-confined to bed) 2228.184 Kcal/Kg value to use for calculation 13 Approximate Energy Requirements Using 1669 kcal/Kg Calculation Used for Recommendations Kcal/kg Additional Notes PRO: 58-77g/day (0.6-0.8g/kg adBW 96kg) Fluid:1ml/kcal Nutrition Intervention Anticipated Discharge Needs: mechanical soft diet Revisit per MD consult or patient Sign Off request:
--- NOTE | 2019-09-22 13:46 | Progress Note ---
Assessment and Plan Assessment: * Acute kidney injury on CKD --Baseline SCr 1.3-1.5mg/dL * Acute HFpEF * Acute CVA * Atrial fibrillation * NSTEMI * Hypertension Plan: * Renal function is stable - SCr 1.8mg/dL * Continue diuretics - Lasix 40mg po BID * Cardiology recommendations noted * Continue anti HTN medications * Dose medications for renal function * Avoid potential nephrotoxins * Discharge planning in progress Subjective Date of service: 09/22/19 Principal diagnosis: acute CVA, acute on chronic renal failure, and STEMI and pulmonary HTN Interval history: No acute events overnight Objective - Vital Signs Vital signs: Vital Signs - 12hr 09/22/19 09/22/19 09/22/19 02:14 03:53 07:59 Temperature 99.0 F 98.9 F Pulse Rate 72 67 58 L Respiratory 18 20 Rate Blood Pressure 116/62 108/64 O2 Sat by Pulse 93 99 96 Oximetry 09/22/19 13:04 Temperature 98.3 F Pulse Rate 65 Respiratory 20 Rate Blood Pressure 93/47 O2 Sat by Pulse 98 Oximetry - General Appearance General appearance: well-developed, well-nourished EENT: ATNC Respiratory: Present: Decreased Breath Sounds Cardiology: regular, S1S2 Gastrointestinal: normal, no tenderness, no distended, obese Integumentary: warm and dry Musculoskeletal: other (1+ edema) Psychiatric: cooperative - Lab 09/20/19 06:54 09/23/19 03:49 Most recent lab results Calcium 9.2 mg/dL (8.4-10.2) 09/22/19 05:14 Urine Creatinine 46.1 mg/dL (0.1-20.0) H 09/11/19 12:16 Urine Sodium 74 mmol/L 09/11/19 12:16 Urine Total Protein 39 mg/dL (5-11.8) H 09/11/19 12:16 Medications & Allergies - Medications Allergies/Adverse Reactions: Allergies codeine Allergy (Verified 03/21/19 14:24) Unknown morphine Allergy (Verified 03/21/19 14:24) Unknown tramadol Allergy (Verified 03/21/19 18:53) Angioedema amlodipine Adverse Reaction (Verified 03/21/19 14:24) Headache clonidine Adverse Reaction (Verified 03/21/19 14:24) Headache sulfadiazine Adverse Reaction (Verified 03/21/19 14:24) Swelling Home Medications: Home Medications Medication Instructions Recorded Confirmed Last Taken Type Fluticasone [Flonase] 1 spray BID 03/22/19 09/12/19 Unknown History Isosorbide Dinitrate [Isordil 10 mg PO TID 03/22/19 09/12/19 Unknown History Titradose] Latanoprost [Xalatan] 1 drop OU HS PRN 03/22/19 09/12/19 Unknown History Levothyroxine [Synthroid] 1 tab PO DAILY 03/22/19 09/12/19 Unknown History Pantoprazole [Protonix TAB] 40 mg PO BID 03/22/19 09/12/19 Unknown History Potassium Chloride [K-Dur] 1 tab PO DAILY 03/22/19 09/12/19 Unknown History Pravastatin [Pravachol] 1 tab PO DAILY 03/22/19 09/12/19 Unknown History Torsemide [Demadex] 60 mg PO DAILY 03/22/19 09/12/19 Unknown History Travoprost [Travatan Z 0.004%] 1 drop OU HS PRN 03/22/19 09/12/19 Unknown History hydrALAZINE [Apresoline TAB] 50 mg PO TID 03/22/19 09/12/19 Unknown History Apixaban [Eliquis] 5 mg PO Q12H tablet 03/23/19 09/12/19 Unknown Rx Active Medications: Generic Name Dose Route Start Last Admin Trade Name Freq PRN Reason Stop Dose Admin Acetaminophen 500 mg 09/20/19 16:00 09/22/19 08:59 Tylenol PO 500 mg Q8H ROSALBA Administration Cyclobenzaprine HCl 5 mg 09/20/19 16:00 09/22/19 08:58 Flexeril PO 5 mg Q8H ROSALBA Administration Fluticasone Propionate 50 mcg 09/13/19 13:00 09/22/19 09:21 Flonase NS 50 mcg BID ROSALBA Administration Furosemide 40 mg 09/21/19 08:30 09/22/19 05:48 Lasix PO 40 mg 0600,1800 ROSALBA Administration Hydralazine HCl 50 mg 09/13/19 14:00 09/22/19 13:18 Apresoline PO Not Given TID ROSALBA Hydromorphone HCl 1 mg 09/21/19 13:56 09/22/19 06:10 Dilaudid IV 1 mg Q3H PRN Administration Pain , Severe (7-10) Isosorbide Dinitrate 10 mg 09/13/19 14:00 09/22/19 09:00 Isordil Titradose PO 10 mg TID ROSALBA Administration Latanoprost 1 drops 09/13/19 12:44 Latanoprost 0.005% OU HS PRN Dry Eye(s) Levothyroxine Sodium 100 mcg 09/14/19 09:00 09/22/19 05:48 Synthroid PO 100 mcg 0600 [facility] Administration Oxycodone/Acetaminophen 1 tab 09/13/19 13:39 09/22/19 04:03 Percocet 5/325 PO 1 tab Q6H PRN Administration Pain, Moderate (4-6) Pantoprazole Sodium 40 mg 09/13/19 22:00 09/22/19 09:22 Protonix PO 40 mg BID ROSALBA Administration Polyethylene Glycol 17 gm 09/16/19 14:15 Miralax 3350 PO BID PRN Constipation Pravastatin Sodium 80 mg 09/14/19 10:00 09/22/19 09:22 Pravachol PO 80 mg DAILY ROSALBA Administration Rivaroxaban 15 mg 09/15/19 17:00 09/21/19 18:49 Xarelto PO 15 mg DAILY@1700 ROSALBA Administration
[2019-09-22] MEDS: RIVAROXABAN 15 MG TAB PO SCH (17:05)
[2019-09-23] MEDS: LEVOTHYROXINE 100 MCG TAB PO SCH (05:17)
[2019-09-23] MEDS: FUROSEMIDE 40 MG TAB PO SCH (05:17)
[2019-09-23 05:26] LABS: Calcium 8.8 mg/dL (8.4-10.2)
[2019-09-23] MEDS: CYCLOBENZAPRINE 10 MG TAB PO SCH ×2 (07:59→16:24)
[2019-09-23] MEDS: ACETAMINOPHEN 500 MG TAB PO SCH ×2 (08:00→16:25)
[2019-09-23] MEDS: ISOSORBIDE DINITRATE 10 MG TAB PO SCH ×3 (08:00→20:45)
[2019-09-23] MEDS: hydrALAZINE 100 MG TAB PO SCH ×3 (08:03→20:45)
[2019-09-23] MEDS: FLUTICASONE PROPIONATE NASAL SPRAY 16 GM NS SCH ×2 (09:13→22:17)
[2019-09-23] MEDS: PRAVASTATIN 80 MG TAB PO SCH (09:14)
[2019-09-23] MEDS: PANTOPRAZOLE 40 MG TAB PO SCH ×2 (09:14→22:16)
--- NOTE | 2019-09-23 09:33 | Discharge Summary ---
Providers - Providers Date of Admission: 09/08/19 22:02 Date of discharge: 09/23/19 Attending physician: GUZMAN JAY 09/08/19 20:54 Consult to Physician [CONS] Stat Comment: Dr. Flowers spoke with Dr. Colon @ [phone] Consulting Provider: GAGAN COLON Physician Instructions: Reason For Exam: hyperkalemia 09/09/19 06:00 Consult to Physician [CONS] Routine Comment: Consulting Provider: LOUIS HARRISON Physician Instructions: Reason For Exam: LEFT SIDED WEAKNESS Physical Therapy Evaluation and Treat [CONS] Routine Comment: Reason For Exam: LEFT SIDED WEAKNESS Speech Therapy Evaluation and Treat [CONS] Routine Reason For Exam: LEFT FACIAL DROOPING 09/14/19 15:48 Consult to Physician [CONS] Routine Comment: Consulting Provider: SERGO MUNOZ Physician Instructions: Reason For Exam: stroke, can Eliquis be resumed? Primary care physician: LAB NURSE Hospitalization Reason for admission: cva Condition: Fair Hospital course: Patient is 69 yo with hypertension, CKD, paroxysmal atrial fibrillation. She presented with left sided weakness. She was seen and evaluated in Emergency Department. CT head was done was unremarkable. She was admitted to rule out stroke. MRI confirmed stroke right brainstem. Echocardiogram reveals global left ventricle systolic function normal right ventricle moderately dilated. Right ventricular global systolic function is mildly reduced. Septum with abnormal paradoxical motion consistent with right ventricular volume overload. Mitral valve clip. Carotid Doppler negative.She was evaluated by Neurology. She was also evaluated by cardiology for elevated Troponin diagnosed with NSTEMI type 2. In addition she has acute on chronic kidney disease, managed by Nephrology. She was on Eliquis for afib prior to admission, but switched to Xarelto by neurology. The patient was noted to have also oropharyngeal dysphagia and evaluated by speech therapy. Dysphagia later resolved and patient was started on mechanical soft diet which she tolerated. Physical therapy evaluated the patient and recommended subacute rehabilitation. Case management was consulted and patient will be placed at SNF. Dedicated discharge time 35 minutes. Disposition: [id number] HOME UNDER HOME [facility] Core Measure Documentation - Palliative Care Palliative Care/ Comfort Measures: Not Applicable - Core Measures Any of the following diagnoses?: stroke - Acute [place] Discharge Requirements Aspirin at discharge: Yes - Stroke Discharge Requirements Statin for LDL = or >70 mg/dl on DC: Yes Anticoag for atrial fib/atrial flutter: Yes Antithrombotic for ischemic stroke: Yes Exam - Constitutional Vitals: Temp Pulse Resp BP Pulse Ox 98.7 F 64 22 113/57 99 09/23/19 07:37 09/23/19 07:37 09/23/19 07:37 09/23/19 07:37 09/23/19 07:50 General appearance: Present: no acute distress, well-nourished - EENT Eyes: Present: PERRL ENT: hearing intact, clear oral mucosa - Neck Neck: Present: supple, normal ROM - Respiratory Respiratory effort: normal Respiratory: bilateral: CTA - Cardiovascular Heart Sounds: Present: S1 & S2. Absent: rub, click - Extremities Extremities: pulses symmetrical, No edema Peripheral Pulses: within normal limits - Abdominal General gastrointestinal: Present: soft, non-tender, non-distended, normal bowel sounds Female genitourinary: Present: normal - Integumentary Integumentary: Present: clear, warm, dry - Musculoskeletal Musculoskeletal: gait normal, strength equal bilaterally - Psychiatric Psychiatric: appropriate mood/affect, intact judgment & insight - Neurologic Neurologic: CNII-XII intact, moves all extremities Plan Activity: advance as tolerated Weight Bearing Status: Weight Bear as Tolerated Diet: other (mech soft) Follow up with: PRIMARY CARE, [Primary Care Provider] - 3-5 Days JOHNNY BHAKTA MD [Staff Physician] - 7 Days VIVI ALBARRAN MD [Staff Physician] - 7 Days LOUIS HARRISON MD [Staff Physician] - 7 Days Prescriptions: Aspirin [Aspirin BABY CHEW TAB] 81 mg PO QDAY #30 tab.chew
[2019-09-23] MEDS: oxyCODONE /ACETAMINOPHEN 5-325MG TAB PO PRN ×2 (10:07→22:16)
--- NOTE | 2019-09-23 10:25 | Progress Note ---
Assessment and Plan 69 YR OLD FEMALE WITH MULTIPLE MEDICAL PROBLEMS INCLUDING BUT NOT LIMITED TO HTN,ADVANCED KIDNEY DISEASE, HYPERLIPEDEMIA GOUT WHO WAS ADMITTED FOR RT PONTINE INFARCT. PATIENT WAS SEEN BY ME TWICE IN THE PAST, SHE HAD NECK PAIN AND SYMPTOMS SUGGESTIVE OF CERVICAL AND LUMBAR RADICULOPATHY, C SPINE AND L -SPINE MRI HAVE NOT YET BEEN DONE. PATIENT IS RESPONDING TO FLEXERIL FOR NECK AND BACK PAIN. THIS MORNING SHE DENIES ANY NECK OR BACK PAIN, SHE WAS COMPLAINING OF LEFT KNEE PAIN ON THE MID PATELLA ON THE LEFT SIDE. SHE WAS CRYING FROM PAIN.SHE DENIES ANY WEAKNESS OR NUMBNESS OF THE EXTREMITIES. PHYSICAL EXAMINATION IN ACUTE DISTRESS FROM KNEE PAIN HEART-NORMAL RATE AND RHYTHM CAROTIDS-BOTH PALPABLE, CRANIAL NERVES- ALL CRANIAL NERVES ARE WITH IN NORMAL LIMIT. STRENGTH AND SENSORY EXAMINATION WAS NOT DONE DUE TO LACK OD COOPERATION FROM PATIENT DUE TO ACUTE PAIN IMPRESSION. 1. 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 1. NURSE WAS INSTRUCTED TO GIVE A DOSE OF DILAUDID WHICH WAS ALREADY ORDRED BY MILL MANAGER ON PRN. 2. WILL REEVALUATE AGAIN HER NECK AND BACK WHEN SHE IS NOT ON PAIN AND MAKE FINAL DECISION ON MRI OF C SPINE AND LUMBAR SPINE OR PHYSICAL THERAPY IF SHE IS NOT INTERESTED IN SURGERY OF HER NECK OR BACK IF INDICATED. Subjective Principal diagnosis: acute CVA, acute on chronic renal failure, and STEMI and pulmonary HTN Objective - Vital Sign Vital Signs - 12hr 09/22/19 09/23/19 09/23/19 23:14 02:46 07:37 Temperature 97.7 F 98.7 F Pulse Rate 61 64 Respiratory 16 22 Rate Blood Pressure 101/44 113/57 O2 Sat by Pulse 99 98 98 Oximetry 09/23/19 07:50 Temperature Pulse Rate Respiratory Rate Blood Pressure O2 Sat by Pulse 99 Oximetry - Laboratory Findings CBC and BMP: 09/20/19 06:54 09/23/19 03:49 Abnormal Lab Findings: Abnormal Labs 09/08/19 09/08/19 09/08/19 19:42 19:42 19:42 RBC Hgb 9.6 L Hct MCH 25 L RDW 19.8 H [place] % (Auto) Eos % (Auto) Lymph # Eos # Seg Neutrophils % PT 22.1 H INR 1.98 H APTT 37.4 H POC ABG pH Sodium Potassium Chloride Carbon Dioxide BUN Creatinine Glucose POC Glucose Uric Acid Calcium Total Bilirubin AST Total Creatine Kinase 3482 H CK-MB (CK-2) Troponin T 0.062 H NT-Pro-B Natriuret Pep Albumin HDL Cholesterol 37 L Urine WBC (Auto) Urine Creatinine Urine Total Protein Salicylates Acetaminophen 09/08/19 09/08/19 09/08/19 19:42 19:42 20:04 RBC Hgb Hct MCH RDW [place] % (Auto) Eos % (Auto) Lymph # Eos # Seg Neutrophils % PT INR APTT POC ABG pH Sodium Potassium Chloride Carbon Dioxide BUN Creatinine Glucose POC Glucose Uric Acid Calcium Total Bilirubin AST Total Creatine Kinase CK-MB (CK-2) Troponin T NT-Pro-B Natriuret Pep 7079 H Albumin HDL Cholesterol Urine WBC (Auto) Urine Creatinine Urine Total Protein Salicylates < 0.3 L Acetaminophen 8.8 L 09/08/19 09/08/19 09/08/19 20:23 20:40 23:21 RBC Hgb Hct MCH RDW [place] % (Auto) Eos % (Auto) Lymph # Eos # Seg Neutrophils % PT INR APTT POC ABG pH 7.299 L Sodium Potassium 6.1 H* Chloride 108.8 H Carbon Dioxide 16 L BUN 72 H Creatinine 2.4 H Glucose 112 H POC Glucose Uric Acid Calcium Total Bilirubin 2.30 H AST 113 H Total Creatine Kinase CK-MB (CK-2) Troponin T NT-Pro-B Natriuret Pep Albumin 3.7 L HDL Cholesterol Urine WBC (Auto) Urine Creatinine Urine Total Protein Salicylates Acetaminophen 6.6 L 09/09/19 09/09/19 09/09/19 00:00 04:02 04:02 RBC Hgb Hct MCH RDW [place] % (Auto) Eos % (Auto) Lymph # Eos # Seg Neutrophils % PT INR APTT POC ABG pH Sodium 148 H 147 H Potassium Chloride 113.4 H 111.6 H Carbon Dioxide 16 L 18 L BUN 74 H 73 H Creatinine 2.4 H 2.4 H Glucose 101 H POC Glucose Uric Acid Calcium Total Bilirubin AST Total Creatine Kinase 3170 H 2941 H CK-MB (CK-2) 14.7 H 13.9 H Troponin T 0.059 H 0.074 H D NT-Pro-B Natriuret Pep Albumin HDL Cholesterol Urine WBC (Auto) Urine Creatinine Urine Total Protein Salicylates Acetaminophen 09/09/19 09/09/19 09/10/19 04:02 07:44 05:10 RBC Hgb Hct MCH RDW [place] % (Auto) Eos % (Auto) Lymph # Eos # Seg Neutrophils % PT INR APTT POC ABG pH Sodium 146 H Potassium 5.4 H Chloride 110.8 H Carbon Dioxide 21 L BUN 74 H Creatinine 2.4 H Glucose POC Glucose 107 H Uric Acid Calcium Total Bilirubin AST Total Creatine Kinase CK-MB (CK-2) Troponin T NT-Pro-B Natriuret Pep 7270 H Albumin HDL Cholesterol Urine WBC (Auto) Urine Creatinine Urine Total Protein Salicylates Acetaminophen 09/11/19 09/11/19 09/11/19 12:16 12:16 12:44 RBC Hgb Hct MCH RDW [place] % (Auto) Eos % (Auto) Lymph # Eos # Seg Neutrophils % PT INR APTT POC ABG pH Sodium Potassium Chloride Carbon Dioxide BUN Creatinine Glucose POC Glucose Uric Acid 12.4 H Calcium Total Bilirubin AST Total Creatine Kinase CK-MB (CK-2) Troponin T NT-Pro-B Natriuret Pep Albumin HDL Cholesterol Urine WBC (Auto) > 182.0 H Urine Creatinine 46.1 H Urine Total Protein 39 H Salicylates Acetaminophen 09/12/19 09/12/19 09/12/19 07:47 07:47 07:47 RBC Hgb 9.8 L Hct MCH 25 L RDW 20.3 H [place] % (Auto) Eos % (Auto) Lymph # 1.0 L Eos # Seg Neutrophils % 73.9 H PT INR APTT POC ABG pH Sodium 146 H Potassium Chloride Carbon Dioxide BUN 66 H Creatinine 2.2 H Glucose POC Glucose Uric Acid Calcium Total Bilirubin AST Total Creatine Kinase 668 H CK-MB (CK-2) Troponin T NT-Pro-B Natriuret Pep Albumin HDL Cholesterol Urine WBC (Auto) Urine Creatinine Urine Total Protein Salicylates Acetaminophen 09/13/19 09/13/19 09/14/19 06:40 06:40 12:39 RBC Hgb 9.6 L Hct 30.1 L MCH 25 L RDW 20.2 H Phillips % (Auto) 8.3 H Eos % (Auto) 4.9 H Lymph # Eos # Seg Neutrophils % PT INR APTT POC ABG pH Sodium 146 H Potassium Chloride Carbon Dioxide BUN 62 H 56 H Creatinine 2.1 H 1.9 H Glucose 101 H POC Glucose Uric Acid Calcium Total Bilirubin AST Total Creatine Kinase CK-MB (CK-2) Troponin T NT-Pro-B Natriuret Pep Albumin HDL Cholesterol Urine WBC (Auto) Urine Creatinine Urine Total Protein Salicylates Acetaminophen 09/15/19 09/16/19 09/17/19 06:55 06:41 14:10 RBC Hgb Hct MCH RDW [place] % (Auto) Eos % (Auto) Lymph # Eos # Seg Neutrophils % PT INR APTT POC ABG pH Sodium 146 H 147 H Potassium Chloride 107.7 H Carbon Dioxide BUN 54 H 51 H 50 H Creatinine 1.8 H 2.0 H 1.9 H Glucose 108 H 101 H POC Glucose Uric Acid Calcium 8.2 L Total Bilirubin AST Total Creatine Kinase CK-MB (CK-2) Troponin T NT-Pro-B Natriuret Pep Albumin HDL Cholesterol Urine WBC (Auto) Urine Creatinine Urine Total Protein Salicylates Acetaminophen 09/18/19 09/19/19 09/19/19 05:35 05:28 05:28 RBC 3.42 L Hgb 8.5 L Hct 27.3 L MCH 25 L RDW 21.0 H [place] % (Auto) 7.5 H Eos % (Auto) 6.6 H Lymph # 1.1 L Eos # 0.5 H Seg Neutrophils % PT INR APTT POC ABG pH Sodium Potassium Chloride Carbon Dioxide BUN 50 H 49 H Creatinine 1.9 H 1.8 H Glucose 108 H POC Glucose Uric Acid Calcium Total Bilirubin AST Total Creatine Kinase 155 H CK-MB (CK-2) Troponin T NT-Pro-B Natriuret Pep Albumin 2.9 L HDL Cholesterol Urine WBC (Auto) Urine Creatinine Urine Total Protein Salicylates Acetaminophen 09/20/19 09/20/19 09/21/19 06:54 06:54 08:19 RBC 3.45 L Hgb 8.6 L Hct 27.8 L MCH 25 L RDW 21.3 H [place] % (Auto) 8.0 H Eos % (Auto) 6.0 H Lymph # Eos # Seg Neutrophils % PT INR APTT POC ABG pH Sodium Potassium Chloride Carbon Dioxide BUN 51 H 52 H Creatinine 1.8 H 1.8 H Glucose POC Glucose Uric Acid Calcium Total Bilirubin AST Total Creatine Kinase CK-MB (CK-2) Troponin T NT-Pro-B Natriuret Pep Albumin 3.1 L HDL Cholesterol Urine WBC (Auto) Urine Creatinine Urine Total Protein Salicylates Acetaminophen 09/22/19 09/23/19 05:14 03:49 RBC Hgb Hct MCH RDW [place] % (Auto) Eos % (Auto) Lymph # Eos # Seg Neutrophils % PT INR APTT POC ABG pH Sodium Potassium Chloride Carbon Dioxide BUN 53 H 58 H Creatinine 1.8 H 2.1 H Glucose POC Glucose Uric Acid Calcium Total Bilirubin AST Total Creatine Kinase CK-MB (CK-2) Troponin T NT-Pro-B Natriuret Pep Albumin HDL Cholesterol Urine WBC (Auto) Urine Creatinine Urine Total Protein Salicylates Acetaminophen
[2019-09-23] MEDS: RIVAROXABAN 15 MG TAB PO SCH (16:26)
--- NOTE | 2019-09-23 17:18 | Progress Note ---
Assessment and Plan - Patient Problems (1) Acute on chronic renal failure Current Visit: Yes Status: Acute Qualifiers: Acute renal failure type: with acute tubular necrosis Chronic kidney disease stage: stage 2 (mild) Qualified Code(s): N17.0 - Acute kidney failure with tubular necrosis; N18.2 - Chronic kidney disease, stage 2 (mild) Plan to address problem: Acute on Chronic Renal failure : - baseline creatinine : 1.5 peak creatinine : 2.4mg/dl current creatinine : 2.1mg/dl I reviewed CXR with some congestion. - has worsened edema - Will give Lasix 40mg IV x 1 (2) CHF (congestive heart failure) Current Visit: Yes Status: Acute Plan to address problem: CHF : I reviewed echo with preserved EF , also noted RV Systolic dysfunction and Mitral regurgitation. continue Diuretics. (3) CVA (cerebral vascular accident) Current Visit: Yes Status: Acute Plan to address problem: Brain MRI with concern for small area of subacute ischemia Neurology following . continue aspirin/statin. (4) HTN (hypertension) Current Visit: Yes Status: Chronic Qualifiers: Hypertension type: essential hypertension Qualified Code(s): I10 - Essential (primary) hypertension Plan to address problem: HTN: controlled continue current medications. Subjective Principal diagnosis: acute CVA, acute on chronic renal failure, and STEMI and pulmonary HTN Interval history: 69 year old with medical history signficant for CHF and weakness of left side concern for CVA , also noted to have hypokalemia and JUNE patient seen today Good urine output , has [place] catheter. right leg edema worse than left leg edema. remains on supplemental oxygen. Objective - Vital Signs Vital signs: Vital Signs - 12hr 09/23/19 09/23/19 09/23/19 07:37 07:50 10:00 Temperature 98.7 F Pulse Rate 64 Respiratory 22 20 Rate Blood Pressure 113/57 O2 Sat by Pulse 98 99 98 Oximetry 09/23/19 09/23/19 13:38 13:41 Temperature Pulse Rate 70 73 Respiratory Rate Blood Pressure 106/66 109/66 O2 Sat by Pulse 95 Oximetry - General Appearance General appearance: well-developed, well-nourished EENT: ATNC, PERRL Neck: no JVD Respiratory: Present: Clear to Ascultation Cardiology: regular, S1S2 Gastrointestinal: normal, normoactive bowel sounds Integumentary: no rash Neurologic: alert and oriented x3, CN 3-12 intact Musculoskeletal: deferred Psychiatric: mood/affect appropriate - Lab 09/20/19 06:54 09/23/19 03:49 Most recent lab results Calcium 8.8 mg/dL (8.4-10.2) 09/23/19 03:49 Urine Creatinine 46.1 mg/dL (0.1-20.0) H 09/11/19 12:16 Urine Sodium 74 mmol/L 09/11/19 12:16 Urine Total Protein 39 mg/dL (5-11.8) H 09/11/19 12:16 - Imaging Chest x-ray: image reviewed Medications & Allergies - Medications Allergies/Adverse Reactions: Allergies codeine Allergy (Verified 03/21/19 14:24) Unknown morphine Allergy (Verified 03/21/19 14:24) Unknown tramadol Allergy (Verified 03/21/19 18:53) Angioedema amlodipine Adverse Reaction (Verified 03/21/19 14:24) Headache clonidine Adverse Reaction (Verified 03/21/19 14:24) Headache sulfadiazine Adverse Reaction (Verified 03/21/19 14:24) Swelling Home Medications: Home Medications Medication Instructions Recorded Confirmed Last Taken Type Latanoprost [Xalatan] 1 drop OU HS PRN 03/22/19 09/12/19 Unknown History Levothyroxine [Synthroid] 1 tab PO DAILY 03/22/19 09/12/19 Unknown History Potassium Chloride [K-Dur] 1 tab PO DAILY 03/22/19 09/12/19 Unknown History Aspirin [Aspirin BABY CHEW TAB] 81 mg PO QDAY #30 tab.chew 09/23/19 Unknown Rx Cyclobenzaprine [Flexeril 10 MG 5 mg PO Q8H tablet 09/23/19 Unknown Rx TAB] Fluticasone [Flonase] 1 spray IN BID 30 Days bottle 09/23/19 Unknown Rx Furosemide [Lasix TAB] 40 mg PO 0600,1800 tablet 09/23/19 Unknown Rx Isosorbide Dinitrate [Isordil 10 mg PO TID #90 09/23/19 Unknown Rx Titradose] Latanoprost 0.005% 1 drops OU HS PRN 30 Days bottle 09/23/19 Unknown Rx Levothyroxine [Synthroid] 100 mcg PO 0600 tablet 09/23/19 Unknown Rx Pantoprazole [Protonix TAB] 40 mg PO BID #60 09/23/19 Unknown Rx Polyethylene Glycol 3350 [Miralax 17 gm PO BID PRN powd.pack 09/23/19 Unknown Rx 3350] Pravastatin [Pravachol] 1 tab PO DAILY #30 09/23/19 Unknown Rx Rivaroxaban [Xarelto] 15 mg PO DAILY #30 tablet 09/23/19 Unknown Rx Rivaroxaban [Xarelto] 15 mg PO DAILY@1700 tablet 09/23/19 Unknown Rx hydrALAZINE [Apresoline TAB] 50 mg PO TID #90 tab 09/23/19 Unknown Rx oxyCODONE /ACETAMINOPHEN [Percocet 1 tab PO Q6H PRN #12 tablet 09/23/19 Unknown Rx 5/325 mg] Active Medications: Generic Name Dose Route Start Last Admin Trade Name Freq PRN Reason Stop Dose Admin Acetaminophen 500 mg 09/20/19 16:00 09/23/19 16:25 Tylenol PO 500 mg Q8H ROSALBA Administration Cyclobenzaprine HCl 5 mg 09/20/19 16:00 09/23/19 16:24 Flexeril PO 5 mg Q8H ROSALBA Administration Fluticasone Propionate 50 mcg 09/13/19 13:00 09/23/19 09:13 Flonase NS 50 mcg BID ROSALBA Administration Hydralazine HCl 50 mg 09/13/19 14:00 09/23/19 14:16 Apresoline PO Not Given TID ROSALBA Hydromorphone HCl 1 mg 09/21/19 13:56 09/22/19 06:10 Dilaudid IV 1 mg Q3H PRN Administration Pain , Severe (7-10) Isosorbide Dinitrate 10 mg 09/13/19 14:00 09/23/19 13:38 Isordil Titradose PO 10 mg TID ROSALBA Administration Latanoprost 1 drops 09/13/19 12:44 Latanoprost 0.005% OU HS PRN Dry Eye(s) Levothyroxine Sodium 100 mcg 09/14/19 09:00 09/23/19 05:17 Synthroid PO 100 mcg 0600 ROSALBA Administration Oxycodone/Acetaminophen 1 tab 09/13/19 13:39 09/23/19 10:07 Percocet 5/325 PO 1 tab Q6H PRN Administration Pain, Moderate (4-6) Pantoprazole Sodium 40 mg 09/13/19 22:00 09/23/19 09:14 Protonix PO 40 mg BID ROSALBA Administration Polyethylene Glycol 17 gm 09/16/19 14:15 Miralax 3350 PO BID PRN Constipation Pravastatin Sodium 80 mg 09/14/19 10:00 09/23/19 09:14 Pravachol PO 80 mg DAILY ROSALBA Administration Rivaroxaban 15 mg 09/15/19 17:00 09/23/19 16:26 Xarelto PO 15 mg DAILY@1700 ROSALBA Administration
[2019-09-23] MEDS ORDERED: FUROSEMIDE 40 MG/4 ML INJ IV ONE (18:18)
[2019-09-23] MEDS: LIDOCAINE 5% 1 EACH PATCH TD SCH (22:12)
[2019-09-24] MEDS: ACETAMINOPHEN 500 MG TAB PO SCH ×3 (00:52→17:17)
[2019-09-24] MEDS: CYCLOBENZAPRINE 10 MG TAB PO SCH ×4 (00:53→23:08)
[2019-09-24 05:45] LABS: Calcium 8.8 mg/dL (8.4-10.2)
[2019-09-24] MEDS: LEVOTHYROXINE 100 MCG TAB PO SCH (06:01)
[2019-09-24] MEDS: oxyCODONE /ACETAMINOPHEN 5-325MG TAB PO PRN ×2 (06:28→18:21)
[2019-09-24] MEDS: ISOSORBIDE DINITRATE 10 MG TAB PO SCH ×3 (09:00→22:58)
[2019-09-24] MEDS: hydrALAZINE 100 MG TAB PO SCH ×3 (09:00→22:57)
[2019-09-24] MEDS: LIDOCAINE 5% 1 EACH PATCH TD SCH (09:34)
[2019-09-24] MEDS: PANTOPRAZOLE 40 MG TAB PO SCH ×2 (09:35→22:58)
[2019-09-24] MEDS: PRAVASTATIN 80 MG TAB PO SCH (09:35)
[2019-09-24] MEDS: FLUTICASONE PROPIONATE NASAL SPRAY 16 GM NS SCH ×3 (09:45→22:59)
--- NOTE | 2019-09-24 11:03 | Progress Note ---
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 Neurology following. Echocardiogram reveals global left ventricle systolic function normal right ventricle moderately dilated. Right ventricular global systolic function is mildly reduced. Septum with abnormal paradoxical motion consistent with right ventricular volume overload. Mitral valve clip. Carotid Doppler negative. 5mm infarct on right Re- consulted Neurology to evaluate when to resume Eliquis patient was seen by Dr. Wynn, he recommends dc Eliquis and start Xarelto Oropharyngeal dysphagia. Now resolved. Patient started on Mechnical soft diet Acute renal failure on CKD. Patient with a baseline creatinine 1.3 in March 2019. Cr now 1.90 today 09/17/19 Nephrology following. NSTEMI Type 2. Elevated troponin. Cardiology following. Hypertension. Continue antihypertensive medications. Hyperlipidemia. Continue statins. Paroxysmal atrial fibrillation. Now on Xarelto Rhabdomyolysis. Resolved Hyperkalemia. Resolved. Pulmonary hypertension. Medically stable for discharge. Awaiting placement at SNF History Interval history: No new issues overnight. Hospitalist Physical - Constitutional Vitals: Temp Pulse Resp BP Pulse Ox 98.3 F 59 L 18 96/55 98 09/24/19 08:24 09/24/19 08:24 09/24/19 08:24 09/24/19 08:24 09/24/19 08:24 General appearance: Present: no acute distress, well-nourished - EENT Eyes: Present: PERRL, EOM intact ENT: hearing intact, clear oral mucosa, dentition normal - Neck Neck: Present: supple, normal ROM - Respiratory Respiratory effort: normal Respiratory: bilateral: CTA - Cardiovascular Rhythm: regular Heart Sounds: Present: S1 & S2. Absent: gallop, rub - Extremities Extremities: no ischemia, No edema, Full ROM - Abdominal General gastrointestinal: soft, non-tender, non-distended, normal bowel sounds - Integumentary Integumentary: Present: clear, warm, dry - Neurologic Neurologic: CNII-XII intact, moves all extremities Results - Labs CBC & Chem 7: 09/20/19 06:54 09/24/19 04:48 Labs: Laboratory Last Values WBC 7.2 K/mm3 (4.5-11.0) 09/20/19 06:54 RBC 3.45 M/mm3 (3.65-5.03) L 09/20/19 06:54 Hgb 8.6 gm/dl (10.1-14.3) L 09/20/19 06:54 Hct 27.8 % (30.3-42.9) L 09/20/19 06:54 MCV 81 fl (79-97) 09/20/19 06:54 MCH 25 pg (28-32) L 09/20/19 06:54 MCHC 31 % (30-34) 09/20/19 06:54 RDW 21.3 % (13.2-15.2) H 09/20/19 06:54 Plt Count 264 K/mm3 (140-440) 09/20/19 06:54 Lymph % (Auto) 15.9 % (13.4-35.0) 09/20/19 06:54 [place] % (Auto) 8.0 % (0.0-7.3) H 09/20/19 06:54 Eos % (Auto) 6.0 % (0.0-4.3) H 09/20/19 06:54 Baso % (Auto) 0.6 % (0.0-1.8) 09/20/19 06:54 Lymph # 1.2 K/mm3 (1.2-5.4) 09/20/19 06:54 [place] # 0.6 K/mm3 (0.0-0.8) 09/20/19 06:54 Eos # 0.4 K/mm3 (0.0-0.4) 09/20/19 06:54 Baso # 0.0 K/mm3 (0.0-0.1) 09/20/19 06:54 Seg Neutrophils % 69.5 % (40.0-70.0) 09/20/19 06:54 Seg Neutrophils # 5.0 K/mm3 (1.8-7.7) 09/20/19 06:54 PT 22.1 Sec. (12.2-14.9) H 09/08/19 19:42 INR 1.98 (0.87-1.13) H 09/08/19 19:42 APTT 37.4 Sec. (24.2-36.6) H 09/08/19 19:42 POC ABG pH 7.299 (7.35-7.45) L 09/08/19 20:40 POC ABG pCO2 37.4 (35-45) 09/08/19 20:40 POC ABG pO2 88 (80-105) 09/08/19 20:40 POC ABG HCO3 18.4 (22-26 mml/L) 09/08/19 20:40 POC ABG Total CO2 19 (23-27mmol/L) 09/08/19 20:40 POC ABG O2 Sat 96 09/08/19 20:40 POC ABG Base Excess -8 ((-2) - (+3)mmol/L) 09/08/19 20:40 FiO2 28 % 09/08/19 20:40 Sodium 143 mmol/L (137-145) 09/24/19 04:48 Potassium 4.9 mmol/L (3.6-5.0) 09/24/19 04:48 Chloride 103.7 mmol/L (98-107) 09/24/19 04:48 Carbon Dioxide 28 mmol/L (22-30) 09/24/19 04:48 Anion Gap 16 mmol/L 09/24/19 04:48 BUN 61 mg/dL (7-17) H 09/24/19 04:48 Creatinine 2.0 mg/dL (0.7-1.2) H 09/24/19 04:48 Estimated GFR 30 ml/min 09/24/19 04:48 BUN/Creatinine Ratio 31 % 09/24/19 04:48 Glucose 84 mg/dL (65-100) 09/24/19 04:48 POC Glucose 94 (70-105) 09/09/19 20:28 Osmolality 322 Mosm/kg 09/11/19 12:44 Uric Acid 12.4 mg/dL (3.5-7.6) H 09/11/19 12:44 Calcium 8.8 mg/dL (8.4-10.2) 09/24/19 04:48 Total Bilirubin 0.60 mg/dL (0.1-1.2) 09/20/19 06:54 AST 40 units/L (5-40) 09/20/19 06:54 ALT 15 units/L (7-56) 09/20/19 06:54 Alkaline Phosphatase 77 units/L (35-129) 09/20/19 06:54 Total Creatine Kinase 155 units/L (30-135) H 09/18/19 05:35 CK-MB (CK-2) 13.9 ng/mL (0.0-4.0) H 09/09/19 04:02 CK-MB (CK-2) Rel Index 0.4 (0-4) 09/09/19 04:02 Troponin T 0.074 ng/mL (0.00-0.029) H D 09/09/19 04:02 NT-Pro-B Natriuret Pep 7270 pg/mL (0-900) H 09/09/19 04:02 Total Protein 6.7 g/dL (6.3-8.2) 09/20/19 06:54 Albumin 3.1 g/dL (3.9-5) L 09/20/19 06:54 Albumin/Globulin Ratio 0.9 % 09/20/19 06:54 Triglycerides 55 mg/dL (2-149) 09/08/19 19:42 Cholesterol 92 mg/dL (50-199) 09/08/19 19:42 LDL Cholesterol Direct 50 mg/dL (50-130) 09/08/19 19:42 HDL Cholesterol 37 mg/dL (40-59) L 09/08/19 19:42 Cholesterol/HDL Ratio 2.48 % 09/08/19 19:42 Urine Color Yellow (Yellow) 09/11/19 12:16 Urine Turbidity Cloudy (Clear) 09/11/19 12:16 Urine pH 5.0 (5.0-7.0) 09/11/19 12:16 Ur Specific [place] 1.009 (1.003-1.030) 09/11/19 12:16 Urine Protein <15 mg/dl mg/dL (Negative) 09/11/19 12:16 Urine Glucose (UA) Neg mg/dL (Negative) 09/11/19 12:16 Urine Ketones Neg mg/dL (Negative) 09/11/19 12:16 Urine Blood Lg (Negative) 09/11/19 12:16 Urine Nitrite Neg (Negative) 09/11/19 12:16 Ur Reducing Substances Not Reportable 09/11/19 12:16 Urine Bilirubin Neg (Negative) 09/11/19 12:16 Urine Ictotest Not Reportable 09/11/19 12:16 Urine Urobilinogen < 2.0 mg/dL (<2.0) 09/11/19 12:16 Ur Leukocyte Esterase Lg (Negative) 09/11/19 12:16 Urine WBC (Auto) > 182.0 /HPF (0.0-6.0) H 09/11/19 12:16 Urine RBC (Auto) > 182.0 /HPF (0.0-6.0) 09/11/19 12:16 U Epithel Cells (Auto) 2.0 /HPF (0-13.0) 09/11/19 12:16 Urine Bacteria (Auto) 4+ /HPF (Negative) 09/11/19 12:16 Urine WBC Clumps 3+ /HPF 09/11/19 12:16 Hyaline Casts Not Reportable 09/11/19 12:16 Urine Mucus Few /HPF 09/11/19 12:16 Urine Yeast (Budding) Employment Service Specialist 09/11/19 12:16 Urine Creatinine 46.1 mg/dL (0.1-20.0) H 09/11/19 12:16 Urine Sodium 74 mmol/L 09/11/19 12:16 Urine Total Protein 39 mg/dL (5-11.8) H 09/11/19 12:16 Salicylates < 0.3 mg/dL (2.8-20.0) L 09/08/19 19:42 Acetaminophen 6.6 ug/mL (10.0-30.0) L 09/08/19 23:21 Plasma/Serum Alcohol < 0.01 % (0-0.07) 09/08/19 19:42 Immunofix Electrophor see below 09/11/19 12:44 Active Medications - Current Medications Current Medications: Generic Name Dose Route Start Last Admin Trade Name Nicole PRN Reason Stop Dose Admin Acetaminophen 500 mg 09/20/19 16:00 09/24/19 09:44 Tylenol PO 500 mg Q8H ROSALBA Administration Cyclobenzaprine HCl 5 mg 09/20/19 16:00 09/24/19 00:53 Flexeril PO 5 mg Q8H ROSALBA Administration Fluticasone Propionate 50 mcg 09/13/19 13:00 09/24/19 09:45 Flonase NS 50 mcg BID ROSALBA Administration Hydralazine HCl 50 mg 09/13/19 14:00 09/24/19 09:00 Apresoline PO Not Given TID ROSALBA Hydromorphone HCl 1 mg 09/21/19 13:56 09/22/19 06:10 Dilaudid IV 1 mg Q3H PRN Administration Pain , Severe (7-10) Isosorbide Dinitrate 10 mg 09/13/19 14:00 09/23/19 20:45 Isordil Titradose PO Not Given TID PENDING SALE TO [facility] Latanoprost 1 drops 09/13/19 12:44 Latanoprost 0.005% OU HS PRN Dry Eye(s) Levothyroxine Sodium 100 mcg 09/14/19 09:00 09/24/19 06:01 Synthroid PO 100 mcg 0600 ROSALBA Administration Lidocaine 1 each 09/23/19 20:00 09/24/19 09:34 Lidoderm 5% TD 1 each QDAY ROSALBA Administration Oxycodone/Acetaminophen 1 tab 09/13/19 13:39 09/24/19 06:28 Percocet 5/325 PO 1 tab Q6H PRN Administration Pain, Moderate (4-6) Pantoprazole Sodium 40 mg 09/13/19 22:00 09/24/19 09:35 Protonix PO 40 mg BID ROSALBA Administration Polyethylene Glycol 17 gm 09/16/19 14:15 Miralax 3350 PO BID PRN Constipation Pravastatin Sodium 80 mg 09/14/19 10:00 09/24/19 09:35 Pravachol PO 80 mg DAILY ROSALBA Administration Rivaroxaban 15 mg 09/15/19 17:00 09/23/19 16:26 Xarelto PO 15 mg DAILY@1700 ROSALBA Administration Nutrition/Malnutrition Assess - Dietary Evaluation Nutrition/Malnutrition Findings: Nutrition Notes Start: 09/09/19 13:13 Freq: Status: Active Protocol: Document 09/14/19 14:18 CC (Rec: 09/14/19 14:38 CC [email or web address]) Co-Sign 09/14/19 14:18 LP Nutrition Notes Initial or Follow up Assessment Current Diagnosis CKD(stage I-IV),Hypertension, Heart Failure,Stroke, Hyperlipidemia Other Pertinent Diagnosis TIA,Dysphagia Current Diet [facility] soft Labs/Tests BUN 62, creat 2.1 Pertinent Medications Lasix Height 5 ft 8 in Weight 128.4 kg [place] Body Weight (kg) 63.63 BMI 43.0 Intake Prior to Admission Good Weight Status Morbidly Obese Subjective/Other Information F/U for full assesment. 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 Pt reported she has had no unitentional wt loss. Pt reported her appetite has been good since arrival Percent of energy/protein needs met: 100% energy/ 100% protein Burn Absent Trauma Absent GI Symptoms None Difficulty In Swallowing Current % PO Good (75-100%) Minimum of two criteria No #1 Nutrition Diagnosis No nutrition diagnosis at this time Is patient on ventilator? No Is Patient Ambulatory and/or Out of Bed No REE-([facility]-confined to bed) 2228.184 Kcal/Kg value to use for calculation 13 Approximate Energy Requirements Using 1669 kcal/Kg Calculation Used for Recommendations Kcal/kg Additional Notes PRO: 58-77g/day (0.6-0.8g/kg adBW 96kg) Fluid:1ml/kcal Nutrition Intervention Anticipated Discharge Needs: mechanical soft diet Revisit per MD consult or patient Sign Off request:
--- NOTE | 2019-09-24 15:56 | XRay Report ---
CHEST 1 VIEW, 09/24/2019 3:35 PM CLINICAL INFORMATION/INDICATION: Acute kidney injury. Shortness of breath. COMPARISON: Chest radiograph, 09/11/2019 FINDINGS: SUPPORT DEVICES: None. HEART: There is significant stable enlargement of the cardiac silhouette. LUNGS/PLEURA: Mild pulmonary edema is noted. No large pleural effusion is seen. ADDITIONAL FINDINGS: No additional acute findings. IMPRESSION: 1. Stable enlargement of the cardiac silhouette with mild pulmonary edema. Signer Name: Radha Frances MD Signed: 09/24/2019 3:52 PM Workstation Name: [id number]
--- NOTE | 2019-09-24 16:31 | Progress Note ---
Assessment and Plan - Patient Problems (1) Acute on chronic renal failure Current Visit: Yes Status: Acute Qualifiers: Acute renal failure type: with acute tubular necrosis Chronic kidney disease stage: stage 2 (mild) Qualified Code(s): N17.0 - Acute kidney failure with tubular necrosis; N18.2 - Chronic kidney disease, stage 2 (mild) Plan to address problem: Acute on Chronic Renal failure : - baseline creatinine : 1.5 peak creatinine : 2.4mg/dl current creatinine : 2.1mg/dl I reviewed CXR with some congestion. - has worsened edema - Will give Lasix 60mg IV bid (2) CHF (congestive heart failure) Current Visit: Yes Status: Acute Plan to address problem: CHF : I reviewed echo with preserved EF , also noted RV Systolic dysfunction and Mitral regurgitation. continue Diuretics. (3) CVA (cerebral vascular accident) Current Visit: Yes Status: Acute Plan to address problem: Brain MRI with concern for small area of subacute ischemia Neurology following . continue aspirin/statin. (4) HTN (hypertension) Current Visit: Yes Status: Chronic Qualifiers: Hypertension type: essential hypertension Qualified Code(s): I10 - Essential (primary) hypertension Plan to address problem: HTN: controlled continue current medications. Subjective Principal diagnosis: acute CVA, acute on chronic renal failure, and STEMI and pulmonary HTN Interval history: 69 year old with medical history signficant for CHF and weakness of left side concern for CVA , also noted to have hypokalemia and JUNE patient seen today Good urine output , has [place] catheter. worsening edema. remains on supplemental oxygen. Objective - Vital Signs Vital signs: Vital Signs - 12hr 09/24/19 09/24/19 09/24/19 06:28 07:27 08:24 Temperature 98.3 F Pulse Rate 59 L Respiratory 18 18 Rate Blood Pressure 96/55 O2 Sat by Pulse 96 98 Oximetry 09/24/19 09/24/19 09/24/19 09:00 13:14 13:20 Temperature 98.4 F Pulse Rate 59 L 60 60 Respiratory 18 Rate Blood Pressure 96/55 107/60 107/60 O2 Sat by Pulse 98 Oximetry - General Appearance General appearance: well-developed, well-nourished EENT: ATNC, PERRL Neck: no JVD Respiratory: Present: Decreased Breath Sounds Cardiology: regular, S1S2 Gastrointestinal: normal, normoactive bowel sounds Integumentary: no rash Neurologic: alert and oriented x3 Musculoskeletal: other (edema) Psychiatric: mood/affect appropriate - Lab 09/20/19 06:54 09/24/19 04:48 Most recent lab results Calcium 8.8 mg/dL (8.4-10.2) 09/24/19 04:48 Urine Creatinine 46.1 mg/dL (0.1-20.0) H 09/11/19 12:16 Urine Sodium 74 mmol/L 09/11/19 12:16 Urine Total Protein 39 mg/dL (5-11.8) H 09/11/19 12:16 Medications & Allergies - Medications Allergies/Adverse Reactions: Allergies codeine Allergy (Verified 03/21/19 14:24) Unknown morphine Allergy (Verified 03/21/19 14:24) Unknown tramadol Allergy (Verified 03/21/19 18:53) Angioedema amlodipine Adverse Reaction (Verified 03/21/19 14:24) Headache clonidine Adverse Reaction (Verified 03/21/19 14:24) Headache sulfadiazine Adverse Reaction (Verified 03/21/19 14:24) Swelling Home Medications: Home Medications Medication Instructions Recorded Confirmed Last Taken Type Latanoprost [Xalatan] 1 drop OU HS PRN 03/22/19 09/12/19 Unknown History Levothyroxine [Synthroid] 1 tab PO DAILY 03/22/19 09/12/19 Unknown History Potassium Chloride [K-Dur] 1 tab PO DAILY 03/22/19 09/12/19 Unknown History Aspirin [Aspirin BABY CHEW TAB] 81 mg PO QDAY #30 tab.chew 09/23/19 Unknown Rx Cyclobenzaprine [Flexeril 10 MG 5 mg PO Q8H tablet 09/23/19 Unknown Rx TAB] Fluticasone [Flonase] 1 spray IN BID 30 Days bottle 09/23/19 Unknown Rx Furosemide [Lasix TAB] 40 mg PO 0600,1800 tablet 09/23/19 Unknown Rx Isosorbide Dinitrate [Isordil 10 mg PO TID #90 09/23/19 Unknown Rx Titradose] Latanoprost 0.005% 1 drops OU HS PRN 30 Days bottle 09/23/19 Unknown Rx Levothyroxine [Synthroid] 100 mcg PO 0600 tablet 09/23/19 Unknown Rx Pantoprazole [Protonix TAB] 40 mg PO BID #60 09/23/19 Unknown Rx Polyethylene Glycol 3350 [Miralax 17 gm PO BID PRN powd.pack 09/23/19 Unknown Rx 3350] Pravastatin [Pravachol] 1 tab PO DAILY #30 09/23/19 Unknown Rx Rivaroxaban [Xarelto] 15 mg PO DAILY #30 tablet 09/23/19 Unknown Rx Rivaroxaban [Xarelto] 15 mg PO DAILY@1700 tablet 09/23/19 Unknown Rx hydrALAZINE [Apresoline TAB] 50 mg PO TID #90 tab 09/23/19 Unknown Rx oxyCODONE /ACETAMINOPHEN [Percocet 1 tab PO Q6H PRN #12 tablet 09/23/19 Unknown Rx 5/325 mg] Active Medications: Generic Name Dose Route Start Last Admin Trade Name Freq PRN Reason Stop Dose Admin Acetaminophen 500 mg 09/20/19 16:00 09/24/19 09:44 Tylenol PO 500 mg Q8H ROSALBA Administration Cyclobenzaprine HCl 5 mg 09/20/19 16:00 09/24/19 00:53 Flexeril PO 5 mg Q8H ROSALBA Administration Fluticasone Propionate 50 mcg 09/13/19 13:00 09/24/19 09:45 Flonase NS Not Given BID ROSALBA Hydralazine HCl 50 mg 09/13/19 14:00 09/24/19 15:13 Apresoline PO Not Given TID ROSALBA Hydromorphone HCl 1 mg 09/21/19 13:56 09/22/19 06:10 Dilaudid IV 1 mg Q3H PRN Administration Pain , Severe (7-10) Isosorbide Dinitrate 10 mg 09/13/19 14:00 09/24/19 13:20 Isordil Titradose PO Not Given TID ROSALBA Latanoprost 1 drops 09/24/19 22:00 Latanoprost 0.005% OU HS ROSALBA Levothyroxine Sodium 100 mcg 09/14/19 09:00 09/24/19 06:01 Synthroid PO 100 mcg 0600 RSOALBA Administration Lidocaine 1 each 09/23/19 20:00 09/24/19 09:34 Lidoderm 5% TD 1 each QDAY ROSALBA Administration Oxycodone/Acetaminophen 1 tab 09/13/19 13:39 09/24/19 06:28 Percocet 5/325 PO 1 tab Q6H PRN Administration Pain, Moderate (4-6) Pantoprazole Sodium 40 mg 09/13/19 22:00 09/24/19 09:35 Protonix PO 40 mg BID ROSALBA Administration Polyethylene Glycol 17 gm 09/16/19 14:15 Miralax 3350 PO BID PRN Constipation Pravastatin Sodium 80 mg 09/14/19 10:00 09/24/19 09:35 Pravachol PO 80 mg DAILY ROSALBA Administration Rivaroxaban 15 mg 09/15/19 17:00 09/23/19 16:26 Xarelto PO 15 mg DAILY@1700 ROSALBA Administration
[2019-09-24] MEDS ORDERED: FUROSEMIDE 20 MG/2 ML INJ IV ONE (17:00)
[2019-09-24] MEDS: RIVAROXABAN 15 MG TAB PO SCH (17:25)
[2019-09-24] MEDS ORDERED: FUROSEMIDE 40 MG/4 ML INJ IV SCH (18:00)
[2019-09-24] MEDS: LATANOPROST 0.005% OPHTH SOLN 2.5 ML OU SCH (23:02)
[2019-09-25] MEDS: ACETAMINOPHEN 500 MG TAB PO SCH ×4 (06:11→23:19)
[2019-09-25] MEDS: LEVOTHYROXINE 100 MCG TAB PO SCH (06:11)
[2019-09-25] MEDS: FUROSEMIDE 20 MG/2 ML INJ IV SCH ×2 (06:12→18:12)
[2019-09-25 07:18] LABS: Calcium 8.7 mg/dL (8.4-10.2)
[2019-09-25] MEDS: hydrALAZINE 100 MG TAB PO SCH ×3 (08:18→23:19)
[2019-09-25] MEDS: ISOSORBIDE DINITRATE 10 MG TAB PO SCH ×3 (09:39→23:18)
[2019-09-25] MEDS: PRAVASTATIN 80 MG TAB PO SCH (09:39)
[2019-09-25] MEDS: PANTOPRAZOLE 40 MG TAB PO SCH ×2 (09:39→23:19)
[2019-09-25] MEDS: CYCLOBENZAPRINE 10 MG TAB PO SCH ×3 (09:40→23:18)
[2019-09-25] MEDS: LIDOCAINE 5% 1 EACH PATCH TD SCH (09:41)
[2019-09-25] MEDS: FLUTICASONE PROPIONATE NASAL SPRAY 16 GM NS SCH ×2 (09:42→23:17)
--- NOTE | 2019-09-25 09:49 | Progress Note ---
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 Neurology following. Echocardiogram reveals global left ventricle systolic function normal right ventricle moderately dilated. Right ventricular global systolic function is mildly reduced. Septum with abnormal paradoxical motion consistent with right ventricular volume overload. Mitral valve clip. Carotid Doppler negative. 5mm infarct on right Continue Xarelto Oropharyngeal dysphagia. Now resolved. Patient started on Me[employer]ical soft diet Acute renal failure on CKD. - baseline creatinine : 1.5. Nephrology following. NSTEMI Type 2. Elevated troponin. Cardiology following. Hypertension. Continue antihypertensive medications. Hyperlipidemia. Continue statins. Paroxysmal atrial fibrillation. Now on Xarelto Rhabdomyolysis. Resolved Hyperkalemia. Resolved. Pulmonary hypertension. Medically stable for discharge. Awaiting placement at SNF History Interval history: No new issues overnight. Hospitalist Physical - Constitutional Vitals: Temp Pulse Resp BP Pulse Ox 98.5 F 59 L 20 101/56 99 09/25/19 08:08 09/25/19 09:39 09/25/19 08:08 09/25/19 09:39 09/25/19 09:04 General appearance: Present: no acute distress, well-nourished - EENT Eyes: Present: PERRL, EOM intact ENT: hearing intact, clear oral mucosa, dentition normal - Neck Neck: Present: supple, normal ROM - Respiratory Respiratory effort: normal Respiratory: bilateral: CTA - Cardiovascular Rhythm: regular Heart Sounds: Present: S1 & S2. Absent: gallop, rub - Extremities Extremities: no ischemia, No edema, Full ROM - Abdominal General gastrointestinal: soft, non-tender, non-distended, normal bowel sounds - Integumentary Integumentary: Present: clear, warm, dry - Neurologic Neurologic: CNII-XII intact, moves all extremities Results - Labs CBC & Chem 7: 09/20/19 06:54 09/25/19 05:56 Labs: Laboratory Last Values WBC 7.2 K/mm3 (4.5-11.0) 09/20/19 06:54 RBC 3.45 M/mm3 (3.65-5.03) L 09/20/19 06:54 Hgb 8.6 gm/dl (10.1-14.3) L 09/20/19 06:54 Hct 27.8 % (30.3-42.9) L 09/20/19 06:54 MCV 81 fl (79-97) 09/20/19 06:54 MCH 25 pg (28-32) L 09/20/19 06:54 MCHC 31 % (30-34) 09/20/19 06:54 RDW 21.3 % (13.2-15.2) H 09/20/19 06:54 Plt Count 264 K/mm3 (140-440) 09/20/19 06:54 Lymph % (Auto) 15.9 % (13.4-35.0) 09/20/19 06:54 [place] % (Auto) 8.0 % (0.0-7.3) H 09/20/19 06:54 Eos % (Auto) 6.0 % (0.0-4.3) H 09/20/19 06:54 Baso % (Auto) 0.6 % (0.0-1.8) 09/20/19 06:54 Lymph # 1.2 K/mm3 (1.2-5.4) 09/20/19 06:54 [place] # 0.6 K/mm3 (0.0-0.8) 09/20/19 06:54 Eos # 0.4 K/mm3 (0.0-0.4) 09/20/19 06:54 Baso # 0.0 K/mm3 (0.0-0.1) 09/20/19 06:54 Seg Neutrophils % 69.5 % (40.0-70.0) 09/20/19 06:54 Seg Neutrophils # 5.0 K/mm3 (1.8-7.7) 09/20/19 06:54 PT 22.1 Sec. (12.2-14.9) H 09/08/19 19:42 INR 1.98 (0.87-1.13) H 09/08/19 19:42 APTT 37.4 Sec. (24.2-36.6) H 09/08/19 19:42 POC ABG pH 7.299 (7.35-7.45) L 09/08/19 20:40 POC ABG pCO2 37.4 (35-45) 09/08/19 20:40 POC ABG pO2 88 (80-105) 09/08/19 20:40 POC ABG HCO3 18.4 (22-26 mml/L) 09/08/19 20:40 POC ABG Total CO2 19 (23-27mmol/L) 09/08/19 20:40 POC ABG O2 Sat 96 09/08/19 20:40 POC ABG Base Excess -8 ((-2) - (+3)mmol/L) 09/08/19 20:40 FiO2 28 % 09/08/19 20:40 Sodium 142 mmol/L (137-145) 09/25/19 05:56 Potassium 4.7 mmol/L (3.6-5.0) 09/25/19 05:56 Chloride 104.0 mmol/L (98-107) 09/25/19 05:56 Carbon Dioxide 25 mmol/L (22-30) 09/25/19 05:56 Anion Gap 18 mmol/L 09/25/19 05:56 BUN 68 mg/dL (7-17) H 09/25/19 05:56 Creatinine 2.2 mg/dL (0.7-1.2) H 09/25/19 05:56 Estimated GFR 27 ml/min 09/25/19 05:56 BUN/Creatinine Ratio 31 % 09/25/19 05:56 Glucose 79 mg/dL (65-100) 09/25/19 05:56 POC Glucose 94 (70-105) 09/09/19 20:28 Osmolality 322 Mosm/kg 09/11/19 12:44 Uric Acid 12.4 mg/dL (3.5-7.6) H 09/11/19 12:44 Calcium 8.7 mg/dL (8.4-10.2) 09/25/19 05:56 Total Bilirubin 0.60 mg/dL (0.1-1.2) 09/20/19 06:54 AST 40 units/L (5-40) 09/20/19 06:54 ALT 15 units/L (7-56) 09/20/19 06:54 Alkaline Phosphatase 77 units/L (35-129) 09/20/19 06:54 Total Creatine Kinase 155 units/L (30-135) H 09/18/19 05:35 CK-MB (CK-2) 13.9 ng/mL (0.0-4.0) H 09/09/19 04:02 CK-MB (CK-2) Rel Index 0.4 (0-4) 09/09/19 04:02 Troponin T 0.074 ng/mL (0.00-0.029) H D 09/09/19 04:02 NT-Pro-B Natriuret Pep 7270 pg/mL (0-900) H 09/09/19 04:02 Total Protein 6.7 g/dL (6.3-8.2) 09/20/19 06:54 Albumin 3.1 g/dL (3.9-5) L 09/20/19 06:54 Albumin/Globulin Ratio 0.9 % 09/20/19 06:54 Triglycerides 55 mg/dL (2-149) 09/08/19 19:42 Cholesterol 92 mg/dL (50-199) 09/08/19 19:42 LDL Cholesterol Direct 50 mg/dL (50-130) 09/08/19 19:42 HDL Cholesterol 37 mg/dL (40-59) L 09/08/19 19:42 Cholesterol/HDL Ratio 2.48 % 09/08/19 19:42 Urine Color Yellow (Yellow) 09/11/19 12:16 Urine Turbidity Cloudy (Clear) 09/11/19 12:16 Urine pH 5.0 (5.0-7.0) 09/11/19 12:16 Ur Specific [place] 1.009 (1.003-1.030) 09/11/19 12:16 Urine Protein <15 mg/dl mg/dL (Negative) 09/11/19 12:16 Urine Glucose (UA) Neg mg/dL (Negative) 09/11/19 12:16 Urine Ketones Neg mg/dL (Negative) 09/11/19 12:16 Urine Blood Lg (Negative) 09/11/19 12:16 Urine Nitrite Neg (Negative) 09/11/19 12:16 Ur Reducing Substances Not Reportable 09/11/19 12:16 Urine Bilirubin Neg (Negative) 09/11/19 12:16 Urine Ictotest Not Reportable 09/11/19 12:16 Urine Urobilinogen < 2.0 mg/dL (<2.0) 09/11/19 12:16 Ur Leukocyte Esterase Lg (Negative) 09/11/19 12:16 Urine WBC (Auto) > 182.0 /HPF (0.0-6.0) H 09/11/19 12:16 Urine RBC (Auto) > 182.0 /HPF (0.0-6.0) 09/11/19 12:16 U Epithel Cells (Auto) 2.0 /HPF (0-13.0) 09/11/19 12:16 Urine Bacteria (Auto) 4+ /HPF (Negative) 09/11/19 12:16 Urine WBC Clumps 3+ /HPF 09/11/19 12:16 Hyaline Casts Not Reportable 09/11/19 12:16 Urine Mucus Few /HPF 09/11/19 12:16 Urine Yeast (Budding) Sales Enablement Specialist 09/11/19 12:16 Urine Creatinine 46.1 mg/dL (0.1-20.0) H 09/11/19 12:16 Urine Sodium 74 mmol/L 09/11/19 12:16 Urine Total Protein 39 mg/dL (5-11.8) H 09/11/19 12:16 Salicylates < 0.3 mg/dL (2.8-20.0) L 09/08/19 19:42 Acetaminophen 6.6 ug/mL (10.0-30.0) L 09/08/19 23:21 Plasma/Serum Alcohol < 0.01 % (0-0.07) 09/08/19 19:42 Immunofix Electrophor see below 09/11/19 12:44 Active Medications - Current Medications Current Medications: Generic Name Dose Route Start Last Admin Trade Name Freq PRN Reason Stop Dose Admin Acetaminophen 500 mg 09/20/19 16:00 09/25/19 09:44 Tylenol PO 500 mg Q8H ROSALBA Administration Cyclobenzaprine HCl 5 mg 09/20/19 16:00 09/25/19 09:40 Flexeril PO 5 mg Q8H ROSALBA Administration Fluticasone Propionate 50 mcg 09/13/19 13:00 09/25/19 09:42 Flonase NS 50 mcg BID ROSALBA Administration Furosemide 60 mg 09/25/19 06:00 09/25/19 06:12 Lasix IV 60 mg 0600,1800 ROSALBA Administration Hydralazine HCl 50 mg 09/13/19 14:00 09/25/19 08:18 Apresoline PO Not Given TID ROSALBA Hydromorphone HCl 1 mg 09/21/19 13:56 09/22/19 06:10 Dilaudid IV 1 mg Q3H PRN Administration Pain , Severe (7-10) Isosorbide Dinitrate 10 mg 09/13/19 14:00 09/25/19 09:39 Isordil Titradose PO 10 mg TID ROSALBA Administration Latanoprost 1 drops 09/24/19 22:00 09/24/19 23:02 Latanoprost 0.005% OU 1 drops HS ROSALBA Administration Levothyroxine Sodium 100 mcg 09/14/19 09:00 09/25/19 06:11 Synthroid PO 100 mcg 0600 ROSALBA Administration Lidocaine 1 each 09/23/19 20:00 09/25/19 09:41 Lidoderm 5% TD 1 each QDAY ROSALBA Administration Oxycodone/Acetaminophen 1 tab 09/13/19 13:39 09/24/19 18:21 Percocet 5/325 PO 1 tab Q6H PRN Administration Pain, Moderate (4-6) Pantoprazole Sodium 40 mg 09/13/19 22:00 09/25/19 09:39 Protonix PO 40 mg BID ROSALBA Administration Polyethylene Glycol 17 gm 09/16/19 14:15 Miralax 3350 PO BID PRN Constipation Pravastatin Sodium 80 mg 09/14/19 10:00 09/25/19 09:39 Pravachol PO 80 mg DAILY ROSALBA Administration Rivaroxaban 15 mg 09/15/19 17:00 09/24/19 17:25 Xarelto PO 15 mg DAILY@1700 ROSALBA Administration Nutrition/Malnutrition Assess - Dietary Evaluation Nutrition/Malnutrition Findings: Nutrition Notes Start: 09/09/19 13:13 Freq: Status: Active Protocol: Document 09/14/19 14:18 CC (Rec: 09/14/19 14:38 CC [email or web address]) Co-Sign 09/14/19 14:18 LP Nutrition Notes Initial or Follow up Assessment Current Diagnosis CKD(stage I-IV),Hypertension, Heart Failure,Stroke, Hyperlipidemia Other Pertinent Diagnosis TIA,Dysphagia Current Diet [facility] soft Labs/Tests BUN 62, creat 2.1 Pertinent Medications Lasix Height 5 ft 8 in Weight 128.4 kg [place] Body Weight (kg) 63.63 BMI 43.0 Intake Prior to Admission Good Weight Status Morbidly Obese Subjective/Other Information F/U for full assesment. Pt reported CUSHION FORMER her appetite was good. Pt reported she has had no unitentional wt loss. Pt reported her appetite has been good since arrival Percent of energy/protein needs met: 100% energy/ 100% protein Burn Absent Trauma Absent GI Symptoms None Difficulty In Swallowing Current % PO Good (75-100%) Minimum of two criteria No #1 Nutrition Diagnosis No nutrition diagnosis at this time Is patient on ventilator? No Is Patient Ambulatory and/or Out of Bed No REE-([facility]-confined to bed) 2228.184 Kcal/Kg value to use for calculation 13 Approximate Energy Requirements Using 1669 kcal/Kg Calculation Used for Recommendations Kcal/kg Additional Notes PRO: 58-77g/day (0.6-0.8g/kg adBW 96kg) Fluid:1ml/kcal Nutrition Intervention Anticipated Discharge Needs: mechanical soft diet Revisit per MD consult or patient Sign Off request:
[2019-09-25] MEDS: oxyCODONE /ACETAMINOPHEN 5-325MG TAB PO PRN (12:00)
[2019-09-25] MEDS: HYDROmorphone 1 MG/1 ML INJ IV PRN (13:10)
--- NOTE | 2019-09-25 14:58 | Progress Note ---
Assessment and Plan - Patient Problems (1) Acute on chronic renal failure Current Visit: Yes Status: Acute Qualifiers: Acute renal failure type: with acute tubular necrosis Chronic kidney disease stage: stage 2 (mild) Qualified Code(s): N17.0 - Acute kidney failure with tubular necrosis; N18.2 - Chronic kidney disease, stage 2 (mild) Plan to address problem: Acute on Chronic Renal failure : - baseline creatinine : 1.5 peak creatinine : 2.4mg/dl current creatinine : 2.2mg/dl I reviewed CXR with some congestion. - has worsened edema - Will give Lasix 60mg IV bid (2) CHF (congestive heart failure) Current Visit: Yes Status: Acute Plan to address problem: CHF : I reviewed echo with preserved EF , also noted RV Systolic dysfunction and Mitral regurgitation. continue Diuretics. (3) CVA (cerebral vascular accident) Current Visit: Yes Status: Acute Plan to address problem: Brain MRI with concern for small area of subacute ischemia Neurology following . continue aspirin/statin. (4) HTN (hypertension) Current Visit: Yes Status: Chronic Qualifiers: Hypertension type: essential hypertension Qualified Code(s): I10 - Essential (primary) hypertension Plan to address problem: HTN: controlled continue current medications. Subjective Principal diagnosis: acute CVA, acute on chronic renal failure, and STEMI and pulmonary HTN Interval history: 69 year old with medical history signficant for CHF and weakness of left side concern for CVA , also noted to have hypokalemia and JUNE patient seen today has signficant edema. remains on supplemental oxygen. Objective - Vital Signs Vital signs: Vital Signs - 12hr 09/25/19 09/25/19 09/25/19 08:08 09:04 09:39 Temperature 98.5 F Pulse Rate 59 L 59 L Respiratory 20 Rate Blood Pressure 101/56 101/56 O2 Sat by Pulse 99 99 Oximetry 09/25/19 09/25/19 13:16 13:33 Temperature 98.0 F Pulse Rate 59 L Respiratory 18 Rate Blood Pressure 95/52 90/51 O2 Sat by Pulse 95 Oximetry - General Appearance General appearance: well-developed, well-nourished EENT: ATNC, PERRL Neck: no JVD Respiratory: Present: Clear to Ascultation, Decreased Breath Sounds Cardiology: regular, S1S2 Gastrointestinal: normal, normoactive bowel sounds Integumentary: no rash Neurologic: alert and oriented x3 Musculoskeletal: other (grade 3 edema. ) Psychiatric: mood/affect appropriate - Lab 09/20/19 06:54 09/25/19 05:56 Most recent lab results Calcium 8.7 mg/dL (8.4-10.2) 09/25/19 05:56 Urine Creatinine 46.1 mg/dL (0.1-20.0) H 09/11/19 12:16 Urine Sodium 74 mmol/L 09/11/19 12:16 Urine Total Protein 39 mg/dL (5-11.8) H 09/11/19 12:16 Medications & Allergies - Medications Allergies/Adverse Reactions: Allergies codeine Allergy (Verified 03/21/19 14:24) Unknown morphine Allergy (Verified 03/21/19 14:24) Unknown tramadol Allergy (Verified 03/21/19 18:53) Angioedema amlodipine Adverse Reaction (Verified 03/21/19 14:24) Headache clonidine Adverse Reaction (Verified 03/21/19 14:24) Headache sulfadiazine Adverse Reaction (Verified 03/21/19 14:24) Swelling Home Medications: Home Medications Medication Instructions Recorded Confirmed Last Taken Type Latanoprost [Xalatan] 1 drop OU HS PRN 03/22/19 09/12/19 Unknown History Levothyroxine [Synthroid] 1 tab PO DAILY 03/22/19 09/12/19 Unknown History Potassium Chloride [K-Dur] 1 tab PO DAILY 03/22/19 09/12/19 Unknown History Aspirin [Aspirin BABY CHEW TAB] 81 mg PO QDAY #30 tab.chew 09/23/19 Unknown Rx Cyclobenzaprine [Flexeril 10 MG 5 mg PO Q8H tablet 09/23/19 Unknown Rx TAB] Fluticasone [Flonase] 1 spray IN BID 30 Days bottle 09/23/19 Unknown Rx Furosemide [Lasix TAB] 40 mg PO 0600,1800 tablet 09/23/19 Unknown Rx Isosorbide Dinitrate [Isordil 10 mg PO TID #90 09/23/19 Unknown Rx Titradose] Latanoprost 0.005% 1 drops OU HS PRN 30 Days bottle 09/23/19 Unknown Rx Levothyroxine [Synthroid] 100 mcg PO 0600 tablet 09/23/19 Unknown Rx Pantoprazole [Protonix TAB] 40 mg PO BID #60 09/23/19 Unknown Rx Polyethylene Glycol 3350 [Miralax 17 gm PO BID PRN powd.pack 09/23/19 Unknown Rx 3350] Pravastatin [Pravachol] 1 tab PO DAILY #30 09/23/19 Unknown Rx Rivaroxaban [Xarelto] 15 mg PO DAILY #30 tablet 09/23/19 Unknown Rx Rivaroxaban [Xarelto] 15 mg PO DAILY@1700 tablet 09/23/19 Unknown Rx hydrALAZINE [Apresoline TAB] 50 mg PO TID #90 tab 09/23/19 Unknown Rx oxyCODONE /ACETAMINOPHEN [Percocet 1 tab PO Q6H PRN #12 tablet 09/23/19 Unknown Rx 5/325 mg] Active Medications: Generic Name Dose Route Start Last Admin Trade Name Freq PRN Reason Stop Dose Admin Acetaminophen 500 mg 09/20/19 16:00 09/25/19 09:44 Tylenol PO 500 mg Q8H ROSALBA Administration Cyclobenzaprine HCl 5 mg 09/20/19 16:00 09/25/19 09:40 Flexeril PO 5 mg Q8H ROSALBA Administration Fluticasone Propionate 50 mcg 09/13/19 13:00 09/25/19 09:42 Flonase NS 50 mcg BID ROSALBA Administration Furosemide 60 mg 09/25/19 06:00 09/25/19 06:12 Lasix IV 60 mg 0600,1800 ROSALBA Administration Hydralazine HCl 50 mg 09/13/19 14:00 09/25/19 13:16 Apresoline PO Not Given TID ROSALBA Hydromorphone HCl 1 mg 09/21/19 13:56 09/25/19 13:10 Dilaudid IV 1 mg Q3H PRN Administration Pain , Severe (7-10) Isosorbide Dinitrate 10 mg 09/13/19 14:00 09/25/19 13:16 Isordil Titradose PO Not Given TID ROSALBA Latanoprost 1 drops 09/24/19 22:00 09/24/19 23:02 Latanoprost 0.005% OU 1 drops HS ROSALBA Administration Levothyroxine Sodium 100 mcg 09/14/19 09:00 09/25/19 06:11 Synthroid PO 100 mcg 0600 ROSALBA Administration Lidocaine 1 each 09/23/19 20:00 09/25/19 09:41 Lidoderm 5% TD 1 each QDAY ROSALBA Administration Oxycodone/Acetaminophen 1 tab 09/13/19 13:39 09/25/19 12:00 Percocet 5/325 PO 1 tab Q6H PRN Administration Pain, Moderate (4-6) Pantoprazole Sodium 40 mg 09/13/19 22:00 09/25/19 09:39 Protonix PO 40 mg BID ROSALBA Administration Polyethylene Glycol 17 gm 09/16/19 14:15 Miralax 3350 PO BID PRN Constipation Pravastatin Sodium 80 mg 09/14/19 10:00 09/25/19 09:39 Pravachol PO 80 mg DAILY ROSALBA Administration Rivaroxaban 15 mg 09/15/19 17:00 09/24/19 17:25 Xarelto PO 15 mg DAILY@1700 ROSALBA Administration
[2019-09-25] MEDS: RIVAROXABAN 15 MG TAB PO SCH (18:09)
[2019-09-25] MEDS: LATANOPROST 0.005% OPHTH SOLN 2.5 ML OU SCH (23:19)
[2019-09-26 05:23] LABS: Calcium 8.7 mg/dL (8.4-10.2)
[2019-09-26] MEDS: FUROSEMIDE 20 MG/2 ML INJ IV SCH ×2 (05:27→17:09)
[2019-09-26] MEDS: LEVOTHYROXINE 100 MCG TAB PO SCH (05:28)
--- NOTE | 2019-09-26 08:17 | Progress Note ---
Subjective Principal diagnosis: acute CVA, acute on chronic renal failure, and STEMI and pulmonary HTN Interval history: Patient was seen today for follow-up on multiple renal related issues Events of this hospitalization were noted/she is a very poor historian admitted with acute on chronic renal failure Interdisciplinary notes were also reviewed Vitals intake output medications were reviewed Past medical history: Reviewed Family, social history: Reviewed Allergies: Reviewed Physical examination General: No acute distress Vitals: Reviewed HEENT: Oral mucosa moist no icterus Neck: Supple no thyromegaly nodular mass or JVD Chest: very few faint bilateral basilar crackles Heart: Regular rate and rhythm S1-S2 heard no S3-S4 Abdomen: Soft nontender no suprapubic masses no organomegaly Extremity: Dry skin less than 1+ edema Psych: No evidence of any agitation and aggression noted Derm: No petechial rash Assessment and plan: Acute kidney injury with underlying chronic kidney disease, patient's baseline creatinine is around 1.5, continue to monitor renal function as needed Lasix at this time due to pulmonary vascular congestion and history of congestive heart failure Intake and output has not been monitored very well and needs to be done, Hypokalemia to monitor and follow blood pressure was low normal yesterday with mild bradycardia to follow August 2019 immunofixation normal Progressive worsening of creatinine from 1.8-2.4 today and consider holding diuretics Renal ultrasonogram: Shows no acute abnormalities, Please consider obtaining chest x-ray before we give any further diuretic Blood pressure relatively stable today Prior history of CVA hypertension: Patient may have renovascular hypertension is well Multiple other underlying comorbidities including acute CVA, acute on chronic renal failure, ST elevation myocardial infarction with hypertension All renal related issues were discussed with the patient, patient does exhibit good understanding, lab results were also discussed with patient in simple [place] Citizen Prognosis: Guarded We'll continue to follow and make recommendation from renal standpoint Objective - Vital Signs Vital signs: Vital Signs - 12hr 09/25/19 09/25/19 09/25/19 22:00 23:17 23:18 Temperature Pulse Rate 58 L Pulse Rate [ 58 L From Monitor] Respiratory 18 Rate Blood Pressure 115/61 115/61 Blood Pressure [Left] O2 Sat by Pulse Oximetry 09/25/19 09/26/19 09/26/19 23:58 02:37 05:20 Temperature 98.0 F Pulse Rate 79 57 L Pulse Rate [ From Monitor] Respiratory 18 Rate Blood Pressure Blood Pressure 114/67 122/71 [Left] O2 Sat by Pulse 95 98 Oximetry 09/26/19 07:32 Temperature 98.5 F Pulse Rate 55 L Pulse Rate [ From Monitor] Respiratory 20 Rate Blood Pressure 121/67 Blood Pressure [Left] O2 Sat by Pulse 99 Oximetry - Lab 09/20/19 06:54 09/26/19 04:32 Most recent lab results Calcium 8.7 mg/dL (8.4-10.2) 09/26/19 04:32 Urine Creatinine 46.1 mg/dL (0.1-20.0) H 09/11/19 12:16 Urine Sodium 74 mmol/L 09/11/19 12:16 Urine Total Protein 39 mg/dL (5-11.8) H 09/11/19 12:16 Medications & Allergies - Medications Allergies/Adverse Reactions: Allergies codeine Allergy (Verified 03/21/19 14:24) Unknown morphine Allergy (Verified 03/21/19 14:24) Unknown tramadol Allergy (Verified 03/21/19 18:53) Angioedema amlodipine Adverse Reaction (Verified 03/21/19 14:24) Headache clonidine Adverse Reaction (Verified 03/21/19 14:24) Headache sulfadiazine Adverse Reaction (Verified 03/21/19 14:24) Swelling Home Medications: Home Medications Medication Instructions Recorded Confirmed Last Taken Type Latanoprost [Xalatan] 1 drop OU HS PRN 03/22/19 09/12/19 Unknown History Levothyroxine [Synthroid] 1 tab PO DAILY 03/22/19 09/12/19 Unknown History Potassium Chloride [K-Dur] 1 tab PO DAILY 03/22/19 09/12/19 Unknown History Aspirin [Aspirin BABY CHEW TAB] 81 mg PO QDAY #30 tab.chew 09/23/19 Unknown Rx Cyclobenzaprine [Flexeril 10 MG 5 mg PO Q8H tablet 09/23/19 Unknown Rx TAB] Fluticasone [Flonase] 1 spray IN BID 30 Days bottle 09/23/19 Unknown Rx Furosemide [Lasix TAB] 40 mg PO 0600,1800 tablet 09/23/19 Unknown Rx Isosorbide Dinitrate [Isordil 10 mg PO TID #90 09/23/19 Unknown Rx Titradose] Latanoprost 0.005% 1 drops OU HS PRN 30 Days bottle 09/23/19 Unknown Rx Levothyroxine [Synthroid] 100 mcg PO 0600 tablet 09/23/19 Unknown Rx Pantoprazole [Protonix TAB] 40 mg PO BID #60 09/23/19 Unknown Rx Polyethylene Glycol 3350 [Miralax 17 gm PO BID PRN powd.pack 09/23/19 Unknown Rx 3350] Pravastatin [Pravachol] 1 tab PO DAILY #30 09/23/19 Unknown Rx Rivaroxaban [Xarelto] 15 mg PO DAILY #30 tablet 09/23/19 Unknown Rx Rivaroxaban [Xarelto] 15 mg PO DAILY@1700 tablet 09/23/19 Unknown Rx hydrALAZINE [Apresoline TAB] 50 mg PO TID #90 tab 09/23/19 Unknown Rx oxyCODONE /ACETAMINOPHEN [Percocet 1 tab PO Q6H PRN #12 tablet 09/23/19 Unknown Rx 5/325 mg] Active Medications: Generic Name Dose Route Start Last Admin Trade Name Freq PRN Reason Stop Dose Admin Acetaminophen 500 mg 09/20/19 16:00 09/25/19 23:19 Tylenol PO 500 mg Q8H ROSALBA Administration Cyclobenzaprine HCl 5 mg 09/20/19 16:00 09/25/19 23:18 Flexeril PO 5 mg Q8H ROSALBA Administration Fluticasone Propionate 50 mcg 09/13/19 13:00 09/25/19 23:17 Flonase NS 50 mcg BID ROSALBA Administration Furosemide 60 mg 09/25/19 06:00 09/26/19 05:27 Lasix IV 60 mg 0600,1800 ROSALAB Administration Hydralazine HCl 50 mg 09/13/19 14:00 09/25/19 23:19 Apresoline PO Not Given TID ROSALBA Hydromorphone HCl 1 mg 09/21/19 13:56 09/25/19 13:10 Dilaudid IV 1 mg Q3H PRN Administration Pain , Severe (7-10) Isosorbide Dinitrate 10 mg 09/13/19 14:00 09/25/19 23:18 Isordil Titradose PO 10 mg TID ROSALBA Administration Latanoprost 1 drops 09/24/19 22:00 09/25/19 23:19 Latanoprost 0.005% OU 1 drops HS ROSALBA Administration Levothyroxine Sodium 100 mcg 09/14/19 09:00 09/26/19 05:28 Synthroid PO 100 mcg 0600 ROSALBA Administration Lidocaine 1 each 09/23/19 20:00 09/25/19 09:41 Lidoderm 5% TD 1 each QDAY ROSALBA Administration Oxycodone/Acetaminophen 1 tab 09/13/19 13:39 09/25/19 12:00 Percocet 5/325 PO 1 tab Q6H PRN Administration Pain, Moderate (4-6) Pantoprazole Sodium 40 mg 09/13/19 22:00 09/25/19 23:19 Protonix PO 40 mg BID ROSALBA Administration Polyethylene Glycol 17 gm 09/16/19 14:15 Miralax 3350 PO BID PRN Constipation Pravastatin Sodium 80 mg 09/14/19 10:00 09/25/19 09:39 Pravachol PO 80 mg DAILY ROSALBA Administration Rivaroxaban 15 mg 09/15/19 17:00 09/25/19 18:09 Xarelto PO 15 mg DAILY@1700 ROSALBA Administration
[2019-09-26] MEDS: ACETAMINOPHEN 500 MG TAB PO SCH ×2 (08:36→17:09)
[2019-09-26] MEDS: CYCLOBENZAPRINE 10 MG TAB PO SCH ×2 (08:37→17:08)
[2019-09-26] MEDS: hydrALAZINE 100 MG TAB PO SCH ×3 (08:37→22:17)
[2019-09-26] MEDS: ISOSORBIDE DINITRATE 10 MG TAB PO SCH ×3 (08:38→22:17)
[2019-09-26] MEDS: PANTOPRAZOLE 40 MG TAB PO SCH ×2 (09:09→22:17)
[2019-09-26] MEDS: PRAVASTATIN 80 MG TAB PO SCH (09:09)
[2019-09-26] MEDS: LIDOCAINE 5% 1 EACH PATCH TD SCH (09:09)
[2019-09-26] MEDS: FLUTICASONE PROPIONATE NASAL SPRAY 16 GM NS SCH ×2 (09:09→22:21)
--- NOTE | 2019-09-26 10:54 | Progress Note ---
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 Neurology following. Echocardiogram reveals global left ventricle systolic function normal right ventricle moderately dilated. Right ventricular global systolic function is mildly reduced. Septum with abnormal paradoxical motion consistent with right ventricular volume overload. Mitral valve clip. Carotid Doppler negative. 5mm infarct on right Continue Xarelto Oropharyngeal dysphagia. Now resolved. Patient started on Mechnical soft diet Acute renal failure on CKD. - baseline creatinine : 1.5. Nephrology following. NSTEMI Type 2. Elevated troponin. Cardiology following. Hypertension. Continue antihypertensive medications. Hyperlipidemia. Continue statins. Paroxysmal atrial fibrillation. Now on Xarelto Rhabdomyolysis. Resolved Hyperkalemia. Resolved. Pulmonary hypertension. Medically stable for discharge. Awaiting placement at SNF History Interval history: No new issues overnight. Hospitalist Physical - Constitutional Vitals: Temp Pulse Resp BP Pulse Ox 98.5 F 55 L 20 121/67 99 09/26/19 07:32 09/26/19 07:32 09/26/19 07:32 09/26/19 07:32 09/26/19 07:32 General appearance: Present: no acute distress, well-nourished - EENT Eyes: Present: PERRL, EOM intact ENT: hearing intact, clear oral mucosa, dentition normal - Neck Neck: Present: supple, normal ROM - Respiratory Respiratory effort: normal Respiratory: bilateral: CTA - Cardiovascular Rhythm: regular Heart Sounds: Present: S1 & S2. Absent: gallop, rub - Extremities Extremities: no ischemia, No edema, Full ROM - Abdominal General gastrointestinal: soft, non-tender, non-distended, normal bowel sounds - Integumentary Integumentary: Present: clear, warm, dry - Neurologic Neurologic: CNII-XII intact, moves all extremities Results - Labs CBC & Chem 7: 09/20/19 06:54 09/26/19 04:32 Labs: Laboratory Last Values WBC 7.2 K/mm3 (4.5-11.0) 09/20/19 06:54 RBC 3.45 M/mm3 (3.65-5.03) L 09/20/19 06:54 Hgb 8.6 gm/dl (10.1-14.3) L 09/20/19 06:54 Hct 27.8 % (30.3-42.9) L 09/20/19 06:54 MCV 81 fl (79-97) 09/20/19 06:54 MCH 25 pg (28-32) L 09/20/19 06:54 MCHC 31 % (30-34) 09/20/19 06:54 RDW 21.3 % (13.2-15.2) H 09/20/19 06:54 Plt Count 264 K/mm3 (140-440) 09/20/19 06:54 Lymph % (Auto) 15.9 % (13.4-35.0) 09/20/19 06:54 [place] % (Auto) 8.0 % (0.0-7.3) H 09/20/19 06:54 Eos % (Auto) 6.0 % (0.0-4.3) H 09/20/19 06:54 Baso % (Auto) 0.6 % (0.0-1.8) 09/20/19 06:54 Lymph # 1.2 K/mm3 (1.2-5.4) 09/20/19 06:54 [place] # 0.6 K/mm3 (0.0-0.8) 09/20/19 06:54 Eos # 0.4 K/mm3 (0.0-0.4) 09/20/19 06:54 Baso # 0.0 K/mm3 (0.0-0.1) 09/20/19 06:54 Seg Neutrophils % 69.5 % (40.0-70.0) 09/20/19 06:54 Seg Neutrophils # 5.0 K/mm3 (1.8-7.7) 09/20/19 06:54 PT 22.1 Sec. (12.2-14.9) H 09/08/19 19:42 INR 1.98 (0.87-1.13) H 09/08/19 19:42 APTT 37.4 Sec. (24.2-36.6) H 09/08/19 19:42 POC ABG pH 7.299 (7.35-7.45) L 09/08/19 20:40 POC ABG pCO2 37.4 (35-45) 09/08/19 20:40 POC ABG pO2 88 (80-105) 09/08/19 20:40 POC ABG HCO3 18.4 (22-26 mml/L) 09/08/19 20:40 POC ABG Total CO2 19 (23-27mmol/L) 09/08/19 20:40 POC ABG O2 Sat 96 09/08/19 20:40 POC ABG Base Excess -8 ((-2) - (+3)mmol/L) 09/08/19 20:40 FiO2 28 % 09/08/19 20:40 Sodium 141 mmol/L (137-145) 09/26/19 04:32 Potassium 4.6 mmol/L (3.6-5.0) 09/26/19 04:32 Chloride 103.0 mmol/L (98-107) 09/26/19 04:32 Carbon Dioxide 26 mmol/L (22-30) 09/26/19 04:32 Anion Gap 17 mmol/L 09/26/19 04:32 BUN 74 mg/dL (7-17) H 09/26/19 04:32 Creatinine 2.4 mg/dL (0.7-1.2) H 09/26/19 04:32 Estimated GFR 24 ml/min 09/26/19 04:32 BUN/Creatinine Ratio 31 % 09/26/19 04:32 Glucose 106 mg/dL (65-100) H 09/26/19 04:32 POC Glucose 94 (70-105) 09/09/19 20:28 Osmolality 322 Mosm/kg 09/11/19 12:44 Uric Acid 12.4 mg/dL (3.5-7.6) H 09/11/19 12:44 Calcium 8.7 mg/dL (8.4-10.2) 09/26/19 04:32 Total Bilirubin 0.60 mg/dL (0.1-1.2) 09/20/19 06:54 AST 40 units/L (5-40) 09/20/19 06:54 ALT 15 units/L (7-56) 09/20/19 06:54 Alkaline Phosphatase 77 units/L (35-129) 09/20/19 06:54 Total Creatine Kinase 155 units/L (30-135) H 09/18/19 05:35 CK-MB (CK-2) 13.9 ng/mL (0.0-4.0) H 09/09/19 04:02 CK-MB (CK-2) Rel Index 0.4 (0-4) 09/09/19 04:02 Troponin T 0.074 ng/mL (0.00-0.029) H D 09/09/19 04:02 NT-Pro-B Natriuret Pep 7270 pg/mL (0-900) H 09/09/19 04:02 Total Protein 6.7 g/dL (6.3-8.2) 09/20/19 06:54 Albumin 3.1 g/dL (3.9-5) L 09/20/19 06:54 Albumin/Globulin Ratio 0.9 % 09/20/19 06:54 Triglycerides 55 mg/dL (2-149) 09/08/19 19:42 Cholesterol 92 mg/dL (50-199) 09/08/19 19:42 LDL Cholesterol Direct 50 mg/dL (50-130) 09/08/19 19:42 HDL Cholesterol 37 mg/dL (40-59) L 09/08/19 19:42 Cholesterol/HDL Ratio 2.48 % 09/08/19 19:42 Urine Color Yellow (Yellow) 09/11/19 12:16 Urine Turbidity Cloudy (Clear) 09/11/19 12:16 Urine pH 5.0 (5.0-7.0) 09/11/19 12:16 Ur Specific [place] 1.009 (1.003-1.030) 09/11/19 12:16 Urine Protein <15 mg/dl mg/dL (Negative) 09/11/19 12:16 Urine Glucose (UA) Neg mg/dL (Negative) 09/11/19 12:16 Urine Ketones Neg mg/dL (Negative) 09/11/19 12:16 Urine Blood Lg (Negative) 09/11/19 12:16 Urine Nitrite Neg (Negative) 09/11/19 12:16 Ur Reducing Substances Not Reportable 09/11/19 12:16 Urine Bilirubin Neg (Negative) 09/11/19 12:16 Urine Ictotest Not Reportable 09/11/19 12:16 Urine Urobilinogen < 2.0 mg/dL (<2.0) 09/11/19 12:16 Ur Leukocyte Esterase Lg (Negative) 09/11/19 12:16 Urine WBC (Auto) > 182.0 /HPF (0.0-6.0) H 09/11/19 12:16 Urine RBC (Auto) > 182.0 /HPF (0.0-6.0) 09/11/19 12:16 U Epithel Cells (Auto) 2.0 /HPF (0-13.0) 09/11/19 12:16 Urine Bacteria (Auto) 4+ /HPF (Negative) 09/11/19 12:16 Urine WBC Clumps 3+ /HPF 09/11/19 12:16 Hyaline Casts Not Reportable 09/11/19 12:16 Urine Mucus Few /HPF 09/11/19 12:16 Urine Yeast (Budding) Reference And Instruction Librarian 09/11/19 12:16 Urine Creatinine 46.1 mg/dL (0.1-20.0) H 09/11/19 12:16 Urine Sodium 74 mmol/L 09/11/19 12:16 Urine Total Protein 39 mg/dL (5-11.8) H 09/11/19 12:16 Salicylates < 0.3 mg/dL (2.8-20.0) L 09/08/19 19:42 Acetaminophen 6.6 ug/mL (10.0-30.0) L 09/08/19 23:21 Plasma/Serum Alcohol < 0.01 % (0-0.07) 09/08/19 19:42 Immunofix Electrophor see below 09/11/19 12:44 Active Medications - Current Medications Current Medications: Generic Name Dose Route Start Last Admin Trade Name Freq PRN Reason Stop Dose Admin Acetaminophen 500 mg 09/20/19 16:00 09/26/19 08:36 Tylenol PO 500 mg Q8H ROSALBA Administration Cyclobenzaprine HCl 5 mg 09/20/19 16:00 09/26/19 08:37 Flexeril PO 5 mg Q8H ROSALBA Administration Fluticasone Propionate 50 mcg 09/13/19 13:00 09/26/19 09:09 Flonase NS 50 mcg BID ROSALBA Administration Furosemide 60 mg 09/25/19 06:00 09/26/19 05:27 Lasix IV 60 mg 0600,1800 ROSALBA Administration Hydralazine HCl 50 mg 09/13/19 14:00 09/26/19 08:37 Apresoline PO 50 mg TID ROSALBA Administration Hydromorphone HCl 1 mg 09/21/19 13:56 09/25/19 13:10 Dilaudid IV 1 mg Q3H PRN Administration Pain , Severe (7-10) Isosorbide Dinitrate 10 mg 09/13/19 14:00 09/26/19 08:38 Isordil Titradose PO 10 mg TID ROSALBA Administration Latanoprost 1 drops 09/24/19 22:00 09/25/19 23:19 Latanoprost 0.005% OU 1 drops HS ROSALBA Administration Levothyroxine Sodium 100 mcg 09/14/19 09:00 09/26/19 05:28 Synthroid PO 100 mcg 0600 ROSALBA Administration Lidocaine 1 each 09/23/19 20:00 09/26/19 09:09 Lidoderm 5% TD 1 each QDAY ROSALBA Administration Oxycodone/Acetaminophen 1 tab 09/13/19 13:39 09/25/19 12:00 Percocet 5/325 PO 1 tab Q6H PRN Administration Pain, Moderate (4-6) Pantoprazole Sodium 40 mg 09/13/19 22:00 09/26/19 09:09 Protonix PO 40 mg BID ROSALBA Administration Polyethylene Glycol 17 gm 09/16/19 14:15 Miralax 3350 PO BID PRN Constipation Pravastatin Sodium 80 mg 09/14/19 10:00 09/26/19 09:09 Pravachol PO 80 mg DAILY ROSALBA Administration Rivaroxaban 15 mg 09/15/19 17:00 09/25/19 18:09 Xarelto PO 15 mg DAILY@1700 ROSALBA Administration Nutrition/Malnutrition Assess - Dietary Evaluation Nutrition/Malnutrition Findings: Nutrition Notes Start: 09/09/19 13:13 Freq: Status: Active Protocol: Document 09/14/19 14:18 CC (Rec: 09/14/19 14:38 CC [email or web address]) Co-Sign 09/14/19 14:18 LP Nutrition Notes Initial or Follow up Assessment Current Diagnosis CKD(stage I-IV),Hypertension, Heart Failure,Stroke, Hyperlipidemia Other Pertinent Diagnosis TIA,Dysphagia Current Diet [facility] soft Labs/Tests BUN 62, creat 2.1 Pertinent Medications Lasix Height 5 ft 8 in Weight 128.4 kg [place] Body Weight (kg) 63.63 BMI 43.0 Intake Prior to Admission Good Weight Status Morbidly Obese Subjective/Other Information F/U for full assesment. 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 Pt reported she has had no unitentional wt loss. Pt reported her appetite has been good since arrival Percent of energy/protein needs met: 100% energy/ 100% protein Burn Absent Trauma Absent GI Symptoms None Difficulty In Swallowing Current % PO Good (75-100%) Minimum of two criteria No #1 Nutrition Diagnosis No nutrition diagnosis at this time Is patient on ventilator? No Is Patient Ambulatory and/or Out of Bed No REE-([facility]-confined to bed) 2228.184 Kcal/Kg value to use for calculation 13 Approximate Energy Requirements Using 1669 kcal/Kg Calculation Used for Recommendations Kcal/kg Additional Notes PRO: 58-77g/day (0.6-0.8g/kg adBW 96kg) Fluid:1ml/kcal Nutrition Intervention Anticipated Discharge Needs: mechanical soft diet Revisit per MD consult or patient Sign Off request:
[2019-09-26] MEDS: RIVAROXABAN 15 MG TAB PO SCH (17:34)
[2019-09-26] MEDS: oxyCODONE /ACETAMINOPHEN 5-325MG TAB PO PRN (22:16)
[2019-09-27] MEDS: CYCLOBENZAPRINE 10 MG TAB PO SCH ×3 (00:17→16:58)
[2019-09-27] MEDS: ACETAMINOPHEN 500 MG TAB PO SCH ×3 (00:18→16:58)
[2019-09-27] MEDS: LATANOPROST 0.005% OPHTH SOLN 2.5 ML OU SCH (00:27)
[2019-09-27] MEDS: FUROSEMIDE 20 MG/2 ML INJ IV SCH ×2 (05:41→17:27)
[2019-09-27] MEDS: LEVOTHYROXINE 100 MCG TAB PO SCH (05:42)
[2019-09-27] MEDS: oxyCODONE /ACETAMINOPHEN 5-325MG TAB PO PRN (05:42)
[2019-09-27] MEDS: ISOSORBIDE DINITRATE 10 MG TAB PO SCH ×2 (07:52→13:44)
[2019-09-27] MEDS: hydrALAZINE 100 MG TAB PO SCH (07:52)
[2019-09-27] MEDS ORDERED: hydrALAZINE 100 MG TAB PO SCH (08:26)
--- NOTE | 2019-09-27 08:27 | Progress Note ---
Subjective Principal diagnosis: acute CVA, acute on chronic renal failure, and STEMI and pulmonary HTN Interval history: Patient was seen today for follow-up on multiple renal related issues Creatinine is better today Interdisciplinary notes were also reviewed Vitals intake output medications were reviewed Past medical history: Reviewed Family, social history: Reviewed Allergies: Reviewed Physical examination General: No acute distress Vitals: Reviewed HEENT: Oral mucosa moist no icterus Neck: Supple no thyromegaly nodular mass or JVD Chest: very few faint bilateral basilar crackles Heart: Regular rate and rhythm S1-S2 heard no S3-S4 Abdomen: Soft nontender no suprapubic masses no organomegaly Extremity: Dry skin less than 1+ edema Psych: No evidence of any agitation and aggression noted Derm: No petechial rash Assessment and plan: Creatinine currently 2.1 potassium 4.5 bicarbonate satisfactory at 26, currently on Bumex Reduce hydralazine to stabilize blood pressure Baseline creatinine is close to 1.8 creatinine peaked at 2.4 yesterday Anemia, current hemoglobin is around 8.6 as of 09/20 Patient may benefit from moderate erythropoietin therapy Needs follow-up on hemoglobin and hematocrit, immunofixation was normal General need workup for anemia Hypokalemia: Better Renal ultrasonogram: Shows no acute abnormalities, Please consider obtaining chest x-ray before we give any further diuretic Blood pressure relatively stable today Prior history of CVA hypertension: Patient may have renovascular hypertension is well Multiple other underlying comorbidities including acute CVA, acute on chronic renal failure, ST elevation myocardial infarction with hypertension All renal related issues were discussed with the patient, patient does exhibit good understanding, lab results were also discussed with patient in simple [place] Prognosis: Guarded We'll continue to follow and make recommendation from renal standpoint Objective - Vital Signs Vital signs: Vital Signs - 12hr 09/26/19 09/26/19 09/26/19 22:00 22:16 22:17 Temperature Pulse Rate 64 Respiratory 20 Rate Respiratory 20 Rate [Back] Respiratory 20 Rate [Neck] Blood Pressure 135/79 O2 Sat by Pulse 96 Oximetry 09/26/19 09/27/19 09/27/19 23:16 00:18 01:18 Temperature Pulse Rate Respiratory 20 20 20 Rate Respiratory Rate [Back] Respiratory Rate [Neck] Blood Pressure O2 Sat by Pulse Oximetry 09/27/19 09/27/19 09/27/19 01:50 05:42 06:42 Temperature 98.7 F Pulse Rate 58 L Respiratory 20 20 20 Rate Respiratory Rate [Back] Respiratory Rate [Neck] Blood Pressure 110/64 O2 Sat by Pulse 96 Oximetry 09/27/19 09/27/19 07:14 07:52 Temperature 98.0 F Pulse Rate 60 60 Respiratory 20 Rate Respiratory Rate [Back] Respiratory Rate [Neck] Blood Pressure 110/64 110/64 O2 Sat by Pulse 95 Oximetry - Lab 09/20/19 06:54 09/27/19 04:32 Most recent lab results Calcium 9.0 mg/dL (8.4-10.2) 09/27/19 04:32 Urine Creatinine 46.1 mg/dL (0.1-20.0) H 09/11/19 12:16 Urine Sodium 74 mmol/L 09/11/19 12:16 Urine Total Protein 39 mg/dL (5-11.8) H 09/11/19 12:16 Medications & Allergies - Medications Allergies/Adverse Reactions: Allergies codeine Allergy (Verified 03/21/19 14:24) Unknown morphine Allergy (Verified 03/21/19 14:24) Unknown tramadol Allergy (Verified 03/21/19 18:53) Angioedema amlodipine Adverse Reaction (Verified 03/21/19 14:24) Headache clonidine Adverse Reaction (Verified 03/21/19 14:24) Headache sulfadiazine Adverse Reaction (Verified 03/21/19 14:24) Swelling Home Medications: Home Medications Medication Instructions Recorded Confirmed Last Taken Type Latanoprost [Xalatan] 1 drop OU HS PRN 03/22/19 09/12/19 Unknown History Levothyroxine [Synthroid] 1 tab PO DAILY 03/22/19 09/12/19 Unknown History Potassium Chloride [K-Dur] 1 tab PO DAILY 03/22/19 09/12/19 Unknown History Aspirin [Aspirin BABY CHEW TAB] 81 mg PO QDAY #30 tab.chew 09/23/19 Unknown Rx Cyclobenzaprine [Flexeril 10 MG 5 mg PO Q8H tablet 09/23/19 Unknown Rx TAB] Fluticasone [Flonase] 1 spray IN BID 30 Days bottle 09/23/19 Unknown Rx Furosemide [Lasix TAB] 40 mg PO 0600,1800 tablet 09/23/19 Unknown Rx Isosorbide Dinitrate [Isordil 10 mg PO TID #90 09/23/19 Unknown Rx Titradose] Latanoprost 0.005% 1 drops OU HS PRN 30 Days bottle 09/23/19 Unknown Rx Levothyroxine [Synthroid] 100 mcg PO 0600 tablet 09/23/19 Unknown Rx Pantoprazole [Protonix TAB] 40 mg PO BID #60 09/23/19 Unknown Rx Polyethylene Glycol 3350 [Miralax 17 gm PO BID PRN powd.pack 09/23/19 Unknown Rx 3350] Pravastatin [Pravachol] 1 tab PO DAILY #30 09/23/19 Unknown Rx Rivaroxaban [Xarelto] 15 mg PO DAILY #30 tablet 09/23/19 Unknown Rx Rivaroxaban [Xarelto] 15 mg PO DAILY@1700 tablet 09/23/19 Unknown Rx hydrALAZINE [Apresoline TAB] 50 mg PO TID #90 tab 09/23/19 Unknown Rx oxyCODONE /ACETAMINOPHEN [Percocet 1 tab PO Q6H PRN #12 tablet 09/23/19 Unknown Rx 5/325 mg] Active Medications: Generic Name Dose Route Start Last Admin Trade Name Freq PRN Reason Stop Dose Admin Acetaminophen 500 mg 09/20/19 16:00 09/27/19 07:51 Tylenol PO 500 mg Q8H ROSALBA Administration Cyclobenzaprine HCl 5 mg 09/20/19 16:00 09/27/19 07:51 Flexeril PO 5 mg Q8H ROSALBA Administration Fluticasone Propionate 50 mcg 09/13/19 13:00 09/26/19 22:21 Flonase NS 50 mcg BID ROSALBA Administration Furosemide 60 mg 09/25/19 06:00 09/27/19 05:41 Lasix IV 60 mg 0600,1800 ROSALBA Administration Hydralazine HCl 50 mg 09/13/19 14:00 09/27/19 07:52 Apresoline PO Not Given TID ROSALBA Hydromorphone HCl 1 mg 09/21/19 13:56 09/25/19 13:10 Dilaudid IV 1 mg Q3H PRN Administration Pain , Severe (7-10) Isosorbide Dinitrate 10 mg 09/13/19 14:00 09/27/19 07:52 Isordil Titradose PO 10 mg TID ROSALBA Administration Latanoprost 1 drops 09/24/19 22:00 09/27/19 00:27 Latanoprost 0.005% OU 1 drops HS ROSALBA Administration Levothyroxine Sodium 100 mcg 09/14/19 09:00 09/27/19 05:42 Synthroid PO 100 mcg 0600 ROSALBA Administration Lidocaine 1 each 09/23/19 20:00 09/26/19 09:09 Lidoderm 5% TD 1 each QDAY ROSALBA Administration Oxycodone/Acetaminophen 1 tab 09/13/19 13:39 09/27/19 05:42 Percocet 5/325 PO 1 tab Q6H PRN Administration Pain, Moderate (4-6) Pantoprazole Sodium 40 mg 09/13/19 22:00 09/26/19 22:17 Protonix PO 40 mg BID ROSALBA Administration Polyethylene Glycol 17 gm 09/16/19 14:15 Miralax 3350 PO BID PRN Constipation Pravastatin Sodium 80 mg 09/14/19 10:00 09/26/19 09:09 Pravachol PO 80 mg DAILY ROSALBA Administration Rivaroxaban 15 mg 09/15/19 17:00 09/26/19 17:34 Xarelto PO 15 mg DAILY@1700 ROSALBA Administration
[2019-09-27 09:26] LABS: Basophils # (Auto) 0.1 K/mm3 (0.0-0.1); Basophils % (Auto) 1.3 % (0.0-1.8); Eosinophils # (Auto) 0.3 K/mm3 (0.0-0.4); Eosinophils % (Auto) 5.7 % (0.0-4.3); Hematocrit 26.6 % (30.3-42.9); Hemoglobin 8.4 gm/dl (10.1-14.3); Lymphocytes # (Auto) 1.1 K/mm3 (1.2-5.4); Lymphocytes % (Auto) 17.9 % (13.4-35.0); Mean Corpuscular HGB Conc 32 % (30-34); Mean Corpuscular Volume 79 fl (79-97); Monocytes # (Auto) 0.5 K/mm3 (0.0-0.8); Platelet Count 410 K/mm3 (140-440); Red Blood Count 3.39 M/mm3 (3.65-5.03)
[2019-09-27] MEDS: PANTOPRAZOLE 40 MG TAB PO SCH (09:38)
[2019-09-27] MEDS: LIDOCAINE 5% 1 EACH PATCH TD SCH (09:38)
[2019-09-27] MEDS: PRAVASTATIN 80 MG TAB PO SCH (09:38)
[2019-09-27] MEDS: FLUTICASONE PROPIONATE NASAL SPRAY 16 GM NS SCH (09:38)
[2019-09-27] MEDS: hydrALAZINE 25 MG TAB PO SCH ×2 (09:40→13:44)
[2019-09-27 09:42] LABS: Red Cell Distribution Width 20.6 % (13.2-15.2)
[2019-09-27 09:54] LABS: Iron 17 ug/dL (37-170); Total Iron Binding Capacity 239 mcg/dL (250-450)
--- NOTE | 2019-09-27 10:48 | Progress Note ---
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 Neurology following. Echocardiogram reveals global left ventricle systolic function normal right ventricle moderately dilated. Right ventricular global systolic function is mildly reduced. Septum with abnormal paradoxical motion consistent with right ventricular volume overload. Mitral valve clip. Carotid Doppler negative. 5mm infarct on right Continue Xarelto Oropharyngeal dysphagia. Now resolved. Patient started on Mechnical soft diet Acute renal failure on CKD. - baseline creatinine : 1.5. Nephrology following. NSTEMI Type 2. Elevated troponin. Cardiology following. Hypertension. Continue antihypertensive medications. Hyperlipidemia. Continue statins. Paroxysmal atrial fibrillation. Now on Xarelto Rhabdomyolysis. Resolved Hyperkalemia. Resolved. Pulmonary hypertension. Medically stable for discharge. Awaiting placement at [facility] Hospitalist Physical - Constitutional Vitals: Temp Pulse Resp BP Pulse Ox 98.0 F 58 L 20 88/42 95 09/27/19 07:14 09/27/19 09:40 09/27/19 07:14 09/27/19 09:40 09/27/19 07:14 General appearance: Present: no acute distress, well-nourished Results - Labs CBC & Chem 7: 09/27/19 08:49 09/27/19 04:32 Labs: Laboratory Last Values WBC 5.9 K/mm3 (4.5-11.0) 09/27/19 08:49 RBC 3.39 M/mm3 (3.65-5.03) L 09/27/19 08:49 Hgb 8.4 gm/dl (10.1-14.3) L 09/27/19 08:49 Hct 26.6 % (30.3-42.9) L 09/27/19 08:49 MCV 79 fl (79-97) 09/27/19 08:49 MCH 25 pg (28-32) L 09/27/19 08:49 MCHC 32 % (30-34) 09/27/19 08:49 RDW 20.6 % (13.2-15.2) H 09/27/19 08:49 Plt Count 410 K/mm3 (140-440) 09/27/19 08:49 Lymph % (Auto) 17.9 % (13.4-35.0) 09/27/19 08:49 Banks % (Auto) 8.0 % (0.0-7.3) H 09/27/19 08:49 Eos % (Auto) 5.7 % (0.0-4.3) H 09/27/19 08:49 Baso % (Auto) 1.3 % (0.0-1.8) 09/27/19 08:49 Lymph # 1.1 K/mm3 (1.2-5.4) L 09/27/19 08:49 Banks # 0.5 K/mm3 (0.0-0.8) 09/27/19 08:49 Eos # 0.3 K/mm3 (0.0-0.4) 09/27/19 08:49 Baso # 0.1 K/mm3 (0.0-0.1) 09/27/19 08:49 Seg Neutrophils % 67.1 % (40.0-70.0) 09/27/19 08:49 Seg Neutrophils # 3.9 K/mm3 (1.8-7.7) 09/27/19 08:49 Percent Retic 1.60 % (0.78-2.58) 09/27/19 08:49 PT 22.1 Sec. (12.2-14.9) H 09/08/19 19:42 INR 1.98 (0.87-1.13) H 09/08/19 19:42 APTT 37.4 Sec. (24.2-36.6) H 09/08/19 19:42 POC ABG pH 7.299 (7.35-7.45) L 09/08/19 20:40 POC ABG pCO2 37.4 (35-45) 09/08/19 20:40 POC ABG pO2 88 (80-105) 09/08/19 20:40 POC ABG HCO3 18.4 (22-26 mml/L) 09/08/19 20:40 POC ABG Total CO2 19 (23-27mmol/L) 09/08/19 20:40 POC ABG O2 Sat 96 09/08/19 20:40 POC ABG Base Excess -8 ((-2) - (+3)mmol/L) 09/08/19 20:40 FiO2 28 % 09/08/19 20:40 Sodium 142 mmol/L (137-145) 09/27/19 04:32 Potassium 4.5 mmol/L (3.6-5.0) 09/27/19 04:32 Chloride 103.6 mmol/L (98-107) 09/27/19 04:32 Carbon Dioxide 26 mmol/L (22-30) 09/27/19 04:32 Anion Gap 17 mmol/L 09/27/19 04:32 BUN 73 mg/dL (7-17) H 09/27/19 04:32 Creatinine 2.1 mg/dL (0.7-1.2) H 09/27/19 04:32 Estimated GFR 28 ml/min 09/27/19 04:32 BUN/Creatinine Ratio 35 % 09/27/19 04:32 Glucose 99 mg/dL (65-100) 09/27/19 04:32 POC Glucose 94 (70-105) 09/09/19 20:28 Osmolality 322 Mosm/kg 09/11/19 12:44 Uric Acid 12.4 mg/dL (3.5-7.6) H 09/11/19 12:44 Calcium 9.0 mg/dL (8.4-10.2) 09/27/19 04:32 Iron 17 ug/dL (37-170) L 09/27/19 08:49 TIBC 239 mcg/dL (250-450) L 09/27/19 08:49 Ferritin 49.0 ng/mL (13.0-400.0) 09/27/19 08:49 Total Bilirubin 0.60 mg/dL (0.1-1.2) 09/20/19 06:54 AST 40 units/L (5-40) 09/20/19 06:54 ALT 15 units/L (7-56) 09/20/19 06:54 Alkaline Phosphatase 77 units/L (35-129) 09/20/19 06:54 Total Creatine Kinase 155 units/L (30-135) H 09/18/19 05:35 CK-MB (CK-2) 13.9 ng/mL (0.0-4.0) H 09/09/19 04:02 CK-MB (CK-2) Rel Index 0.4 (0-4) 09/09/19 04:02 Troponin T 0.074 ng/mL (0.00-0.029) H D 09/09/19 04:02 NT-Pro-B Natriuret Pep 7270 pg/mL (0-900) H 09/09/19 04:02 Total Protein 6.7 g/dL (6.3-8.2) 09/20/19 06:54 Albumin 3.1 g/dL (3.9-5) L 09/20/19 06:54 Albumin/Globulin Ratio 0.9 % 09/20/19 06:54 Triglycerides 55 mg/dL (2-149) 09/08/19 19:42 Cholesterol 92 mg/dL (50-199) 09/08/19 19:42 LDL Cholesterol Direct 50 mg/dL (50-130) 09/08/19 19:42 HDL Cholesterol 37 mg/dL (40-59) L 09/08/19 19:42 Cholesterol/HDL Ratio 2.48 % 09/08/19 19:42 Vitamin B12 790.5 pg/mL (211-911) 09/27/19 08:49 Folate 12.43 ng/mL (7.3-26.0) 09/27/19 08:49 Urine Color Yellow (Yellow) 09/11/19 12:16 Urine Turbidity Cloudy (Clear) 09/11/19 12:16 Urine pH 5.0 (5.0-7.0) 09/11/19 12:16 Ur Specific [place] 1.009 (1.003-1.030) 09/11/19 12:16 Urine Protein <15 mg/dl mg/dL (Negative) 09/11/19 12:16 Urine Glucose (UA) Neg mg/dL (Negative) 09/11/19 12:16 Urine Ketones Neg mg/dL (Negative) 09/11/19 12:16 Urine Blood Lg (Negative) 09/11/19 12:16 Urine Nitrite Neg (Negative) 09/11/19 12:16 Ur Reducing Substances Not Reportable 09/11/19 12:16 Urine Bilirubin Neg (Negative) 09/11/19 12:16 Urine Ictotest Not Reportable 09/11/19 12:16 Urine Urobilinogen < 2.0 mg/dL (<2.0) 09/11/19 12:16 Ur Leukocyte Esterase Lg (Negative) 09/11/19 12:16 Urine WBC (Auto) > 182.0 /HPF (0.0-6.0) H 09/11/19 12:16 Urine RBC (Auto) > 182.0 /HPF (0.0-6.0) 09/11/19 12:16 U Epithel Cells (Auto) 2.0 /HPF (0-13.0) 09/11/19 12:16 Urine Bacteria (Auto) 4+ /HPF (Negative) 09/11/19 12:16 Urine WBC Clumps 3+ /HPF 09/11/19 12:16 Hyaline Casts Not Reportable 09/11/19 12:16 Urine Mucus Few /HPF 09/11/19 12:16 Urine Yeast (Budding) [employer] Supervisor 09/11/19 12:16 Urine Creatinine 46.1 mg/dL (0.1-20.0) H 09/11/19 12:16 Urine Sodium 74 mmol/L 09/11/19 12:16 Urine Total Protein 39 mg/dL (5-11.8) H 09/11/19 12:16 Salicylates < 0.3 mg/dL (2.8-20.0) L 09/08/19 19:42 Acetaminophen 6.6 ug/mL (10.0-30.0) L 09/08/19 23:21 Plasma/Serum Alcohol < 0.01 % (0-0.07) 09/08/19 19:42 Immunofix Electrophor see below 09/11/19 12:44 Active Medications - Current Medications Current Medications: Generic Name Dose Route Start Last Admin Trade Name Freq PRN Reason Stop Dose Admin Acetaminophen 500 mg 09/20/19 16:00 09/27/19 07:51 Tylenol PO 500 mg Q8H ROSALBA Administration Cyclobenzaprine HCl 5 mg 09/20/19 16:00 09/27/19 07:51 Flexeril PO 5 mg Q8H ROSALBA Administration Fluticasone Propionate 50 mcg 09/13/19 13:00 09/27/19 09:38 Flonase NS 50 mcg BID ROSALBA Administration Furosemide 60 mg 09/25/19 06:00 09/27/19 05:41 Lasix IV 60 mg 0600,1800 ROSALBA Administration Hydralazine HCl 25 mg 09/27/19 09:00 09/27/19 09:40 Apresoline PO Not Given TID ROSALBA Hydromorphone HCl 1 mg 09/21/19 13:56 09/25/19 13:10 Dilaudid IV 1 mg Q3H PRN Administration Pain , Severe (7-10) Sodium Chloride 250 mls @ 999 mls/hr 09/27/19 11:00 Nacl 0.9% 250ml IV 09/27/19 11:15 ONCE ONE Isosorbide Dinitrate 10 mg 09/13/19 14:00 09/27/19 07:52 Isordil Titradose PO 10 mg TID ROSALBA Administration Latanoprost 1 drops 09/24/19 22:00 09/27/19 00:27 Latanoprost 0.005% OU 1 drops HS ROSALBA Administration Levothyroxine Sodium 100 mcg 09/14/19 09:00 09/27/19 05:42 Synthroid PO 100 mcg 0600 ROSALBA Administration Lidocaine 1 each 09/23/19 20:00 09/27/19 09:38 Lidoderm 5% TD 1 each QDAY ROSALBA Administration Oxycodone/Acetaminophen 1 tab 09/13/19 13:39 09/27/19 05:42 Percocet 5/325 PO 1 tab Q6H PRN Administration Pain, Moderate (4-6) Pantoprazole Sodium 40 mg 09/13/19 22:00 09/27/19 09:38 Protonix PO 40 mg BID ROSALBA Administration Polyethylene Glycol 17 gm 09/16/19 14:15 Miralax 3350 PO BID PRN Constipation Pravastatin Sodium 80 mg 09/14/19 10:00 09/27/19 09:38 Pravachol PO 80 mg DAILY ROSALBA Administration Rivaroxaban 15 mg 09/15/19 17:00 09/26/19 17:34 Xarelto PO 15 mg DAILY@1700 ROSALBA Administration Nutrition/Malnutrition Assess - Dietary Evaluation Nutrition/Malnutrition Findings: Nutrition Notes Start: 09/09/19 13:13 Freq: Status: Active Protocol: Document 09/14/19 14:18 CC (Rec: 09/14/19 14:38 CC [id number]) Co-Sign 09/14/19 14:18 LP Nutrition Notes Initial or Follow up Assessment Current Diagnosis CKD(stage I-IV),Hypertension, Heart Failure,Stroke, Hyperlipidemia Other Pertinent Diagnosis TIA,Dysphagia Current Diet [facility] soft Labs/Tests BUN 62, creat 2.1 Pertinent Medications Lasix Height 5 ft 8 in Weight 128.4 kg [place] Body Weight (kg) 63.63 BMI 43.0 Intake Prior to Admission Good Weight Status Morbidly Obese Subjective/Other Information F/U for full assesment. Pt reported [employer] her appetite was good. Pt reported she has had no unitentional wt loss. Pt reported her appetite has been good since arrival Percent of energy/protein needs met: 100% energy/ 100% protein Burn Absent Trauma Absent GI Symptoms None Difficulty In Swallowing Current % PO Good (75-100%) Minimum of two criteria No #1 Nutrition Diagnosis No nutrition diagnosis at this time Is patient on ventilator? No Is Patient Ambulatory and/or Out of Bed No REE-([facility]-confined to bed) 2228.184 Kcal/Kg value to use for calculation 13 Approximate Energy Requirements Using 1669 kcal/Kg Calculation Used for Recommendations Kcal/kg Additional Notes PRO: 58-77g/day (0.6-0.8g/kg adBW 96kg) Fluid:1ml/kcal Nutrition Intervention Anticipated Discharge Needs: mechanical soft diet Revisit per MD consult or patient Sign Off request:
[2019-09-27] MEDS ORDERED: SODIUM CHLORIDE 0.9% 250ML 250 ML IV ONE (11:00)
[2019-09-27 13:17] VITALS: BP 133/75
--- NOTE | 2019-09-27 15:30 | Discharge Summary ---
Providers - Providers Date of Admission: 09/08/19 22:02 Date of discharge: 09/27/19 Attending physician: BRAD VILLAGOMEZ 09/08/19 20:54 Consult to Physician [CONS] Stat Comment: Dr. Flowers spoke with Dr. Colon @ 0837 Consulting Provider: GAGAN COLON Physician Instructions: Reason For Exam: hyperkalemia 09/09/19 06:00 Consult to Physician [CONS] Routine Comment: Consulting Provider: LOUIS HARRISON Physician Instructions: Reason For Exam: LEFT SIDED WEAKNESS Physical Therapy Evaluation and Treat [CONS] Routine Comment: Reason For Exam: LEFT SIDED WEAKNESS Speech Therapy Evaluation and Treat [CONS] Routine Reason For Exam: LEFT FACIAL DROOPING 09/14/19 15:48 Consult to Physician [CONS] Routine Comment: Consulting Provider: SERGO MUNOZ Physician Instructions: Reason For Exam: stroke, can Eliquis be resumed? Primary care physician: [employer] Hospitalization Reason for admission: Lt sided weakness Condition: Fair Pertinent studies: CT head MRI Carotid doppler ECHO LE venous doppler Renal US Hospital course: Patient is 69 yo with hypertension, CKD, paroxysmal atrial fibrillation. She presented with left sided weakness. She was seen and evaluated in Emergency Department. CT head was done was unremarkable. She was admitted to rule out stroke. MRI confirmed stroke right brainstem. She was evaluated by Neurology. She was also evaluated by cardiology for elevated Troponin diagnosed with NSTEMI type 2. In addition she has acute on chronic kidney disease, managed by Nephrology. She was on Eliquis for afib prior to admission, but switched to Xarelto by neurology. She is now stable for discharge to SNF Stable at discharge. 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 Neurology following. Echocardiogram reveals global left ventricle systolic function normal right ventricle moderately dilated. Right ventricular global systolic function is mildly reduced. Septum with abnormal paradoxical motion consistent with right ventricular volume overload. Mitral valve clip. Carotid Doppler negative. 5mm infarct on right Continue Xarelto Oropharyngeal dysphagia. Now resolved. Patient started on Mechnical soft diet Acute renal failure on CKD. - baseline creatinine : 1.5. Nephrology following. NSTEMI Type 2. Elevated troponin. Cardiology following. Hypertension. Continue antihypertensive medications. Hyperlipidemia. Continue statins. Paroxysmal atrial fibrillation. Now on Xarelto Rhabdomyolysis. Resolved Hyperkalemia. Resolved. Pulmonary hypertension. Medically stable for discharge to SNF Disposition: DC/[place]-03 SNF [facility] Time spent for discharge: 32 min Core Measure Documentation - Palliative Care Palliative Care/ Comfort Measures: Not Applicable - Core Measures Any of the following diagnoses?: none Exam - Constitutional Vitals: Temp Pulse Resp BP Pulse Ox 98.1 F 61 20 133/75 95 09/27/19 13:03 09/27/19 13:03 09/27/19 13:03 09/27/19 13:03 09/27/19 13:03 General appearance: Present: no acute distress, well-nourished, obese - EENT Eyes: Present: PERRL, EOM intact - Neck Neck: Present: supple, normal ROM - Respiratory Respiratory effort: normal Respiratory: bilateral: diminished, negative: rales, rhonchi, wheezing - Cardiovascular Rhythm: regular Heart Sounds: Present: S1 & S2 - Extremities Extremities: no ischemia, No edema - Abdominal General gastrointestinal: Present: soft, non-tender, non-distended, normal bowel sounds - Integumentary Integumentary: Present: clear, warm - Musculoskeletal Musculoskeletal: generalized weakness - Psychiatric Psychiatric: other (Confused at times) - Neurologic Neurologic: other (Residual weakness) Plan Activity: advance as tolerated, fall precautions Diet: other (Mechanical soft diet advance as tolerated) Special Instructions: physical therapy Follow up with: LOUIS HARRISON MD [Staff Physician] - 7 Days JOHNNY BHAKTA MD [Staff Physician] - 7 Days PRIMARY CARE, [Primary Care Provider] - 3-5 Days VIVI ALBARRAN MD [Staff Physician] - 7 Days Prescriptions: hydrALAZINE [Apresoline TAB] 50 mg PO TID #90 tab Aspirin [Aspirin BABY CHEW TAB] 81 mg PO QDAY #30 tab.chew Fluticasone [Flonase] 1 spray IN BID 30 Days bottle Isosorbide Dinitrate [Isordil Titradose] 10 mg PO TID #90 Latanoprost 0.005% 1 drops OU HS PRN 30 Days bottle PRN Reason: Dry Eye(S) oxyCODONE /ACETAMINOPHEN [Percocet 5/325 mg] 1 tab PO Q6H PRN #12 tablet PRN Reason: Pain, Moderate (4-6) Pravastatin [Pravachol] 1 tab PO DAILY #30 Pantoprazole [Protonix TAB] 40 mg PO BID #60 Rivaroxaban [Xarelto] 15 mg PO DAILY #30 tablet
[2019-09-27] MEDS: RIVAROXABAN 15 MG TAB PO SCH (16:58)
== END 2019-09-27 17:40 | DRG 64 ==
LOC: ED 18:14 → 4A 22:02 → 2B-ACE 09-21 22:25
PROVIDERS: ADMIT Internal Medicine; ATTEND Internal Medicine
PROC: 4A033R1 Measurement of Arterial Saturation, Peripheral, Percutaneous Approach (ICD-10-PCS; principal; 2019-09-08)
DX: I63.9 Cerebral infarction, unspecified (principal); N17.0 Acute kidney failure with tubular necrosis; A41.9 Sepsis, unspecified organism; I50.33 Acute on chronic diastolic (congestive) heart failure; I21.A1 Myocardial infarction type 2; J96.01 Acute respiratory failure with hypoxia; I13.0 Hypertensive heart and chronic kidney disease with heart failure and stage 1 through stage 4 chronic kidney disease, or unspecified chronic kidney disease; M62.82 Rhabdomyolysis; E87.2 Acidosis; N39.0 Urinary tract infection, site not specified; G81.94 Hemiplegia, unspecified affecting left nondominant side; I50.84 End stage heart failure; M10.9 Gout, unspecified; R13.12 Dysphagia, oropharyngeal phase; B96.1 Klebsiella pneumoniae [K. pneumoniae] as the cause of diseases classified elsewhere; D64.9 Anemia, unspecified; N18.3 Chronic kidney disease, stage 3 (moderate); E03.9 Hypothyroidism, unspecified; G47.33 Obstructive sleep apnea (adult) (pediatric); I48.0 Paroxysmal atrial fibrillation; I27.20 Pulmonary hypertension, unspecified; E11.22 Type 2 diabetes mellitus with diabetic chronic kidney disease; E78.2 Mixed hyperlipidemia; E87.5 Hyperkalemia; Z86.73 Personal history of transient ischemic attack (TIA), and cerebral infarction without residual deficits; Z87.01 Personal history of pneumonia (recurrent); Z88.8 Allergy status to other drugs, medicaments and biological substances; Z88.5 Allergy status to narcotic agent; Z88.6 Allergy status to analgesic agent; Z79.01 Long term (current) use of anticoagulants; Z79.4 Long term (current) use of insulin; E87.6 Hypokalemia
CPT/HCPCS: 36415; 70450; 70551; 71045; 76770; 80048; 80053; 80061; 80320; 81001; 82550; 82553; 82570; 82607; 82728; 82747; 82803; 82962; 83550; 83880; 83930; 84156; 84300; 84484; 84550; 85025; 85027; 85045; 85610; 85730; 86334; 87076; 87086; 87116; 87186; 93005; 93010; 93306; 93880; 93970; 94644; 94760; 96374; G0378; A9270-GY; G0480; J0696; J1170; J1644; J1815; J1940; J2060; J7050; J7070